=== PATIENT | female | born 1965 | race Caucasian/White ===

== ENCOUNTER 2023-10-26 19:07 | Inpatient (IN) | payer OTHER ==
--- NOTE | 2023-10-26 19:34 | ED ---
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 Paramedics have been called with altered mental status and shallow respiration. The patient was found to be hypoxic and unresponsive. Patient received BVM respirations and Narcan was administered. At the time of arrival the patient is alert and oriented. She has no physical complaints with the exception of left arm pain. She states that she had fallen several days ago and had not been evaluated for this complaint. She does admit to taking oral morphine but states she took it this morning and is presenting at approximately 7 PM. No chest pain, no abdominal pain, no focal numbness or weakness. No headache. No fever. - Related Data Allergies Allergy/AdvReac Type Severity Reaction Status Date / Time divalproex sodium AdvReac Unknown Verified 10/26/23 19:20 [From Depakote] phenytoin [From Dilantin] AdvReac Unknown Verified 10/26/23 19:20 Review of Systems ROS Statement: Those systems with pertinent positive or pertinent negative responses have been documented in the HPI. ROS Other: All systems not noted in ROS Statement are negative. Past Medical History Additional Past Medical History / Comment(s): Per EMS COPD History of Any Multi-Drug Resistant Organisms: None Reported Past Surgical History: Unable to Obtain Past Psychological History: No Psychological Hx Reported Smoking Status: Never smoker Past Alcohol Use History: None Reported Past Drug Use History: None Reported General Exam Limitations: no limitations General appearance: alert, in no apparent distress Head exam: Present: atraumatic, normocephalic Eye exam: Present: normal appearance, PERRL ENT exam: Present: mucous membranes dry Neck exam: Present: normal inspection. Absent: tenderness, meningismus Respiratory exam: Present: other (Shallow respirations). Absent: respiratory distress Cardiovascular Exam: Present: regular rate, normal rhythm GI/Abdominal exam: Present: soft. Absent: distended, tenderness, guarding Extremities exam: Present: other (Swelling and ecchymosis of the left mid upper arm, distal pulses intact) Neurological exam: Present: alert, oriented X3, CN II-XII intact. Absent: motor sensory deficit Psychiatric exam: Present: normal affect, normal mood Skin exam: Present: warm, dry Course Vital Signs 10/26/23 19:16 Temperature 98.7 F Pulse Rate 80 Respiratory 28 H Rate Blood Pressure 80/54 O2 Sat by Pulse 99 Oximetry Medical Decision Making - Medical Decision Making Was pt. sent in by a medical professional or institution ([facility], [employer], urgent care, hospital, or group home...) When possible be specific @ -No Did you speak to anyone other than the patient for history (EMS, parent, family, police, friend...)? What history was obtained from this source @ -No Did you review nursing and triage notes (agree or disagree)? Why? @ -I reviewed and agree with nursing and triage notes Were old charts reviewed (outside hosp., previous admission, EMS record, old EKG, old radiological studies, urgent care reports/EKG's, group home records)? Report findings @ -No old charts were reviewed Differential Diagnosis (chest pain, altered mental status, abdominal pain women, abdominal pain men, vaginal bleeding, weakness, fever, dyspnea, syncope, headache, dizziness, GI bleed, back pain, seizure, CVA, palpatations, mental health, musculoskeletal)? @ -Differential Altered Mental Status: Hypoglycemia, DKA, hypercapnia, ETOH, overdose, CO poisoning, trauma, myxedema coma, HTN encephalopathy, infection, encephalitis, psychosis, intercranial hemorrhage, hepatic encephalopathy, meningitis, CVA, this is not meant to be an all-inclusive list EKG interpreted by me (3pts min.). @Sinus rhythm rate of 80, DE interval 163, QRS duration 93, QTc [address] segment elevation. X-rays interpreted by me (1pt min.). @ -X-ray left shoulder, humerus shows proximal comminuted humerus fracture, no dislocation. CT interpreted by me (1pt min.). @ -None done U/S interpreted by me (1pt. min.). @ -None done What testing was considered but not performed or refused? (CT, X-rays, U/S, labs)? Why? @ -None What meds were considered but not given or refused? Why? @ -None Did you discuss the management of the patient with other professionals (professionals i.e. [facility], [employer], lab, RT, psych nurse, social work supervisor, public records officer, teacher, guest services officer, field case manager)? Give summary @ -No Was smoking cessation discussed for >3mins.? @ -No Was critical care preformed (if so, how long)? @ -No Were there social determinants of health that impacted care today? How? (Homelessness, low income, unemployed, alcoholism, drug addiction, transportation, low edu. Level, literacy, decrease access to med. care, half-way, rehab)? @ -No Was there de-escalation of care discussed even if they declined (Discuss DNR or withdrawal of care, Hospice)? DNR status @ -No What co-morbidities impacted this encounter? (DM, HTN, Smoking, COPD, CAD, Cancer, CVA, ARF, Chemo, Hep., AIDS, mental health diagnosis, sleep apnea, morbid obesity)? @ -COPD, leukemia, chronic kidney disease. Was patient admitted / discharged? Hospital course, mention meds given and route, prescriptions, significant lab abnormalities, going to OR and other pertinent info. @ -Further history is obtained on this patient from family state that she just moved to the area. She has history of leukemia and is apparently in remission. She states she does have history of chronic kidney disease but is uncertain of her baseline kidney function. She had fallen approximately 4 days prior with left shoulder injury. Fracture is confirmed on x-ray. Patient placed in a sling. She does remain alert throughout the [facility] Potassium is elevated 6.2, will provide hydration and will test repeat CMP. Patient will be admitted with both nephrology and orthopedics on consult. Patient is being admitted for hyperkalemia and kidney disease not for her orthopedic injury. Undiagnosed new problem with uncertain prognosis? @ -No Drug Therapy requiring intensive monitoring for toxicity (Heparin, Nitro, Insu essence, Cardizem)? @ -No Were any procedures done? @ -No Diagnosis/symptom? @ -SCOTT, hyperkalemia, dehydration, left humerus fracture Acute, or Chronic, or Acute on Chronic? @ -[Acute on chronic Uncomplicated (without systemic symptoms) or Complicated (systemic symptoms)? @ -Default Side effects of treatment? @ -No Exacerbation, Progression, or Severe Exacerbation? @ -No Poses a threat to life or bodily function? How? (Chest pain, USA, GA, pneumonia, PE, COPD, DKA, ARF, appy, cholecystitis, CVA, Diverticulitis, Homicidal, Suicidal, threat to staff... and all critical care pts) @ -Yes, hyperkalemia - Lab Data Result diagrams: 10/26/23 20:10 10/26/23 20:59 Lab Results 10/26/23 10/26/23 10/26/23 Range/Units 19:33 20:10 20:59 WBC 1.9 L (3.8-10.6) k/uL RBC 3.02 L (3.80-5.40) m/uL Hgb 10.4 L (11.4-16.0) gm/dL Hct 32.8 L (34.0-46.0) % MCV 108.8 H (80.0-100.0) fL MCH 34.6 (25.0-35.0) pg MCHC 31.8 (31.0-37.0) g/dL RDW 17.3 H (11.5-15.5) % Plt Count 109 L (150-450) k/uL MPV 9.6 Neutrophils % 65 % Lymphocytes % 25 % Monocytes % 6 % Eosinophils % 1 % Basophils % 0 % Neutrophils # 1.2 L (1.3-7.7) k/uL Lymphocytes # 0.5 L (1.0-4.8) k/uL Monocytes # 0.1 (0-1.0) k/uL Eosinophils # 0.0 (0-0.7) k/uL Basophils # 0.0 (0-0.2) k/uL Manual Slide Review Performed Polychromasia Present Anisocytosis Slight Anisocytosis (manual) Present Macrocytosis Marked A Sodium 134 L 135 L (137-145) mmol/L Potassium 6.2 H* 5.2 H (3.5-5.1) mmol/L Chloride 105 108 H (98-107) mmol/L Carbon Dioxide 20 L 22 (22-30) mmol/L Anion Gap 9 5 mmol/L BUN 55 H 53 H (7-17) mg/dL Creatinine 2.09 H 2.06 H (0.52-1.04) mg/dL Est GFR (CKD-EPI)AfAm 30 30 (>60 ml/min/1.73 sqM) Est GFR (CKD-EPI)NonAf 26 26 (>60 ml/min/1.73 sqM) Glucose 122 H 119 H (74-99) mg/dL Calcium 7.8 L 7.2 L (8.4-10.2) mg/dL Magnesium 2.1 (1.6-2.3) mg/dL Total Bilirubin 1.1 0.8 (0.2-1.3) mg/dL AST 112 H 89 H (14-36) U/L ALT 102 H 89 H (4-34) U/L Alkaline Phosphatase 125 124 (38-126) U/L Total Protein 6.2 L 5.3 L (6.3-8.2) g/dL Albumin 3.4 L 2.8 L (3.5-5.0) g/dL Disposition Clinical Impression: Altered mental status, Hyperkalemia, Humerus fracture Disposition: ADMITTED IP TO THIS HOSP Condition: Stable Is patient prescribed a controlled substance at d/c from ED?: No Referrals: None,Stated [Primary Care Provider] - 1-2 days Time of Disposition: 21:53
[2023-10-26 19:52] LABS: ALT 102 U/L (4-34); African American GFR (CKD) 30 (>60 ml/min/1.73 sqM); Anion Gap 9 mmol/L; Blood Urea Nitrogen 55 mg/dL (7-17); Calcium 7.8 mg/dL (8.4-10.2); Carbon Dioxide 20 mmol/L (22-30); Chloride 105 mmol/L (98-107); Glucose 122 mg/dL (74-99); Non-African American GFR(CKD) 26 (>60 ml/min/1.73 sqM); Sodium 134 mmol/L (137-145); Total Bilirubin 1.1 mg/dL (0.2-1.3)
[2023-10-26] MEDS: SODIUM CHLORIDE 0.9% 500 ML 500 ML IV ONE ×2 (19:52→20:36)
[2023-10-26 20:10] LABS: Alkaline Phosphatase 125 U/L (38-126); Total Protein 6.2 g/dL (6.3-8.2)
[2023-10-26 20:11] LABS: AST 112 U/L (14-36); Albumin 3.4 g/dL (3.5-5.0); Magnesium 2.1 mg/dL (1.6-2.3)
[2023-10-26 20:12] LABS: Potassium 6.2 mmol/L (3.5-5.1)
[2023-10-26 20:17] LABS: Anisocytosis Slight; Basophils % (A) 0 %; Eosinophils % (A) 1 %; HCT 32.8 % (34.0-46.0); HGB 10.4 gm/dL (11.4-16.0); Lymphocytes # (A) 0.5 k/uL (1.0-4.8); Lymphocytes % (A) 25 %; MCH 34.6 pg (25.0-35.0); MCHC 31.8 g/dL (31.0-37.0); MCV 108.8 fL (80.0-100.0); Macrocytosis Marked; Mean Platelet Volume 9.6; Monocytes # (A) 0.1 k/uL (0-1.0); Monocytes % (A) 6 %; Neutrophils # (A) 1.2 k/uL (1.3-7.7); Neutrophils % (A) 65 %; Platelet Count 109 k/uL (150-450); RBC 3.02 m/uL (3.80-5.40); RDW 17.3 % (11.5-15.5); WBC 1.9 k/uL (3.8-10.6)
--- NOTE | 2023-10-26 20:30 | XR ---
Left shoulder. HISTORY: Painful internal COMPARISON: None TECHNIQUE: 4 views left shoulder were obtained. There is a 3 or 4 part fracture of the left humeral head. Is uncertain whether the lesser tuberosity is involved but there is a fracture of the greater tuberosity and of the surgical neck. There is widening of the AC joint region the question of AC joint separation. IMPRESSION: 1. 3 or 4 part fracture of the left humeral head. 2. Widening of the AC joint suggestive of AC joint separation.
--- NOTE | 2023-10-26 20:32 | XR ---
Left humerus. HISTORY: Pain findings COMPARISON: None. TECHNIQUE: 2 views left humerus are obtained. Planes: There is a 3 or 4 part humeral head fracture. The shaft and distal aspect of the left humerus are int act. There is no radiopaque foreign body. IMPRESSION: Fractured left humeral head as described above.
[2023-10-26 21:08] LABS: Anisocytosis (M) Present; Polychromasia Present
[2023-10-26 21:20] LABS: ALT 89 U/L (4-34); AST 89 U/L (14-36); African American GFR (CKD) 30 (>60 ml/min/1.73 sqM); Albumin 2.8 g/dL (3.5-5.0); Alkaline Phosphatase 124 U/L (38-126); Anion Gap 5 mmol/L; Blood Urea Nitrogen 53 mg/dL (7-17); Calcium 7.2 mg/dL (8.4-10.2); Carbon Dioxide 22 mmol/L (22-30); Chloride 108 mmol/L (98-107); Glucose 119 mg/dL (74-99); Non-African American GFR(CKD) 26 (>60 ml/min/1.73 sqM); Potassium 5.2 mmol/L (3.5-5.1); Sodium 135 mmol/L (137-145); Total Bilirubin 0.8 mg/dL (0.2-1.3); Total Protein 5.3 g/dL (6.3-8.2)
[2023-10-26] MEDS: SODIUM CHLORIDE 0.9% 1,000 ML IV SCH (22:30)
[2023-10-27] MEDS: SODIUM CHLORIDE 0.9% 1,000 ML IV ONE ×3 (02:37→06:22)
[2023-10-27 03:40] LABS: Glucose,Whole Blood 131 mg/dL (70-110)
--- NOTE | 2023-10-27 04:47 | P.EN ---
A- team: Indication: Altered mental status and hypotension Arrived on Scene to find: Patient somewhat confused but answering questions appropriately Vital signs reviewed: BP 86/32, pulse 75, respiratory rate 16, and SpO2 97% on 3 L nasal cannula oxygen Patient seen and examined at bedside after she was noted to have worsening mental status by the RN. Patient reported that she had come to the hospital due to a fall and 2 days ago where she injured her left arm after tripping on something. She reports ongoing mild left arm pain with denies any additional complaints. Denied experiencing chest discomfort, abdominal pain, headaches, visual disturbances, nausea, vomiting, diaphoresis. Upon chart review, it was noted that the patient was found unresponsive at home by her family members with bradycardia and bradypnea and was given Narcan intranasally via EMS which significantly improved the patient's mentation. The patient who recently moved from [place] where she was undergoing treatment for leukemia (unknown type), who was getting prescriptions of oral morphine, and is currently trying to find a local oncologist. The patient was given Narcan IV prior to my arrival at the scene which did improve the patient's mentation. General: [non toxic], [no distress], [appears older than stated age] Derm: [warm], [dry] Head: [atraumatic], [normocephalic], [symmetric] Eyes: [EOMI], [no lid lag], [anicteric sclera] Mouth: [no lip lesion], [mucus membranes moist] Cardiovascular: [S1S2 reg], [no murmur], [positive posterior tibial pulse bilateral], Lungs: [CTA bilateral], [no rhonchi, no rales] , [no accessory muscle use] Abdominal: [soft], [ nontender to palpation], [no guarding], [no appreciable organomegaly] Ext: [no gross muscle atrophy], [no edema], [no contractures] Neuro: [ CN II-XI grossly intact], [no focal neuro deficits] Psych: [Somewhat slow to respond], [oriented], [appropriate affect] Assessment: Hypotension, suspect due to dehydration versus opiate overdose Altered mental status, suspect due to above Kidney injury, acute versus chronic Macrocytic anemia Leukemia, unknown type Plan: Normal saline 1 L bolus ordered Maintenance fluid at 130 mL/h CT brain without contrast ordered Obtain lactic acid and ammonia levels Follow-up VBG Narcan as needed Monitor BMP Disposition: Admit patient to 3 S. Notified: Primary team notified by RN A Total of 45 minutes of critical care time was spent on the complex care of this patient.
[2023-10-27 04:52] LABS: Lactic Acid, Venous 0.6 mmol/L (0.7-2.0)
--- NOTE | 2023-10-27 04:52 | CT ---
EXAMINATION TYPE: CT brain wo con DATE OF EXAM: 10/27/2023 HISTORY: Found unresponsive at home by family. Last well known was noon. Patient covered in vomit and barely responsive. Bagged until Narcan kicked in. CT DLP: 1212.6 mGycm. Automated Exposure Control for Dose Reduction was Utilized. TECHNIQUE: CT scan of the head is performed without contrast. COMPARISON: None. FINDINGS: There is no acute intracranial hemorrhage or midline shift identified. There is mild diff use ventricular and sulcal prominence consistent with diffuse age-related cerebral atrophy. Covarrubias-whit e matter differentiation is maintained. The globes are intact and the visualized sinuses are clear. IMPRESSION: No acute intracranial hemorrhage or midline shift.
[2023-10-27 05:03] LABS: VBG PH 7.2 (7.31-7.41)
[2023-10-27 05:21] LABS: Amorphous Sediment,Urine Moderate /hpf; Appearance,Urine Cloudy (Clear); Bilirubin,Urine Negative (Negative); Blood,Urine Moderate (Negative); Color,Urine Light Red; Glucose,Urine (UA) Negative (Negative); Hyaline Casts,Urine 23 /lpf (0-2); Ketones,Urine Negative (Negative); Leukocyte Esterase,Urine Negative (Negative); Mucus,Urine Rare /hpf; Nitrite,Urine Negative (Negative); PH, Urine 5.5 (5.0-8.0); Protein,Urine Trace (Negative); RBC,Urine 48 /hpf (0-5); Specific Gravity,Urine 1.019 (1.001-1.035); Squamous Epithelial Cell,Urine <1 /hpf (0-4); Urobilinogen,Urine <2.0 mg/dL (<2.0); WBC,Urine 3 /hpf (0-5)
[2023-10-27] MEDS: NALOXONE 0.4 MG/ML 1 ML VIAL IV PRN (05:37)
[2023-10-27] MEDS: NALOXONE (MDV) 2 MG in SODIUM CHLORIDE 0.9% 250 ML IV SCH (06:10)
--- NOTE | 2023-10-27 06:13 | XR ---
EXAMINATION TYPE: XR chest 1V portable DATE OF EXAM: 10/27/2023 CLINICAL HISTORY: Shortness of breath TECHNIQUE: Single AP portable frontal supine view of the chest is obtained. COMPARISON: None FINDINGS: Low lung volumes are seen. There is lateral right mid lung linear scarring. Left lung is cl ear. The cardiac silhouette size is enlarged. Overlying sternal wires are present. Osseous structures are intact. IMPRESSION: Low lung volumes. Cardiomegaly without suspicious acute pulmonary process.
[2023-10-27] MEDS: NOREPINEPHRINE 4 MG in SODIUM CHLORIDE 0.9% 250 ML IV SCH (06:21)
[2023-10-27 06:34] LABS: Glucose,Whole Blood 135 mg/dL (70-110)
--- NOTE | 2023-10-27 06:42 | XR ---
EXAMINATION TYPE: XR chest 1V portable DATE OF EXAM: 10/27/2023 CLINICAL HISTORY: Confirm line placement. TECHNIQUE: Single AP portable supine view of the chest is obtained. COMPARISON: Chest x-ray from earlier today FINDINGS: There is a right internal jugular central venous catheter terminating in right atrium. No obvious pneumothorax given the limitation of supine technique. Sternal wires redemonstrated. Cardiac silhouette size stable and mildly enlarged. Mild bilateral righ t mid lung linear scarring and/or atelectasis otherwise lungs remain clear. Osseous structures are in tact. IMPRESSION: As above.
[2023-10-27] MEDS: IPRATROPIUM-ALBUTEROL 3 ML NEB INHALATION STA (06:44)
[2023-10-27] MEDS: NALOXONE 0.4 MG/ML 1 ML VIAL IVP STA (06:46)
[2023-10-27] MEDS: methylPREDNISolone SOD SUCCI 125 MG/2 ML VIAL IV STA (07:04)
--- NOTE | 2023-10-27 07:40 | P.CNPUL ---
History of Present Illness Consult date: 10/27/23 Requesting physician: Bhargav Romo Reason for consult: other (Hypotension/shock; ICU management) Chief complaint: Altered mental status History of present illness: I am seeing this patient in consultation today 10/27/2023 in the emergency room, after an A-team was called earlier for altered mental status and hypotension. Patient is a 57-year-old white female with little known past medical history, she reportedly has history of leukemia. She is currently obtunded and I am unable to elicit any information. There is no family at bedside and no listed next of kin in the chart. According to the ER documentation, the paramedics had found the patient altered with shallow respirations. She was unresponsive at that time. She did require BVM respirations and Narcan was administered. Reportedly, the patient takes morphine as needed at home. She did reportedly respond initially to the Narcan in route to the hospital. On arrival, she had some left arm pain, limited range of motion, and ecchymosis. She reportedly had fallen several days ago. Left shoulder x-ray showed widening of the A/C joint suggestive of AC joint separation and 3 or 4 part fracture of the left humeral head. As stated above, an A team was called earlier this morning and again prior to this transfer to the ICU. The patient has been experiencing intermittent episodes of unresponsiveness, requiring subsequent doses of Narcan, and ultimately a Narcan infusion which is currently infusing at 0.6 mg/h.. VBG did show a pH of 7.2, pCO2 of 53. I did place her on BiPAP with settings 12/5 and FiO2 of 35%. She is generating tidal volumes of around 500 and her respiratory rate is in the mid 20s. She is obtunded, and intermittently follows commands. This was followed by a brain CT which did not show any intracranial hemorrhage or midline shift. During the rapid response, the patient became profoundly hypotensive. She has received several liters fluid bolus while in the emergency room, I am told a total of 5 L normal saline. She was started on norepinephrine, which is currently infusing at 0.12 mcg/kg/min. The ER physician did insert a right IJ triple-lumen catheter. Chest x-ray shows the right IJ triple-lumen catheter within the right atrium. There is cardiomegaly without any acute cardiopulmonary process. There are old sternotomy wires. CBC on arrival consistent with pancytopenia. WBC count 1.9, hemoglobin 10.4, hematocrit 32.8, platelets 109. BMP on arrival: Sodium 134, potassium 6.2, c hloride 105, serum bicarb 20, BUN 55, creatinine 2.09, glucose 122. Potassium is now down to 5.2. LFTs mildly elevated. Total bili 0.8. Ammonia less than 9. Lactic acid level 0.6. Urinalysis not concerning for UTI. EKG done on arrival shows normal sinus rhythm without any obvious acute ischemic changes. Patient is at high risk for intubation, she will be monitored in the intensive care unit. Review of Systems ROS unobtainable: due to mental status Past Medical History Additional Past Medical History / Comment(s): Per EMS COPD History of Any Multi-Drug Resistant Organisms: None Reported Past Surgical History: Unable to Obtain Past Psychological History: No Psychological Hx Reported Smoking Status: Never smoker Past Alcohol Use History: None Reported Past Drug Use History: None Reported Medications and Allergies Allergies Allergy/AdvReac Type Severity Reaction Status Date / Time divalproex sodium AdvReac Unknown Verified 10/26/23 19:20 [From Depakote] phenytoin [From Dilantin] AdvReac Unknown Verified 10/26/23 19:20 Physical Exam Vitals: Vital Signs Temp Pulse Resp BP Pulse Ox FiO2 10/27/23 06:45 30 H 10/27/23 06:43 35 10/27/23 06:10 10 L 10/27/23 06:08 50 10/27/23 05:40 79 10 L 63/33 98 10/27/23 05:37 8 L 10/27/23 05:30 72 12 65/31 98 10/27/23 05:29 72 18 65/31 97 10/27/23 05:20 72 10 L 70/34 97 10/27/23 05:00 73 14 63/41 97 10/27/23 04:40 76 22 101/83 97 10/27/23 04:20 76 14 79/59 97 10/27/23 04:00 76 21 75/57 96 10/27/23 03:40 79 14 69/50 10/27/23 03:20 77 14 98/40 97 10/27/23 03:00 77 21 93/48 97 03/26/24 02:54 77 12 72/56 98 10/27/23 02:20 76 16 64/45 96 10/27/23 02:00 75 16 82/63 96 10/27/23 01:40 75 16 82/46 96 10/27/23 01:20 76 16 81/60 97 10/27/23 01:00 75 16 91/54 97 10/27/23 00:40 76 18 93/59 97 10/27/23 00:20 76 17 76/44 98 10/27/23 00:00 76 17 83/58 98 10/26/23 23:45 76 19 79/44 97 10/26/23 23:40 77 15 65/55 98 10/26/23 23:20 77 16 64/47 98 10/26/23 23:00 78 15 87/30 98 10/26/23 22:40 79 15 91/52 97 10/26/23 22:00 82 16 91/52 96 10/26/23 21:00 82 15 83/62 97 10/26/23 20:00 80 21 97/49 98 10/26/23 19:47 80 16 98 10/26/23 19:16 98.7 F 80 28 H 80/54 99 Intake and Output 10/26/23 10/26/23 10/27/23 14:59 22:59 06:59 Intake Total 48.07 Balance 48.07 Intake: Intake, IV Titration 48.07 Amount Naloxone (Mdv) 2 mg In 43.75 Sodium Chloride 0.9% 250 ml @ 0.6 MG/HR 75 mls/hr IV .Q3H20M [facility] Rx#: [id number] Norepinephrine 4 mg In 4.32 Sodium Chloride 0.9% 250 ml @ 0.03 MCG/KG/MIN 10. 369 mls/hr IV .Q24H [facility] Rx#:[id number] Other: Weight 90.718 kg GENERAL EXAM: Obtunded, 57-year-old obese female, intermittently follows commands, on BiPAP. HEAD: Normocephalic and atraumatic EYES: Normal reaction of pupils, equal size. NOSE: Clear with pink turbinates. THROAT: No erythema or exudates. NECK: No masses, no JVD. RAMU-like features CHEST: Old sternotomy incisional scar LUNGS: Intermittent periods of apnea. Equal air entry with no crackles, wheeze, rhonchi or dullness. Lung sounds are sonorous. On BiPAP with settings 12/5 and FiO2 of 35%, generating tidal volumes of around 500 and respiratory rate of mid 20s CVS: S1 and S2 normal with no audible murmur, regular rhythm. No extra heart sounds ABDOMEN: Obese abdomen, no hepatosplenomegaly, active bowel sounds, no guarding or rigidity. SPINE: No scoliosis or deformity SKIN: No rashes CENTRAL NERVOUS SYSTEM: No focal deficits, tone is normal in all 4 extremities. EXTREMITIES: There is no peripheral edema, clubbing, or cyanosis. Peripheral pulses are intact. Remote appearing bilateral knee incisions Results - Laboratory Findings CBC and BMP: 10/26/23 20:10 10/26/23 20:59 Abnormal lab findings: Abnormal Labs 10/26/23 10/26/23 10/26/23 19:33 20:10 20:59 WBC 1.9 L RBC 3.02 L Hgb 10.4 L Hct 32.8 L MCV 108.8 H RDW 17.3 H Plt Count 109 L Neutrophils # 1.2 L Lymphocytes # 0.5 L Macrocytosis Marked A VBG pH VBG pCO2 VBG HCO3 Sodium 134 L 135 L Potassium 6.2 H* 5.2 H Chloride 108 H Carbon Dioxide 20 L BUN 55 H 53 H Creatinine 2.09 H 2.06 H Glucose 122 H 119 H POC Glucose (mg/dL) Plasma Lactic Acid Bryant Calcium 7.8 L 7.2 L AST 112 H 89 H ALT 102 H 89 H Total Protein 6.2 L 5.3 L Albumin 3.4 L 2.8 L Urine Appearance Urine Protein Urine Blood Urine RBC Amorphous Sediment Hyaline Casts Urine Mucus 10/27/23 10/27/23 10/27/23 03:38 04:00 04:03 WBC RBC Hgb Hct MCV RDW Plt Count Neutrophils # Lymphocytes # Macrocytosis VBG pH VBG pCO2 VBG HCO3 Sodium Potassium Chloride Carbon Dioxide BUN Creatinine Glucose POC Glucose (mg/dL) 131 H Plasma Lactic Acid Bryant 0.6 L Calcium AST ALT Total Protein Albumin Urine Appearance Cloudy H Urine Protein Trace H Urine Blood Moderate H Urine RBC 48 H Amorphous Sediment Moderate H Hyaline Casts 23 H Urine Mucus Rare H 10/27/23 10/27/23 04:03 06:33 WBC RBC Hgb Hct MCV RDW Plt Count Neutrophils # Lymphocytes # Macrocytosis VBG pH 7.20 L* VBG pCO2 53 H VBG HCO3 21 L Sodium Potassium Chloride Carbon Dioxide BUN Creatinine Glucose POC Glucose (mg/dL) 135 H Plasma Lactic Acid Bryant Calcium AST ALT Total Protein Albumin Urine Appearance Urine Protein Urine Blood Urine RBC Amorphous Sediment Hyaline Casts Urine Mucus - Diagnostic Findings Chest x-ray: image reviewed Assessment and Plan Assessment: Altered mental status, possible unintentional opiate overdose, the patient reportedly takes morphine at home. Noncontrast brain CT did not show any intracranial hemorrhage or mass effect. Acute hypoxemic and hypercapnic respiratory failure, currently on BiPAP, possibly secondary to above Profound refractory hypotension and shock, requiring vasopressors in the form of norepinephrine. Left humeral fracture, shoulder and humeral x-ray shows 3 to 4 part fracture of the left humeral head and widening of the AC joint suggestive of AC joint separation. History of leukemia, unknown type Suspected acute kidney injury, secondary to hypotension and ATN, no baseline creatinine available Severe hyperkalemia, improved Pancytopenia History of leukemia, unknown type Mild transaminitis Fall Obesity, with a BMI of 35.4 kg/m Plan: Patient's medications, labs, chest x-ray reviewed Continue BiPAP with current settings Repeat ABG Continue Narcan infusion which is currently infusing at 0.6 mg/min Urine drug screen pending. Central line placed by ER physician, tip appears to be in the right atrium Hypotension is refractory to fluid resuscitation with a total of 5 L normal saline bolus given, currently requiring high-dose norepinephrine infusion Blood cultures are pending. Patient did receive 2 g Rocephin in the emergency room, which is essentially empiric. No obvious source of infection identified yet. Echocardiogram pending. We will continue to follow, and additional recommendations are forthcoming. Patient will be monitored in the intensive care unit, she is at high risk for intubation. Prognosis guarded. I have personally seen and examined the patient, performed the documentation and the assessment and plan as written. Number of minutes spent on the visit:20 Time with Patient: Greater than 30
[2023-10-27 07:45] LABS: Anisocytosis Slight; Basophils % (A) 0 %; Eosinophils % (A) 0 %; HGB 9.4 gm/dL (11.4-16.0); Hypochromasia Marked; Lymphocytes # (A) 0.4 k/uL (1.0-4.8); Lymphocytes % (A) 15 %; MCH 35.2 pg (25.0-35.0); MCHC 31.2 g/dL (31.0-37.0); MCV 112.9 fL (80.0-100.0); Macrocytosis Marked; Mean Platelet Volume 9.2; Monocytes # (A) 0.2 k/uL (0-1.0); Monocytes % (A) 7 %; Neutrophils # (A) 2.1 k/uL (1.3-7.7); Neutrophils % (A) 74 %; RBC 2.66 m/uL (3.80-5.40); RDW 17.4 % (11.5-15.5); WBC 2.8 k/uL (3.8-10.6)
[2023-10-27 07:47] LABS: Platelet Count 103 k/uL (150-450)
[2023-10-27 07:51] LABS: Lactic Acid, Venous 0.7 mmol/L (0.7-2.0)
[2023-10-27 07:53] LABS: ALT 96 U/L (4-34); AST 136 U/L (14-36); African American GFR (CKD) 26 (>60 ml/min/1.73 sqM); Albumin 2.5 g/dL (3.5-5.0); Albumin/Globulin Ratio 1.1; Alkaline Phosphatase 120 U/L (38-126); Anion Gap 10 mmol/L; Blood Urea Nitrogen 58 mg/dL (7-17); Calcium 6.6 mg/dL (8.4-10.2); Carbon Dioxide 13 mmol/L (22-30); Chloride 114 mmol/L (98-107); Globulin 2.3 g/dL; Glucose 128 mg/dL (74-99); Magnesium 1.8 mg/dL (1.6-2.3); Non-African American GFR(CKD) 22 (>60 ml/min/1.73 sqM); Potassium 5.2 mmol/L (3.5-5.1); Sodium 137 mmol/L (137-145); Total Bilirubin 1.1 mg/dL (0.2-1.3); Total Protein 4.8 g/dL (6.3-8.2)
[2023-10-27 08:51] LABS: Amphetamine Screen,Urine Not Detected (NotDetected); Barbiturate Screen,Urine Not Detected (NotDetected); Benzodiazepines Screen,Urine Detected (NotDetected); Cocaine Screen,Urine Not Detected (NotDetected); Methadone Screen, Urine Not Detected (NotDetected); Opiate Screen,Urine Detected (NotDetected); Oxycodone Screen, Urine Not Detected (NotDetected); Phencyclidine Screen,Urine Not Detected (NotDetected); Tricyclic Antidepressant,Urine Detected (NotDetected); Urn Cannabinoid Scrn Not Detected (NotDetected)
--- NOTE | 2023-10-27 09:00 | US ---
EXAMINATION TYPE: US renals and bladder DATE OF EXAM: 10/27/2023 COMPARISON: NONE CLINICAL INDICATION: Female, 57 years old with history of SCOTT; ICU pt that is not responsive to quest ioning, on breathing machine EXAM MEASUREMENTS: Right Kidney: 10.4 x 4.9 x 5.6 cm Left Kidney: 8.0 x 5.0 x 5.0 cm limited exam due to habitus and bowel gas Right Kidney: No hydronephrosis or masses seen Left Kidney: Smaller in size, no hydronephrosis or masses seen Bladder: not seen Renal cortex thickness is normal bilaterally. Echogenicity maintained. IMPRESSION: No hydronephrosis or nephrolithiasis.
--- NOTE | 2023-10-27 09:12 | P.CNOR ---
History of Present Illness - [facility] Consult date: 10/27/23 Consult reason: fracture (Left proximal humerus fracture) History of present illness: Patient is a 57-year-old female who is seen and examined in the ICU for further evaluation for a left proximal humerus fracture. She originally presented to the emergency department yesterday for altered mental status and hypotension. Patient is known to have a history of leukemia. She does use morphine. She did have some benefit with Narcan. She was in the emergency department with plans for transfer up to fifth floor. Since that time, patient has been having episodes of unresponsiveness. A Team was called to the emergency department. During rapid response patient did become profoundly hypotensive. Patient was transferred to the ICU. She is currently obtunded. She is not responsive currently to stimulation at the bedside. She is currently on BiPAP. She does have a sling for the left upper extremity which was placed in the emergency department. Patient was found to have hyperkalemia as well as pancytopenia. Patient has a history of kidney disease. Most of the history was obtained through patient's family who is not currently at the bedside. CT imaging of the brain was negative for acute intracranial hemorrhage or midline shift. Past Medical History Additional Past Medical History / Comment(s): Per EMS COPD History of Any Multi-Drug Resistant Organisms: None Reported Past Surgical History: Unable to Obtain Past Psychological History: No Psychological Hx Reported Smoking Status: Never smoker Past Alcohol Use History: None Reported Past Drug Use History: None Reported - Past Family History Mother Family Medical History: Congestive Heart Failure (CHF), Coronary Artery Disease (CAD), Hyperlipidemia, Myocardial Infarction (MO) Additional Family Medical History / Comment(s): CABG,knee replacement x1, Medications and Allergies Allergies Allergy/AdvReac Type Severity Reaction Status Date / Time divalproex sodium Allergy Unknown Verified 10/27/23 10:00 [From Depakote] phenytoin [From Dilantin] Allergy Unknown Verified 10/27/23 10:00 Physical Examination Osteopathic Statement: *. No significant issues noted on an osteopathic structural exam other than those noted in the History and Physical/Consult. Physical Exam: Patient is obtunded currently on BiPAP and unable to communicate at the bedside Sling intact over the left upper extremity but strap not wrapped around the patient's neck Evidence of some ecchymosis over the left proximal humerus Some generalized swelling with her left upper extremity Patient is nonresponsive to palpation over the left proximal humerus Results Pertinent studies: X-rays of the left humerus and shoulder taken on 10/26/2023: Evidence of 3 or 4 part fracture of the left humeral head; widening of the AC joint suggestive of AC joint separation - Labs Labs: Abnormal Lab Results - Last 24 Hours (Table) 10/26/23 10/26/23 10/26/23 Range/Units 19:33 20:10 20:59 WBC 1.9 L (3.8-10.6) k/uL RBC 3.02 L (3.80-5.40) m/uL Hgb 10.4 L (11.4-16.0) gm/dL Hct 32.8 L (34.0-46.0) % MCV 108.8 H (80.0-100.0) fL MCH (25.0-35.0) pg RDW 17.3 H (11.5-15.5) % Plt Count 109 L (150-450) k/uL Neutrophils # 1.2 L (1.3-7.7) k/uL Lymphocytes # 0.5 L (1.0-4.8) k/uL Macrocytosis Marked A VBG pH (7.31-7.41) VBG pCO2 (37-51) mmHg VBG HCO3 (24-28) mmol/L Sodium 134 L 135 L (137-145) mmol/L Potassium 6.2 H* 5.2 H (3.5-5.1) mmol/L Chloride 108 H (98-107) mmol/L Carbon Dioxide 20 L (22-30) mmol/L BUN 55 H 53 H (7-17) mg/dL Creatinine 2.09 H 2.06 H (0.52-1.04) mg/dL Glucose 122 H 119 H (74-99) mg/dL POC Glucose (mg/dL) (70-110) mg/dL Plasma Lactic Acid Bryant (0.7-2.0) mmol/L Calcium 7.8 L 7.2 L (8.4-10.2) mg/dL AST 112 H 89 H (14-36) U/L ALT 102 H 89 H (4-34) U/L Ammonia (<30) umol/L Total Protein 6.2 L 5.3 L (6.3-8.2) g/dL Albumin 3.4 L 2.8 L (3.5-5.0) g/dL Urine Appearance (Clear) Urine Protein (Negative) Urine Blood (Negative) Urine RBC (0-5) /hpf Amorphous Sediment (None) /hpf Hyaline Casts (0-2) /lpf Urine Mucus (None) /hpf Urine Opiates Screen (NotDetected) U Tricyclic Antidepress (NotDetected) U Benzodiazepines Scrn (NotDetected) 10/27/23 10/27/23 10/27/23 Range/Units 03:38 04:00 04:03 WBC (3.8-10.6) k/uL RBC (3.80-5.40) m/uL Hgb (11.4-16.0) gm/dL Hct (34.0-46.0) % MCV (80.0-100.0) fL MCH (25.0-35.0) pg RDW (11.5-15.5) % Plt Count (150-450) k/uL Neutrophils # (1.3-7.7) k/uL Lymphocytes # (1.0-4.8) k/uL Macrocytosis VBG pH (7.31-7.41) VBG pCO2 (37-51) mmHg VBG HCO3 (24-28) mmol/L Sodium (137-145) mmol/L Potassium (3.5-5.1) mmol/L Chloride (98-107) mmol/L Carbon Dioxide (22-30) mmol/L BUN (7-17) mg/dL Creatinine (0.52-1.04) mg/dL Glucose (74-99) mg/dL POC Glucose (mg/dL) 131 H (70-110) mg/dL Plasma Lactic Acid Bryant 0.6 L (0.7-2.0) mmol/L Calcium (8.4-10.2) mg/dL AST (14-36) U/L ALT (4-34) U/L Ammonia (<30) umol/L Total Protein (6.3-8.2) g/dL Albumin (3.5-5.0) g/dL Urine Appearance Cloudy H (Clear) Urine Protein Trace H (Negative) Urine Blood Moderate H (Negative) Urine RBC 48 H (0-5) /hpf Amorphous Sediment Moderate H (None) /hpf Hyaline Casts 23 H (0-2) /lpf Urine Mucus Rare H (None) /hpf Urine Opiates Screen (NotDetected) U Tricyclic Antidepress (NotDetected) U Benzodiazepines Scrn (NotDetected) 10/27/23 10/27/23 10/27/23 Range/Units 04:03 04:03 06:33 WBC (3.8-10.6) k/uL RBC (3.80-5.40) m/uL Hgb (11.4-16.0) gm/dL Hct (34.0-46.0) % MCV (80.0-100.0) fL MCH (25.0-35.0) pg RDW (11.5-15.5) % Plt Count (150-450) k/uL Neutrophils # (1.3-7.7) k/uL Lymphocytes # (1.0-4.8) k/uL Macrocytosis VBG pH 7.20 L* (7.31-7.41) VBG pCO2 53 H (37-51) mmHg VBG HCO3 21 L (24-28) mmol/L Sodium (137-145) mmol/L Potassium (3.5-5.1) mmol/L Chloride (98-107) mmol/L Carbon Dioxide (22-30) mmol/L BUN (7-17) mg/dL Creatinine (0.52-1.04) mg/dL Glucose (74-99) mg/dL POC Glucose (mg/dL) 135 H (70-110) mg/dL Plasma Lactic Acid Bryant (0.7-2.0) mmol/L Calcium (8.4-10.2) mg/dL AST (14-36) U/L ALT (4-34) U/L Ammonia (<30) umol/L Total Protein (6.3-8.2) g/dL Albumin (3.5-5.0) g/dL Urine Appearance (Clear) Urine Protein (Negative) Urine Blood (Negative) Urine RBC (0-5) /hpf Amorphous Sediment (None) /hpf Hyaline Casts (0-2) /lpf Urine Mucus (None) /hpf Urine Opiates Screen Detected H (NotDetected) U Tricyclic Antidepress Detected H (NotDetected) U Benzodiazepines Scrn Detected H (NotDetected) 10/27/23 10/27/23 10/27/23 Range/Units 06:57 06:57 06:57 WBC 2.8 L (3.8-10.6) k/uL RBC 2.66 L (3.80-5.40) m/uL Hgb 9.4 L (11.4-16.0) gm/dL Hct 30.0 L (34.0-46.0) % MCV 112.9 H (80.0-100.0) fL MCH 35.2 H (25.0-35.0) pg RDW 17.4 H (11.5-15.5) % Plt Count 103 L (150-450) k/uL Neutrophils # (1.3-7.7) k/uL Lymphocytes # (1.0-4.8) k/uL Macrocytosis Marked A VBG pH (7.31-7.41) VBG pCO2 (37-51) mmHg VBG HCO3 (24-28) mmol/L Sodium (137-145) mmol/L Potassium 5.2 H (3.5-5.1) mmol/L Chloride 114 H (98-107) mmol/L Carbon Dioxide 13 L (22-30) mmol/L BUN 58 H (7-17) mg/dL Creatinine 2.33 H (0.52-1.04) mg/dL Glucose 128 H (74-99) mg/dL POC Glucose (mg/dL) (70-110) mg/dL Plasma Lactic Acid Bryant (0.7-2.0) mmol/L Calcium 6.6 L (8.4-10.2) mg/dL AST 136 H (14-36) U/L ALT 96 H (4-34) U/L Ammonia 55 H (<30) umol/L Total Protein 4.8 L (6.3-8.2) g/dL Albumin 2.5 L (3.5-5.0) g/dL Urine Appearance (Clear) Urine Protein (Negative) Urine Blood (Negative) Urine RBC (0-5) /hpf Amorphous Sediment (None) /hpf Hyaline Casts (0-2) /lpf Urine Mucus (None) /hpf Urine Opiates Screen (NotDetected) U Tricyclic Antidepress (NotDetected) U Benzodiazepines Scrn (NotDetected) H & H 10/26/23 10/27/23 Range/Units 20:10 06:57 Hgb 10.4 L 9.4 L (11.4-16.0) gm/dL Hct 32.8 L 30.0 L (34.0-46.0) % Result Diagrams: 10/27/23 06:57 10/27/23 06:57 Assessment and Plan Assessment: Assessment: Left proximal humerus fracture status post fall 4 days ago Left humerus pain Acute hypoxic and hypercapnic respiratory failure currently on BiPAP Profound refractory hypotension and shock Altered mental status currently obtunded History of leukemia History morphine use Hyperkalemia Kidney disease with suspected acute kidney injury Pancytopenia (1) Status post fall Current Visit: Yes Status: Acute Code(s): Z91.81 - HISTORY OF FALLING SNOMED Code(s): 032461055 (2) History of leukemia Current Visit: Yes Status: Acute Code(s): Z85.6 - PERSONAL HISTORY OF LEUKEMIA SNOMED Code(s): 779536358 (3) Kidney disease Current Visit: Yes Status: Acute Code(s): N28.9 - DISORDER OF KIDNEY AND URETER, UNSPECIFIED SNOMED Code(s): 89893097 (4) Pancytopenia Current Visit: Yes Status: Acute Code(s): D61.818 - OTHER PANCYTOPENIA SNOMED Code(s): 895971008 (5) Left upper arm pain Current Visit: Yes Status: Acute Code(s): M79.622 - PAIN IN LEFT UPPER ARM SNOMED Code(s): 758090382078255 (6) Acute hypoxic respiratory failure Current Visit: Yes Status: Acute Code(s): J96.01 - ACUTE RESPIRATORY FAILURE WITH HYPOXIA SNOMED Code(s): 08018209 (7) Altered mental status Current Visit: Yes Status: Acute Code(s): R41.82 - ALTERED MENTAL STATUS, UNSPECIFIED SNOMED Code(s): 763718364 (8) Humerus fracture Current Visit: Yes Status: Acute Code(s): S42.309A - UNSP FRACTURE OF SHAFT OF HUMERUS, UNSP ARM, INIT SNOMED Code(s): 11212810 (9) Hyperkalemia Current Visit: Yes Status: Acute Code(s): E87.5 - HYPERKALEMIA SNOMED Code(s): 65474260 Plan: Plan: 1. Patient is being seen and examined the bedside from an orthopedic standpoint for her left proximal humerus fracture with left humerus pain status post fall 4 days ago. Sling was placed in the emergency department. Currently, patient has other significant medical diagnoses and is in the ICU. She is currently being treated for acute hypoxic and hypercapnic respiratory failure currently on BiPAP, profound refractory hypotension and shock, altered mental status currently obtunded, kidney disease, and hyperkalemia. Currently, would plan to continue with treatment for her left proximal humerus fracture with conservative treatment. We would not plan for any acute surgical intervention in regards to her left upper extremity and feels she should continue with all other treatment in regards to her other significant medical diagnoses. Left upper extremity sling is currently intact over the left elbow. Strap is not currently placed around the patient's neck given her recent BiPAP placement. We did discuss once the patient is awake sling strap should be placed back over the patient's neck. Currently patient is not responsive and is not moving her left upper extremity. She should be strict nonweightbearing with her left upper extremity. She should keep her left upper extremity sling intact at all times but may remove her elbow to work on gentle range of motion of the left elbow. She may perform light activities with the fingers of her left hand. From an orthopedic standpoint, patient will be cleared for discharge with plans for further evaluation in the outpatient setting. Patient may follow-up with Triston Miller PA-C or Dr. Karthikeyan Marin at [facility] in 1-2 weeks following discharge. 2. Patient will continue to be seen examined by multiple other medical providers including medicine and pulmonology as patient is currently in the ICU. The patient is seen and examined at bedside in the intensive care unit. I reviewed the imaging as well as the dictation above. The patient sustained a fall and has had a number of issues in terms of her blood pressure as well as her hypoxia. Currently she is feeling well. She is on room air and comfortable. She is still complaining of significant pain at her left shoulder particular with any motion. She denies any numbness tingling in her left arm. The patient has a new 3 to 4 part proximal humerus fracture with mild displacement. She is neurologically intact at her left upper extremity and I think she can do well with conservative treatment. We have ordered a shoulder immobilizer for her which she should have on essentially at all times. It is okay for her to flex and extend her elbow as long as she keeps her upper arm near her body. We do not have plans for surgical intervention for her left shoulder at this point. From an orthopedic standpoint is okay for her to continue conservative treatment and follow-up with us in 1 to 2 weeks after discharge for recheck evaluation and repeat imaging. I discussed this with her at length and she understands. I answered her questions and she is agreeable. Time with Patient: Greater than 30 (Including obtaining history, physical examination, reviewing of imaging, and dictation.)
[2023-10-27 09:42] LABS: Poikilocytosis (M) Present
--- NOTE | 2023-10-27 10:21 | P.NPCON ---
History of Present Illness - Reason for Consult acute renal failure - History of Present Illness Reason for consultation: Acute kidney injury History of present illness: Patient is a 57-year-old female seen in renal consultation for acute kidney injury. Patient's creatinine on admission was 2.09 and is 2.33 today. Unknown baseline renal function. Patient has history of unknown malignancy and is maint ained on morphine outpatient. Patient was found down on the floor by the family and was sent to the hospital. Patient is noted to have left humeral fracture. She is being followed by orthopedic surgery. She is currently on a BiPAP. Patient is a poor historian. I do see losartan on her home medication list as well as potassium supplementation which are currently held. She is currently on Levophed. Potassium level was 6.2 on admission and is now down to 5.2. Patient is noted to be acidotic with a bicarb level of 13. She is currently receiving normal saline. Nonoliguric. Urine drug screen was positive for benzodiazepines, TCAs and opioids. Patient also received 4 L of normal saline bolus since admission. Vital signs are stable. On Levophed. General: No acute distress. Resting in bed. HEENT: Head exam is unremarkable. On BiPAP. LUNGS: Scattered rhonchi. HEART: Rate and Rhythm are regular. ABDOMEN: No distention. EXTREMITITES: No edema. Past Medical History Additional Past Medical History / Comment(s): Per EMS COPD History of Any Multi-Drug Resistant Organisms: None Reported Past Surgical History: Unable to Obtain Past Psychological History: No Psychological Hx Reported Smoking Status: Never smoker Past Alcohol Use History: None Reported Past Drug Use History: None Reported Medications and Allergies Home Medications Medication Instructions Recorded Confirmed Type ALPRAZolam [Xanax] 1 mg PO HS 10/27/23 10/27/23 History Acyclovir [Zovirax] 400 mg PO BID 10/27/23 10/27/23 History Butalb/APAP/Caff 50-325-40Mg 1 tab PO Q4H PRN MDD 6 TABLETS 10/27/23 10/27/23 History [Fioricet 50-325-40] FLUoxetine HCL [PROzac] 40 mg PO DAILY 10/27/23 10/27/23 History Gabapentin [Neurontin] 300 mg PO BID 10/27/23 10/27/23 History Gilteritinib Fumarate [Xospata] 120 mg PO DAILY 10/27/23 10/27/23 History Losartan [Cozaar] 25 mg PO DAILY 10/27/23 10/27/23 History Morphine Sulfate Ir [MSIR] 15 mg PO QID 10/27/23 10/27/23 History Pioglitazone [Actos] 30 mg PO DAILY 10/27/23 10/27/23 History Potassium Chloride [Klor-Con M20] 20 meq PO DAILY 10/27/23 10/27/23 History Suvorexant [Belsomra] 15 mg PO HS PRN 10/27/23 10/27/23 History methocarbamoL [Robaxin] 500 mg PO TID 10/27/23 10/27/23 History Allergies Allergy/AdvReac Type Severity Reaction Status Date / Time divalproex sodium Allergy Unknown Verified 10/27/23 10:00 [From Depakote] phenytoin [From Dilantin] Allergy Unknown Verified 10/27/23 10:00 Physical Exam Vitals: Vital Signs Temp Pulse Resp BP Pulse Ox FiO2 10/27/23 09:21 30 H 10/27/23 08:16 35 10/27/23 07:00 80 30 H 93/43 100 10/27/23 06:58 78 12 103/49 97 10/27/23 06:45 97.8 F 77 22 121/62 100 35 10/27/23 06:43 35 10/27/23 06:10 10 L 10/27/23 06:08 50 10/27/23 05:40 79 10 L 63/33 98 10/27/23 05:37 8 L 10/27/23 05:30 72 12 65/31 98 10/27/23 05:29 72 18 65/31 97 10/27/23 05:20 72 10 L 70/34 97 10/27/23 05:00 73 14 63/41 97 10/27/23 04:40 76 22 101/83 97 10/27/23 04:20 76 14 79/59 97 10/27/23 04:00 76 21 75/57 96 10/27/23 03:40 79 14 69/50 10/27/23 03:20 77 14 98/40 97 10/27/23 03:00 77 21 93/48 97 10/27/23 02:54 77 12 72/56 98 10/27/23 02:20 76 16 64/45 96 10/27/23 02:00 75 16 82/63 96 10/27/23 01:40 75 16 82/46 96 10/27/23 01:20 76 16 81/60 97 10/27/23 01:00 75 16 91/54 97 10/27/23 00:40 76 18 93/59 97 10/27/23 00:20 76 17 76/44 98 10/27/23 00:00 76 17 83/58 98 10/26/23 23:45 76 19 79/44 97 10/26/23 23:40 77 15 65/55 98 10/26/23 23:20 77 16 64/47 98 10/26/23 23:00 78 15 87/30 98 10/26/23 22:40 79 15 91/52 97 10/26/23 22:00 82 16 91/52 96 10/26/23 21:00 82 15 83/62 97 10/26/23 20:00 80 21 97/49 98 10/26/23 19:47 80 16 98 10/26/23 19:16 98.7 F 80 28 H 80/54 99 Intake and Output 10/26/23 10/27/23 10/27/23 22:59 06:59 14:59 Intake Total 54.291 2448.391 Output Total 225 Balance 54.291 2223.391 Intake: IV 2180 Sodium Chloride 0.9% 1, 130 000 ml @ 130 mls/hr IV . Q7H42M [facility] Rx#:[id number] Sodium Chloride 0.9% 1, 2000 000 ml @ 999 mls/hr IV . Q1H1M ONE Rx#:[id number] cefTRIAXone 2 gm In 50 Sodium Chloride 0.9% 50 ml @ 100 mls/hr IVPB ONCE STA Rx#:[id number] Intake, IV Titration 54.291 268.391 Amount Naloxone (Mdv) 2 mg In 43.75 195 Sodium Chloride 0.9% 250 ml @ 0.6 MG/HR 75 mls/hr IV .Q3H20M [facility] Rx#: [id number] Norepinephrine 4 mg In 10.541 73.391 Sodium Chloride 0.9% 250 ml @ 0.03 MCG/KG/MIN 10. 369 mls/hr IV .Q24H [facility] Rx#:[id number] Output: Urine 225 Other: Voiding Method Indwelling Catheter Weight 90.718 kg Results - Lab Results Most recent lab results Calcium 6.6 mg/dL (8.4-10.2) L 10/27/23 06:57 Magnesium 1.8 mg/dL (1.6-2.3) 10/27/23 06:57 10/27/23 06:57 10/27/23 06:57 Assessment and Plan Plan: Assessment: 1. Acute kidney injury secondary to ATN secondary to hypotension versus underlying chronic kidney disease. Creatinine 2.33 today. Unknown baseline renal function. No hydronephrosis noted on kidney ultrasound. Left kidney atrophic. 2. Hyperkalemia secondary to losartan and potassium supplementation. Also component of acute kidney injury and acidosis. Improved with medical management. 3. Metabolic acidosis secondary to acute kidney injury and IV fluids. 4. Status post fall with left humerus fracture. 5. Altered mental status with concern for opiate overdose maintained on Narcan drip. Plan: Stop normal saline. Start isotonic bicarb drip to be run at 125 cc an hour. Check CK level. Avoid nephrotoxins. Continue to monitor renal function and urine output. Thank you for the consultation. I will continue to follow the patient with you during her hospital stay.
[2023-10-27] MEDS: methylPREDNISolone SOD SUCCI 125 MG/2 ML VIAL IV SCH (12:01)
--- NOTE | 2023-10-27 12:28 | P.HPIM ---
History of Present Illness H&P Date: 10/27/23 Chief Complaint: Altered mental status * 57-year-old patient who presented to the emergency department with altered mental status, while in ER and rapid response was called for altered mentation and patient was seen by rapid response team. Patient was brought in by paramedics after patient was noted to have be altered with shallow respiration. Patient was minimally responsive in ED and was given Narcan. At the time of presentation patient mentation did improve in ED however started to deteriorate again through the stay patient has been taking oral morphine. Patient was ultimately transferred to ICU secondary to intermittent episode of unresponsiveness. Workup initiated included venous blood gas which showed pCO2 of 53. Patient was placed on noninvasive ventilation. A CT head was obtained which was negative for acute intracranial process. Patient was noted to be hypotensive and was started on norepinephrine. Patient was given approximately 5 L of bolus in ED. Central line was placed by ED team. * Blood work reviewed showed WBC of 1.9 hemoglobin 10.4 platelet count of 103, follow WBC 2.8 hemoglobin 9.4 platelet count of 103. Serum chemistry showed sodium 135 potassium 5.2 chloride 108 BUN 53 creatinine 2.06 glucose 119. Calcium of 7.2. AST of 89 ALT of 89 total protein 5.3. * Urinalysis obtained showed cloudy urine, urine drug screen was obtained which was positive for opiates, positive for tricyclic antidepressant and benzodiazepine * Patient has x-ray of left humerus obtained which showed fractured humerus 3 or 4 parts head fracture. The shaft and distal part of left humerus is intact * To appropriate resuscitation patient was transferred to medical ICU team. Patient was started on IV Solu-Medrol, IV Levophed and will be closely monito red in ICU REVIEW OF SYSTEMS: Unable to obtain secondary to mentation PHYSICAL EXAMINATION: GENERAL: The patient is alert and oriented x o, BiPAP in place, ill appearance, toxic HEENT: Pupils are round and equally reacting to light. EOMI. CARDIOVASCULAR: S1 and S2 present. No murmurs, rubs, or gallops. PULMONARY: Chest is clear to auscultation, no wheezing or crackles. ABDOMEN: Soft, nontender, nondistended, normoactive bowel sounds. No palpable organomegaly. MUSCULOSKELETAL: No joint swelling or deformity. EXTREMITIES: No cyanosis, clubbing, or pedal edema. NEUROLOGICAL: Gross neurological examination did not reveal any focal deficits. Assessment and plan Acute toxic metabolic encephalopathy Acute hypoxemic hypercapnic respiratory failure S/p fall with left humerus fracture Widening of AC joint suggesting AC joint separation History of leukemia unknown time Acute renal failure Hyperkalemia Pancytopenia Transaminitis secondary to sepsis * In regards to acute toxic metabolic encephalopathy, patient was given Narcan, continue patient on noninvasive ventilation follow-up on venous gas, patient was started on Narcan infusion as well * In regards to shock patient resuscitated with IV fluid continue patient on on epinephrine infusion to central line * In regards to pancytopenia, will need records from outside hospital patient will need to establish care with hematology oncology due to history of leukemia * Regards to humerus fracture patient to be seen by orthopedic * In regards to acute renal failure nephrology consulted continue to monitor metabolic acidosis * Status is full code prognosis guarded Past Medical History Additional Past Medical History / Comment(s): Per EMS COPD History of Any Multi-Drug Resistant Organisms: None Reported Past Surgical History: Unable to Obtain Past Psychological History: No Psychological Hx Reported Smoking Status: Never smoker Past Alcohol Use History: None Reported Past Drug Use History: None Reported Medications and Allergies Home Medications Medication Instructions Recorded Confirmed Type ALPRAZolam [Xanax] 1 mg PO HS 10/27/23 10/27/23 History Acyclovir [Zovirax] 400 mg PO BID 10/27/23 10/27/23 History Butalb/APAP/Caff 50-325-40Mg 1 tab PO Q4H PRN MDD 6 TABLETS 10/27/23 10/27/23 History [Fioricet 50-325-40] FLUoxetine HCL [PROzac] 40 mg PO DAILY 10/27/23 10/27/23 History Gabapentin [Neurontin] 300 mg PO BID 10/27/23 10/27/23 History Gilteritinib Fumarate [Xospata] 120 mg PO DAILY 10/27/23 10/27/23 History Losartan [Cozaar] 25 mg PO DAILY 10/27/23 10/27/23 History Morphine Sulfate Ir [MSIR] 15 mg PO QID 10/27/23 10/27/23 History Pioglitazone [Actos] 30 mg PO DAILY 10/27/23 10/27/23 History Potassium Chloride [Klor-Con M20] 20 meq PO DAILY 10/27/23 10/27/23 History Suvorexant [Belsomra] 15 mg PO HS PRN 10/27/23 10/27/23 History methocarbamoL [Robaxin] 500 mg PO TID 10/27/23 10/27/23 History Allergies Allergy/AdvReac Type Severity Reaction Status Date / Time divalproex sodium Allergy Unknown Verified 10/27/23 10:00 [From Depakote] phenytoin [From Dilantin] Allergy Unknown Verified 10/27/23 10:00 Physical Exam Vitals: Vital Signs Temp Pulse Resp BP Pulse Ox FiO2 10/27/23 09:21 30 H 10/27/23 08:16 35 10/27/23 07:00 80 30 H 93/43 100 10/27/23 06:58 78 12 103/49 97 10/27/23 06:45 97.8 F 77 22 121/62 100 35 10/27/23 06:43 35 10/27/23 06:10 10 L 10/27/23 06:08 50 10/27/23 05:40 79 10 L 63/33 98 10/27/23 05:37 8 L 10/27/23 05:30 72 12 65/31 98 10/27/23 05:29 72 18 65/31 97 10/27/23 05:20 72 10 L 70/34 97 10/27/23 05:00 73 14 63/41 97 10/27/23 04:40 76 22 101/83 97 10/27/23 04:20 76 14 79/59 97 10/27/23 04:00 76 21 75/57 96 10/27/23 03:40 79 14 69/50 10/27/23 03:20 77 14 98/40 97 10/27/23 03:00 77 21 93/48 97 10/27/23 02:54 77 12 72/56 98 10/27/23 02:20 76 16 64/45 96 10/27/23 02:00 75 16 82/63 96 10/27/23 01:40 75 16 82/46 96 10/27/23 01:20 76 16 81/60 97 10/27/23 01:00 75 16 91/54 97 10/27/23 00:40 76 18 93/59 97 10/27/23 00:20 76 17 76/44 98 10/27/23 00:00 76 17 83/58 98 10/26/23 23:45 76 19 79/44 97 10/26/23 23:40 77 15 65/55 98 10/26/23 23:20 77 16 64/47 98 10/26/23 23:00 78 15 87/30 98 10/26/23 22:40 79 15 91/52 97 10/26/23 22:00 82 16 91/52 96 10/26/23 21:00 82 15 83/62 97 10/26/23 20:00 80 21 97/49 98 10/26/23 19:47 80 16 98 10/26/23 19:16 98.7 F 80 28 H 80/54 99 Intake and Output 10/26/23 10/27/23 10/27/23 22:59 06:59 14:59 Intake Total 54.291 2448.391 Output Total 225 Balance 54.291 2223.391 Intake: IV 2180 Sodium Chloride 0.9% 1, 130 000 ml @ 130 mls/hr IV . Q7H42M [facility] Rx#:[id number] Sodium Chloride 0.9% 1, 2000 000 ml @ 999 mls/hr IV . Q1H1M [facility] Rx#:[id number] cefTRIAXone 2 gm In 50 Sodium Chloride 0.9% 50 ml @ 100 mls/hr IVPB ONCE [facility] Rx#:[id number] Intake, IV Titration 54.291 268.391 Amount Naloxone (Mdv) 2 mg In 43.75 195 Sodium Chloride 0.9% 250 ml @ 0.6 MG/HR 75 mls/hr IV .Q3H20M [facility] Rx#: [id number] Norepinephrine 4 mg In 10.541 73.391 Sodium Chloride 0.9% 250 ml @ 0.03 MCG/KG/MIN 10. 369 mls/hr IV .Q24H [facility] Rx#:[id number] Output: Urine 225 Other: Voiding Method Indwelling Catheter Weight 90.718 kg Results CBC & Chem 7: 10/27/23 06:57 10/27/23 06:57 Labs: Abnormal Lab Results - Last 24 Hours (Table) 10/26/23 10/26/23 10/26/23 Range/Units 19:33 20:10 20:59 WBC 1.9 L (3.8-10.6) k/uL RBC 3.02 L (3.80-5.40) m/uL Hgb 10.4 L (11.4-16.0) gm/dL Hct 32.8 L (34.0-46.0) % MCV 108.8 H (80.0-100.0) fL MCH (25.0-35.0) pg RDW 17.3 H (11.5-15.5) % Plt Count 109 L (150-450) k/uL Neutrophils # 1.2 L (1.3-7.7) k/uL Lymphocytes # 0.5 L (1.0-4.8) k/uL Macrocytosis Marked A VBG pH (7.31-7.41) VBG pCO2 (37-51) mmHg VBG HCO3 (24-28) mmol/L Sodium 134 L 135 L (137-145) mmol/L Potassium 6.2 H* 5.2 H (3.5-5.1) mmol/L Chloride 108 H (98-107) mmol/L Carbon Dioxide 20 L (22-30) mmol/L BUN 55 H 53 H (7-17) mg/dL Creatinine 2.09 H 2.06 H (0.52-1.04) mg/dL Glucose 122 H 119 H (74-99) mg/dL POC Glucose (mg/dL) (70-110) mg/dL Plasma Lactic Acid Bryant (0.7-2.0) mmol/L Calcium 7.8 L 7.2 L (8.4-10.2) mg/dL AST 112 H 89 H (14-36) U/L ALT 102 H 89 H (4-34) U/L Ammonia (<30) umol/L Total Protein 6.2 L 5.3 L (6.3-8.2) g/dL Albumin 3.4 L 2.8 L (3.5-5.0) g/dL Urine Appearance (Clear) Urine Protein (Negative) Urine Blood (Negative) Urine RBC (0-5) /hpf Amorphous Sediment (None) /hpf Hyaline Casts (0-2) /lpf Urine Mucus (None) /hpf Urine Opiates Screen (NotDetected) U Tricyclic Antidepress (NotDetected) U Benzodiazepines Scrn (NotDetected) 10/27/23 10/27/23 10/27/23 Range/Units 03:38 04:00 04:03 WBC (3.8-10.6) k/uL RBC (3.80-5.40) m/uL Hgb (11.4-16.0) gm/dL Hct (34.0-46.0) % MCV (80.0-100.0) fL MCH (25.0-35.0) pg RDW (11.5-15.5) % Plt Count (150-450) k/uL Neutrophils # (1.3-7.7) k/uL Lymphocytes # (1.0-4.8) k/uL Macrocytosis VBG pH (7.31-7.41) VBG pCO2 (37-51) mmHg VBG HCO3 (24-28) mmol/L Sodium (137-145) mmol/L Potassium (3.5-5.1) mmol/L Chloride (98-107) mmol/L Carbon Dioxide (22-30) mmol/L BUN (7-17) mg/dL Creatinine (0.52-1.04) mg/dL Glucose (74-99) mg/dL POC Glucose (mg/dL) 131 H (70-110) mg/dL Plasma Lactic Acid Bryant 0.6 L (0.7-2.0) mmol/L Calcium (8.4-10.2) mg/dL AST (14-36) U/L ALT (4-34) U/L Ammonia (<30) umol/L Total Protein (6.3-8.2) g/dL Albumin (3.5-5.0) g/dL Urine Appearance Cloudy H (Clear) Urine Protein Trace H (Negative) Urine Blood Moderate H (Negative) Urine RBC 48 H (0-5) /hpf Amorphous Sediment Moderate H (None) /hpf Hyaline Casts 23 H (0-2) /lpf Urine Mucus Rare H (None) /hpf Urine Opiates Screen (NotDetected) U Tricyclic Antidepress (NotDetected) U Benzodiazepines Scrn (NotDetected) 10/27/23 10/27/23 10/27/23 Range/Units 04:03 04:03 06:33 WBC (3.8-10.6) k/uL RBC (3.80-5.40) m/uL Hgb (11.4-16.0) gm/dL Hct (34.0-46.0) % MCV (80.0-100.0) fL MCH (25.0-35.0) pg RDW (11.5-15.5) % Plt Count (150-450) k/uL Neutrophils # (1.3-7.7) k/uL Lymphocytes # (1.0-4.8) k/uL Macrocytosis VBG pH 7.20 L* (7.31-7.41) VBG pCO2 53 H (37-51) mmHg VBG HCO3 21 L (24-28) mmol/L Sodium (137-145) mmol/L Potassium (3.5-5.1) mmol/L Chloride (98-107) mmol/L Carbon Dioxide (22-30) mmol/L BUN (7-17) mg/dL Creatinine (0.52-1.04) mg/dL Glucose (74-99) mg/dL POC Glucose (mg/dL) 135 H (70-110) mg/dL Plasma Lactic Acid Bryant (0.7-2.0) mmol/L Calcium (8.4-10.2) mg/dL AST (14-36) U/L ALT (4-34) U/L Ammonia (<30) umol/L Total Protein (6.3-8.2) g/dL Albumin (3.5-5.0) g/dL Urine Appearance (Clear) Urine Protein (Negative) Urine Blood (Negative) Urine RBC (0-5) /hpf Amorphous Sediment (None) /hpf Hyaline Casts (0-2) /lpf Urine Mucus (None) /hpf Urine Opiates Screen Detected H (NotDetected) U Tricyclic Antidepress Detected H (NotDetected) U Benzodiazepines Scrn Detected H (NotDetected) 10/27/23 10/27/23 10/27/23 Range/Units 06:57 06:57 06:57 WBC 2.8 L (3.8-10.6) k/uL RBC 2.66 L (3.80-5.40) m/uL Hgb 9.4 L (11.4-16.0) gm/dL Hct 30.0 L (34.0-46.0) % MCV 112.9 H (80.0-100.0) fL MCH 35.2 H (25.0-35.0) pg RDW 17.4 H (11.5-15.5) % Plt Count 103 L (150-450) k/uL Neutrophils # (1.3-7.7) k/uL Lymphocytes # (1.0-4.8) k/uL Macrocytosis Marked A VBG pH (7.31-7.41) VBG pCO2 (37-51) mmHg VBG HCO3 (24-28) mmol/L Sodium (137-145) mmol/L Potassium 5.2 H (3.5-5.1) mmol/L Chloride 114 H (98-107) mmol/L Carbon Dioxide 13 L (22-30) mmol/L BUN 58 H (7-17) mg/dL Creatinine 2.33 H (0.52-1.04) mg/dL Glucose 128 H (74-99) mg/dL POC Glucose (mg/dL) (70-110) mg/dL Plasma Lactic Acid Bryant (0.7-2.0) mmol/L Calcium 6.6 L (8.4-10.2) mg/dL AST 136 H (14-36) U/L ALT 96 H (4-34) U/L Ammonia 55 H (<30) umol/L Total Protein 4.8 L (6.3-8.2) g/dL Albumin 2.5 L (3.5-5.0) g/dL Urine Appearance (Clear) Urine Protein (Negative) Urine Blood (Negative) Urine RBC (0-5) /hpf Amorphous Sediment (None) /hpf Hyaline Casts (0-2) /lpf Urine Mucus (None) /hpf Urine Opiates Screen (NotDetected) U Tricyclic Antidepress (NotDetected) U Benzodiazepines Scrn (NotDetected)
[2023-10-27 12:46] LABS: Glucose,Whole Blood 168 mg/dL (70-110)
--- NOTE | 2023-10-27 13:32 | CA ---
Transthoracic Echo Report Name: Yandy Rachel Age: 57 Gender: F : 1965 Exam Date: 10/27/2023 08:24 Exam Location: [facility] Ht (in): 63 Wt (lb): 200 Ordering Physician: Jose Hernandez Attending/Referring Phys: [employer] Sales Consultant Darline Hyatt RDCS Procedure CPT: Indications: evaluate LV function Cardiac Hx: Technical Quality: Very technically difficult study Contrast 1: Definity Total Dose (mL): 2 Contrast 2: Total Dose (mL): MEASUREMENTS (Male / Female) Normal Values 2D ECHO LVOT Diameter 2.0 cm LA Systolic Diameter LX 4.1 cm 3.0 - 4.0 / 2.7 - 3.8 cm FINDINGS Left Ventricle Right Ventricle Right Atrium Left Atrium Mitral Valve Aortic Valve Tricuspid Valve Pulmonic Valve Pericardium Aorta CONCLUSIONS Technically difficult study. Definity ECHO contrast used for improved visualization of the endocardial borders (inadequate visualization of two or more contiguous segments). Very limited study with normal left ventricle systolic function Valvular structures could not be visualized and Doppler study could not be done Previewed by: Dr. Jonh Varela MD (Electronically Signed) Final Date: 27 October 2023 13:31
[2023-10-27] MEDS: ACETAMINOPHEN TAB 325 MG TAB PO PRN (15:02)
[2023-10-27] MEDS: DEXTROSE 5% IN WATER 1,000 ML with SODIUM BICARB (1 MEQ/ML) 150 ML IV SCH (16:35)
[2023-10-27 16:51] LABS: Glucose,Whole Blood 297 mg/dL (70-110)
[2023-10-27] MEDS ORDERED: Magnesium Replacement Protocol 1 EACH MISC MISCELLANE PRN (17:24)
[2023-10-27] MEDS: MAGNESIUM SULFATE-D5W PMX 1 GM in DEXTROSE/WATER 1 100ML.BAG IVPB ONE (18:41)
[2023-10-28] MEDS: HYDROCORTISONE SUCCINATE 100 MG/2 ML VIAL IV STA (02:51)
[2023-10-28 04:46] LABS: Anisocytosis Slight; Basophils % (A) 0 %; Eosinophils % (A) 0 %; HCT 29.4 % (34.0-46.0); HGB 9.4 gm/dL (11.4-16.0); Hypochromasia Slight; Lymphocytes # (A) 0.2 k/uL (1.0-4.8); Lymphocytes % (A) 7 %; MCH 34.7 pg (25.0-35.0); MCHC 31.9 g/dL (31.0-37.0); MCV 108.8 fL (80.0-100.0); Macrocytosis Marked; Mean Platelet Volume 8.8; Monocytes # (A) 0.1 k/uL (0-1.0); Monocytes % (A) 5 %; Neutrophils # (A) 2.1 k/uL (1.3-7.7); Neutrophils % (A) 86 %; RDW 17.3 % (11.5-15.5); WBC 2.5 k/uL (3.8-10.6)
[2023-10-28 05:15] LABS: ALT 125 U/L (4-34); AST 271 U/L (14-36); African American GFR (CKD) 44 (>60 ml/min/1.73 sqM); Albumin 2.4 g/dL (3.5-5.0); Alkaline Phosphatase 146 U/L (38-126); Anion Gap 5 mmol/L; Blood Urea Nitrogen 46 mg/dL (7-17); Calcium 6.7 mg/dL (8.4-10.2); Carbon Dioxide 21 mmol/L (22-30); Chloride 109 mmol/L (98-107); Glucose 312 mg/dL (74-99); Magnesium 2.1 mg/dL (1.6-2.3); Non-African American GFR(CKD) 38 (>60 ml/min/1.73 sqM); Potassium 4.2 mmol/L (3.5-5.1); Sodium 135 mmol/L (137-145); Total Bilirubin 1.2 mg/dL (0.2-1.3); Total Protein 4.7 g/dL (6.3-8.2)
[2023-10-28 05:35] LABS: Platelet Count 97 k/uL (150-450)
[2023-10-28 06:27] LABS: Glucose,Whole Blood 356 mg/dL (70-110)
[2023-10-28] MEDS: INSULIN ASPART (NovoLOG) 100 UNIT/ML VIAL SQ SCH (06:32)
[2023-10-28] MEDS: SODIUM CHLORIDE 0.9% 1,000 ML IV SCH (10:12)
[2023-10-28] MEDS: FLUoxetine HCL 20 MG CAP PO SCH (10:13)
[2023-10-28] MEDS: ACYCLOVIR 200 MG CAP PO SCH (10:13)
[2023-10-28] MEDS: GABAPENTIN 300 MG CAP PO SCH (10:13)
--- NOTE | 2023-10-28 10:43 | P.PN ---
Subjective Patient is seen in follow-up for acute kidney injury. Renal function better. Acidosis improved. Currently on bicarb drip. Nonoliguric. Vital signs are stable. General: No acute distress. HEENT: Head exam is unremarkable. LUNGS: No audible rhonchi or wheezes. HEART: Rate and Rhythm are regular. ABDOMEN: Nontender. EXTREMITITES: No edema. Objective - Vital Signs Vital signs: Vital Signs Temp 98.2 F 10/28/23 04:00 Pulse 87 10/28/23 07:15 Resp 15 10/28/23 07:15 BP 161/75 10/28/23 07:15 Pulse Ox 96 10/28/23 08:36 FiO2 35 10/27/23 11:01 Intake & Output 10/27/23 10/28/23 10/28/23 18:59 06:59 18:59 Intake Total 4234.768 1375 250 Output Total 1620 1085 125 Balance 2614.768 290 125 Weight 90.718 kg 110.2 kg Intake: IV 2960 1375 Dextrose 5% in Water 1, 1375 000 ml @ 125 mls/hr IV . Q9H12M [facility] with Sodium Bicarb (1 Meq/ml) 150 ml Rx#:[id number] Sodium Chloride 0.9% 1, 910 000 ml @ 130 mls/hr IV . Q7H42M [facility] Rx#:[id number] Sodium Chloride 0.9% 1, 2000 000 ml @ 999 mls/hr IV . Q1H1M [facility] Rx#:[id number] cefTRIAXone 2 gm In 50 Sodium Chloride 0.9% 50 ml @ 100 mls/hr IVPB ONCE ST[facility] Rx#:[id number] Intake, IV Titration 1274.768 250 Amount Dextrose 5% in Water 1, 500 250 000 ml @ 125 mls/hr IV . Q9H12M [facility] with Sodium Bicarb (1 Meq/ml) 150 ml Rx#:[id number] Magnesium Sulfate-D5w Pmx 100 1 gm In Dextrose/Water 1 100ml.bag @ 100 mls/hr IVPB ONCE [facility] Rx#: [id number] Naloxone (Mdv) 2 mg In 195 Sodium Chloride 0.9% 250 ml @ 0.6 MG/HR 75 mls/hr IV .Q3H20M [facility] Rx#: [id number] Norepinephrine 4 mg In 219.768 Sodium Chloride 0.9% 250 ml @ 0.03 MCG/KG/MIN 10. 369 mls/hr IV .Q24H [facility] Rx#:[id number] Sodium Chloride 0.9% 1, 260 000 ml @ 130 mls/hr IV . Q7H42M [facility] Rx#:[id number] Output: Urine 1620 1085 125 Other: Voiding Method Indwelling Catheter Indwelling Catheter # Bowel Movements 1 - Labs CBC & Chem 7: 10/28/23 03:45 10/28/23 03:45 Labs: Abnormal Lab Results - Last 24 Hours (Table) 10/27/23 10/27/23 10/27/23 Range/Units 06:57 12:45 16:49 WBC (3.8-10.6) k/uL RBC (3.80-5.40) m/uL Hgb (11.4-16.0) gm/dL Hct (34.0-46.0) % MCV (80.0-100.0) fL RDW (11.5-15.5) % Plt Count (150-450) k/uL Lymphocytes # (1.0-4.8) k/uL Macrocytosis Sodium (137-145) mmol/L Chloride (98-107) mmol/L Carbon Dioxide (22-30) mmol/L BUN (7-17) mg/dL Creatinine (0.52-1.04) mg/dL Glucose (74-99) mg/dL POC Glucose (mg/dL) 168 H 297 H (70-110) mg/dL Calcium (8.4-10.2) mg/dL AST (14-36) U/L ALT (4-34) U/L Alkaline Phosphatase (38-126) U/L Total Protein (6.3-8.2) g/dL Albumin (3.5-5.0) g/dL Cortisol 47.7 H (3.1-22.4) UG/DL 10/28/23 10/28/23 10/28/23 Range/Units 03:45 03:45 06:26 WBC 2.5 L (3.8-10.6) k/uL RBC 2.70 L (3.80-5.40) m/uL Hgb 9.4 L (11.4-16.0) gm/dL Hct 29.4 L (34.0-46.0) % MCV 108.8 H (80.0-100.0) fL RDW 17.3 H (11.5-15.5) % Plt Count 97 L (150-450) k/uL Lymphocytes # 0.2 L (1.0-4.8) k/uL Macrocytosis Marked A Sodium 135 L (137-145) mmol/L Chloride 109 H (98-107) mmol/L Carbon Dioxide 21 L (22-30) mmol/L BUN 46 H (7-17) mg/dL Creatinine 1.50 H (0.52-1.04) mg/dL Glucose 312 H (74-99) mg/dL POC Glucose (mg/dL) 356 H (70-110) mg/dL Calcium 6.7 L (8.4-10.2) mg/dL AST 271 H (14-36) U/L ALT 125 H (4-34) U/L Alkaline Phosphatase 146 H (38-126) U/L Total Protein 4.7 L (6.3-8.2) g/dL Albumin 2.4 L (3.5-5.0) g/dL Cortisol (3.1-22.4) UG/DL Assessment and Plan Plan: Assessment: 1. Acute kidney injury secondary to ATN secondary to hypotension versus underlying chronic kidney disease. Creatinine 2.33 on admission and is 1.5 today. Unknown baseline renal function. No hydronephrosis noted on kidney ultrasound. Left kidney atrophic. 2. Hyperkalemia secondary to losartan and potassium supplementation. Also component of acute kidney injury and acidosis. Improved with medical management. 3. Metabolic acidosis secondary to acute kidney injury and IV fluids. Improved with bicarb drip. 4. Status post fall with left humerus fracture. 5. Altered mental status with concern for opiate overdose s/p Narcan drip. Improved. 6. History of lymphoma. Plan: Change bicarb drip to normal saline at 60 cc an hour. Repeat CK level. Avoid nephrotoxins. Continue to monitor renal function and urine output.
[2023-10-28 12:00] LABS: Glucose,Whole Blood 362 mg/dL (70-110)
--- NOTE | 2023-10-28 12:01 | P.PN ---
Subjective Progress Note Date: 10/28/23 * 57-year-old patient who presented to the emergency department with altered mental status, while in ER and rapid response was called for altered mentation and patient was seen by rapid response team. Patient was brought in by paramedics after patient was noted to have be altered with shallow respiration. Patient was minimally responsive in ED and was given Narcan. At the time of presentation patient mentation did improve in ED however started to deteriorate again through the stay patient has been taking oral morphine. Patient was ultimately transferred to ICU secondary to intermittent episode of unresponsiveness. Workup initiated included venous blood gas which showed pCO2 of 53. Patient was placed on noninvasive ventilation. A CT head was obtained which was negative for acute intracranial process. Patient was noted to be hypotensive and was started on norepinephrine. Patient was given approximately 5 L of bolus in ED. Central line was placed by ED team. * Blood work reviewed showed WBC of 1.9 hemoglobin 10.4 platelet count of 103, follow WBC 2.8 hemoglobin 9.4 platelet count of 103. Serum chemistry showed sodium 135 potassium 5.2 chloride 108 BUN 53 creatinine 2.06 glucose 119. Calcium of 7.2. AST of 89 ALT of 89 total protein 5.3. * Urinalysis obtained showed cloudy urine, urine drug screen was obtained which was positive for opiates, positive for tricyclic antidepressant and benzodiazepine * Patient has x-ray of left humerus obtained which showed fractured humerus 3 or 4 parts head fracture. The shaft and distal part of left humerus is intact * After appropriate resuscitation patient was transferred to medical ICU team. Patient was started on IV Solu-Medrol, IV Levophed and will be closely monitored in ICU * Day 1 10/28/23: Patient seen and evaluated in medical ICU room 260, patient has been weaned off BiPAP, on room air, received IV Solu-Medrol, patient was on D5 and bicarbonate drip managed by nephrology, patient had significant imp rovement alert and oriented x 4. IV fluids changed to normal saline. Transfer to general medical floor PHYSICAL EXAMINATION: GENERAL: The patient is alert and oriented x o, BiPAP in place, ill appearance, toxic HEENT: Pupils are round and equally reacting to light. EOMI. CARDIOVASCULAR: S1 and S2 present. No murmurs, rubs, or gallops. PULMONARY: Chest is clear to auscultation, no wheezing or crackles. ABDOMEN: Soft, nontender, nondistended, normoactive bowel sounds. No palpable organomegaly. MUSCULOSKELETAL: No joint swelling or deformity. EXTREMITIES: No cyanosis, clubbing, or pedal edema. NEUROLOGICAL: Gross neurological examination did not reveal any focal deficits. Assessment and plan Acute toxic metabolic encephalopathy resolved Acute hypoxemic hypercapnic respiratory failure resolved S/p fall with left humerus fracture Widening of AC joint suggesting AC joint separation History of leukemia Acute renal failure with metabolic acidosis Hyperkalemia resolved Pancytopenia Transaminitis secondary to sepsis Diabetes mellitus type 2 * In regards to acute toxic metabolic encephalopathy, patient was given Narcan, continue patient on noninvasive ventilation follow-up on venous gas, patient was started on Narcan infusion as well * In regards to shock patient resuscitated with IV fluid, Levophed weaned off * In regards to pancytopenia, will need records from outside hospital patient will need to establish care >> hematology oncology due to history of leukemia * In Regards to humerus fracture patient to be seen by orthopedic * In regards to acute renal failure nephrology consulted, continue to monitor metabolic acidosis, renal function improving electrolytes improved * In regards to history of leukemia/pancytopenia >> hematology consulted * In regards to diabetes mellitus Accu-Cheks ACHS, continue patient on correc tional insulin * Status is full code prognosis guarded Objective - Vital Signs Vital signs: Vital Signs Temp 98.2 F 10/28/23 04:00 Pulse 87 10/28/23 07:15 Resp 15 10/28/23 07:15 BP 161/75 10/28/23 07:15 Pulse Ox 96 10/28/23 08:36 FiO2 35 10/27/23 11:01 Intake & Output 10/27/23 10/28/23 10/28/23 18:59 06:59 18:59 Intake Total 4234.768 1375 250 Output Total 1620 1085 125 Balance 2614.768 290 125 Weight 90.718 kg 110.2 kg Intake: IV 2960 1375 Dextrose 5% in Water 1, 1375 000 ml @ 125 mls/hr IV . Q9H12M [facility] with Sodium Bicarb (1 Meq/ml) 150 ml Rx#:[id number] Sodium Chloride 0.9% 1, 910 000 ml @ 130 mls/hr IV . Q7H42M [facility] Rx#:[id number] Sodium Chloride 0.9% 1, 2000 000 ml @ 999 mls/hr IV . Q1H1M [facility] Rx#:[id number] cefTRIAXone 2 gm In 50 Sodium Chloride 0.9% 50 ml @ 100 mls/hr IVPB ONCE ST[facility] Rx#:[id number] Intake, IV Titration 1274.768 250 Amount Dextrose 5% in Water 1, 500 250 000 ml @ 125 mls/hr IV . Q9H12M [facility] with Sodium Bicarb (1 Meq/ml) 150 ml Rx#:[id number] Magnesium Sulfate-D5w Pmx 100 1 gm In Dextrose/Water 1 100ml.bag @ 100 mls/hr IVPB ONCE ONE Rx#: [id number] Naloxone (Mdv) 2 mg In 195 Sodium Chloride 0.9% 250 ml @ 0.6 MG/HR 75 mls/hr IV .Q3H20M [facility] Rx#: [id number] Norepinephrine 4 mg In 219.768 Sodium Chloride 0.9% 250 ml @ 0.03 MCG/KG/MIN 10. 369 mls/hr IV .Q24H [facility] Rx#:[id number] Sodium Chloride 0.9% 1, 260 000 ml @ 130 mls/hr IV . Q7H42M [facility] Rx#:[id number] Output: Urine 1620 1085 125 Other: Voiding Method Indwelling Catheter Indwelling Catheter # Bowel Movements 1 - Labs CBC & Chem 7: 10/28/23 03:45 10/28/23 03:45 Labs: Abnormal Lab Results - Last 24 Hours (Table) 10/27/23 10/27/23 10/27/23 Range/Units 04:03 06:57 06:57 WBC (3.8-10.6) k/uL RBC (3.80-5.40) m/uL Hgb (11.4-16.0) gm/dL Hct (34.0-46.0) % MCV (80.0-100.0) fL RDW (11.5-15.5) % Plt Count (150-450) k/uL Lymphocytes # 0.4 L (1.0-4.8) k/uL Macrocytosis Sodium (137-145) mmol/L Chloride (98-107) mmol/L Carbon Dioxide (22-30) mmol/L BUN (7-17) mg/dL Creatinine (0.52-1.04) mg/dL Glucose (74-99) mg/dL POC Glucose (mg/dL) (70-110) mg/dL Calcium (8.4-10.2) mg/dL AST (14-36) U/L ALT (4-34) U/L Alkaline Phosphatase (38-126) U/L Total Protein (6.3-8.2) g/dL Albumin (3.5-5.0) g/dL Cortisol 47.7 H (3.1-22.4) UG/DL Urine Opiates Screen Detected H (NotDetected) U Tricyclic Antidepress Detected H (NotDetected) U Benzodiazepines Scrn Detected H (NotDetected) 10/27/23 10/27/23 10/28/23 Range/Units 12:45 16:49 03:45 WBC (3.8-10.6) k/uL RBC (3.80-5.40) m/uL Hgb (11.4-16.0) gm/dL Hct (34.0-46.0) % MCV (80.0-100.0) fL RDW (11.5-15.5) % Plt Count (150-450) k/uL Lymphocytes # (1.0-4.8) k/uL Macrocytosis Sodium 135 L (137-145) mmol/L Chloride 109 H (98-107) mmol/L Carbon Dioxide 21 L (22-30) mmol/L BUN 46 H (7-17) mg/dL Creatinine 1.50 H (0.52-1.04) mg/dL Glucose 312 H (74-99) mg/dL POC Glucose (mg/dL) 168 H 297 H (70-110) mg/dL Calcium 6.7 L (8.4-10.2) mg/dL AST 271 H (14-36) U/L ALT 125 H (4-34) U/L Alkaline Phosphatase 146 H (38-126) U/L Total Protein 4.7 L (6.3-8.2) g/dL Albumin 2.4 L (3.5-5.0) g/dL Cortisol (3.1-22.4) UG/DL Urine Opiates Screen (NotDetected) U Tricyclic Antidepress (NotDetected) U Benzodiazepines Scrn (NotDetected) 10/28/23 10/28/23 Range/Units 03:45 06:26 WBC 2.5 L (3.8-10.6) k/uL RBC 2.70 L (3.80-5.40) m/uL Hgb 9.4 L (11.4-16.0) gm/dL Hct 29.4 L (34.0-46.0) % MCV 108.8 H (80.0-100.0) fL RDW 17.3 H (11.5-15.5) % Plt Count 97 L (150-450) k/uL Lymphocytes # 0.2 L (1.0-4.8) k/uL Macrocytosis Marked A Sodium (137-145) mmol/L Chloride (98-107) mmol/L Carbon Dioxide (22-30) mmol/L BUN (7-17) mg/dL Creatinine (0.52-1.04) mg/dL Glucose (74-99) mg/dL POC Glucose (mg/dL) 356 H (70-110) mg/dL Calcium (8.4-10.2) mg/dL AST (14-36) U/L ALT (4-34) U/L Alkaline Phosphatase (38-126) U/L Total Protein (6.3-8.2) g/dL Albumin (3.5-5.0) g/dL Cortisol (3.1-22.4) UG/DL Urine Opiates Screen (NotDetected) U Tricyclic Antidepress (NotDetected) U Benzodiazepines Scrn (NotDetected)
[2023-10-28 12:36] LABS: Creatine Kinase 4343 U/L (30-135)
--- NOTE | 2023-10-28 12:58 | P.PN ---
Subjective Progress Note Date: 10/28/23 Principal diagnosis: Altered mental status, unintentional opiate overdose I am seeing this patient in consultation today 10/27/2023 in the emergency room, after an A-team was called earlier for altered mental status and hypotension. Patient is a 57-year-old white female with little known past medical history, she reportedly has history of leukemia. She is currently obtunded and I am unable to elicit any information. There is no family at bedside and no listed next of kin in the chart. According to the ER documentation, the paramedics had found the patient altered with shallow respirations. She was unresponsive at that time. She did require BVM respirations and Narcan was administered. Reportedly, the patient takes morphine as needed at home. She did reportedly respond initially to the Narcan in route to the hospital. On arrival, she had some left arm pain, limited range of motion, and ecchymosis. She reportedly had fallen several days ago. Left shoulder x-ray showed widening of the A/C joint suggestive of AC joint separation and 3 or 4 part fracture of the left humeral head. As stated above, an A team was called earlier this morning and again prior to this transfer to the ICU. The patient has been experiencing intermittent episodes of unresponsiveness, requiring subsequent doses of Narcan, and ultimately a Narcan infusion which is currently infusing at 0.6 mg/h.. VBG did show a pH of 7.2, pCO2 of 53. I did place her on BiPAP with settings 12/5 and FiO2 of 35%. She is generating tidal volumes of around 500 and her respiratory rate is in the mid 20s. She is obtunded, and intermittently follows commands. This was followed by a brain CT which did not show any intracranial hemorrhage or midline shift. During the rapid response, the patient became profoundly hypotensive. She has received several liters fluid bolus while in the emergency room, I am told a total of 5 L normal saline. She was started on norepinephrine, which is currently infusing at 0.12 mcg/kg/min. The ER physician did insert a right IJ triple-lumen catheter. Chest x-ray shows the right IJ triple-lumen catheter within the right atrium. There is cardiomegaly without any acute cardiopulmonary process. There are old sternotomy wires. CBC on arrival consistent with pancytopenia. WBC count 1.9, hemoglobin 10.4, hematocrit 32.8, platelets 109. BMP on arrival: Sodium 134, potassium 6.2, chloride 105, serum bicarb 20, BUN 55, creatinine 2.09, glucose 122. Potassium is now down to 5.2. LFTs mildly elevated. Total bili 0.8. Ammonia less than 9. Lactic acid level 0.6. Urinalysis not concerning for UTI. EKG done on arrival shows normal sinus rhythm without any obvious acute ischemic changes. Patient is at high risk for intubation, she will be monitored in the intensive care unit. Patient was reevaluated today on 10/28/2023, patient remains in the ICU, she is doing great. She is on room air, still on a bicarb drip, she was on BiPAP 07/07/1936, and she was transitioned to nasal cannula. Doing great, asymptomatic, patient is alert oriented x 3, she has no gross focal neurologic deficits. I plan to transfer the patient to a regular medical floor today labs today were all reviewed including CBC,WBC is 2.5 hemoglobin 9.4 basic metabolic profile is normal BUN is 46 creatinine 1.50, CPK however remains high at 13,879, hence we will continue the bicarb drip for this patient. In the meantime the patient could be considered for transfer out of the ICU to the regular medical floor. Objective - Vital Signs Vital signs: Vital Signs Temp 97.7 F 10/28/23 08:00 Pulse 92 10/28/23 12:00 Resp 16 10/28/23 10:00 BP 146/92 10/28/23 11:00 Pulse Ox 97 10/28/23 11:00 FiO2 35 10/27/23 11:01 Intake & Output 10/27/23 10/28/23 10/28/23 18:59 06:59 18:59 Intake Total 4234.768 1375 555 Output Total 1620 1085 535 Balance 2614.768 290 20 Weight 90.718 kg 110.2 kg Intake: IV 2960 1375 125 Dextrose 5% in Water 1, 1375 125 000 ml @ 125 mls/hr IV . Q9H12M [facility] with Sodium Bicarb (1 Meq/ml) 150 ml Rx#:[id number] Sodium Chloride 0.9% 1, 910 000 ml @ 130 mls/hr IV . Q7H42M [facility] Rx#:[id number] Sodium Chloride 0.9% 1, 2000 000 ml @ 999 mls/hr IV . Q1H1M [facility] Rx#:[id number] cefTRIAXone 2 gm In 50 Sodium Chloride 0.9% 50 ml @ 100 mls/hr IVPB ONCE STA Rx#:[id number] Intake, IV Titration 1274.768 430 Amount Dextrose 5% in Water 1, 500 250 000 ml @ 125 mls/hr IV . Q9H12M [facility] with Sodium Bicarb (1 Meq/ml) 150 ml Rx#:[id number] Magnesium Sulfate-D5w Pmx 100 1 gm In Dextrose/Water 1 100ml.bag @ 100 mls/hr IVPB ONCE ONE Rx#: [id number] Naloxone (Mdv) 2 mg In 195 Sodium Chloride 0.9% 250 ml @ 0.6 MG/HR 75 mls/hr IV .Q3H20M [facility] Rx#: [id number] Norepinephrine 4 mg In 219.768 Sodium Chloride 0.9% 250 ml @ 0.03 MCG/KG/MIN 10. 369 mls/hr IV .Q24H [facility] Rx#:[id number] Sodium Chloride 0.9% 1, 260 000 ml @ 130 mls/hr IV . Q7H42M [facility] Rx#:[id number] Sodium Chloride 0.9% 1, 180 000 ml @ 60 mls/hr IV . [id number] [facility] Rx#:[id number] Output: Urine 1620 1085 535 Other: Voiding Method Indwelling Catheter Indwelling Catheter Indwelling Catheter # Bowel Movements 1 - Exam General: Reveals a 57-year-old female in no distress patient was on BiPAP, presently on room air. Skin: Skin is warm and dry and no rashes or lesions are noted. Eye: Pupils are equal, round and reactive to light, extra-ocular movements are intact; there is normal conjunctiva bilaterally. Ears, nose, mouth and throat: There are moist mucous membranes and no oral lesions. Neck: The neck is supple, there is no tenderness or JVD. Cardiovascular: There is a regular rate and rhythm. No murmur, rub or gallop is appreciated. Respiratory: Clear bilaterally no rhonchi no wheezes Gastrointestinal: Soft, non-distended, non-tender abdomen without masses or organomegaly noted. There is no rebound or guarding present. Bowel sounds are unremarkable. Back: There is no tenderness to palpation in the midline. There is no obvious deformity. Musculoskeletal: Normal ROM, no tenderness, There is no pedal edema. There is no calf tenderness or swelling. No cords were appreciated. Neurological: CN II-XII intact, Cranial nerves III through XII are intact. There are no obvious motor or sensory deficits. Coordination appears grossly intact. Speech is normal. Psychiatric: Cooperative, appropriate mood & affect, normal judgment. - Labs CBC & Chem 7: 10/28/23 03:45 10/28/23 03:45 Labs: Abnormal Lab Results - Last 24 Hours (Table) 10/27/23 10/27/23 10/28/23 Range/Units 06:57 16:49 03:45 WBC (3.8-10.6) k/uL RBC (3.80-5.40) m/uL Hgb (11.4-16.0) gm/dL Hct (34.0-46.0) % MCV (80.0-100.0) fL RDW (11.5-15.5) % Plt Count (150-450) k/uL Lymphocytes # (1.0-4.8) k/uL Macrocytosis Sodium 135 L (137-145) mmol/L Chloride 109 H (98-107) mmol/L Carbon Dioxide 21 L (22-30) mmol/L BUN 46 H (7-17) mg/dL Creatinine 1.50 H (0.52-1.04) mg/dL Glucose 312 H (74-99) mg/dL POC Glucose (mg/dL) 297 H (70-110) mg/dL Calcium 6.7 L (8.4-10.2) mg/dL AST 271 H (14-36) U/L ALT 125 H (4-34) U/L Alkaline Phosphatase 146 H (38-126) U/L Creatine Kinase 4343 H* (30-135) U/L Total Protein 4.7 L (6.3-8.2) g/dL Albumin 2.4 L (3.5-5.0) g/dL Cortisol 47.7 H (3.1-22.4) UG/DL 10/28/23 10/28/23 10/28/23 Range/Units 03:45 03:45 06:26 WBC 2.5 L (3.8-10.6) k/uL RBC 2.70 L (3.80-5.40) m/uL Hgb 9.4 L (11.4-16.0) gm/dL Hct 29.4 L (34.0-46.0) % MCV 108.8 H (80.0-100.0) fL RDW 17.3 H (11.5-15.5) % Plt Count 97 L (150-450) k/uL Lymphocytes # 0.2 L (1.0-4.8) k/uL Macrocytosis Marked A Sodium (137-145) mmol/L Chloride (98-107) mmol/L Carbon Dioxide (22-30) mmol/L BUN (7-17) mg/dL Creatinine (0.52-1.04) mg/dL Glucose (74-99) mg/dL POC Glucose (mg/dL) 356 H (70-110) mg/dL Calcium (8.4-10.2) mg/dL AST (14-36) U/L ALT (4-34) U/L Alkaline Phosphatase (38-126) U/L Creatine Kinase 81270 H* (30-135) U/L Total Protein (6.3-8.2) g/dL Albumin (3.5-5.0) g/dL Cortisol (3.1-22.4) UG/DL 10/28/23 Range/Units 11:59 WBC (3.8-10.6) k/uL RBC (3.80-5.40) m/uL Hgb (11.4-16.0) gm/dL Hct (34.0-46.0) % MCV (80.0-100.0) fL RDW (11.5-15.5) % Plt Count (150-450) k/uL Lymphocytes # (1.0-4.8) k/uL Macrocytosis Sodium (137-145) mmol/L Chloride (98-107) mmol/L Carbon Dioxide (22-30) mmol/L BUN (7-17) mg/dL Creatinine (0.52-1.04) mg/dL Glucose (74-99) mg/dL POC Glucose (mg/dL) 362 H (70-110) mg/dL Calcium (8.4-10.2) mg/dL AST (14-36) U/L ALT (4-34) U/L Alkaline Phosphatase (38-126) U/L Creatine Kinase (30-135) U/L Total Protein (6.3-8.2) g/dL Albumin (3.5-5.0) g/dL Cortisol (3.1-22.4) UG/DL Assessment and Plan Assessment: Impression: Acute metabolic encephalopathy secondary to acute unintentional opiate overdose. Acute hypoxemic and hypercapnic respiratory failure, secondary to above Acute rhabdomyolysis and acute kidney injury Hypotension secondary to above Left humeral fracture, shoulder and humeral x-ray shows 3 to 4 part fracture of the left humeral head and widening of the AC joint suggestive of AC joint separation. History of leukemia, unknown type Severe hyperkalemia, resolved Pancytopenia, questionable history of leukemia Mild transaminitis Fall Obesity, with a BMI of 35.4 kg/m Recommendation: Transfer patient out of ICU to a medical surgical floor Ambulate if tolerated. Continue IV fluids and sodium bicarb drip as the CPK remains quite high Continue to monitor renal profile and CPK as well as basic metabolic profile on a daily basis Oncology to evaluate regarding her questionable leukemia Will continue to follow. Patient will be downgraded to regular medical floor today Time with Patient: Less than 30
[2023-10-28 16:14] LABS: Glucose,Whole Blood 255 mg/dL (70-110)
[2023-10-28 18:09] LABS: Partial Thromboplastin Time 23.2 sec (22.0-30.0); Prothrombin Time 10.6 sec (10.0-12.5)
[2023-10-28] MEDS: ALPRAZolam 1 MG TAB PO SCH (22:16)
[2023-10-29 03:26] LABS: Hepatitis A Antibody IgM Nonreactive (Nonreactive)
[2023-10-29 03:27] LABS: Hepatitis B Core IgM Nonreactive (Nonreactive); Hepatitis B Surface Antigen Nonreactive (Nonreactive); Hepatitis C IgG Antibody Reactive (Nonreactive)
[2023-10-29 03:28] LABS: % Iron Saturation 48.32 (12.00-45.00)
[2023-10-29 04:32] LABS: HIV 2 AB Non-Reactive (Non-Reactive); HIV AB P24 Non-Reactive (Non-Reactive); HIV P24 AG Non-Reactive (Non-Reactive)
--- NOTE | 2023-10-29 07:31 | P.CONS ---
History of Present Illness - Reason for Consult Consult date: 10/28/23 hx leukemia, pancytopenia Requesting physician: Bryce Triplett - Chief Complaint altered mental status, fall - History of Present Illness Patient is a 57-year-old female with history of AML. Patient has been receiving treatment in [place], following with Dr. White at [facility]. She is currently on treatment with gilteritinib. Unknown if patient underwent bone marrow transplant. Will need to request records to see what treatments patient has received. She states prior to moving earlier this month she had seen her oncologist and her disease was stable. Patient presented to the emergency room for altered mental status. When EMS arrived per ER note they found patient altered and having shallow respirations and was given narcan and initially responded becoming more alert. Patient does take daily morphine at home. She denies taking any additional doses, and only takes one daily. Prior to admission patient did have fall, left shoulder x-ray showing A/C joint separation and fracture of left femoral head. She again began having episodes of unresponsiveness when admitted and was subsequently transferred to ICU requiring bipap and pressors. CT Brain was obtained which was negative for any intracranial hemorrhage or midline shift. Bipap and pressors have since been d/c and patient is improved at todays visit. She is reporting feeling fatigued. Upon admit CBC revealed pancytopenia. CBC today showing WBC 2.5, hemoglobin 9.4, MCV 108.8, and platelets 97,000. Creatinine elevated at 1.5, but improving. Bilirubin 1.5, and transaminitis noted. Ammonia initially <9, but when repeated was noted at 55. CXR negative for acute processes. UA not suspicious for UTI. Blood cultures ordered Review of Systems 10 point ROS is negative except as stated in the HPI Past Medical History Past Medical History: Coronary Artery Disease (CAD), Cancer, Heart Failure, Diabetes Mellitus, Deep Vein Thrombosis (DVT), Fibromyalgia, GI Bleed, Hyperlipidemia, Hypertension, Myocardial Infarction ([place]), Rheumatoid Arthritis ([place]) Additional Past Medical History / Comment(s): Per EMS COPD Last Myocardial Infarction Date:: unknown History of Any Multi-Drug Resistant Organisms: None Reported Year Discovered:: unknown MDRO Source:: skin bilateral arms Past Surgical History: Unable to Obtain Additional Past Surgical History / Comment(s): broken femur past, bilateral knee surgery, 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, right leg green field filter for blood clot Past Anesthesia/Blood Transfusion Reactions: No Reported Reaction Date of Last Stent Placement:: unknown Past Psychological History: No Psychological Hx Reported Smoking Status: Never smoker Past Alcohol Use History: None Reported Past Drug Use History: None Reported - Past Family History Mother Family Medical History: Congestive Heart Failure (CHF), Coronary Artery Disease (CAD), Hyperlipidemia, Myocardial Infarction ([place]) Additional Family Medical History / Comment(s): CABG,knee replacement x1, Medications and Allergies Home Medications Medication Instructions Recorded Confirmed Type ALPRAZolam [Xanax] 1 mg PO HS 10/27/23 10/27/23 History Acyclovir [Zovirax] 400 mg PO BID 10/27/23 10/27/23 History Butalb/APAP/Caff 50-325-40Mg 1 tab PO Q4H PRN MDD 6 TABLETS 10/27/23 10/27/23 History [Fioricet 50-325-40] FLUoxetine HCL [PROzac] 40 mg PO DAILY 10/27/23 10/27/23 History Gabapentin [Neurontin] 300 mg PO BID 10/27/23 10/27/23 History Gilteritinib Fumarate [Xospata] 120 mg PO DAILY 10/27/23 10/27/23 History Losartan [Cozaar] 25 mg PO DAILY 10/27/23 10/27/23 History Morphine Sulfate Ir [MSIR] 15 mg PO QID 10/27/23 10/27/23 History Pioglitazone [Actos] 30 mg PO DAILY 10/27/23 10/27/23 History Potassium Chloride [Klor-Con M20] 20 meq PO DAILY 10/27/23 10/27/23 History Suvorexant [Belsomra] 15 mg PO HS PRN 10/27/23 10/27/23 History methocarbamoL [Robaxin] 500 mg PO TID 10/27/23 10/27/23 History Allergies Allergy/AdvReac Type Severity Reaction Status Date / Time divalproex sodium Allergy Unknown Verified 10/27/23 10:00 [From Depakote] phenytoin [From Dilantin] Allergy Unknown Verified 10/27/23 10:00 Physical Exam Vitals: Vital Signs Temp Pulse Resp BP Pulse Ox 10/28/23 12:00 92 10/28/23 11:00 90 146/92 97 10/28/23 10:00 89 16 129/74 98 10/28/23 09:00 87 16 129/65 10/28/23 08:36 96 10/28/23 08:00 97.7 F 87 16 161/75 97 10/28/23 07:15 87 15 161/75 99 10/28/23 07:00 82 12 129/68 97 10/28/23 06:45 80 12 129/68 97 10/28/23 06:30 85 15 129/68 96 10/28/23 06:15 81 10 L 129/68 96 10/28/23 06:00 81 19 130/66 97 10/28/23 05:45 81 20 130/66 97 10/28/23 05:30 81 12 130/66 96 10/28/23 05:15 80 13 130/66 96 10/28/23 05:00 80 13 125/61 10/28/23 04:45 80 9 L 125/61 97 10/28/23 04:30 81 12 125/61 96 10/28/23 04:15 81 15 125/61 96 10/28/23 04:00 98.2 F 82 18 123/64 98 10/28/23 03:45 82 9 L 123/64 96 10/28/23 03:30 82 21 123/64 94 L 10/28/23 03:15 82 11 L 123/64 96 10/28/23 03:00 81 25 H 121/65 10/28/23 02:45 82 12 121/65 96 10/28/23 02:30 81 26 H 121/65 96 10/28/23 02:15 82 18 121/65 96 10/28/23 02:00 82 26 H 120/64 96 10/28/23 01:45 81 24 120/64 96 10/28/23 01:30 83 12 120/64 95 10/28/23 01:15 82 17 120/64 96 10/28/23 01:00 83 17 106/57 10/28/23 00:45 82 16 106/57 96 10/28/23 00:30 83 27 H 106/57 95 10/28/23 00:20 83 15 106/57 96 10/28/23 00:15 82 25 H 106/57 96 10/28/23 00:00 98.4 F 82 12 103/63 96 10/27/23 23:45 81 11 L 103/63 96 10/27/23 23:30 84 12 103/63 97 10/27/23 23:15 84 14 103/63 94 L 10/27/23 23:00 85 13 118/56 95 10/27/23 22:45 85 14 118/56 95 10/27/23 22:30 84 14 118/56 94 L 10/27/23 22:15 84 14 118/56 97 10/27/23 22:00 84 8 L 122/61 96 10/27/23 21:45 85 12 122/61 97 10/27/23 21:30 85 12 122/61 96 10/27/23 21:15 85 22 122/61 96 10/27/23 21:00 84 15 116/71 96 10/27/23 20:45 82 13 116/71 95 10/27/23 20:30 82 16 116/71 96 10/27/23 20:15 83 14 116/71 95 10/27/23 20:00 84 7 L 114/57 96 10/27/23 19:45 83 10 L 114/57 96 10/27/23 19:30 85 12 114/57 95 10/27/23 19:15 84 16 114/57 91 L 10/27/23 19:00 84 16 121/54 93 L 10/27/23 18:45 84 16 113/51 93 L 10/27/23 18:30 84 16 113/50 95 10/27/23 18:15 83 16 107/51 95 10/27/23 18:00 85 20 117/57 97 10/27/23 17:45 82 18 114/62 95 10/27/23 17:30 84 16 120/61 96 10/27/23 17:15 83 20 64/52 96 10/27/23 17:00 84 18 111/54 10/27/23 16:45 81 16 110/57 95 10/27/23 16:30 82 16 108/58 95 10/27/23 16:15 81 16 100/53 10/27/23 16:00 98.6 F 83 16 109/62 97 10/27/23 15:45 84 16 109/59 95 Intake and Output 03/27/24 03/27/24 03/27/24 06:59 14:59 22:59 Intake Total 1000 555 Output Total 785 535 Balance 215 20 Intake: IV 1000 125 Dextrose 5% in Water 1, 1000 125 000 ml @ 125 mls/hr IV . Q9H12M LIZZY with Sodium Bicarb (1 Meq/ml) 150 ml Rx#:[id number] Intake, IV Titration 430 Amount Dextrose 5% in Water 1, 250 000 ml @ 125 mls/hr IV . Q9H12M LIZZY with Sodium Bicarb (1 Meq/ml) 150 ml Rx#:[id number] Sodium Chloride 0.9% 1, 180 000 ml @ 60 mls/hr IV . [id number] LIZZY Rx#:[id number] Output: Urine 785 535 Other: Voiding Method Indwelling Catheter Indwelling Catheter Weight 110.2 kg - Constitutional General appearance: no acute distress, obese - EENT Eyes: anicteric sclerae, EOMI ENT: hearing grossly normal - Neck Neck: no lymphadenopathy - Respiratory Respiratory: bilateral: CTA (limited exam due to body habitus ) - Cardiovascular Rhythm: regular Heart sounds: normal: S1, S2 - Gastrointestinal General gastrointestinal: soft, no tenderness - Integumentary Integumentary: no cyanotic, no jaundiced - Musculoskeletal decreased ROM and tenderness to left shoulder - Psychiatric Psychiatric: A&O x's 3 Results CBC & Chem 7: 10/28/23 03:45 10/28/23 03:45 Labs: Abnormal Lab Results - Last 24 Hours (Table) 10/27/23 10/27/23 10/28/23 Range/Units 06:57 16:49 03:45 WBC (3.8-10.6) k/uL RBC (3.80-5.40) m/uL Hgb (11.4-16.0) gm/dL Hct (34.0-46.0) % MCV (80.0-100.0) fL RDW (11.5-15.5) % Plt Count (150-450) k/uL Lymphocytes # (1.0-4.8) k/uL Macrocytosis Sodium 135 L (137-145) mmol/L Chloride 109 H (98-107) mmol/L Carbon Dioxide 21 L (22-30) mmol/L BUN 46 H (7-17) mg/dL Creatinine 1.50 H (0.52-1.04) mg/dL Glucose 312 H (74-99) mg/dL POC Glucose (mg/dL) 297 H (70-110) mg/dL Calcium 6.7 L (8.4-10.2) mg/dL AST 271 H (14-36) U/L ALT 125 H (4-34) U/L Alkaline Phosphatase 146 H (38-126) U/L Creatine Kinase 4343 H* (30-135) U/L Total Protein 4.7 L (6.3-8.2) g/dL Albumin 2.4 L (3.5-5.0) g/dL Cortisol 47.7 H (3.1-22.4) UG/DL 10/28/23 10/28/23 10/28/23 Range/Units 03:45 03:45 06:26 WBC 2.5 L (3.8-10.6) k/uL RBC 2.70 L (3.80-5.40) m/uL Hgb 9.4 L (11.4-16.0) gm/dL Hct 29.4 L (34.0-46.0) % MCV 108.8 H (80.0-100.0) fL RDW 17.3 H (11.5-15.5) % Plt Count 97 L (150-450) k/uL Lymphocytes # 0.2 L (1.0-4.8) k/uL Macrocytosis Marked A Sodium (137-145) mmol/L Chloride (98-107) mmol/L Carbon Dioxide (22-30) mmol/L BUN (7-17) mg/dL Creatinine (0.52-1.04) mg/dL Glucose (74-99) mg/dL POC Glucose (mg/dL) 356 H (70-110) mg/dL Calcium (8.4-10.2) mg/dL AST (14-36) U/L ALT (4-34) U/L Alkaline Phosphatase (38-126) U/L Creatine Kinase 78775 H* (30-135) U/L Total Protein (6.3-8.2) g/dL Albumin (3.5-5.0) g/dL Cortisol (3.1-22.4) UG/DL 10/28/23 Range/Units 11:59 WBC (3.8-10.6) k/uL RBC (3.80-5.40) m/uL Hgb (11.4-16.0) gm/dL Hct (34.0-46.0) % MCV (80.0-100.0) fL RDW (11.5-15.5) % Plt Count (150-450) k/uL Lymphocytes # (1.0-4.8) k/uL Macrocytosis Sodium (137-145) mmol/L Chloride (98-107) mmol/L Carbon Dioxide (22-30) mmol/L BUN (7-17) mg/dL Creatinine (0.52-1.04) mg/dL Glucose (74-99) mg/dL POC Glucose (mg/dL) 362 H (70-110) mg/dL Calcium (8.4-10.2) mg/dL AST (14-36) U/L ALT (4-34) U/L Alkaline Phosphatase (38-126) U/L Creatine Kinase (30-135) U/L Total Protein (6.3-8.2) g/dL Albumin (3.5-5.0) g/dL Cortisol (3.1-22.4) UG/DL Microbiology - Last 24 Hours (Table) 10/27/23 06:40 Blood Culture - Preliminary Blood 10/27/23 07:00 Blood Culture - Preliminary Blood Chest x-ray: report reviewed CT Scan - head: report reviewed US - abdomen: report reviewed Assessment and Plan (1) Acute hypoxic respiratory failure Current Visit: Yes Status: Acute Priority: High Code(s): J96.01 - ACUTE RESPIRATORY FAILURE WITH HYPOXIA SNOMED Code(s): 77654297 (2) Altered mental status Current Visit: Yes Status: Acute Priority: High Code(s): R41.82 - ALTERED MENTAL STATUS, UNSPECIFIED SNOMED Code(s): 261755488 (3) History of leukemia Current Visit: Yes Status: Acute Priority: High Code(s): Z85.6 - PERSONAL HISTORY OF LEUKEMIA SNOMED Code(s): 861471638 (4) Humerus fracture Current Visit: Yes Status: Acute Priority: Medium Code(s): S42.309A - UNSP FRACTURE OF SHAFT OF HUMERUS, UNSP ARM, INIT SNOMED Code(s): 34466534 (5) Pancytopenia Current Visit: Yes Status: Acute Priority: High Code(s): D61.818 - OTHER PANCYTOPENIA SNOMED Code(s): 948773401 Plan: Altered mental status: -Acute mental status alliteration and acute respiratory failure thought to be related to unintentional overdose of opiates -Defer management to intensive care team Humerus fracture, fall: -S/p fall, left shoulder x-ray showing A/C joint separation and fracture of left femoral head -Orthopedics consulted Pancytopenia: -Pancytopenia noted upon admission. CBC today showing WBC 2.5, hemoglobin 9.4, MCV 108.8, and platelets 97,000. Creatinine elevated at 1.5, but improving. Bilirubin 1.5, and transaminitis noted. Pancultures ordered, negative thus far -Pancytopenia likely related to underlying AML and gilteritinib effects -Will hold gilteritinib and continue to closely monitor counts -Anemia and DIC workup and HIV/acute hep panel ordered -Please transfuse for hgb less than 7 or if symptomatic and for platelets less than 10,000 or symptomatic. Irradiated blood products only AML: -Full leukemia history is somewhat limited. Has been receiving treatment for AML in [place], following with Dr. White at [facility]. She is currently on treatment with gilteritinib. Unknown if patient underwent bone marrow transplant in the past. She states prior to moving earlier this month she had seen her oncologist and her disease was stable -Will request records to see what treatments patient has received -She states she has been unable to find an oncologist upon moving to [place], will establish care upon discharge Dr attests: I have performed H&P and developed impression and plan of care for patient, discussed with dictator. I agree with dictated note, documented as a s cribe
[2023-10-29 07:56] LABS: Glucose,Whole Blood 224 mg/dL (70-110)
--- NOTE | 2023-10-29 09:18 | CDI ---
Documentation Clarification Form Date: 10/29/2023 08:43:42 AM From: Yasmine Rodriguez RN CCDS Phone: [phone] Admit Date: 10/27/2023 07:43:00 AM Patient Name: Yandy Rachel Visit Number: [id number] Discharge Date: ATTENTION: The Clinical Documentation Specialists (CDI) and [facility] Coding Staff appreciate your assistance in clarifying documentation. Please respond to the clarification below the line at the bottom and electronically sign. The CDI & [facility] Coding staff will review the response and follow-up if needed. Please note: Queries are made part of the Legal Health Record. If you have any questions, please contact the author of this message via ITS. Dr. Bryce Triplett Shock is documented 10/26, H&P. Additional clarification regarding the type of shock is requested. Patient history/risk factors: 57-year-old Female presents to the ED by paramedics after patient was noted to have be altered with shallow respiration. Patient was minimally responsive in ED and was given Narcan. At the time of presentation patient mentation did improve in ED however started to deteriorate again through the stay patient has been taking oral morphine. Patient was ultimately transferred to ICU secondary to intermittent episode of unresponsiveness. Medical History: AML and COPD. 10/26 H&P. Clinical Indicators: 10/25 23:40 B/P 65/55; HR 77; RR 15; SpO2 98% 2L nasal cannula 10/26 02:54 B/P 72/56; HR 77; RR 12; SpO2 98% 2L nasal cannula 10/26 04:00 B/P 75/57; HR 76; RR 21; SpO2 96% 2L nasal cannula 10/26 05:40 B/P 63/33; HR 79; RR 10; SpO2 98% 3L nasal cannula 10/26, H&P: In regards to shock patient resuscitated with IV fluid continue patient on epinephrine infusion to central line. 10/26, Pulmonology note: Profound refractory hypotension and shock, requiring vasopressors in the form of norepinephrine. Treatment: 10/25 0.9NS 500cc IV bolus x 2; 10/26 0.9NS 1L IV bolus x 2; 10/25 10/26 0.9NS 130cc/hr IV; 10/26 0.9NS 1L IV bolus. 10/26 10/27 Norepinephrine 4mg - 254mls @ 10.369mls/hr IV. Please clarify the type of shock, if known: [ y ] Hypovolemic Shock [ ] Other, please specify [ ] Unable to determine (Template Last Revised: October 2020) MTDD
--- NOTE | 2023-10-29 09:43 | CDI ---
Documentation Clarification Form Date: 10/29/2023 09:19:21 AM From: Yasmine Rodriguez RN CCDS Phone: [phone] Admit Date: 10/27/2023 07:43:00 AM Patient Name: Yandy Rachel Visit Number: [id number] Discharge Date: ATTENTION: The Clinical Documentation Specialists (CDI) and [facility] Coding Staff appreciate your assistance in clarifying documentation. Please respond to the clarification below the line at the bottom and electronically sign. The CDI & [facility] Coding staff will review the response and follow-up if needed. Please note: Queries are made part of the Legal Health Record. If you have any questions, please contact the author of this message via ITS. Dr. Bryce Triplett Sepsis is documented 10/26, H&P which may lack sufficient clinical evidence/support in the medical record. Additional clarification is requested. History/Risk Factors: 57-year-old Female presents to the ED by paramedics after patient was noted to have be altered with shallow respiration. Patient was minimally responsive in ED and was given Narcan. At the time of presentation patient mentation did improve in ED however started to deteriorate again through the stay patient has been taking oral morphine. Patient was ultimately transferred to ICU secondary to intermittent episode of unresponsiveness. Medical History: AML and COPD. 10/26 H&P. Clinical Indicators: VSS, 10/25: B/P 80/54; HR 80; Temp 98.7F Oral; RR 28; SpO2 99% 4L nasal cannula Treatment: 10/25 0.9NS 500cc IV bolus x 2; 10/26 0.9NS 1L IV bolus x 2; 10/25 10/26 0.9NS 130cc/hr IV; 10/26 0.9NS 1L IV bolus, 10/26 Ceftriaxone 2gm IVPB x 1. Labs, 10/25: Wbc 1.9; Neutrophils 1.2; UA : Cloudy, Protein trace; Blood moderate; RBC 48; Wbc 3; Amorphous sediment moderate; Hyaline Casts 23; Urine mucus rare. Blood cultures, 10/27: No growth after 24 hours. Treatment: 10/26 Ceftriaxone 2gm IVPB x 1 10/25- 10/27 Norepinephrine 4mg 254mls@10.369mls/hr IV Q24 Fluids: 10/25 0.9% 500 cc IV Bolus x 2; 10/25 0.9NS 130cc/hr; 10/26 0.9NS 3L IV Bolus; 10/27 - 10/28 0.9NS 125cc/hr; 10/28 0.9NS 100cc/hr. After work up and study, please clarify which diagnosis is most appropriate? [ ] Sepsis ruled out [ y ] Sepsis treated prophylactically [ ] Sepsis is a valid diagnosis as evidence by the following: (Please add rationale): [ ] Non-infectious SIRS due to with organ dysfunction as evidenced by [list organ dysfunction] [ ] Other, please specify [ ] Unable to determine (Template Last Reviewed: August 2023) MTDD
[2023-10-29] MEDS: MORPHINE SULFATE IR 15 MG TABLET PO SCH (10:42)
[2023-10-29] MEDS: methocarbamoL 500 MG TAB PO SCH (10:43)
[2023-10-29 11:32] LABS: BUN/Creat Ratio 35.11 Ratio (12.00-20.00); Blood Urea Nitrogen 31.6 mg/dL (9.0-27.0); Calcium 7.1 mg/dL (8.7-10.3); Carbon Dioxide 21.3 mmol/L (21.6-31.8); Chloride 110 mmol/L (96-109); Glucose 191 mg/dL (70-110); Potassium 4.2 mmol/L (3.5-5.5); Sodium 141 mmol/L (135-145)
--- NOTE | 2023-10-29 11:51 | P.PN ---
Subjective Patient is seen in follow-up for acute kidney injury. Renal function improved. Receiving IV fluids. Has been voiding. Vital signs are stable. General: No acute distress. HEENT: Head exam is unremarkable. LUNGS: No audible rhonchi or wheezes. HEART: Rate and Rhythm are regular. ABDOMEN: Nontender. EXTREMITITES: Trace edema. Objective - Vital Signs Vital signs: Vital Signs Temp 98 F 10/29/23 08:00 Pulse 96 10/29/23 08:00 Resp 16 10/29/23 08:00 BP 138/83 10/29/23 08:00 Pulse Ox 100 10/29/23 08:00 FiO2 35 10/27/23 11:01 Intake & Output 10/28/23 10/29/23 10/29/23 18:59 06:59 18:59 Intake Total 680 120 Output Total 885 1500 Balance -205 -1500 120 Weight 106.9 kg Intake: IV 125 Dextrose 5% in Water 1, 125 000 ml @ 125 mls/hr IV . Q9H12M LIZZY with Sodium Bicarb (1 Meq/ml) 150 ml Rx#:[id number] Intake, IV Titration 555 Amount Dextrose 5% in Water 1, 250 000 ml @ 125 mls/hr IV . Q9H12M LIZZY with Sodium Bicarb (1 Meq/ml) 150 ml Rx#:[id number] Sodium Chloride 0.9% 1, 305 000 ml @ 125 mls/hr IV . Q8H LIZZY Rx#:[id number] Oral 120 Output: Urine 885 1500 Other: Voiding Method Indwelling Catheter Indwelling Catheter Indwelling Catheter # Bowel Movements 2 - Labs CBC & Chem 7: 10/28/23 03:45 10/29/23 06:57 Labs: Abnormal Lab Results - Last 24 Hours (Table) 10/27/23 10/28/23 10/28/23 Range/Units 06:57 03:45 11:59 Fibrinogen (200-500) mg/dL Chloride (96-109) mmol/L Carbon Dioxide (21.6-31.8) mmol/L BUN (9.0-27.0) mg/dL BUN/Creatinine Ratio (12.00-20.00) Ratio Glucose (70-110) mg/dL POC Glucose (mg/dL) 362 H (70-110) mg/dL Calcium (8.7-10.3) mg/dL % Saturation (12.00-45.00) Transferrin (204.0-354.0) mg/dL Ferritin (10.0-291.0) ng/mL Creatine Kinase 4343 H* 20715 H* (30-135) U/L Hep C IgG Ab (Nonreactive) 10/28/23 10/28/23 10/28/23 Range/Units 16:03 16:37 16:37 Fibrinogen 740 H (200-500) mg/dL Chloride (96-109) mmol/L Carbon Dioxide (21.6-31.8) mmol/L BUN (9.0-27.0) mg/dL BUN/Creatinine Ratio (12.00-20.00) Ratio Glucose (70-110) mg/dL POC Glucose (mg/dL) 255 H (70-110) mg/dL Calcium (8.7-10.3) mg/dL % Saturation 48.32 H (12.00-45.00) Transferrin 170.0 L (204.0-354.0) mg/dL Ferritin 873.0 H (10.0-291.0) ng/mL Creatine Kinase (30-135) U/L Hep C IgG Ab (Nonreactive) 10/28/23 10/29/23 10/29/23 Range/Units 16:37 06:57 07:33 Fibrinogen (200-500) mg/dL Chloride 110 H (96-109) mmol/L Carbon Dioxide 21.3 L (21.6-31.8) mmol/L BUN 31.6 H (9.0-27.0) mg/dL BUN/Creatinine Ratio 35.11 H (12.00-20.00) Ratio Glucose 191 H (70-110) mg/dL POC Glucose (mg/dL) 224 H (70-110) mg/dL Calcium 7.1 L (8.7-10.3) mg/dL % Saturation (12.00-45.00) Transferrin (204.0-354.0) mg/dL Ferritin (10.0-291.0) ng/mL Creatine Kinase (30-135) U/L Hep C IgG Ab Reactive A (Nonreactive) Microbiology - Last 24 Hours (Table) 10/27/23 06:40 Blood Culture - Preliminary Blood 10/27/23 07:00 Blood Culture - Preliminary Blood Assessment and Plan Plan: Assessment: 1. Acute kidney injury secondary to ATN secondary to hypotension versus underlying chronic kidney disease. Creatinine 2.33 on admission and is 0.9 today. No hydronephrosis noted on kidney ultrasound. Left kidney atrophic. 2. Hyperkalemia secondary to losartan and potassium supplementation. Also component of acute kidney injury and acidosis. Improved with medical management. 3. Metabolic acidosis secondary to acute kidney injury and IV fluids. Improved with bicarb drip. 4. Status post fall with left humerus fracture. 5. Altered mental status with concern for opiate overdose s/p Narcan drip. Improved. 6. History of lymphoma. 7. Rhabdomyolysis from immobility. 8. Mild fluid overload from IV fluids. Plan: Hep-Lock IV fluids. Follow-up CK level from today. Avoid nephrotoxins. Continue to monitor renal function and urine output.
[2023-10-29 12:24] LABS: Creatine Kinase 6869 U/L (26-186)
--- NOTE | 2023-10-29 12:24 | P.PN ---
Subjective Progress Note Date: 10/29/23 * 57-year-old patient who presented to the emergency department with altered mental status, while in ER and rapid response was called for altered mentation and patient was seen by rapid response team. Patient was brought in by paramedics after patient was noted to have be altered with shallow respiration. Patient was minimally responsive in ED and was given Narcan. At the time of presentation patient mentation did improve in ED however started to deteriorate again through the stay patient has been taking oral morphine. Patient was ultimately transferred to ICU secondary to intermittent episode of unresponsiveness. Workup initiated included venous blood gas which showed pCO2 of 53. Patient was placed on noninvasive ventilation. A CT head was obtained which was negative for acute intracranial process. Patient was noted to be hypotensive and was started on norepinephrine. Patient was given approximately 5 L of bolus in ED. Central line was placed by ED team. * Blood work reviewed showed WBC of 1.9 hemoglobin 10.4 platelet count of 103, follow WBC 2.8 hemoglobin 9.4 platelet count of 103. Serum chemistry showed sodium 135 potassium 5.2 chloride 108 BUN 53 creatinine 2.06 glucose 119. Calcium of 7.2. AST of 89 ALT of 89 total protein 5.3. * Urinalysis obtained showed cloudy urine, urine drug screen was obtained which was positive for opiates, positive for tricyclic antidepressant and benzodiazepine * Patient has x-ray of left humerus obtained which showed fractured humerus 3 or 4 parts head fracture. The shaft and distal part of left humerus is intact * After appropriate resuscitation patient was transferred to medical ICU team. Patient was started on IV Solu-Medrol, IV Levophed and will be closely monitored in ICU * Day 1 10/28/23: Patient seen and evaluated in medical ICU room 260, patient has been weaned off BiPAP, on room air, received IV Solu-Medrol, patient was on D5 and bicarbonate drip managed by nephrology, patient had significant imp rovement alert and oriented x 4. IV fluids changed to normal saline. Transfer to general medical floor * Day 2 10/29/2023: Patient seen and evaluated on general medical floor, patient moved out of her ICU. Mentation had improved patient started back on morphine, appreciate input from hematology oncology. IV steroids discontinued as well continue patient on home regimen of acyclovir, started back on Robaxin, on gabapentin as well will monitor for sedation. Appreciate input from nephrology, patient noted to have elevated CK levels follow-up CK levels ordered if trending down patient will be discharged home otherwise will stay for another 24 hours PHYSICAL EXAMINATION: GENERAL: The patient is alert and oriented x o, BiPAP in place, ill appearance, toxic HEENT: Pupils are round and equally reacting to light. EOMI. CARDIOVASCULAR: S1 and S2 present. No murmurs, rubs, or gallops. PULMONARY: Chest is clear to auscultation, no wheezing or crackles. ABDOMEN: Soft, nontender, nondistended, normoactive bowel sounds. No palpable organomegaly. MUSCULOSKELETAL: No joint swelling or deformity. EXTREMITIES: No cyanosis, clubbing, or pedal edema. NEUROLOGICAL: Gross neurological examination did not reveal any focal deficits. Assessment and plan Acute toxic metabolic encephalopathy resolved Acute hypoxemic hypercapnic respiratory failure resolved S/p fall with left humerus fracture Widening of AC joint suggesting AC joint separation History of leukemia, AML Acute renal failure with metabolic acidosis Nontraumatic rhabdomyolysis Hyperkalemia resolved Pancytopenia Transaminitis secondary to sepsis Diabetes mellitus type 2 * In regards to acute toxic metabolic encephalopathy, patient was given Narcan, patient was weaned off Narcan infusion, patient placed back on home regimen for pain control * In regards to shock patient resuscitated with IV fluid, Levophed weaned off * In regards to pancytopenia, will need records from outside hospital patient will need to establish care >> hematology oncology due to history of leukemia * In Regards to humerus fracture patient to be seen by orthopedic, will defer management to orthopedic team sling in place * In regards to acute renal failure nephrology consulted, continue to monitor metabolic acidosis, renal function improving electrolytes improved * In regards to history of leukemia/pancytopenia >> hematology consulted, will need outpatient follow-up * In regards to diabetes mellitus Accu-Cheks ACHS, continue patient on correctional insulin * Status is full code prognosis fair Objective - Vital Signs Vital signs: Vital Signs Temp 98 F 10/29/23 08:00 Pulse 96 10/29/23 08:00 Resp 16 10/29/23 08:00 BP 138/83 10/29/23 08:00 Pulse Ox 100 10/29/23 08:00 FiO2 35 10/27/23 11:01 Intake & Output 10/28/23 10/29/23 10/29/23 18:59 06:59 18:59 Intake Total 680 Output Total 885 1500 Balance -205 -1500 Weight 106.9 kg Intake: IV 125 Dextrose 5% in Water 1, 125 000 ml @ 125 mls/hr IV . Q9H12M LIZZY with Sodium Bicarb (1 Meq/ml) 150 ml Rx#:[id number] Intake, IV Titration 555 Amount Dextrose 5% in Water 1, 250 000 ml @ 125 mls/hr IV . Q9H12M LIZZY with Sodium Bicarb (1 Meq/ml) 150 ml Rx#:[id number] Sodium Chloride 0.9% 1, 305 000 ml @ 125 mls/hr IV . Q8H LIZZY Rx#:[id number] Output: Urine 885 1500 Other: Voiding Method Indwelling Catheter Indwelling Catheter Indwelling Catheter - Labs CBC & Chem 7: 10/28/23 03:45 10/29/23 06:57 Labs: Abnormal Lab Results - Last 24 Hours (Table) 10/27/23 10/28/23 10/28/23 Range/Units 06:57 03:45 11:59 Fibrinogen (200-500) mg/dL POC Glucose (mg/dL) 362 H (70-110) mg/dL % Saturation (12.00-45.00) Transferrin (204.0-354.0) mg/dL Ferritin (10.0-291.0) ng/mL Creatine Kinase 4343 H* 13470 H* (30-135) U/L Hep C IgG Ab (Nonreactive) 10/28/23 10/28/23 10/28/23 Range/Units 16:03 16:37 16:37 Fibrinogen 740 H (200-500) mg/dL POC Glucose (mg/dL) 255 H (70-110) mg/dL % Saturation 48.32 H (12.00-45.00) Transferrin 170.0 L (204.0-354.0) mg/dL Ferritin 873.0 H (10.0-291.0) ng/mL Creatine Kinase (30-135) U/L Hep C IgG Ab (Nonreactive) 10/28/23 10/29/23 Range/Units 16:37 07:33 Fibrinogen (200-500) mg/dL POC Glucose (mg/dL) 224 H (70-110) mg/dL % Saturation (12.00-45.00) Transferrin (204.0-354.0) mg/dL Ferritin (10.0-291.0) ng/mL Creatine Kinase (30-135) U/L Hep C IgG Ab Reactive A (Nonreactive) Microbiology - Last 24 Hours (Table) 10/27/23 06:40 Blood Culture - Preliminary Blood 10/27/23 07:00 Blood Culture - Preliminary Blood
[2023-10-29 12:28] LABS: HCT 28.6 % (37.2-46.3); HGB 9.3 g/dL (12.0-15.0); MCH 34.3 pg (27.0-32.0); MCHC 32.5 g/dL (32.0-37.0); MCV 105.5 FL (80.0-97.0); Mean Platelet Volume 11.9 FL (9.5-12.2); NRBC Per 100 WBC 0.04 X 10*3/uL (0.00-0.01); Platelet Count 124 X 10*3/uL (140-440); RBC 2.71 X 10*6/uL (4.10-5.20); RDW 17.2 % (11.5-14.5); WBC 3.55 X 10*3/uL (4.50-10.00)
[2023-10-29 12:36] LABS: Glucose,Whole Blood 272 mg/dL (70-110)
[2023-10-29] MEDS: SODIUM CHLORIDE 0.9% 1,000 ML IV SCH (13:20)
--- NOTE | 2023-10-29 13:48 | P.DS ---
Providers Date of admission: 10/27/23 07:43 Expected date of discharge: 10/29/23 Attending physician: Jasiel Brown Consults: 10/26/23 21:47 Consult Physician Routine Consulting Provider: Yan Diaz Consult Reason/Comments: CKD Do you want consulting provider notified?: Yes Consult Physician Routine Consulting Provider: Balaji Marin Consult Reason/Comments: Left humerus fracture Do you want consulting provider notified?: Yes 10/27/23 06:53 Consult Physician Routine Consulting Provider: Maritza Gonzales Consult Reason/Comments: ICU management Do you want consulting provider notified?: Already Contacted 10/28/23 08:38 Consult Physician Routine Consulting Provider: Susie Balderrama Consult Reason/Comments: Pancytopenia history of leukemia Do you want consulting provider notified?: Yes Primary care physician: Stated None Hospital Course: * 57-year-old patient who presented to the emergency department with altered mental status, while in ER and rapid response was called for altered mentation and patient was seen by rapid response team. Patient was brought in by paramedics after patient was noted to have be altered with shallow respiration. Patient was minimally responsive in ED and was given Narcan. At the time of presentation patient mentation did improve in ED however started to deteriorate again through the stay patient has been taking oral morphine. Patient was ultimately transferred to ICU secondary to intermittent episode of unresponsiveness. Workup initiated included venous blood gas which showed pCO2 of 53. Patient was placed on noninvasive ventilation. A CT head was obtained which was negative for acute intracranial process. Patient was noted to be hypotensive and was started on norepinephrine. Patient was given approximately 5 L of bolus in ED. Central line was placed by ED team. * Blood work reviewed showed WBC of 1.9 hemoglobin 10.4 platelet count of 103, follow WBC 2.8 hemoglobin 9.4 platelet count of 103. Serum chemistry showed sodium 135 potassium 5.2 chloride 108 BUN 53 creatinine 2.06 glucose 119. Calcium of 7.2. AST of 89 ALT of 89 total protein 5.3. * Urinalysis obtained showed cloudy urine, urine drug screen was obtained which was positive for opiates, positive for tricyclic antidepressant and benzodiazepine * Patient has x-ray of left humerus obtained which showed fractured humerus 3 or 4 parts head fracture. The shaft and distal part of left humerus is intact * After appropriate resuscitation patient was transferred to medical ICU team. Patient was started on IV Solu-Medrol, IV Levophed and will be closely monitored in ICU * Day 1> 10/28/23: Patient seen and evaluated in medical ICU room 260, patient has been weaned off BiPAP, on room air, received IV Solu-Medrol, patient was on D5 and bicarbonate drip managed by nephrology, patient had significant improvement alert and oriented x 4. IV fluids changed to normal saline. Transfer to general medical floor * Day 2> 10/29/2023: Patient seen and evaluated on general medical floor, patient moved out of her ICU. Mentation had improved patient started back on morphine, appreciate input from hematology oncology. IV steroids discontinued as well continue patient on home regimen of acyclovir, started back on Robaxin, on gabapentin as well will monitor for sedation. Appreciate input from nephrology, patient noted to have elevated CK levels follow-up CK levels ordered if trending down patient will be discharged home otherwise will stay for another 24 hours PHYSICAL EXAMINATION: GENERAL: The patient is alert and oriented x 4, nasal cannula removed on room air HEENT: Pupils are round and equally reacting to light. EOMI. CARDIOVASCULAR: S1 and S2 present. PULMONARY: Chest is clear to auscultation, no wheezing or crackles. ABDOMEN: Soft, nontender, nondistended, normoactive bowel sounds. No palpable organomegaly. MUSCULOSKELETAL: No joint swelling or deformity. EXTREMITIES: No cyanosis, clubbing, or pedal edema. NEUROLOGICAL: Gross neurological examination did not reveal any focal deficits. Assessment and plan Acute toxic metabolic encephalopathy resolved Acute hypoxemic hypercapnic respiratory failure resolved S/p fall with left humerus fracture Widening of AC joint suggesting AC joint separation History of leukemia, AML Acute renal failure with metabolic acidosis Nontraumatic rhabdomyolysis Hyperkalemia resolved Pancytopenia Transaminitis secondary to sepsis Diabetes mellitus type 2 * In regards to acute toxic metabolic encephalopathy, patient was given Narcan, patient was weaned off Narcan infusion, patient placed back on home regimen for pain control * In regards to shock patient resuscitated with IV fluid, Levophed weaned off * In regards to pancytopenia, will need records from outside hospital patient will need to establish care >> hematology oncology due to history of leukemia * In Regards to humerus fracture patient to be seen by orthopedic, will defer management to orthopedic team sling in place, outpatient follow-up with Ortho * In regards to acute renal failure nephrology consulted, continue to monitor metabolic acidosis, renal function improving electrolytes improved * In regards to history of leukemia/pancytopenia >> hematology consulted, will need outpatient follow-up * In regards to nontraumatic rhabdo, patient given fluids, CPK trending down, seen by physical therapy * In regards to diabetes mellitus Accu-Cheks ACHS, discharged on home regimen * Status is full code prognosis good significant improvement Patient Condition at Discharge: Fair Plan - Discharge Summary Discharge Rx Participant: Yes New Discharge Prescriptions: Continue ALPRAZolam [Xanax] 1 mg PO HS FLUoxetine HCL [PROzac] 40 mg PO DAILY Gabapentin [Neurontin] 300 mg PO BID Gilteritinib Fumarate [Xospata] 120 mg PO DAILY Losartan [Cozaar] 25 mg PO DAILY Suvorexant [Belsomra] 15 mg PO HS PRN PRN Reason: Insomnia Acyclovir [Zovirax] 400 mg PO BID Butalb/APAP/Caff 50-325-40Mg [Fioricet 50-325-40] 1 tab PO Q4H PRN MDD 6 TABLETS PRN Reason: Migraine Headache methocarbamoL [Robaxin] 500 mg PO TID Morphine Sulfate Ir [MSIR] 15 mg PO QID Pioglitazone [Actos] 30 mg PO DAILY Potassium Chloride [Klor-Con M20] 20 meq PO DAILY Discharge Medication List ALPRAZolam [Xanax] 1 mg PO HS 10/27/23 [History] Acyclovir [Zovirax] 400 mg PO BID 10/27/23 [History] Butalb/APAP/Caff 50-325-40Mg [Fioricet 50-325-40] 1 tab PO Q4H PRN MDD 6 TABLETS 10/27/23 [History] FLUoxetine HCL [PROzac] 40 mg PO DAILY 10/27/23 [History] Gabapentin [Neurontin] 300 mg PO BID 10/27/23 [History] Gilteritinib Fumarate [Xospata] 120 mg PO DAILY 10/27/23 [History] Losartan [Cozaar] 25 mg PO DAILY 10/27/23 [History] Morphine Sulfate Ir [MSIR] 15 mg PO QID 10/27/23 [History] Pioglitazone [Actos] 30 mg PO DAILY 10/27/23 [History] Potassium Chloride [Klor-Con M20] 20 meq PO DAILY 10/27/23 [History] Suvorexant [Belsomra] 15 mg PO HS PRN 10/27/23 [History] methocarbamoL [Robaxin] 500 mg PO TID 10/27/23 [History] Follow up Appointment(s)/Referral(s): Triston Miller, EJ [PH[employer]ICIAN [employer] DOCTOR] - 1 Week (Patient may follow-up with Triston Miller PA-C or Dr. Karthikeyan Marin at [facility] in 1-2 weeks following discharge. ) None,Stated [Primary Care Provider] - 1-2 days Activity/Diet/Wound Care/Special Instructions: 1. Nonweightbearing left upper extremity 2. Sling should be kept intact for the left upper extremity at all times except patient may remove left elbow to work on gentle range of motion 2-3 times per day 3. Patient may perform light activities with fingers of the left hand Discharge Disposition: HOME WITH HOME HEALTH SERVICES
[2023-10-29 14:52] VITALS: BP 105/70; PULSE 106; RESP 17; TEMP 98.2
--- NOTE | 2023-10-29 14:53 | P.PN ---
Subjective Progress Note Date: 10/29/23 I am seeing this patient in consultation today 10/27/2023 in the emergency room, after an A-team was called earlier for altered mental status and hypotension. Patient is a 57-year-old white female with little known past medical history, she reportedly has history of leukemia. She is currently obtunded and I am unable to elicit any information. There is no family at bedside and no listed next of kin in the chart. According to the ER documentation, the paramedics had found the patient altered with shallow respirations. She was unresponsive at that time. She did require BVM respirations and Narcan was administered. Reportedly, the patient takes morphine as needed at home. She did reportedly r espond initially to the Narcan in route to the hospital. On arrival, she had some left arm pain, limited range of motion, and ecchymosis. She reportedly had fallen several days ago. Left shoulder x-ray showed widening of the A/C joint suggestive of AC joint separation and 3 or 4 part fracture of the left humeral head. As stated above, an A team was called earlier this morning and again prior to this transfer to the ICU. The patient has been experiencing intermittent episodes of unresponsiveness, requiring subsequent doses of Narcan, and ultimately a Narcan infusion which is currently infusing at 0.6 mg/h.. VBG did show a pH of 7.2, pCO2 of 53. I did place her on BiPAP with settings 12/5 and FiO2 of 35%. She is generating tidal volumes of around 500 and her respiratory rate is in the mid 20s. She is obtunded, and intermittently follows commands. This was followed by a brain CT which did not show any intracranial hemorrhage or midline shift. During the rapid response, the patient became profoundly hypotensive. She has received several liters fluid bolus while in the emergency room, I am told a total of 5 L normal saline. She was started on norepinephrine, which is currently infusing at 0.12 mcg/kg/min. The ER physician did insert a right IJ triple-lumen catheter. Chest x-ray shows the right IJ triple-lumen catheter within the right atrium. There is cardiomegaly without any acute cardiopulmonary process. There are old sternotomy wires. CBC on arrival consistent with pancytopenia. WBC count 1.9, hemoglobin 10.4, hematocrit 32.8, platelets 109. BMP on arrival: Sodium 134, potassium 6.2, chloride 105, serum bicarb 20, BUN 55, creatinine 2.09, glucose 122. Potassium is now down to 5.2. LFTs mildly elevated. Total bili 0.8. Ammonia less than 9. Lactic acid level 0.6. Urinalysis not concerning for UTI. EKG done on arrival shows normal sinus rhythm without any obvious acute ischemic changes. Patient is at high risk for intubation, she will be monitored in the intensive care unit. Patient was reevaluated today on 10/28/2023, patient remains in the ICU, she is doing great. She is on room air, still on a bicarb drip, she was on BiPAP 07/07/1936, and she was transitioned to nasal cannula. Doing great, asymptomatic, patient is alert oriented x 3, she has no gross focal neurologic deficits. I plan to transfer the patient to a regular medical floor today labs today were all reviewed including CBC,WBC is 2.5 hemoglobin 9.4 basic metabolic profile is normal BUN is 46 creatinine 1.50, CPK however remains high at 13,879, hence we will continue the bicarb drip for this patient. In the meantime the patient could be considered for transfer out of the ICU to the regular medical floor. The patient is seen today October 29, 2023 in follow-up on the regular medical floor. She is currently sitting up in a chair. Awake and alert in no acute distress. Maintaining good O2 saturations in the 90s on room air. She is afebrile. Hemodynamically stable. Blood cultures revealed no growth. White count 3.5. Hemoglobin 9.3. Platelets 124. Sodium 141. Potassium 4.2. Bicarb 21. BUN 32. Creatinine 0.9. Glucose 191. Objective - Vital Signs Vital signs: Vital Signs Temp 98.2 F 10/29/23 14:00 Pulse 106 H 10/29/23 14:00 Resp 17 10/29/23 14:00 BP 105/70 10/29/23 14:00 Pulse Ox 97 10/29/23 14:00 FiO2 35 10/27/23 11:01 Intake & Output 10/28/23 10/29/23 10/29/23 18:59 06:59 18:59 Intake Total 680 120 Output Total 885 1500 Balance - -1500 120 Weight 106.9 kg Intake: IV 125 Dextrose 5% in Water 1, 125 000 ml @ 125 mls/hr IV . Q9H12M LIZZY with Sodium Bicarb (1 Meq/ml) 150 ml Rx#:[id number] Intake, IV Titration 555 Amount Dextrose 5% in Water 1, 250 000 ml @ 125 mls/hr IV . Q9H12M LIZZY with Sodium Bicarb (1 Meq/ml) 150 ml Rx#:[id number] Sodium Chloride 0.9% 1, 305 000 ml @ 125 mls/hr IV . Q8H LIZZY Rx#:[id number] Oral 120 Output: Urine 885 1500 Other: Voiding Method Indwelling Catheter Indwelling Catheter Indwelling Catheter # Bowel Movements 2 - Exam General: Reveals a pleasant 57-year-old female in no distress patient, up in a chair, on room air. Skin: Skin is warm and dry and no rashes or lesions are noted. Eye: Pupils are equal, round and reactive to light, extra-ocular movements are intact; there is normal conjunctiva bilaterally. Ears, nose, mouth and throat: There are moist mucous membranes and no oral lesions. Neck: The neck is supple, there is no tenderness or JVD. Cardiovascular: There is a regular rate and rhythm. No murmur, rub or gallop is appreciated. Respiratory: Clear bilaterally no rhonchi no wheezes Gastrointestinal: Soft, non-distended, non-tender abdomen without masses or organomegaly noted. Back: There is no tenderness to palpation in the midline. There is no obvious deformity. Musculoskeletal: Normal ROM, no tenderness, There is no pedal edema. There is no calf tenderness or swelling. Neurological: CN II-XII intact, Cranial nerves III through XII are intact. There are no obvious motor or sensory deficits. Psychiatric: Cooperative, appropriate mood & affect, normal judgment. - Labs CBC & Chem 7: 10/29/23 06:57 10/29/23 06:57 Labs: Abnormal Lab Results - Last 24 Hours (Table) 10/28/23 10/28/23 10/28/23 Range/Units 16:03 16:37 16:37 WBC (4.50-10.00) X 10*3/uL RBC (4.10-5.20) X 10*6/uL Hgb (12.0-15.0) g/dL Hct (37.2-46.3) % MCV (80.0-97.0) FL MCH (27.0-32.0) pg RDW (11.5-14.5) % Plt Count (140-440) X 10*3/uL NRBC/100 WBC Diff (0.00-0.01) X 10*3/uL Fibrinogen 740 H (200-500) mg/dL Chloride (96-109) mmol/L Carbon Dioxide (21.6-31.8) mmol/L BUN (9.0-27.0) mg/dL BUN/Creatinine Ratio (12.00-20.00) Ratio Glucose (70-110) mg/dL POC Glucose (mg/dL) 255 H (70-110) mg/dL Calcium (8.7-10.3) mg/dL % Saturation 48.32 H (12.00-45.00) Transferrin 170.0 L (204.0-354.0) mg/dL Ferritin 873.0 H (10.0-291.0) ng/mL Creatine Kinase (26-186) U/L RBC Folate (280 - 791) ng/mL Hep C IgG Ab (Nonreactive) 10/28/23 10/28/23 10/29/23 Range/Units 16:37 16:37 06:57 WBC 3.55 L (4.50-10.00) X 10*3/uL RBC 2.71 L (4.10-5.20) X 10*6/uL Hgb 9.3 L (12.0-15.0) g/dL Hct 28.6 L (37.2-46.3) % MCV 105.5 H (80.0-97.0) FL MCH 34.3 H (27.0-32.0) pg RDW 17.2 H (11.5-14.5) % Plt Count 124 L (140-440) X 10*3/uL NRBC/100 WBC Diff 0.04 H (0.00-0.01) X 10*3/uL Fibrinogen (200-500) mg/dL Chloride (96-109) mmol/L Carbon Dioxide (21.6-31.8) mmol/L BUN (9.0-27.0) mg/dL BUN/Creatinine Ratio (12.00-20.00) Ratio Glucose (70-110) mg/dL POC Glucose (mg/dL) (70-110) mg/dL Calcium (8.7-10.3) mg/dL % Saturation (12.00-45.00) Transferrin (204.0-354.0) mg/dL Ferritin (10.0-291.0) ng/mL Creatine Kinase (26-186) U/L RBC Folate 1,008 H (280 - 791) ng/mL Hep C IgG Ab Reactive A (Nonreactive) 10/29/23 10/29/23 10/29/23 Range/Units 06:57 07:33 12:25 WBC (4.50-10.00) X 10*3/uL RBC (4.10-5.20) X 10*6/uL Hgb (12.0-15.0) g/dL Hct (37.2-46.3) % MCV (80.0-97.0) FL MCH (27.0-32.0) pg RDW (11.5-14.5) % Plt Count (140-440) X 10*3/uL NRBC/100 WBC Diff (0.00-0.01) X 10*3/uL Fibrinogen (200-500) mg/dL Chloride 110 H (96-109) mmol/L Carbon Dioxide 21.3 L (21.6-31.8) mmol/L BUN 31.6 H (9.0-27.0) mg/dL BUN/Creatinine Ratio 35.11 H (12.00-20.00) Ratio Glucose 191 H (70-110) mg/dL POC Glucose (mg/dL) 224 H 272 H (70-110) mg/dL Calcium 7.1 L (8.7-10.3) mg/dL % Saturation (12.00-45.00) Transferrin (204.0-354.0) mg/dL Ferritin (10.0-291.0) ng/mL Creatine Kinase 6869 A* (26-186) U/L RBC Folate (280 - 791) ng/mL Hep C IgG Ab (Nonreactive) Microbiology - Last 24 Hours (Table) 10/27/23 06:40 Blood Culture - Preliminary Blood 10/27/23 07:00 Blood Culture - Preliminary Blood Assessment and Plan Assessment: Acute metabolic encephalopathy secondary to acute unintentional opiate overdose. Acute hypoxemic and hypercapnic respiratory failure, secondary to above Acute rhabdomyolysis and acute kidney injury Hypotension secondary to above Left humeral fracture, shoulder and humeral x-ray shows 3 to 4 part fracture of the left humeral head and widening of the AC joint suggestive of AC joint separation. History of leukemia, unknown type Severe hyperkalemia, resolved Pancytopenia, questionable history of leukemia Mild transaminitis Fall Obesity, with a BMI of 35.4 kg/m Plan: The patient was seen and evaluated Currently stable and on room air Labs and medications reviewed Cleared for discharge from the pulmonary standpoint I have personally seen and examined the patient, performed the documentation and the assessment and plan as written. Number of minutes spent on the visit: 10.
[2023-10-29 17:41] LABS: Glucose,Whole Blood 161 mg/dL (70-110)
[2023-10-30 04:27] LABS: Methylmalonic Acid 0.37 umol/L (<0.40)
--- NOTE | 2023-10-30 13:53 | P.PN ---
Progress Note - Text Progress Note Date: 10/30/23 Patient is requiring a hospital bed at home for frequent position changes as patient has congestive heart failure as well as fibromyalgia to be able to manage her pain as well as increased shortness of breath while lying flat. Patient unable to do this with her regular bed.
== END 2023-10-29 18:46 | disposition home or self-care (01) | DRG 917 ==
LOC: EC 19:07 → 5NMEDONC 21:47 → 2SICU 10-27 06:22 → OBSVTOIN 10-27 07:43 → 5NMEDONC 10-28 18:49
PROVIDERS: ADMIT Hospitalist; ATTEND Hospitalist
PROC: 5A09357 Assistance with Respiratory Ventilation, Less than 24 Consecutive Hours, Continuous Positive Airway Pressure (ICD-10-PCS; principal; 2023-10-27)
PROC: 3E033XZ Introduction of Vasopressor into Peripheral Vein, Percutaneous Approach (ICD-10-PCS; principal; 2023-10-27)
DX: T40.2X1A Poisoning by other opioids, accidental (unintentional), initial encounter (principal); G92.8 Other toxic encephalopathy; N17.0 Acute kidney failure with tubular necrosis; J96.02 Acute respiratory failure with hypercapnia; J96.01 Acute respiratory failure with hypoxia; R57.1 Hypovolemic shock; S42.292A Other displaced fracture of upper end of left humerus, initial encounter for closed fracture; E87.20 Acidosis, unspecified; M62.82 Rhabdomyolysis; I13.0 Hypertensive heart and chronic kidney disease with heart failure and stage 1 through stage 4 chronic kidney disease, or unspecified chronic kidney disease; D61.818 Other pancytopenia; C92.00 Acute myeloblastic leukemia, not having achieved remission; E87.5 Hyperkalemia; Z68.35 Body mass index [BMI] 35.0-35.9, adult; W01.0XXA Fall on same level from slipping, tripping and stumbling without subsequent striking against object, initial encounter; N26.1 Atrophy of kidney (terminal); T46.5X5A Adverse effect of other antihypertensive drugs, initial encounter; N18.9 Chronic kidney disease, unspecified; M79.7 Fibromyalgia; I25.10 Atherosclerotic heart disease of native coronary artery without angina pectoris; I50.9 Heart failure, unspecified; E86.0 Dehydration; E11.22 Type 2 diabetes mellitus with diabetic chronic kidney disease; R00.1 Bradycardia, unspecified; M06.9 Rheumatoid arthritis, unspecified; E78.5 Hyperlipidemia, unspecified; J44.9 Chronic obstructive pulmonary disease, unspecified; E66.9 Obesity, unspecified; D63.1 Anemia in chronic kidney disease; R74.01 Elevation of levels of liver transaminase levels; Z91.81 History of falling; Z79.899 Other long term (current) drug therapy; Z79.84 Long term (current) use of oral hypoglycemic drugs; Z86.718 Personal history of other venous thrombosis and embolism; I25.2 Old myocardial infarction; Z88.8 Allergy status to other drugs, medicaments and biological substances
CPT/HCPCS: 36415; 36600; 51702; 70450; 71045; 76770; 80048; 80053; 80074; 80306; 81001; 82140; 82525; 82533; 82550; 82607; 82728; 82747; 82803; 83540; 83550; 83605; 83735; 83921; 84443; 84484; 85025; 85027; 85384; 85610; 85730; 87040; 87390; 87522; 93005; 93306; 94660; 96361; 96365; 96368; 96375; 99285

== ENCOUNTER 2023-10-30 19:50 | Inpatient (IN) | payer MEDICARE, OTHER ==
--- NOTE | 2023-10-30 20:02 | ED ---
General Adult HPI - General Chief complaint: Neuro Symptoms/Deficit Stated complaint: code stroke Time Seen by Provider: 10/30/23 19:51 Source: EMS Mode of arrival: EMS Limitations: no limitations - History of Present Illness Initial comments: this patient is a 57-year-old woman who is brought by ambulance 7 evaluation for shortness of breath and vomiting. The patient had been admitted in the hospital after she had broken her left humerus and then had been discharged. She states over the course of the past day she has had a couple rounds of vomiting she also was feeling short of breath. When EMS arrived family stated that it also sounded like the patient's speech was slurred and they felt she may be having some facial droop. When I see the patient she has clear speech and I do not appreciate a facial droop. The patient is able to smile and raise eyebrows symmetrically. The patient does complain of generalized headache though not worst headache of life. She denies other neurologic symptoms. -: hour(s) Location: head Severity scale (1-10): 7 Quality: aching Consistency: constant Improves with: none Worsens with: none Associated Symptoms: nausea/vomiting, shortness of breath Treatments Prior to Arrival: other (albuterol, ondansetron) - Related Data Home Medications Medication Instructions Recorded Confirmed ALPRAZolam [Xanax] 1 mg PO HS 10/27/23 10/30/23 Acyclovir [Zovirax] 400 mg PO BID 10/27/23 10/30/23 Butalb/APAP/Caff 50-325-40Mg 1 tab PO Q4H PRN MDD 6 TABLETS 10/27/23 10/30/23 [Fioricet 50-325-40] FLUoxetine HCL [PROzac] 40 mg PO DAILY 10/27/23 10/30/23 Gabapentin [Neurontin] 300 mg PO BID 10/27/23 10/30/23 Gilteritinib Fumarate [Xospata] 120 mg PO DAILY 10/27/23 10/30/23 Losartan [Cozaar] 25 mg PO DAILY 10/27/23 10/30/23 Morphine Sulfate Ir [MSIR] 15 mg PO QID 10/27/23 10/30/23 Pioglitazone [Actos] 30 mg PO DAILY 10/27/23 10/30/23 Potassium Chloride [Klor-Con M20] 20 meq PO DAILY 10/27/23 10/30/23 Suvorexant [Belsomra] 15 mg PO HS PRN 10/27/23 10/30/23 methocarbamoL [Robaxin] 500 mg PO TID 10/27/23 10/30/23 Allergies Allergy/AdvReac Type Severity Reaction Status Date / Time divalproex sodium Allergy Unknown Verified 10/30/23 21:22 [From Depakote] phenytoin [From Dilantin] Allergy Unknown Verified 10/30/23 21:22 Review of Systems ROS Statement: Those systems with pertinent positive or pertinent negative responses have been documented in the HPI. ROS Other: All systems not noted in ROS Statement are negative. Constitutional: Denies: fever, chills, weakness Eyes: Denies: vision change Respiratory: Reports: cough, dyspnea, wheezes. Denies: hemoptysis, stridor Cardiovascular: Denies: chest pain, palpitations, edema, syncope Gastrointestinal: Reports: nausea, vomiting. Denies: abdominal pain, diarrhea, melena, hematochezia Genitourinary: Denies: dysuria, hematuria Musculoskeletal: Denies: back pain Skin: Denies: rash Neurological: Reports: headache, weakness (facial droop). Denies: confusion Psychiatric: Reports: anxiety Past Medical History Past Medical History: Coronary Artery Disease (CAD), Cancer, Heart Failure, Diabetes Mellitus, Deep Vein Thrombosis (DVT), Fibromyalgia, GI Bleed, Hyperlipidemia, Hypertension, Myocardial Infarction ([place]), Rheumatoid Arthritis (RA) Additional Past Medical History / Comment(s): Per EMS COPD Last Myocardial Infarction Date:: unknown History of Any Multi-Drug Resistant Organisms: None Reported Date of last positivie culture/infection: unknown MDRO Source:: skin bilateral arms Past Surgical History: Unable to Obtain Additional Past Surgical History / Comment(s): broken femur past, bilateral knee surgery, 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, right leg green field filter for blood clot Past Anesthesia/Blood Transfusion Reactions: No Reported Reaction Date of Last Stent Placement:: unknown Past Psychological History: No Psychological Hx Reported Smoking Status: Never smoker Past Alcohol Use History: None Reported Past Drug Use History: None Reported - Past Family History Mother Family Medical History: Congestive Heart Failure (CHF), Coronary Artery Disease (CAD), Hyperlipidemia, Myocardial Infarction ([place]) Additional Family Medical History / Comment(s): CABG,knee replacement x1, General Exam General appearance: alert, anxious Head exam: Present: atraumatic, normocephalic Eye exam: Present: normal appearance, PERRL, EOMI. Absent: scleral icterus, conjunctival injection, nystagmus ENT exam: Present: mucous membranes dry Neck exam: Present: normal inspection, full ROM. Absent: tenderness Respiratory exam: Present: respiratory distress (mild tachypnea), wheezes. Absent: rales, rhonchi, stridor, accessory muscle use, decreased breath sounds Cardiovascular Exam: Present: normal rhythm, tachycardia, normal heart sounds. Absent: systolic murmur, diastolic murmur, rubs, gallop GI/Abdominal exam: Present: soft. Absent: distended, tenderness, guarding, rebound, rigid, mass Extremities exam: Present: normal capillary refill, other (left arm sling). Absent: pedal edema, calf tenderness Back exam: Present: normal inspection Neurological exam: Present: alert, oriented X3, CN II-XII intact. Absent: motor sensory deficit Skin exam: Present: warm, dry, intact, normal color. Absent: rash Course Vital Signs 10/30/23 10/30/23 10/30/23 19:51 20:05 20:10 Temperature 98.0 F 98.0 F Pulse Rate 122 H 120 H Respiratory 22 20 Rate Blood Pressure 179/80 175/86 O2 Sat by Pulse 100 100 100 Oximetry 10/30/23 10/30/23 10/30/23 20:20 21:30 23:12 Temperature 98.0 F Pulse Rate 122 H 115 H 115 H Respiratory 20 20 18 Rate Blood Pressure 142/75 140/74 126/74 O2 Sat by Pulse 100 99 98 Oximetry EKG Findings - EKG Results: EKG: interpreted by ERMD, sinus rhythm, normal axis, normal QRS EKG shows: tachycardia (rate 120 bpm) - Blocks, [place], Hypertrophy, ST Abn: Repolarization changes or abnormalities: nonspecific abnormality, ST segment, and/or T wave Medical Decision Making - Medical Decision Making case discussed with Dr. Santana, from the neuro interventional network. The patient at this point not tTNKase candidate, as the symptoms have all resolved. Patient will have admission for further workup including neurology consultation. Patient is a 57-year-old woman who is here with concerns about developing stroke. By arrival the symptoms and signs seem to be resolving. She is sent directly to CT, CT angiogram which are both negative and my interpretation. Review of radiologist interpretation also negative. The patient had chest x-ray which I interpreted as negative for acute infiltrate, pneumothorax, congestive heart failure Was pt. sent in by a medical professional or institution (CARY Ordoñez, ROLL SLICING MACHINE TENDER, urgent c are, hospital, or fdc...) When possible be specific @ -[No] Did you speak to anyone other than the patient for history (EMS, parent, family, police, friend...)? What history was obtained from this source @ -[EMS did give history Did you review nursing and triage notes (agree or disagree)? Why? @ -[I reviewed and agree with nursing and triage notes] Were old charts reviewed (outside hosp., previous admission, EMS record, old EKG, old radiological studies, urgent care reports/EKG's, fdc records)? Report findings @ -[yes, old charts were reviewed] Differential Diagnosis (chest pain, altered mental status, abdominal pain women, abdominal pain men, vaginal bleeding, weakness, fever, dyspnea, syncope, headache, dizziness, GI bleed, back pain, seizure, CVA, palpatations, mental health, musculoskeletal)? @ -[Differential CVA Ischemic stroke, hemorrhagic stroke, brain tumor, atypical migraine, Wernicke's encephalopathy, seizure, multiple sclerosis, meningitis, encephalitis, hypoglycemia, Guillain-Rodriguez, electrolytes disturbance, myasthenia gravis.... This is not meant to be an all-inclusive list EKG interpreted by me (3pts min.). @ -[I interpreted as above] X-rays interpreted by me (1pt min.). @ -[I interpreted as above CT interpreted by me (1pt min.). @ -[I interpreted as above U/S interpreted by me (1pt. min.). @ -[None done] What testing was considered but not performed or refused? (CT, X-rays, U/S, labs)? Why? @ -[None] What meds were considered but not given or refused? Why? @ -[None] Did you discuss the management of the patient with other professionals (professionals i.e. CARY Ordoñez, ROLL SLICING MACHINE TENDER, lab, RT, psych nurse, mental health social worker, flight simulator teacher, teacher, strike warfare/missile systems officer, landscaping manager)? Give summary @ -[See the above Was smoking cessation discussed for >3mins.? @ -[No] Was critical care preformed (if so, how long)? @ -[No] Were there social determinants of health that impacted care today? How? (Homelessness, low income, unemployed, alcoholism, drug addiction, transportation, low edu. Level, literacy, decrease access to med. care, nursing home, rehab)? @ -[No] Was there de-escalation of care discussed even if they declined (Discuss DNR or withdrawal of care, Hospice)? DNR status @ -[No] What co-morbidities impacted this encounter? (DM, HTN, Smoking, COPD, CAD, Cancer, CVA, ARF, Chemo, Hep., AIDS, mental health diagnosis, sleep apnea, morbid obesity)? @ -[Hypertension, diabetes, possible history of kidney disease, history of previous cancer Was patient admitted / discharged? Hospital course, mention meds given and route, prescriptions, significant lab abnormalities, going to OR and other pertinent info. @ -[Patient is a 57-year-old woman presenting with what appears to be TIA. The patient will be admitted to have further neurology evaluation. In addition, the patient does have elevated creatinine kinase probably related to the left humerus fracture, and there is mention of previous kidney disease in the chart though this is not further elaborated, patient will therefore have nephrology consultation, serial CK, and IV fluid. Undiagnosed new problem with uncertain prognosis? @ -[No] Drug Therapy requiring intensive monitoring for toxicity (Heparin, Nitro, Insulin, Cardizem)? @ -[No] Were any procedures done? @ -[No] Diagnosis/symptom? @ -[Acute TIA Acute rhabdomyolysis, mild Anemia Hyperglycemia Acute, or Chronic, or Acute on Chronic? @ -[Acute Uncomplicated (without systemic symptoms) or Complicated (systemic symptoms)? @ -[Complicated Side effects of treatment? @ -[No] Exacerbation, Progression, or Severe Exacerbation? @ -[No] Poses a threat to life or bodily function? How? (Chest pain, [place], [place], pneumonia, PE, COPD, DKA, ARF, appy, cholecystitis, CVA, Diverticulitis, Homicidal, Suicidal, threat to staff... and all critical care pts) @ -[Yes - Lab Data Result diagrams: 10/30/23 20:26 10/30/23 20:26 Lab Results 10/30/23 10/30/23 10/30/23 Range/Units 20:24 20:26 20:26 WBC 3.9 (3.8-10.6) k/uL RBC 2.73 L (3.80-5.40) m/uL Hgb 9.4 L (11.4-16.0) gm/dL Hct 30.0 L (34.0-46.0) % MCV 110.1 H (80.0-100.0) fL MCH 34.4 (25.0-35.0) pg MCHC 31.3 (31.0-37.0) g/dL RDW 17.5 H (11.5-15.5) % Plt Count 128 L (150-450) k/uL MPV 8.9 Neutrophils % (Manual) 81 % Lymphocytes % (Manual) 14 % Monocytes % (Manual) 5 % Neutrophils # (Manual) 3.16 (1.3-7.7) k/uL Lymphocytes # (Manual) 0.55 L (1.0-4.8) k/uL Monocytes # (Manual) 0.20 (0-1.0) k/uL Nucleated RBCs 2 H (0-0) /100 WBC Manual Slide Review Performed Polychromasia Present Hypochromasia Slight Anisocytosis Slight Macrocytosis Marked A PT 10.1 (10.0-12.5) sec INR 0.9 (<1.2) APTT 24.0 (22.0-30.0) sec Sodium (137-145) mmol/L Potassium (3.5-5.1) mmol/L Chloride (98-107) mmol/L Carbon Dioxide (22-30) mmol/L Anion Gap mmol/L BUN (7-17) mg/dL Creatinine (0.52-1.04) mg/dL Est GFR (CKD-EPI)AfAm (>60 ml/min/1.73 sqM) Est GFR (CKD-EPI)NonAf (>60 ml/min/1.73 sqM) Glucose (74-99) mg/dL POC Glucose (mg/dL) 232 H (70-110) mg/dL POC Glu Physician Credentialing Specialist ID Leonardo Traylor Calcium (8.4-10.2) mg/dL Total Bilirubin (0.2-1.3) mg/dL AST (14-36) U/L ALT (4-34) U/L Alkaline Phosphatase (38-126) U/L Creatine Kinase (30-135) U/L Troponin I (0.000-0.034) ng/mL Total Protein (6.3-8.2) g/dL Albumin (3.5-5.0) g/dL 10/30/23 10/30/23 Range/Units 20:26 20:26 WBC (3.8-10.6) k/uL RBC (3.80-5.40) m/uL Hgb (11.4-16.0) gm/dL Hct (34.0-46.0) % MCV (80.0-100.0) fL MCH (25.0-35.0) pg MCHC (31.0-37.0) g/dL RDW (11.5-15.5) % Plt Count (150-450) k/uL MPV Neutrophils % (Manual) % Lymphocytes % (Manual) % Monocytes % (Manual) % Neutrophils # (Manual) (1.3-7.7) k/uL Lymphocytes # (Manual) (1.0-4.8) k/uL Monocytes # (Manual) (0-1.0) k/uL Nucleated RBCs (0-0) /100 WBC Manual Slide Review Polychromasia Hypochromasia Anisocytosis Macrocytosis PT (10.0-12.5) sec INR (<1.2) APTT (22.0-30.0) sec Sodium 137 (137-145) mmol/L Potassium 4.1 (3.5-5.1) mmol/L Chloride 110 H (98-107) mmol/L Carbon Dioxide 23 (22-30) mmol/L Anion Gap 4 mmol/L BUN 17 (7-17) mg/dL Creatinine 0.56 (0.52-1.04) mg/dL Est GFR (CKD-EPI)AfAm >90 (>60 ml/min/1.73 sqM) Est GFR (CKD-EPI)NonAf >90 (>60 ml/min/1.73 sqM) Glucose 224 H (74-99) mg/dL POC Glucose (mg/dL) (70-110) mg/dL POC Glu Physician Credentialing Specialist ID Calcium 7.7 L (8.4-10.2) mg/dL Total Bilirubin 1.4 H (0.2-1.3) mg/dL AST 310 H (14-36) U/L ALT 128 H (4-34) U/L Alkaline Phosphatase 124 (38-126) U/L Creatine Kinase 77959 H* (30-135) U/L Troponin I <0.012 (0.000-0.034) ng/mL Total Protein 5.4 L (6.3-8.2) g/dL Albumin 2.9 L (3.5-5.0) g/dL - EKG Data -: EKG Interpreted by Me EKG shows normal: sinus rhythm, axis (Normal), intervals (Normal), QRS complexes (Normal) Rate: tachycardia (8 120 bpm) Interpretation: nonspecific ST-T wave changes Disposition Clinical Impression: TIA (transient ischemic attack), Anemia, Rhabdomyolysis Disposition: ADMITTED IP TO THIS HOSP Condition: Fair Is patient prescribed a controlled substance at d/c from ED?: No
--- NOTE | 2023-10-30 20:19 | CT ---
EXAMINATION TYPE: CODE STROKE: CT brain wo contr CT DLP: 1172.4 mGycm, Automated exposure control for dose reduction was used. DATE OF EXAM: 10/30/2023 8:04 PM COMPARISON: 10/27/2023. CLINICAL INDICATION:Female, 57 years old with history of Neuro deficit, acute, stroke suspected, Left side facial droop, N/V, slurred speech, HURST. TECHNIQUE: Brain: Axial CT images of the brain were obtained with coronal and sagittal reformats created and rev iewed. Contrast used: None. Oral contrast used: None. FINDINGS: Extra-axial spaces: No abnormal extra-axial fluid collections. Ventricular system: Ventricles appear dilated in proportion to the degree of cerebral atrophy. Pharmacist Aide ior horn of the right lateral ventricle appears somewhat contracted/slitlike, likely normal anatomic variation. Cerebral parenchyma: No increased attenuation to suggest acute intraparenchymal hemorrhage. The gra y-white matter interface appears maintained. Mild generalized brain atrophy. Scattered hypoattenuat ing areas are seen within the cerebral white matter, nonspecific but most often seen with chronic anni rovascular ischemic changes; mild in degree. Cerebellum: No acute abnormality. Mass effect: No evidence of mass effect or midline shift. Intracranial vasculature: Atherosclerotic calcifications of the larger arteries near the skull base. Soft tissues: No acute or concerning abnormality. Visualized orbits: Orbital contents appear grossly intact. There has likely been previous lens surg josh. Calvarium/osseous structures: No evidence of calvarial fracture. Paranasal sinuses and mastoid air cells: Clear. MRI is more sensitive for detecting acute processes such as infarct, and may be considered if clinica lly warranted. IMPRESSION: 1. No CT evidence of an acute intracranial abnormality. 2. Atrophy and chronic microvascular ischemic white matter changes.
[2023-10-30 20:25] LABS: Glucose,Whole Blood 232 mg/dL (70-110)
[2023-10-30 20:44] LABS: INR 0.9 (<1.2); Prothrombin Time 10.1 sec (10.0-12.5)
[2023-10-30 20:46] LABS: Anisocytosis Slight; HGB 9.4 gm/dL (11.4-16.0); Hypochromasia Slight; MCH 34.4 pg (25.0-35.0); MCHC 31.3 g/dL (31.0-37.0); MCV 110.1 fL (80.0-100.0); Macrocytosis Marked; Mean Platelet Volume 8.9; Platelet Count 128 k/uL (150-450); RBC 2.73 m/uL (3.80-5.40); RDW 17.5 % (11.5-15.5)
[2023-10-30 20:49] LABS: ALT 128 U/L (4-34); AST 310 U/L (14-36); African American GFR (CKD) >90 (>60 ml/min/1.73 sqM); Albumin 2.9 g/dL (3.5-5.0); Alkaline Phosphatase 124 U/L (38-126); Anion Gap 4 mmol/L; Blood Urea Nitrogen 17 mg/dL (7-17); Calcium 7.7 mg/dL (8.4-10.2); Carbon Dioxide 23 mmol/L (22-30); Chloride 110 mmol/L (98-107); Glucose 224 mg/dL (74-99); Non-African American GFR(CKD) >90 (>60 ml/min/1.73 sqM); Potassium 4.1 mmol/L (3.5-5.1); Sodium 137 mmol/L (137-145); Total Bilirubin 1.4 mg/dL (0.2-1.3); Total Protein 5.4 g/dL (6.3-8.2)
[2023-10-30 21:33] LABS: Neutrophils % (M) 81 %; Nucleated Red Blood Cells 2 /100 WBC (0-0); Total Cells Counted 100
[2023-10-30 21:34] LABS: Lymphocytes # (M) 0.55 k/uL (1.0-4.8); Neutrophils # (M) 3.16 k/uL (1.3-7.7); Polychromasia Present; WBC 3.9 k/uL (3.8-10.6)
[2023-10-30] MEDS: SODIUM CHLORIDE 0.9% 1,000 ML IV STA (21:36)
[2023-10-30] MEDS: MORPHINE SULFATE 4 MG/ML SYRINGE IV STA (21:36)
--- NOTE | 2023-10-30 21:40 | CT ---
EXAMINATION TYPE: CT angio head neck DATE OF EXAM: 10/30/2023 8:24 PM COMPARISON: Same day CT head. CLINICAL INDICATION:Female, 57 years old with history of Neuro deficit, acute, stroke suspected; PHH, Left side facial droop, N/V, slurred speech, HURST. TECHNIQUE: Axially acquired helical CT angiogram of the head and neck was obtained with contrast. Axi al images are supplemented with 3D reconstructions which [facility] NASCET criteria used. Contrast used: 65 mL of Isovue 370 with IV Contrast, Oral contrast used: None. CT DLP: 827.3 mGycm, Automated exposure control for dose reduction was used. FINDINGS: CTA Neck: The left common carotid artery shares a common trunk with the brachiocephalic artery. Atheroscleroti c plaque is present in the proximal left subclavian and common carotid arteries without significant s tenosis. Right carotid system: The common carotid is patent. Patent bifurcation and ICA. There is no hemodynam ically significant diameter stenosis, dissection, nor pseudoaneurysm present. Left carotid system: The common carotid is patent. Patent bifurcation and ICA. There is no hemodynami caitlyn significant diameter stenosis, dissection, nor pseudoaneurysm present. Vertebral arteries: There is no significant atherosclerotic plaque at the origins of the vertebral ar teries. The vertebrals are then otherwise patent to the skull base. The vertebral arteries are codominant. Other: Visualized neck soft tissues show no concerning abnormality. Cervical spine shows mild degener ative changes. Partially seen sternal wires and likely post-CABG changes. Heart appears enlarged. Chr onic senescent changes in the lung apices without evidence of consolidation or pneumothorax. CTA Head: There are some calcifications of the cavernous portions of the ICAs without significant stenosis. Supraclinoid ICAs, bifurcations, ACAs, MCAs appear normally patent. Anterior communicating artery is definitely seen. The intracranial vertebral arteries enhance normally. Basilar artery is patent and unremarkable. Norm al basilar bifurcation without evidence of aneurysm. Visualized proximal diesel stationary engineer are patent. Sizable posterior communicating arteries are not identified. No intracranial large vessel occlusion, hemodynamically significant stenosis, aneurysm, dissection, o r arteriovenous malformation is shown. The dural venous sinuses appear grossly patent without evidence of thrombosis. Other: Please refer to same-day CT head report.. IMPRESSION: CTA neck: Patent CTA Neck. No dissection, hemodynamically significant stenosis, or pseudoaneurysm detected in t he carotid or vertebral arteries in the neck. CTA head: Patent CTA head. No intracranial large vessel occlusion, significant stenosis, or sizable aneurysm de tected in the limits of CTA.
[2023-10-30] MEDS: ONDANSETRON 4 MG/2 ML VIAL IVP STA (22:11)
[2023-10-30] MEDS: SODIUM CHLORIDE 0.9% 1,000 ML IV SCH (22:11)
[2023-10-30 23:01] LABS: Creatine Kinase 10018 U/L (30-135)
--- NOTE | 2023-10-30 23:25 | XR ---
EXAM: XR Chest, 2 Views CLINICAL HISTORY: Altered mental status TECHNIQUE: Frontal and lateral views of the chest. COMPARISON: 10/27/2023. FINDINGS: Status post sternotomy. Cardiomegaly. No CHF. No focal infiltrate. No pleural effusion or pneumothorax. Bones are unchanged. IMPRESSION: No acute abnormality.
[2023-10-31] MEDS: ASPIRIN 325 MG TAB PO STA (00:37)
[2023-10-31] MEDS ORDERED: DEXTROSE 50% SYRINGE 50 ML IVP PRN ×2 (05:51)
[2023-10-31] MEDS: SODIUM CHLORIDE 0.9% 1,000 ML IV STA (06:08)
[2023-10-31 06:39] LABS: Glucose,Whole Blood 175 mg/dL (70-110)
[2023-10-31] MEDS: INSULIN ASPART (NovoLOG) 100 UNIT/ML VIAL SQ SCH (06:53)
--- NOTE | 2023-10-31 08:12 | P.CNOR ---
History of Present Illness - [facility] Consult date: 10/31/23 History of present illness: This is a 57-year-old female who is admitted for neurology evaluation due to possible TIA. Orthopedics is consulted due to left proximal humerus fracture. Patient was admitted a few days ago as well after a fall and was diagnosed with a left proximal humerus fracture. Per history, patient was found unresponsive in her home by family. Patient has been treated for her proximal humerus fracture conservatively and has been wearing an arm sling. Patient is seen and evaluated at bedside today and complains of pain in the left shoulder. Patient denies any new fall or new injury. Patient states that she takes morphine at home. During her previous admission on 10/26/2023 patient was in the ICU for altered mentation and was on BiPAP for a time. Patient's past medical history is significant for leukemia, coronary artery disease, heart failure, diabetes mellitus, fibromyalgia, hyperlipidemia, hypertension, rheumatoid arthritis, history of DVT, history of GI bleed and history of myocardial infarction. Patient denies any fever/chills, chest pain, shortness breath, abdominal pain, numbness, we akness or tingling. Past Medical History Past Medical History: Coronary Artery Disease (CAD), Cancer, Heart Failure, Diabetes Mellitus, Deep Vein Thrombosis (DVT), Fibromyalgia, GI Bleed, Hyperlipidemia, Hypertension, Myocardial Infarction ([place]), Rheumatoid Arthritis ([place]) Additional Past Medical History / Comment(s): Per EMS COPD Last Myocardial Infarction Date:: unknown History of Any Multi-Drug Resistant Organisms: None Reported Year Discovered:: unknown MDRO Source:: skin bilateral arms Past Surgical History: Unable to Obtain Additional Past Surgical History / Comment(s): broken femur past, bilateral knee surgery, 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, right leg green field filter for blood clot Past Anesthesia/Blood Transfusion Reactions: No Reported Reaction Date of Last Stent Placement:: unknown Past Psychological History: No Psychological Hx Reported Smoking Status: Never smoker Past Alcohol Use History: None Reported Past Drug Use History: None Reported - Past Family History Mother Family Medical History: Congestive Heart Failure (CHF), Coronary Artery Disease (CAD), Hyperlipidemia, Myocardial Infarction ([place]) Additional Family Medical History / Comment(s): CABG,knee replacement x1, Medications and Allergies Home Medications Medication Instructions Recorded Confirmed Type ALPRAZolam [Xanax] 1 mg PO HS 10/27/23 10/30/23 History Acyclovir [Zovirax] 400 mg PO BID 10/27/23 10/30/23 History Butalb/APAP/Caff 50-325-40Mg 1 tab PO Q4H PRN MDD 6 TABLETS 10/27/23 10/30/23 History [Fioricet 50-325-40] FLUoxetine HCL [PROzac] 40 mg PO DAILY 10/27/23 10/30/23 History Gabapentin [Neurontin] 300 mg PO BID 10/27/23 10/30/23 History Gilteritinib Fumarate [Xospata] 120 mg PO DAILY 10/27/23 10/30/23 History Losartan [Cozaar] 25 mg PO DAILY 10/27/23 10/30/23 History Morphine Sulfate Ir [MSIR] 15 mg PO QID 10/27/23 10/30/23 History Pioglitazone [Actos] 30 mg PO DAILY 10/27/23 10/30/23 History Potassium Chloride [Klor-Con M20] 20 meq PO DAILY 10/27/23 10/30/23 History Suvorexant [Belsomra] 15 mg PO HS PRN 10/27/23 10/30/23 History methocarbamoL [Robaxin] 500 mg PO TID 10/27/23 10/30/23 History Allergies Allergy/AdvReac Type Severity Reaction Status Date / Time divalproex sodium Allergy Unknown Verified 10/30/23 21:22 [From Depakote] phenytoin [From Dilantin] Allergy Unknown Verified 10/30/23 21:22 Physical Examination On exam patient is resting comfortably in bed in no acute distress. Patient is alert and oriented 3. Sling is intact to the left upper extremity. There is mild to moderate swelling over the left shoulder. Faint ecchymosis. Skin is intact. Compartments are soft. Patient has good range of motion of the left wrist and hand. Sensation intact. Radial pulse is 2+. Left upper extremity is warm and well-perfused. Neurovascular status and circulatory status are intact. Results Previous x-rays of the left shoulder from 10/27/2023 reveal a mildly displaced left proximal humerus fracture. - Labs Labs: Abnormal Lab Results - Last 24 Hours (Table) 10/30/23 10/30/23 10/30/23 Range/Units 20:24 20:26 20:26 RBC 2.73 L (3.80-5.40) m/uL Hgb 9.4 L (11.4-16.0) gm/dL Hct 30.0 L (34.0-46.0) % MCV 110.1 H (80.0-100.0) fL RDW 17.5 H (11.5-15.5) % Plt Count 128 L (150-450) k/uL Lymphocytes # (Manual) 0.55 L (1.0-4.8) k/uL Nucleated RBCs 2 H (0-0) /100 WBC Macrocytosis Marked A Chloride 110 H (98-107) mmol/L Glucose 224 H (74-99) mg/dL POC Glucose (mg/dL) 232 H (70-110) mg/dL Calcium 7.7 L (8.4-10.2) mg/dL Total Bilirubin 1.4 H (0.2-1.3) mg/dL AST 310 H (14-36) U/L ALT 128 H (4-34) U/L Creatine Kinase 63747 H* (30-135) U/L Total Protein 5.4 L (6.3-8.2) g/dL Albumin 2.9 L (3.5-5.0) g/dL 10/31/23 Range/Units 06:38 RBC (3.80-5.40) m/uL Hgb (11.4-16.0) gm/dL Hct (34.0-46.0) % MCV (80.0-100.0) fL RDW (11.5-15.5) % Plt Count (150-450) k/uL Lymphocytes # (Manual) (1.0-4.8) k/uL Nucleated RBCs (0-0) /100 WBC Macrocytosis Chloride (98-107) mmol/L Glucose (74-99) mg/dL POC Glucose (mg/dL) 175 H (70-110) mg/dL Calcium (8.4-10.2) mg/dL Total Bilirubin (0.2-1.3) mg/dL AST (14-36) U/L ALT (4-34) U/L Creatine Kinase (30-135) U/L Total Protein (6.3-8.2) g/dL Albumin (3.5-5.0) g/dL H & H 10/30/23 Range/Units 20:26 Hgb 9.4 L (11.4-16.0) gm/dL Hct 30.0 L (34.0-46.0) % Coagulation 10/30/23 Range/Units 20:26 INR 0.9 (<1.2) Result Diagrams: 10/30/23 20:26 10/30/23 20:26 Assessment and Plan (1) Closed fracture of left proximal humerus Current Visit: Yes Status: Acute Code(s): S42.202A - UNSP FRACTURE OF UPPER END OF LEFT HUMERUS, INIT FOR CLOS FX SNOMED Code(s): 75806966 (2) History of fall Current Visit: Yes Status: Acute Code(s): Z91.81 - HISTORY OF FALLING SNOMED Code(s): 274816493 (3) History of leukemia Current Visit: No Status: Acute Priority: High Code(s): Z85.6 - PERSONAL HISTORY OF LEUKEMIA SNOMED Code(s): 067487939 Plan: 1. Recommend continuation of conservative treatment for left proximal humerus fracture. Maintain arm sling to left upper extremity at all times except for hygiene and skin checks. Patient is instructed to remove the sling periodically to work on gentle range of motion for the left elbow, wrist and hand. Patient is to remain strictly nonweightbearing to the left upper extremity. 2. Pain management per internal medicine. 3. No surgical intervention is planned. We will plan to follow the patient as an outpatient for repeat x-rays.
[2023-10-31] MEDS: CLOPIDOGREL 75 MG TAB PO SCH (09:16)
[2023-10-31] MEDS: FAMOTIDINE 20 MG TAB PO SCH (09:16)
[2023-10-31 09:45] LABS: Chol/HDL Ratio 3.25 Ratio; VLDL Calculation 19.96 mg/dL (5.00-40.00)
[2023-10-31 10:03] LABS: Creatine Kinase 5985 U/L (26-186)
[2023-10-31] MEDS: HYDROcodone/APAP 10-325MG 1 EACH TAB PO PRN (11:22)
[2023-10-31 12:14] LABS: Glucose,Whole Blood 179 mg/dL (70-110)
[2023-10-31] MEDS: HYDROmorphone 0.5 MG/0.5 ML SYRINGE IVP PRN (12:40)
[2023-10-31] MEDS ORDERED: SUVOREXANT 15 MG PO PRN (13:16)
--- NOTE | 2023-10-31 13:37 | P.NPCON ---
History of Present Illness - Reason for Consult acute renal failure - History of Present Illness patient is a 57-year-old female who is admitted to the hospital with history of increased weakness and nausea and vomiting. Patient was recently discharged from the hospital after being admitted for left humerus fracture. there was concern for CVA as patient was noted to have facial droop. CT of the brain [place] [address]. It has decreased to 5985 today. Patient is maintai rashmi on IV fluids. No statins noted on home med list. Patient states that she may have fallen however history is is difficult to obtain from the patient. serum creatinine at 0.5 mg/dL. Patient has been voiding. Review of Systems as per HPI Past Medical History Past Medical History: Coronary Artery Disease (CAD), Cancer, Heart Failure, Diabetes Mellitus, Deep Vein Thrombosis (DVT), Fibromyalgia, GI Bleed, Hyperlipidemia, Hypertension, Myocardial Infarction ([place]), Rheumatoid Arthritis ([place]) Additional Past Medical History / Comment(s): Per EMS COPD Last Myocardial Infarction Date:: unknown History of Any Multi-Drug Resistant Organisms: None Reported Date of last positivie culture/infection: unknown MDRO Source:: skin bilateral arms Past Surgical History: Unable to Obtain Additional Past Surgical History / Comment(s): broken femur past, bilateral knee surgery, 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, right leg green field filter for blood clot Past Anesthesia/Blood Transfusion Reactions: No Reported Reaction Date of Last Stent Placement:: unknown Past Psychological History: No Psychological Hx Reported Smoking Status: Never smoker Past Alcohol Use History: None Reported Past Drug Use History: None Reported - Past Family History Mother Family Medical History: Congestive Heart Failure (CHF), Coronary Artery Disease (CAD), Hyperlipidemia, Myocardial Infarction ([place]) Additional Family Medical History / Comment(s): CABG,knee replacement x1, Medications and Allergies Home Medications Medication Instructions Recorded Confirmed Type ALPRAZolam [Xanax] 1 mg PO HS 10/27/23 10/30/23 History Acyclovir [Zovirax] 400 mg PO BID 10/27/23 10/30/23 History Butalb/APAP/Caff 50-325-40Mg 1 tab PO Q4H PRN MDD 6 TABLETS 10/27/23 10/30/23 History [Fioricet 50-325-40] FLUoxetine HCL [PROzac] 40 mg PO DAILY 10/27/23 10/30/23 History Gabapentin [Neurontin] 300 mg PO BID 10/27/23 10/30/23 History Gilteritinib Fumarate [Xospata] 120 mg PO DAILY 10/27/23 10/30/23 History Losartan [Cozaar] 25 mg PO DAILY 10/27/23 10/30/23 History Morphine Sulfate Ir [MSIR] 15 mg PO QID 10/27/23 10/30/23 History Pioglitazone [Actos] 30 mg PO DAILY 10/27/23 10/30/23 History Potassium Chloride [Klor-Con M20] 20 meq PO DAILY 10/27/23 10/30/23 History Suvorexant [Belsomra] 15 mg PO HS PRN 10/27/23 10/30/23 History methocarbamoL [Robaxin] 500 mg PO TID 10/27/23 10/30/23 History Allergies Allergy/AdvReac Type Severity Reaction Status Date / Time divalproex sodium Allergy Unknown Verified 10/30/23 21:22 [From Depakote] phenytoin [From Dilantin] Allergy Unknown Verified 10/30/23 21:22 Physical Exam Vitals: Vital Signs Temp Pulse Pulse Resp BP BP Pulse Ox 10/31/23 08:00 113 H 18 10/31/23 07:00 98.0 F 113 H 18 163/78 99 10/31/23 02:00 97.6 F 110 H 16 135/71 100 10/30/23 23:12 115 H 18 126/74 98 10/30/23 21:30 115 H 20 140/74 99 10/30/23 20:20 98.0 F 122 H 20 142/75 100 10/30/23 20:10 100 10/30/23 20:05 98.0 F 120 H 20 175/86 100 10/30/23 19:51 98.0 F 122 H 22 179/80 100 Intake and Output 10/30/23 10/31/23 10/31/23 22:59 06:59 14:59 Other: Voiding Method Toilet Toilet # Voids 2 Weight 107.3 kg 107.3 kg patient is awake, comfortable, no acute distress Examination of the heart S1 and S2 Examination of the lungs bilateral breath sounds are heard Abdomen is soft nontender Examination of lower extremities shows no significant edema Left arm in sling EDGE BONDER exam shows patient is moving all 4 extremities. Results - Lab Results Most recent lab results Calcium 7.7 mg/dL (8.4-10.2) L 10/30/23 20:26 10/30/23 20:26 10/30/23 20:26 Assessment and Plan Assessment: 1. Rhabdomyolysis most likely secondary to fall. Patient is not able to give a detailed history. CK level is decreasing. No acute kidney injury noted. Will obtain urine analysis. continue with IV fluids. 2. Left humerus fracture with arm in sling 3. Anemia rule out iron deficiency Plan: continue with IV fluids Check TSH Repeat labs in a.m. Check UA.
--- NOTE | 2023-10-31 13:41 | P.CNNES ---
History of Present Illness Consult date: 10/31/23 Requesting physician: Mehul Marquez Reason for Consult: facial droop, dysarthria are resolved History of Present Illness: this is a 57-year-old woman who presented emergency department since she stated that she was not feeling well with facial weakness. Patient is a poor historian and some of the history was obtained from the patient nurse and medical record. Patient stated that the she lives with a friend and that she felt she wasn't feeling well and had right lower facial weakness. Per the ED is seems that she also had dysarthriawhich has resolved. Seems that she presented because shortness of breath and vomiting. Seems when EMS arrived family stated that the patient had the slurred speech and some facial droop but by the time she was evaluated by the ED team and that resolved. Patient stated that she had a recent fall about 5 days ago in which her leg was stuck on the nail and she had unsteady gait as a result and fell but did not pass out. And from the fall she had injury to her left upper extremity shoulder region and wears a sling. She denies any seizure-like activity. She stated that as a child She had the seizures but she has not had any seizures since a child. She's not any antiseizure medication. denies any history of strokes. Of note she presented to our facility less than a week ago and which was on 10/26/2023 for altered mental status at. Seems the patient was found hypoxic N unresponsive and was given Narcan patient was taken morphine and is seems. Prior to that 4 days prior she had a recent fall with left shoulder injury and is on morphine for pain. It was felt the patient had unintentional opiate overdose. She had acute rhabdomyolysis with the acute kidney injury at. She had left humeral fracture. She has history of underlying leukemia and the per family was she is in remission. Some of the workup during his hospital visit consisted of: patient is afebrile. White blood cell is 3.[address] of the head is reported as no CT evidence of acute intracranial abnormality. Atrophy and chronic microvascular ischemic white matter changes.I personally reviewed the CT head and there is no acute or subacute changes. CT angiography of the head and neck is reported as no significant stenosis or aneurysm. her CK level is 5985 which is trending down compared to yesterday. AST is 210, ALT of 128 Lipid panel is triglyceride of 99, cholesterol 192, LDLs 113 and HDL is 58. Initial serum glucose is a 232. Sodium is 137, calcium 7.7, total bilirubin is 1.4. Review of Systems review of system is limited but the pertinent positive and negative as per HPI. Past Medical History Past Medical History: Coronary Artery Disease (CAD), Cancer, Heart Failure, Diabetes Mellitus, Deep Vein Thrombosis (DVT), Fibromyalgia, GI Bleed, Hyperlipidemia, Hypertension, Myocardial Infarction ([place]), Rheumatoid Arthritis ([place]) Additional Past Medical History / Comment(s): Per EMS COPD Last Myocardial Infarction Date:: unknown History of Any Multi-Drug Resistant Organisms: None Reported Date of last positivie culture/infection: unknown MDRO Source:: skin bilateral arms Past Surgical History: Unable to Obtain Additional Past Surgical History / Comment(s): broken femur past, bilateral knee surgery, 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, right leg green field filter for blood clot Past Anesthesia/Blood Transfusion Reactions: No Reported Reaction Date of Last Stent Placement:: unknown Past Psychological History: No Psychological Hx Reported Smoking Status: Never smoker Past Alcohol Use History: None Reported Past Drug Use History: None Reported - Past Family History Mother Family Medical History: Congestive Heart Failure (CHF), Coronary Artery Disease (CAD), Hyperlipidemia, Myocardial Infarction ([place]) Additional Family Medical History / Comment(s): CABG,knee replacement x1, Medications and Allergies Home Medications Medication Instructions Recorded Confirmed Type ALPRAZolam [Xanax] 1 mg PO HS 10/27/23 10/30/23 History Acyclovir [Zovirax] 400 mg PO BID 10/27/23 10/30/23 History Butalb/APAP/Caff 50-325-40Mg 1 tab PO Q4H PRN MDD 6 TABLETS 10/27/23 10/30/23 History [Fioricet 50-325-40] FLUoxetine HCL [PROzac] 40 mg PO DAILY 10/27/23 10/30/23 History Gabapentin [Neurontin] 300 mg PO BID 10/27/23 10/30/23 History Gilteritinib Fumarate [Xospata] 120 mg PO DAILY 10/27/23 10/30/23 History Losartan [Cozaar] 25 mg PO DAILY 10/27/23 10/30/23 History Morphine Sulfate Ir [MSIR] 15 mg PO QID 10/27/23 10/30/23 History Pioglitazone [Actos] 30 mg PO DAILY 10/27/23 10/30/23 History Potassium Chloride [Klor-Con M20] 20 meq PO DAILY 10/27/23 10/30/23 History Suvorexant [Belsomra] 15 mg PO HS PRN 10/27/23 10/30/23 History methocarbamoL [Robaxin] 500 mg PO TID 10/27/23 10/30/23 History Allergies Allergy/AdvReac Type Severity Reaction Status Date / Time divalproex sodium Allergy Unknown Verified 10/30/23 21:22 [From Depakote] phenytoin [From Dilantin] Allergy Unknown Verified 10/30/23 21:22 Physical Examination - Vital Signs Vital Signs: Vital Signs Temp Pulse Pulse Resp BP BP Pulse Ox 10/31/23 08:00 113 H 18 10/31/23 07:00 98.0 F 113 H 18 163/78 99 10/31/23 02:00 97.6 F 110 H 16 135/71 100 10/30/23 23:12 115 H 18 126/74 98 10/30/23 21:30 115 H 20 140/74 99 10/30/23 20:20 98.0 F 122 H 20 142/75 100 10/30/23 20:10 100 10/30/23 20:05 98.0 F 120 H 20 175/86 100 10/30/23 19:51 98.0 F 122 H 22 179/80 100 Intake and Output 10/30/23 10/31/23 10/31/23 22:59 06:59 14:59 Other: Voiding Method Toilet Toilet # Voids 2 Weight 107.3 kg 107.3 kg GENERAL: The patient is lying in bed and is not in acute distress. EXTREMITIES: Has sling of the left upper extremity. NEUROLOGICAL: Higher mental function: The patient is awake, alert, oriented to self, place and time. Is mildly slowly responding to questions and following commands. No aphasia and no neglect. Cranial nerves: The pupils are round, equal and reactive to light. Visual crane are full to confrontation throughout. Extraocular movement is intact no nystagmus is noted. Facial sensation is normal to touch throughout. The facial strength is normal throughout. Hearing is normal bilaterally to hand rub. Tongue is midline and moved [id number] without any difficulty. No dysarthria is noted. Motor: Strength is limited in left upper extremity since fracture and has sling. Otherwise stregnth is 5/5 throughout. Has good left hand poiser balance. Normal tone and bulk. Cerebellum: Normal finger to nose on right. Sensation: Sensation is normal to touch throughout. Reflexes (right/left): Limited on left upper. But otherwise 2+ throughout. Plantars are mute bilaterally. Results - Laboratory Findings CBC and BMP: 10/30/23 20:10/30/23 20:26 Abnormal Lab Findings: Abnormal Labs 10/30/23 10/30/23 10/30/23 20:24 20: 20:26 RBC 2.73 L Hgb 9.4 L Hct 30.0 L MCV 110.1 H RDW 17.5 H Plt Count 128 L Lymphocytes # (Manual) 0.55 L Nucleated RBCs 2 H Macrocytosis Marked A Chloride 110 H Glucose 224 H POC Glucose (mg/dL) 232 H Calcium 7.7 L Total Bilirubin 1.4 H AST 310 H ALT 128 H Creatine Kinase 03725 H* Total Protein 5.4 L Albumin 2.9 L 10/31/23 10/31/23 10/31/23 06:38 06:48 12:12 RBC Hgb Hct MCV RDW Plt Count Lymphocytes # (Manual) Nucleated RBCs Macrocytosis Chloride Glucose POC Glucose (mg/dL) 175 H 179 H Calcium Total Bilirubin AST ALT Creatine Kinase 5985 A* Total Protein Albumin Assessment and Plan Assessment: this is a 57-year-old woman who presented emergency department because of shortness of breath and vomiting as well as a felt by EMS she had the right fac ial weakness and dysarthria which has resolved by the time she arrived and it was a valid by the ED team. Patient had a recent fall with left shoulder humerus fracture. At that time was felt the patient had the metabolic encephalopathy due to unintentional opiate overdose as well as felt to have a cute rhabdomyolysis. She had the mild transaminitis. Transient reported right facial droop and dysarthria. on examination she seems not a great historian with confusion: rule out TIA versus also rule out seizure especially with a history of seizure. altered mental status due to metabolic encephalopathythe patient has elevated the liver function tests history of seizure as a childand according to patient no further seizures Acute rhabdomyolysis--trending down recent fall with the left humeral fracture History of leukemia Plan: I ordered MRI the brain with and without I ordered a routine EEG I ordered ammonia level seems the patient had a recent 2-D echo but was very limited. I'll get a repeat 2-D echo. patient was given aspirin 325 once in the ED. She is on Plavix 75 mg daily. we'll assess whether she needs an addition aspirin after the workup. we'll ignacia id the statins because of the rhabdomyolysis. Patient had a recent vitamin B12 which was unremarkable. Also had a TSH was was unremarkable recently. I ordered a urine drug screen. Alcohol level was ordered and is pending continue checks Cardiac monitoring PT OT and [employer] are consulted We'll defer the rest of the medical measure the primary and other specialists For DVT prophylaxis the patient is on Lovenox. The plan discussed with the patient's nurse Thank you for consultation Time with Patient: Greater than 30
[2023-10-31] MEDS: DEXTROSE 5% IN WATER 1,000 ML with SODIUM BICARB (1 MEQ/ML) 100 ML IV SCH (13:47)
[2023-10-31] MEDS: ENOXAPARIN 40 MG/0.4 ML SYRINGE SQ SCH (16:13)
[2023-10-31] MEDS: methocarbamoL 500 MG TAB PO SCH (16:13)
[2023-10-31] MEDS: PANTOPRAZOLE 40 MG/10 ML VIAL IVP SCH (16:26)
[2023-10-31 16:57] LABS: Alcohol <10 mg/dL
[2023-10-31 17:13] LABS: Glucose,Whole Blood 192 mg/dL (70-110)
[2023-10-31 18:10] LABS: Appearance,Urine Clear (Clear); Bacteria,Urine Rare /hpf; Bilirubin,Urine Negative (Negative); Blood,Urine Small (Negative); Color,Urine Colorless; Glucose,Urine (UA) 2+ (Negative); Ketones,Urine Negative (Negative); Leukocyte Esterase,Urine Negative (Negative); Nitrite,Urine Negative (Negative); Protein,Urine Trace (Negative); RBC,Urine 1 /hpf (0-5); Specific Gravity,Urine 1.032 (1.001-1.035); Squamous Epithelial Cell,Urine <1 /hpf (0-4); Urobilinogen,Urine <2.0 mg/dL (<2.0); WBC,Urine 4 /hpf (0-5)
[2023-10-31 18:21] LABS: Amphetamine Screen,Urine Not Detected (NotDetected); Barbiturate Screen,Urine Not Detected (NotDetected); Benzodiazepines Screen,Urine Detected (NotDetected); Cocaine Screen,Urine Not Detected (NotDetected); Methadone Screen, Urine Not Detected (NotDetected); Opiate Screen,Urine Detected (NotDetected); Oxycodone Screen, Urine Not Detected (NotDetected); Phencyclidine Screen,Urine Not Detected (NotDetected); Tricyclic Antidepressant,Urine Not Detected (NotDetected); Urn Cannabinoid Scrn Not Detected (NotDetected)
[2023-10-31] MEDS: IOPAMIDOL CONTRAST (ORAL USE) VIAL PO PRN ×2 (20:30→21:00)
[2023-10-31 20:46] LABS: Glucose,Whole Blood 208 mg/dL (70-110)
[2023-10-31] MEDS: ALPRAZolam 1 MG TAB PO SCH (21:37)
[2023-10-31] MEDS: GABAPENTIN 300 MG CAP PO SCH (21:37)
[2023-10-31] MEDS: ACYCLOVIR 200 MG CAP PO SCH (21:37)
--- NOTE | 2023-10-31 21:45 | CT ---
EXAMINATION TYPE: CT angio chest CT DLP: 559.10 mGycm, Automated exposure control for dose reduction was used. DATE OF EXAM: 10/31/2023 2:54 PM COMPARISON: Chest x-ray 10/30/2023 CLINICAL INDICATION:Female, 57 years old with history of pe; R/O PE. TECHNIQUE/CONTRAST: CTA scan of the thorax is performed with IV Contrast, patient injected with 100 mL of Isovue 370, MIP images are created and reviewed these are created on a separate workstation.. FINDINGS: There is suboptimal contrast bolus timing. PULMONARY ARTERIES: There is no evidence for a central filling defect within the pulmonary vasculatur e to suggest acute central or saddle pulmonary embolism. Limited evaluation of the segmental and subs egmental branches. Pulmonary trunk appears enlarged measuring up to 3.3 cm, right pulmonary artery is 2.4 cm, left is 1.7 cm; these findings can be seen with pulmonary hypertension. HEART: Mild cardiomegaly. Normal RV/LV ratio 0.7. No evidence of right heart strain. No pericardial e ffusion. There are postoperative changes which appear to be from prior CABG. The [place] coronary [place] bony show moderate calcification. Sternotomy wires with healed sternal defect. AORTA: Mild/moderate atherosclerotic calcification of the aorta and branch vessels from the arch. Mi ld aortic valve calcification. Ascending aorta is normal in size at 2.8 cm, descending is 2.1 cm. The re is some limitation by motion with no definite dissection flap evident. There is a bovine arch conf iguration, with a common trunk giving rise to the brachiocephalic artery and left common carotid pineda ry, and an individual takeoff of the left subclavian artery. No significant narrowing of the common t runk. There is mild atherosclerotic disease around the origin of the left clavian artery without sign ificant stenosis. Visualized vertebral and common carotid arteries are grossly patent in the lower ne ck. LOWER NECK: No significant findings. There is some presternal opacity consistent with scarring, witho ut a focal fluid collection identified.. MEDIASTINUM: No evidence of pathologically enlarged mediastinal or hilar lymph nodes. SOFT TISSUES/LYMPH NODES: Unremarkable soft tissues. No axillary adenopathy. LUNGS/ PLEURA: Examination of the lungs is somewhat limited by motion and artifacts. A couple tiny pa tchy foci of groundglass attenuation are suggested in the upper lobes. There is also the suggestion o f somewhat larger patchy groundglass opacities mostly centrally in the lower lobes. No large area con solidation or lung mass detected. Small nodules could be missed in this setting. There is no pleural effusion or pneumothorax. AIRWAY: Central airways are patent. MUSCULOSKELETAL: No acute osseous abnormality. Mild/moderate degenerative changes of the spine. UPPER ABDOMEN: Gallbladder appears mildly distended without calcified gallstones visualized. Mild ath erosclerotic disease of the upper abdominal aorta with no significant narrowing of the proximal zack c or superior mesenteric arteries. Some calcifications along the length of the splenic artery. There appear to be some small enhancing arteries within the right upper quadrant. No mass of the visualized adrenals. Partially seen tip of an IVC filter at the upper L1 level, appears to be retrievable type. IMPRESSION: 1. No evidence of central pulmonary embolism. Limited evaluation of the segmental and subsegmental b ranches. 2. Mildly enlarged pulmonary arteries, can be seen with pulmonary hypertension. 3. Mild/moderate atherosclerotic disease of the aorta and branches from the arch. No evidence of ane urysm or dissection. 4. Mild cardiomegaly. Moderate negative coronary arterial calcifications. Post-CABG changes. 5. Limited assessment of the lungs, demonstrating some nonspecific groundglass opacities. Considerat ions include mild edema and infectious/inflammatory small airways process.
--- NOTE | 2023-10-31 23:08 | P.CONS ---
History of Present Illness - Reason for Consult Consult date: 10/31/23 Sepsis Requesting physician: Jasiel Brown - Chief Complaint Increasing shortness of breath or vomiting x 1 day - History of Present Illness Patient is a 57-year-old female with a past medical history significant for diabetes mellitus hypertension hyperlipidemia coronary artery disease rheumatoid arthritis apparently recently did have a fall with left proximal humerus fracture that has been treated conservatively patient was subsequently discharged home now presenting back to the hospital for evaluation of increasing shortness of breath and vomiting symptom has been going on for a day before presentation to the hospital and did have couple of rounds of vom iting denies having any blood in the vomiting no significant abdominal pain no diarrhea or constipation and the patient also complaining of increasing shortness of breath patient denies having any chest pain no significant cough or URI symptoms with the symptoms the patient has been evaluated on presentation to the hospital the patient was afebrile patient was tachycardic but not hypotensive or hypoxic and no need for supplemental oxygen patient did have a white count of 3.9, creatinine 0.56 liver enzymes mildly elevated urine has been negative urine drug screen positive for opiates and benzos patient has been admitted to hospital infectious he was consulted regarding possible sepsis Review of Systems Positive point and negatives has been mentioned in the HPI, complete review of systems was performed and all other systems are negative Past Medical History Past Medical History: Coronary Artery Disease (CAD), Cancer, Heart Failure, Diabetes Mellitus, Deep Vein Thrombosis (DVT), Fibromyalgia, GI Bleed, Hyperlipidemia, Hypertension, Myocardial Infarction (DC), Rheumatoid Arthritis (RA) Additional Past Medical History / Comment(s): Per EMS COPD Last Myocardial Infarction Date:: unknown History of Any Multi-Drug Resistant Organisms: None Reported Year Discovered:: unknown MDRO Source:: skin bilateral arms Past Surgical History: Unable to Obtain Additional Past Surgical History / Comment(s): broken femur past, bilateral knee surgery, 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, right leg green field filter for blood clot Past Anesthesia/Blood Transfusion Reactions: No Reported Reaction Date of Last Stent Placement:: unknown Past Psychological History: No Psychological Hx Reported Smoking Status: Never smoker Past Alcohol Use History: None Reported Past Drug Use History: None Reported - Past Family History Mother Family Medical History: Congestive Heart Failure (CHF), Coronary Artery Disease (CAD), Hyperlipidemia, Myocardial Infarction (DC) Additional Family Medical History / Comment(s): CABG,knee replacement x1, Medications and Allergies Home Medications Medication Instructions Recorded Confirmed Type ALPRAZolam [Xanax] 1 mg PO HS 10/27/23 10/30/23 History Acyclovir [Zovirax] 400 mg PO BID 10/27/23 10/30/23 History Butalb/APAP/Caff 50-325-40Mg 1 tab PO Q4H PRN MDD 6 TABLETS 10/27/23 10/30/23 History [Fioricet 50-325-40] FLUoxetine HCL [PROzac] 40 mg PO DAILY 10/27/23 10/30/23 History Gabapentin [Neurontin] 300 mg PO BID 10/27/23 10/30/23 History Gilteritinib Fumarate [Xospata] 120 mg PO DAILY 10/27/23 10/30/23 History Losartan [Cozaar] 25 mg PO DAILY 10/27/23 10/30/23 History Pioglitazone [Actos] 30 mg PO DAILY 10/27/23 10/30/23 History Potassium Chloride [Klor-Con M20] 20 meq PO DAILY 10/27/23 10/30/23 History Suvorexant [Belsomra] 15 mg PO HS PRN 10/27/23 10/30/23 History methocarbamoL [Robaxin] 500 mg PO TID 10/27/23 10/30/23 History Amoxic-Pot Clav 875-125Mg 1 tab PO Q12HR 5 Days #10 tab 11/02/23 Rx [Augmentin 875-125] Clopidogrel [Plavix] 75 mg PO DAILY #30 tab 11/02/23 Rx Allergies Allergy/AdvReac Type Severity Reaction Status Date / Time divalproex sodium Allergy Unknown Verified 10/30/23 21:22 [From Depakote] phenytoin [From Dilantin] Allergy Unknown Verified 10/30/23 21:22 Physical Exam Vitals: Vital Signs Temp Pulse Pulse Resp BP BP Pulse Ox 10/31/23 08:00 113 H 18 10/31/23 07:00 98.0 F 113 H 18 163/78 99 10/31/23 02:00 97.6 F 110 H 16 135/71 100 10/30/23 23:12 115 H 18 126/74 98 10/30/23 21:30 115 H 20 140/74 99 10/30/23 20:20 98.0 F 122 H 20 142/75 100 10/30/23 20:10 100 10/30/23 20:05 98.0 F 120 H 20 175/86 100 10/30/23 19:51 98.0 F 122 H 22 179/80 100 Intake and Output 10/30/23 10/31/23 10/31/23 22:59 06:59 14:59 Other: Voiding Method Toilet Toilet # Voids 2 Weight 107.3 kg 107.3 kg GENERAL DESCRIPTION: Middle-aged female lying in bed, no distress. No tachypnea or accessory muscle of respiration use. HEENT: Shows Pallor , no scleral icterus. Oral mucous membrane is dry. No pharyngeal erythema or thrush NECK: Trachea central, no thyromegaly. LUNGS: Unlabored breathing. Clear to auscultation anteriorly. No wheeze or crackle. HEART: S1, S2, regular rate and rhythm. No loud murmur ABDOMEN: Soft, mild distention but no significant tenderness EXTREMITIES: Diffuse swelling to bilateral lower extremity SKIN: No rash, no masses palpable. NEUROLOGICAL: The patient is awake, alert, mood and affect normal. Results CBC & Chem 7: 11/03/23 06:49 11/03/23 06:49 Labs: Abnormal Lab Results - Last 24 Hours (Table) 10/30/23 10/30/23 10/30/23 Range/Units 20:24 20:26 20:26 RBC 2.73 L (3.80-5.40) m/uL Hgb 9.4 L (11.4-16.0) gm/dL Hct 30.0 L (34.0-46.0) % MCV 110.1 H (80.0-100.0) fL RDW 17.5 H (11.5-15.5) % Plt Count 128 L (150-450) k/uL Lymphocytes # (Manual) 0.55 L (1.0-4.8) k/uL Nucleated RBCs 2 H (0-0) /100 WBC Macrocytosis Marked A Chloride 110 H (98-107) mmol/L Glucose 224 H (74-99) mg/dL POC Glucose (mg/dL) 232 H (70-110) mg/dL Calcium 7.7 L (8.4-10.2) mg/dL Total Bilirubin 1.4 H (0.2-1.3) mg/dL AST 310 H (14-36) U/L ALT 128 H (4-34) U/L Creatine Kinase 39888 H* (30-135) U/L Total Protein 5.4 L (6.3-8.2) g/dL Albumin 2.9 L (3.5-5.0) g/dL 10/31/23 10/31/23 10/31/23 Range/Units 06:38 06:48 12:12 RBC (3.80-5.40) m/uL Hgb (11.4-16.0) gm/dL Hct (34.0-46.0) % MCV (80.0-100.0) fL RDW (11.5-15.5) % Plt Count (150-450) k/uL Lymphocytes # (Manual) (1.0-4.8) k/uL Nucleated RBCs (0-0) /100 WBC Macrocytosis Chloride (98-107) mmol/L Glucose (74-99) mg/dL POC Glucose (mg/dL) 175 H 179 H (70-110) mg/dL Calcium (8.4-10.2) mg/dL Total Bilirubin (0.2-1.3) mg/dL AST (14-36) U/L ALT (4-34) U/L Creatine Kinase 5985 A* (30-135) U/L Total Protein (6.3-8.2) g/dL Albumin (3.5-5.0) g/dL Assessment and Plan (1) Elevated liver enzymes Status: Acute Code(s): R74.8 - ABNORMAL LEVELS OF OTHER SERUM ENZYMES SNOMED Code(s): 611445872 (2) SIRS (systemic inflammatory response syndrome) Status: Acute Code(s): R65.10 - SIRS OF NON-INFECTIOUS ORIGIN W/O ACUTE ORGAN DYSFUNCTION SNOMED Code(s): 596793565 Plan: 1patient presented hospital with vomiting x 1 day and did have a increasing shortness of breath patient also have elevated liver enzymes question of possible hepatobiliary source 2-we will obtain a CT abdominal pelvis with oral contrast as the patient is scheduled to undergo CTA per admitting team to rule out PE 3-blood culture has been obtained check inflammatory markers 4-empirically add Zosyn while waiting for the workup to be completed We will follow on clinical condition and cultures to further adjust medication if needed Thank you for this consultation we will follow the patient along with you Dictation was produced using [employer] dictation software. please excuse any grammatical, word or spelling errors. Time with Patient: Greater than 30
[2023-10-31] MEDS: PIPERACILLIN-TAZOBACTAM 3.375 GM in SODIUM CHLORIDE 0.9% 100 ML IVPB SCH (23:54)
--- NOTE | 2023-11-01 00:03 | HP ---
HISTORY AND PHYSICAL CHIEF COMPLAINT: Multiple chief complaints including vomiting, left arm pain as well as stroke code. HISTORY OF PRESENT ILLNESS: This 57-year-old woman with a past medical history of multiple medical problems, recently admitted with left humerus fracture. The patient was discharged on morphine and currently, the patient apparently had another fall and also did not injure herself, but complaining of vomiting and stroke code was called, and initial stroke workup was negative, but CK was found to be acute rhabdomyolysis, and the patient admitted for further evaluation and treatment. There is no history of fever, rigors, or chills at this time. Review of orthopedic evaluation and progress recommend to continue conservative line of management. PAST MEDICAL HISTORY: Reviewed include CAD, history of DVT, diabetes mellitus type 2. Rest of the history and rest of the chart are also reviewed. HOME MEDICATIONS: Reviewed include Robaxin, dose and rest of medications noted. ALLERGIES: Depakote. FAMILY HISTORY: History of CHF, CAD. SOCIAL HISTORY: No history of smoke or alcohol. REVIEW OF SYSTEMS: Fourteen-point review of systems negative except as mentioned earlier. PHYSICAL EXAMINATION: VITAL SIGNS: Pulse is 113, blood pressure 160/70, respirations 18. HEENT: Conjunctivae normal. NECK: No jugular venous distention. CARDIOVASCULAR: S1, S2 muffled. RESPIRATION: Breath sounds diminished at the bases. A few scattered rhonchi. ABDOMEN: Soft, nontender. LEGS: No edema. No swelling. NERVOUS SYSTEM: No focal deficit. arm status post injury. LABORATORY DATA: Hemoglobin 9.4, platelets 128. Rest of the labs are noted. ASSESSMENT: 1. Abdominal discomfort and vomiting for evaluation, possible acute gastritis. 2. Acute rhabdomyolysis. 3. History of recent left humerus fracture from medical treatment. 4. Rule out sepsis. 5. Tachycardia. 6. History of congestive heart failure. 7. Coronary artery disease. 8. Diabetes mellitus, type 2. 9. History of deep vein thrombosis. 10.History of fibromyalgia. 11.History of rheumatoid arthritis. RECOMMENDATIONS AND DISCUSSION: Recommend to continue current medications, continue symptomatic treatment. Otherwise at this time, I will recommend D-dimer and evaluation with CT angio chest and I would also recommend cultures, Infectious Disease evaluation, IV fluids changed to bicarb, and continue to monitor. Prognosis guarded because of multiple complex medical issues. Pain management. Orthopedic evaluation and further condition follow. The patient will definitely be here more than 2 nights to delineate and treat the above-mentioned multiple complex medical issues with high risk of complications. Prognosis guarded. Please change to inpatient for observation. MMODL / IJN: [id number] / SRINI
[2023-11-01 06:14] LABS: Glucose,Whole Blood 111 mg/dL (70-110)
[2023-11-01] MEDS: POTASSIUM CHLORIDE ER 20 MEQ TAB.ER PO SCH (08:18)
[2023-11-01] MEDS: PIOGLITAZONE 30 MG TAB PO SCH (08:18)
[2023-11-01] MEDS: FLUoxetine HCL 20 MG CAP PO SCH (08:18)
[2023-11-01] MEDS: LOSARTAN 25 MG TAB PO SCH (08:18)
[2023-11-01 08:32] LABS: Anisocytosis Slight; HCT 23.5 % (34.0-46.0); Hypochromasia Slight; MCH 34.8 pg (25.0-35.0); MCHC 31.3 g/dL (31.0-37.0); Macrocytosis Marked; Mean Platelet Volume 9.2; Platelet Count 137 k/uL (150-450); RBC 2.12 m/uL (3.80-5.40); RDW 17.8 % (11.5-15.5); WBC 2.4 k/uL (3.8-10.6)
[2023-11-01 08:35] LABS: HGB 7.4 gm/dL (11.4-16.0)
[2023-11-01 08:54] LABS: ALT 118 U/L (4-34); AST 179 U/L (14-36); African American GFR (CKD) >90 (>60 ml/min/1.73 sqM); Albumin 2.4 g/dL (3.5-5.0); Albumin/Globulin Ratio 1.1; Alkaline Phosphatase 94 U/L (38-126); Anion Gap 1 mmol/L; Blood Urea Nitrogen 9 mg/dL (7-17); Calcium 7.9 mg/dL (8.4-10.2); Carbon Dioxide 27 mmol/L (22-30); Chloride 111 mmol/L (98-107); Globulin 2.2 g/dL; Glucose 115 mg/dL (74-99); Non-African American GFR(CKD) >90 (>60 ml/min/1.73 sqM); Potassium 3.7 mmol/L (3.5-5.1); Sodium 139 mmol/L (137-145); Total Bilirubin 1.1 mg/dL (0.2-1.3); Total Protein 4.6 g/dL (6.3-8.2)
[2023-11-01 09:32] LABS: Band Neutrophils % 1 %; Eosinophils # (M) 0.02 k/uL (0-0.7); Lymphocytes # (M) 0.62 k/uL (1.0-4.8); Metamyelocytes # (M) 0.05 k/uL (0); Metamyelocytes % 2 %; Monocytes # (M) 0.26 k/uL (0-1.0); Myelocytes # (M) 0.02 k/uL (0); Myelocytes % 1 %; Neutrophils % (M) 60 %; Nucleated Red Blood Cells 2 /100 WBC (0-0); Polychromasia Present; Total Cells Counted 200
--- NOTE | 2023-11-01 12:06 | P.PN ---
Subjective patient is seen for follow-up for rhabdo my lysis. [place] 5985 [place] [address] on initial admission. Patient is maintained on IV fluids. Pain is controlled. No complaints today. Objective - Vital Signs Vital signs: Vital Signs Temp 98.1 F 11/01/23 07:00 Pulse 109 H 11/01/23 08:00 Resp 18 11/01/23 08:00 BP 137/78 11/01/23 07:00 Pulse Ox 97 11/01/23 07:00 FiO2 Intake & Output 10/31/23 11/01/23 11/01/23 18:59 06:59 18:59 Other: Voiding Method Toilet Toilet Bedside Commode # Voids 7 4 # Bowel Movements 2 - Exam patient is awake, comfortable, no acute distress Examination of the heart S1 and S2 Examination of the lungs bilateral breath sounds are heard Abdomen is soft nontender Examination of lower extremities shows no significant edema Left arm in sling [employer] exam shows patient is moving all 4 extremities. - Labs CBC & Chem 7: 11/01/23 08:00 11/01/23 08:00 Labs: Abnormal Lab Results - Last 24 Hours (Table) 10/31/23 10/31/23 10/31/23 Range/Units 12:12 16:14 16:16 WBC (3.8-10.6) k/uL RBC (3.80-5.40) m/uL Hgb (11.4-16.0) gm/dL Hct (34.0-46.0) % MCV (80.0-100.0) fL RDW (11.5-15.5) % Plt Count (150-450) k/uL Lymphocytes # (Manual) (1.0-4.8) k/uL Metamyelocytes # (Man) (0) k/uL Myelocytes # (Manual) (0) k/uL Nucleated RBCs (0-0) /100 WBC Macrocytosis D-Dimer 4.48 H (<0.60) mg/L FEU Chloride (98-107) mmol/L Glucose (74-99) mg/dL POC Glucose (mg/dL) 179 H (70-110) mg/dL Calcium (8.4-10.2) mg/dL AST (14-36) U/L ALT (4-34) U/L C-Reactive Protein 6.9 H (<1.0) mg/dL Total Protein (6.3-8.2) g/dL Albumin (3.5-5.0) g/dL Procalcitonin (0.02-0.09) ng/mL Urine Protein (Negative) Urine Glucose (UA) (Negative) Urine Blood (Negative) Urine Bacteria (None) /hpf Urine Opiates Screen (NotDetected) U Benzodiazepines Scrn (NotDetected) 10/31/23 10/31/23 10/31/23 Range/Units 16:16 17:00 17:00 WBC (3.8-10.6) k/uL RBC (3.80-5.40) m/uL Hgb (11.4-16.0) gm/dL Hct (34.0-46.0) % MCV (80.0-100.0) fL RDW (11.5-15.5) % Plt Count (150-450) k/uL Lymphocytes # (Manual) (1.0-4.8) k/uL Metamyelocytes # (Man) (0) k/uL Myelocytes # (Manual) (0) k/uL Nucleated RBCs (0-0) /100 WBC Macrocytosis D-Dimer (<0.60) mg/L FEU Chloride (98-107) mmol/L Glucose (74-99) mg/dL POC Glucose (mg/dL) (70-110) mg/dL Calcium (8.4-10.2) mg/dL AST (14-36) U/L ALT (4-34) U/L C-Reactive Protein (<1.0) mg/dL Total Protein (6.3-8.2) g/dL Albumin (3.5-5.0) g/dL Procalcitonin 0.13 H (0.02-0.09) ng/mL Urine Protein Trace H (Negative) Urine Glucose (UA) 2+ H (Negative) Urine Blood Small H (Negative) Urine Bacteria Rare H (None) /hpf Urine Opiates Screen Detected H (NotDetected) U Benzodiazepines Scrn Detected H (NotDetected) 10/31/23 10/31/23 11/01/23 Range/Units 17:08 20:45 06:13 WBC (3.8-10.6) k/uL RBC (3.80-5.40) m/uL Hgb (11.4-16.0) gm/dL Hct (34.0-46.0) % MCV (80.0-100.0) fL RDW (11.5-15.5) % Plt Count (150-450) k/uL Lymphocytes # (Manual) (1.0-4.8) k/uL Metamyelocytes # (Man) (0) k/uL Myelocytes # (Manual) (0) k/uL Nucleated RBCs (0-0) /100 WBC Macrocytosis D-Dimer (<0.60) mg/L FEU Chloride (98-107) mmol/L Glucose (74-99) mg/dL POC Glucose (mg/dL) 192 H 208 H 111 H (70-110) mg/dL Calcium (8.4-10.2) mg/dL AST (14-36) U/L ALT (4-34) U/L C-Reactive Protein (<1.0) mg/dL Total Protein (6.3-8.2) g/dL Albumin (3.5-5.0) g/dL Procalcitonin (0.02-0.09) ng/mL Urine Protein (Negative) Urine Glucose (UA) (Negative) Urine Blood (Negative) Urine Bacteria (None) /hpf Urine Opiates Screen (NotDetected) U Benzodiazepines Scrn (NotDetected) 11/01/23 11/01/23 Range/Units 08:00 08:00 WBC 2.4 L (3.8-10.6) k/uL RBC 2.12 L (3.80-5.40) m/uL Hgb 7.4 L D (11.4-16.0) gm/dL Hct 23.5 L (34.0-46.0) % MCV 111.0 H (80.0-100.0) fL RDW 17.8 H (11.5-15.5) % Plt Count 137 L (150-450) k/uL Lymphocytes # (Manual) 0.62 L (1.0-4.8) k/uL Metamyelocytes # (Man) 0.05 H (0) k/uL Myelocytes # (Manual) 0.02 H (0) k/uL Nucleated RBCs 2 H (0-0) /100 WBC Macrocytosis Marked A D-Dimer (<0.60) mg/L FEU Chloride 111 H (98-107) mmol/L Glucose 115 H (74-99) mg/dL POC Glucose (mg/dL) (70-110) mg/dL Calcium 7.9 L (8.4-10.2) mg/dL AST 179 H (14-36) U/L ALT 118 H (4-34) U/L C-Reactive Protein (<1.0) mg/dL Total Protein 4.6 L (6.3-8.2) g/dL Albumin 2.4 L (3.5-5.0) g/dL Procalcitonin (0.02-0.09) ng/mL Urine Protein (Negative) Urine Glucose (UA) (Negative) Urine Blood (Negative) Urine Bacteria (None) /hpf Urine Opiates Screen (NotDetected) U Benzodiazepines Scrn (NotDetected) Assessment and Plan Assessment: 1. Rhabdomyolysis most likely secondary to fall. Patient is not able to give a detailed history. CK level is decreasing. No acute kidney injury noted. Will obtain urine analysis. continue with IV fluids. 2. Left humerus fracture with arm in sling 3. Anemia rule out iron deficiency Plan: continue with IV fluids check iron profile repeat CK in a.m. Repeat labs in
--- NOTE | 2023-11-01 12:10 | CT ---
EXAMINATION TYPE: CT abdomen pelvis wo con DATE OF EXAM: 10/31/2023 COMPARISON: None INDICATION: Abdominal distention and vomiting. DLP: 1479.20 mGycm, Automated exposure control for dose reduction was used. CONTRAST: None mL of Isovue 300. Study performed with Oral Contrast TECHNIQUE: Axial images were obtained from above the diaphragm to the pubic rami in the axial plane a t 5 mm thick sections. Reconstructed images are reviewed on the computer in the coronal plane. FINDINGS: Limited CT sections are obtained the lung bases. The lung bases are clear. CT ABDOMEN: Liver: Normal Spleen: Normal Pancreas: Atrophic Adrenal glands: The adrenal glands are normal. Gallbladder: Normal Kidneys: Left kidney appears atrophic. There is poor differentiation of the cortical medullary differ entiation. No masses are evident. No hydronephrosis is present. No cysts are present. There is a 0 .4 cm linear calcification inferior pole left kidney without hydronephrosis. Aorta: Vascular calcification is within the aorta. Inferior vena cava: Filter is within the inferior vena cava. CT PELVIS: Loops of bowel within the abdomen and pelvis are normal. There are loops of bowel which are incom pletely distended or lack oral contrast limiting their evaluation. Contrast-filled loops of bowel paulino ear unremarkable. No dilated loops of bowel are evident. Oral contrast extends to the distal small morgan wel. Colon without contrast appears unremarkable Appendix: Short portion visualized is Normal as visualized. No inflammatory changes evident. Urinary bladder: Normal. Genitourinary structures: Uterus and ovaries are not identified. Osseous structures: No suspicious lytic or sclerotic lesions. Some mild edema may be within the subcutaneous tissues of the right anterior and lateral abdomen IMPRESSION: 1. No suspicious acute changes to account for patient's abdominal distention and vomiting. 2. Atrophic small left kidney with a nonobstructing renal stoner
[2023-11-01 12:14] LABS: Glucose,Whole Blood 180 mg/dL (70-110)
[2023-11-01] MEDS: LACTATED RINGERS 1,000 ML IV SCH (12:22)
--- NOTE | 2023-11-01 12:51 | P.PN ---
Subjective Progress Note Date: 11/01/23 I am following-up with patient and she is about the same. Objective - Vital Signs Vital signs: Vital Signs Temp 98.1 F 11/01/23 07:00 Pulse 109 H 11/01/23 08:00 Resp 18 11/01/23 08:00 BP 137/78 11/01/23 07:00 Pulse Ox 97 11/01/23 07:00 FiO2 Intake & Output 10/31/23 11/01/23 11/01/23 18:59 06:59 18:59 Other: Voiding Method Toilet Toilet Bedside Commode # Voids 7 4 # Bowel Movements 2 - Exam GENERAL: The patient is lying in bed and is not in acute distress. EXTREMITIES: Has sling of the left upper extremity. NEUROLOGICAL: Higher mental function: The patient is awake, alert, oriented to self, place and time. Is mildly slowly responding to questions and following commands. No aphasia and no neglect. Cranial nerves: The pupils are round, equal and reactive to light. Visual crane are full to confrontation throughout. Extraocular movement is intact no nystagmus is noted. Facial sensation is normal to touch throughout. The facial strength is normal throughout. Hearing is normal bilaterally to hand rub. Tongue is midline and moved [id number] without any difficulty. No dysarthria is noted. Motor: Strength is limited in left upper extremity since fracture and has sling. Otherwise stregnth is 5/5 throughout. Has good left hand website/blog editor. Normal tone and bulk. Cerebellum: Normal finger to nose on right. Sensation: Sensation is normal to touch throughout. Reflexes (right/left): Limited on left upper. But otherwise 2+ throughout. Plantars are mute bilaterally. Some of the workup during his hospital visit consisted of: patient is afebrile. White blood cell is 3.[address] of the head is reported as no CT evidence of acute intracranial abnormality. Atrophy and chronic microvascular ischemic white matter changes.I personally reviewed the CT head and there is no acute or subacute changes. CT angiography of the head and neck is reported as no significant stenosis or aneurysm. her CK level is 5985 which is trending down compared to yesterday. AST is 210, ALT of 128 Ammonia <9 TSH: 1.520 Lipid panel is triglyceride of 99, cholesterol 192, LDLs 113 and HDL is 58. Initial serum glucose is a 232. Sodium is 137, calcium 7.7, total bilirubin is 1.4. UDS: +ve opiates, benzo. Serum alcohol <10. - Labs CBC & Chem 7: 11/01/23 08:00 11/01/23 08:00 Labs: Abnormal Lab Results - Last 24 Hours (Table) 10/31/23 10/31/23 10/31/23 Range/Units 16:14 16:16 16:16 WBC (3.8-10.6) k/uL RBC (3.80-5.40) m/uL Hgb (11.4-16.0) gm/dL Hct (34.0-46.0) % MCV (80.0-100.0) fL RDW (11.5-15.5) % Plt Count (150-450) k/uL Lymphocytes # (Manual) (1.0-4.8) k/uL Metamyelocytes # (Man) (0) k/uL Myelocytes # (Manual) (0) k/uL Nucleated RBCs (0-0) /100 WBC Macrocytosis D-Dimer 4.48 H (<0.60) mg/L FEU Chloride (98-107) mmol/L Glucose (74-99) mg/dL POC Glucose (mg/dL) (70-110) mg/dL Calcium (8.4-10.2) mg/dL AST (14-36) U/L ALT (4-34) U/L C-Reactive Protein 6.9 H (<1.0) mg/dL Total Protein (6.3-8.2) g/dL Albumin (3.5-5.0) g/dL Procalcitonin 0.13 H (0.02-0.09) ng/mL Urine Protein (Negative) Urine Glucose (UA) (Negative) Urine Blood (Negative) Urine Bacteria (None) /hpf Urine Opiates Screen (NotDetected) U Benzodiazepines Scrn (NotDetected) 10/31/23 10/31/23 10/31/23 Range/Units 17:00 17:00 17:08 WBC (3.8-10.6) k/uL RBC (3.80-5.40) m/uL Hgb (11.4-16.0) gm/dL Hct (34.0-46.0) % MCV (80.0-100.0) fL RDW (11.5-15.5) % Plt Count (150-450) k/uL Lymphocytes # (Manual) (1.0-4.8) k/uL Metamyelocytes # (Man) (0) k/uL Myelocytes # (Manual) (0) k/uL Nucleated RBCs (0-0) /100 WBC Macrocytosis D-Dimer (<0.60) mg/L FEU Chloride (98-107) mmol/L Glucose (74-99) mg/dL POC Glucose (mg/dL) 192 H (70-110) mg/dL Calcium (8.4-10.2) mg/dL AST (14-36) U/L ALT (4-34) U/L C-Reactive Protein (<1.0) mg/dL Total Protein (6.3-8.2) g/dL Albumin (3.5-5.0) g/dL Procalcitonin (0.02-0.09) ng/mL Urine Protein Trace H (Negative) Urine Glucose (UA) 2+ H (Negative) Urine Blood Small H (Negative) Urine Bacteria Rare H (None) /hpf Urine Opiates Screen Detected H (NotDetected) U Benzodiazepines Scrn Detected H (NotDetected) 10/31/23 11/01/23 11/01/23 Range/Units 20:45 06:13 08:00 WBC 2.4 L (3.8-10.6) k/uL RBC 2.12 L (3.80-5.40) m/uL Hgb 7.4 L D (11.4-16.0) gm/dL Hct 23.5 L (34.0-46.0) % MCV 111.0 H (80.0-100.0) fL RDW 17.8 H (11.5-15.5) % Plt Count 137 L (150-450) k/uL Lymphocytes # (Manual) 0.62 L (1.0-4.8) k/uL Metamyelocytes # (Man) 0.05 H (0) k/uL Myelocytes # (Manual) 0.02 H (0) k/uL Nucleated RBCs 2 H (0-0) /100 WBC Macrocytosis Marked A D-Dimer (<0.60) mg/L FEU Chloride (98-107) mmol/L Glucose (74-99) mg/dL POC Glucose (mg/dL) 208 H 111 H (70-110) mg/dL Calcium (8.4-10.2) mg/dL AST (14-36) U/L ALT (4-34) U/L C-Reactive Protein (<1.0) mg/dL Total Protein (6.3-8.2) g/dL Albumin (3.5-5.0) g/dL Procalcitonin (0.02-0.09) ng/mL Urine Protein (Negative) Urine Glucose (UA) (Negative) Urine Blood (Negative) Urine Bacteria (None) /hpf Urine Opiates Screen (NotDetected) U Benzodiazepines Scrn (NotDetected) 11/01/23 11/01/23 Range/Units 08:00 12:12 WBC (3.8-10.6) k/uL RBC (3.80-5.40) m/uL Hgb (11.4-16.0) gm/dL Hct (34.0-46.0) % MCV (80.0-100.0) fL RDW (11.5-15.5) % Plt Count (150-450) k/uL Lymphocytes # (Manual) (1.0-4.8) k/uL Metamyelocytes # (Man) (0) k/uL Myelocytes # (Manual) (0) k/uL Nucleated RBCs (0-0) /100 WBC Macrocytosis D-Dimer (<0.60) mg/L FEU Chloride 111 H (98-107) mmol/L Glucose 115 H (74-99) mg/dL POC Glucose (mg/dL) 180 H (70-110) mg/dL Calcium 7.9 L (8.4-10.2) mg/dL AST 179 H (14-36) U/L ALT 118 H (4-34) U/L C-Reactive Protein (<1.0) mg/dL Total Protein 4.6 L (6.3-8.2) g/dL Albumin 2.4 L (3.5-5.0) g/dL Procalcitonin (0.02-0.09) ng/mL Urine Protein (Negative) Urine Glucose (UA) (Negative) Urine Blood (Negative) Urine Bacteria (None) /hpf Urine Opiates Screen (NotDetected) U Benzodiazepines Scrn (NotDetected) Assessment and Plan Assessment: this is a 57-year-old woman who presented emergency department because of shortness of breath and vomiting as well as a felt by EMS she had the right facial weakness and dysarthria which has resolved by the time she arrived and it was a valid by the ED team. Patient had a recent fall with left shoulder humerus fracture. At that time was felt the patient had the metabolic encephalopathy due to unintentional opiate overdose as well as felt to have acute rhabdomyolysis. She had the mild transaminitis. Transient reported right facial droop and dysarthria. on examination she seems not a great historian with confusion: rule out TIA versus also rule out seizure especially with a history of seizure. altered mental status due to metabolic encephalopathythy, hepatic encephalopathy (has transamnitis) and medication use (opiates) history of seizure as a childand according to patient no further seizures Acute rhabdomyolysis--trending down recent fall with the left humeral fracture History of leukemia Plan: Pending MRI the brain with and without and routine EEG seems the patient had a recent 2-D echo but was very limited. I'll get a repeat 2-D echo. patient was given aspirin 325 once in the ED. She is on Plavix 75 mg daily. we'll assess whether she needs an addition aspirin after the workup. we'll avoid the statins because of the rhabdomyolysis. Patient had a recent vitamin B12 which was unremarkable. Also had a TSH was was unremarkable recently. continue checks Cardiac monitoring PT OT and PRODUCT MARKETING ENGINEER are consulted Please avoid opoids/narcotis or benzo as much as possible. We'll defer the rest of the medical measure the primary and other specialists For DVT prophylaxis the patient is on Lovenox. The plan discussed with the patient's nurse Dr. Parada will resume neurology service tomorrow A.M. Time with Patient: Less than 30
--- NOTE | 2023-11-01 16:47 | P.PN ---
Subjective Progress Note Date: 11/01/23 Principal diagnosis: Reason for follow-up is elevated liver enzymes questionable infection Patient is a 57-year-old female with a past medical history significant for diabetes mellitus hypertension hyperlipidemia coronary artery disease rheumatoid arthritis recent left humerus fracture treated conservatively presented to hospital with increasing shortness of breath and vomiting. Patient did have a CT angiogram of the chest with contrast opacity seen abdominal pelvis negative. On today's evaluation that is 11/01/2023,the patient remains to be afebrile, patient is on room air not requiring supplemental oxygen and denies any shortness of breath no chest pain or cough.Patient denies having any further nausea or vomiting, no abdominal pain and no diarrhea has been reported. Patient white count of 2.4, creatinine 0.53 influenza RSV COVID testing was negative Objective - Vital Signs Vital signs: Vital Signs Temp 98 F 11/01/23 14:47 Pulse 107 H 11/01/23 14:47 Resp 19 11/01/23 14:47 BP 100/58 11/01/23 14:47 Pulse Ox 99 11/01/23 14:47 FiO2 Intake & Output 10/31/23 11/01/23 11/01/23 18:59 06:59 18:59 Other: Voiding Method Toilet Toilet Bedside Commode # Voids 7 4 3 # Bowel Movements 2 - Exam GENERAL DESCRIPTION: Middle-aged female up in the chair in no distress RESPIRATORY SYSTEM: Unlabored breathing , decreased breath sounds at bases HEART: S1 S2 regular rate and rhythm , ABDOMEN: Soft , no tenderness EXTREMITIES: Diffuse swelling bilateral lower extremity - Labs CBC & Chem 7: 11/01/23 08:00 11/01/23 08:00 Labs: Abnormal Lab Results - Last 24 Hours (Table) 10/31/23 10/31/23 10/31/23 Range/Units 16:14 16:16 16:16 WBC (3.8-10.6) k/uL RBC (3.80-5.40) m/uL Hgb (11.4-16.0) gm/dL Hct (34.0-46.0) % MCV (80.0-100.0) fL RDW (11.5-15.5) % Plt Count (150-450) k/uL Lymphocytes # (Manual) (1.0-4.8) k/uL Metamyelocytes # (Man) (0) k/uL Myelocytes # (Manual) (0) k/uL Nucleated RBCs (0-0) /100 WBC Macrocytosis D-Dimer 4.48 H (<0.60) mg/L FEU Chloride (98-107) mmol/L Glucose (74-99) mg/dL POC Glucose (mg/dL) (70-110) mg/dL Hemoglobin A1c (<=6.0) % Calcium (8.4-10.2) mg/dL AST (14-36) U/L ALT (4-34) U/L Creatine Kinase (30-135) U/L C-Reactive Protein 6.9 H (<1.0) mg/dL Total Protein (6.3-8.2) g/dL Albumin (3.5-5.0) g/dL Procalcitonin 0.13 H (0.02-0.09) ng/mL Urine Protein (Negative) Urine Glucose (UA) (Negative) Urine Blood (Negative) Urine Bacteria (None) /hpf Urine Opiates Screen (NotDetected) U Benzodiazepines Scrn (NotDetected) 10/31/23 10/31/23 10/31/23 Range/Units 17:00 17:00 17:08 WBC (3.8-10.6) k/uL RBC (3.80-5.40) m/uL Hgb (11.4-16.0) gm/dL Hct (34.0-46.0) % MCV (80.0-100.0) fL RDW (11.5-15.5) % Plt Count (150-450) k/uL Lymphocytes # (Manual) (1.0-4.8) k/uL Metamyelocytes # (Man) (0) k/uL Myelocytes # (Manual) (0) k/uL Nucleated RBCs (0-0) /100 WBC Macrocytosis D-Dimer (<0.60) mg/L FEU Chloride (98-107) mmol/L Glucose (74-99) mg/dL POC Glucose (mg/dL) 192 H (70-110) mg/dL Hemoglobin A1c (<=6.0) % Calcium (8.4-10.2) mg/dL AST (14-36) U/L ALT (4-34) U/L Creatine Kinase (30-135) U/L C-Reactive Protein (<1.0) mg/dL Total Protein (6.3-8.2) g/dL Albumin (3.5-5.0) g/dL Procalcitonin (0.02-0.09) ng/mL Urine Protein Trace H (Negative) Urine Glucose (UA) 2+ H (Negative) Urine Blood Small H (Negative) Urine Bacteria Rare H (None) /hpf Urine Opiates Screen Detected H (NotDetected) U Benzodiazepines Scrn Detected H (NotDetected) 10/31/23 11/01/23 11/01/23 Range/Units 20:45 06:13 08:00 WBC (3.8-10.6) k/uL RBC (3.80-5.40) m/uL Hgb (11.4-16.0) gm/dL Hct (34.0-46.0) % MCV (80.0-100.0) fL RDW (11.5-15.5) % Plt Count (150-450) k/uL Lymphocytes # (Manual) (1.0-4.8) k/uL Metamyelocytes # (Man) (0) k/uL Myelocytes # (Manual) (0) k/uL Nucleated RBCs (0-0) /100 WBC Macrocytosis D-Dimer (<0.60) mg/L FEU Chloride (98-107) mmol/L Glucose (74-99) mg/dL POC Glucose (mg/dL) 208 H 111 H (70-110) mg/dL Hemoglobin A1c 6.1 H (<=6.0) % Calcium (8.4-10.2) mg/dL AST (14-36) U/L ALT (4-34) U/L Creatine Kinase (30-135) U/L C-Reactive Protein (<1.0) mg/dL Total Protein (6.3-8.2) g/dL Albumin (3.5-5.0) g/dL Procalcitonin (0.02-0.09) ng/mL Urine Protein (Negative) Urine Glucose (UA) (Negative) Urine Blood (Negative) Urine Bacteria (None) /hpf Urine Opiates Screen (NotDetected) U Benzodiazepines Scrn (NotDetected) 11/01/23 11/01/23 11/01/23 Range/Units 08:00 08:00 08:00 WBC 2.4 L (3.8-10.6) k/uL RBC 2.12 L (3.80-5.40) m/uL Hgb 7.4 L D (11.4-16.0) gm/dL Hct 23.5 L (34.0-46.0) % MCV 111.0 H (80.0-100.0) fL RDW 17.8 H (11.5-15.5) % Plt Count 137 L (150-450) k/uL Lymphocytes # (Manual) 0.62 L (1.0-4.8) k/uL Metamyelocytes # (Man) 0.05 H (0) k/uL Myelocytes # (Manual) 0.02 H (0) k/uL Nucleated RBCs 2 H (0-0) /100 WBC Macrocytosis Marked A D-Dimer (<0.60) mg/L FEU Chloride 111 H (98-107) mmol/L Glucose 115 H (74-99) mg/dL POC Glucose (mg/dL) (70-110) mg/dL Hemoglobin A1c (<=6.0) % Calcium 7.9 L (8.4-10.2) mg/dL AST 179 H (14-36) U/L ALT 118 H (4-34) U/L Creatine Kinase 3164 H* (30-135) U/L C-Reactive Protein (<1.0) mg/dL Total Protein 4.6 L (6.3-8.2) g/dL Albumin 2.4 L (3.5-5.0) g/dL Procalcitonin (0.02-0.09) ng/mL Urine Protein (Negative) Urine Glucose (UA) (Negative) Urine Blood (Negative) Urine Bacteria (None) /hpf Urine Opiates Screen (NotDetected) U Benzodiazepines Scrn (NotDetected) 11/01/23 Range/Units 12:12 WBC (3.8-10.6) k/uL RBC (3.80-5.40) m/uL Hgb (11.4-16.0) gm/dL Hct (34.0-46.0) % MCV (80.0-100.0) fL RDW (11.5-15.5) % Plt Count (150-450) k/uL Lymphocytes # (Manual) (1.0-4.8) k/uL Metamyelocytes # (Man) (0) k/uL Myelocytes # (Manual) (0) k/uL Nucleated RBCs (0-0) /100 WBC Macrocytosis D-Dimer (<0.60) mg/L FEU Chloride (98-107) mmol/L Glucose (74-99) mg/dL POC Glucose (mg/dL) 180 H (70-110) mg/dL Hemoglobin A1c (<=6.0) % Calcium (8.4-10.2) mg/dL AST (14-36) U/L ALT (4-34) U/L Creatine Kinase (30-135) U/L C-Reactive Protein (<1.0) mg/dL Total Protein (6.3-8.2) g/dL Albumin (3.5-5.0) g/dL Procalcitonin (0.02-0.09) ng/mL Urine Protein (Negative) Urine Glucose (UA) (Negative) Urine Blood (Negative) Urine Bacteria (None) /hpf Urine Opiates Screen (NotDetected) U Benzodiazepines Scrn (NotDetected) Assessment and Plan (1) SIRS (systemic inflammatory response syndrome) Current Visit: Yes Status: Acute Code(s): R65.10 - SIRS OF NON-INFECTIOUS ORIGIN W/O ACUTE ORGAN DYSFUNCTION SNOMED Code(s): 458517644 Plan: 1patient presented hospital with vomiting x 1 day and did have a increasing shortness of breath patient also have elevated liver enzymes question of possible hepatobiliary source 2-CT abdominal pelvis with oral contrast did not show any acute abnormality CTA diffuse groundglass opacity but negative for PE influenza RSV COVID testing negative 3-blood culture has been obtained and inflammatory markers currently pending 4-patient to continue with Zosyn while waiting for the workup to be completed Dictation was produced using View[employer] dictation software. please excuse any grammatical, word or spelling errors. Time with Patient: Less than 30
[2023-11-01 17:37] LABS: Glucose,Whole Blood 194 mg/dL (70-110)
[2023-11-01 21:41] LABS: Glucose,Whole Blood 171 mg/dL (70-110)
--- NOTE | 2023-11-02 00:45 | PN ---
PROGRESS NOTE DATE OF SERVICE: 11/01/2023 SUBJECTIVE: This is a 57-year-old woman with a past medical history of multiple medical problems, admitted with abdominal discomfort, vomiting, and possibly acute gastritis. The patient also had acute abnormalities also. The patient has recent left hip humerus fracture with severe pain. The patient has failure of outpatient treatment. The patient is needing intravenous pain medication at this time. The CT abdomen showed only small atrophic kidneys. Multiple consultants are following the patient closely. The CTA of the chest showed no pulmonary embolism, multiple other findings. PAST MEDICAL HISTORY: Reviewed. REVIEW OF SYSTEMS: A 14-point review is negative except as mentioned earlier. CURRENT MEDICATIONS: Reviewed include Dilaudid, other medications and doses are reviewed. PHYSICAL EXAMINATION: VITAL SIGNS: Pulse is 91, blood pressure 150/66, respirations 16. CHEST: Clear to auscultation. CARDIOVASCULAR: S1, S2. ABDOMEN: Soft. NERVOUS SYSTEM: Nonfocal. LABORATORY DATA: WBC 2.2, hemoglobin 7.4, platelets 137. Rest of the labs are noted. ASSESSMENT: 1. Abdominal discomfort and vomiting, possibly acute gastritis. 2. Acute rhabdomyolysis. 3. History of recent left hip humeral fracture and on medical treatment. 4. Severe pain with failure of outpatient treatment. 5. Pancytopenia of undetermined etiology. 6. Rule out sepsis. 7. Tachycardia. 8. History of congestive heart failure. 9. Coronary artery disease. 10.Diabetes mellitus, type 2. 11.Gait dysfunction. 12.History of deep venous thrombosis. 13.History of fibromyalgia. 14.History of rheumatoid arthritis. RECOMMENDATIONS AND DISCUSSION: Recommend to continue current management. Continue symptomatic treatment. At this time, recommend PT, OT evaluation. The patient might require evaluation for ECF rehab because of multiple complex medical issues. Dr. Pat recommended continue the empiric antibiotics as mentioned. Cultures are negative. I would also recommend cautious hydration and Nephrology has seen the patient. I would recommend repeat creatine kinase and further recommendations to follow. See orders for further details. MMODL / IJN: [id number] /
[2023-11-02 06:05] LABS: Glucose,Whole Blood 143 mg/dL (70-110)
[2023-11-02 08:18] LABS: % Iron Saturation 44.04 (12.00-45.00)
[2023-11-02 08:41] LABS: Basophils # (A) 0.02 X 10*3/uL (0.00-0.10); Basophils % (A) 0.7 %; Eosinophils # (A) 0.05 X 10*3/uL (0.04-0.35); Eosinophils % (A) 1.8 %; HCT 23.4 % (37.2-46.3); HGB 7.4 g/dL (12.0-15.0); Lymphocytes # (A) 0.82 X 10*3/uL (0.90-5.00); Lymphocytes % (A) 29.1 %; MCH 35.4 pg (27.0-32.0); MCHC 31.6 g/dL (32.0-37.0); Mean Platelet Volume 11.1 FL (9.5-12.2); Monocytes # (A) 0.21 X 10*3/uL (0.20-1.00); Monocytes % (A) 7.4 %; NRBC Per 100 WBC 0.08 X 10*3/uL (0.00-0.01); Neutrophils # (A) 1.59 X 10*3/uL (1.80-7.70); Neutrophils % (A) 56.4 %; Platelet Count 131 X 10*3/uL (140-440); RBC 2.09 X 10*6/uL (4.10-5.20); RDW 17.2 % (11.5-14.5); WBC 2.82 X 10*3/uL (4.50-10.00)
[2023-11-02 09:08] LABS: ALT 103 U/L (8-44); AST 143 U/L (13-35); Albumin 3.1 g/dL (3.8-4.9); Albumin/Globulin Ratio 1.72 Ratio (1.60-3.17); Alkaline Phosphatase 91 U/L (41-126); BUN/Creat Ratio 12.62 Ratio (12.00-20.00); Blood Urea Nitrogen 10.1 mg/dL (9.0-27.0); Calcium 8.4 mg/dL (8.7-10.3); Carbon Dioxide 26.8 mmol/L (21.6-31.8); Chloride 106 mmol/L (96-109); Globulin 1.8 g/dL (1.6-3.3); Glucose 135 mg/dL (70-110); Potassium 4.3 mmol/L (3.5-5.5); Sodium 141 mmol/L (135-145); Total Bilirubin 0.7 mg/dL (0.3-1.2); Total Protein 4.9 g/dL (6.2-8.2)
[2023-11-02 10:55] LABS: Glucose,Whole Blood 231 mg/dL (70-110)
--- NOTE | 2023-11-02 11:53 | P.PN ---
Subjective patient is seen for follow-up for rhabdomyolysis. [place] 3164 [place] [address] on initial admission. status post IV fluids. Pain is controlled. complaining of increased leg swelling. No shortness of breath. Objective - Vital Signs Vital signs: Vital Signs Temp 98 F 11/02/23 07:00 Pulse 95 11/02/23 07:00 Resp 20 11/02/23 07:00 BP 122/74 11/02/23 07:00 Pulse Ox 99 11/02/23 07:00 FiO2 Intake & Output 11/01/23 11/02/23 11/02/23 18:59 06:59 18:59 Intake Total 118 Balance 118 Intake: Oral 118 Other: Voiding Method Toilet Bedside Commode Bedside Commode # Voids 3 3 - Exam patient is awake, comfortable, no acute distress Examination of the heart S1 and S2 Examination of the lungs bilateral breath sounds are heard Abdomen is soft nontender Examination of lower extremities shows 1+ edema Left arm in sling SLOT FLOOR SUPERVISOR exam shows patient is moving all 4 extremities. - Labs CBC & Chem 7: 11/02/23 05:29 11/02/23 05:29 Labs: Abnormal Lab Results - Last 24 Hours (Table) 11/01/23 11/01/23 11/01/23 Range/Units 08:00 08:00 12:12 WBC (4.50-10.00) X 10*3/uL RBC (4.10-5.20) X 10*6/uL Hgb (12.0-15.0) g/dL Hct (37.2-46.3) % MCV (80.0-97.0) FL MCH (27.0-32.0) pg MCHC (32.0-37.0) g/dL RDW (11.5-14.5) % Plt Count (140-440) X 10*3/uL Immature Gran # (0.00-0.04) X 10*3/uL Neutrophils # (1.80-7.70) X 10*3/uL Lymphocytes # (0.90-5.00) X 10*3/uL NRBC/100 WBC Diff (0.00-0.01) X 10*3/uL Glucose (70-110) mg/dL POC Glucose (mg/dL) 180 H (70-110) mg/dL Hemoglobin A1c 6.1 H (<=6.0) % Calcium (8.7-10.3) mg/dL TIBC 218 L (228-460) UG/DL Transferrin 156.0 L (204.0-354.0) mg/dL AST (13-35) U/L ALT (8-44) U/L Creatine Kinase 3164 H* (30-135) U/L Total Protein (6.2-8.2) g/dL Albumin (3.8-4.9) g/dL 11/01/23 11/01/23 11/02/23 Range/Units 17:36 21:40 05:29 WBC 2.82 L (4.50-10.00) X 10*3/uL RBC 2.09 L (4.10-5.20) X 10*6/uL Hgb 7.4 L (12.0-15.0) g/dL Hct 23.4 L (37.2-46.3) % MCV 112.0 H (80.0-97.0) FL MCH 35.4 H (27.0-32.0) pg MCHC 31.6 L (32.0-37.0) g/dL RDW 17.2 H (11.5-14.5) % Plt Count 131 L (140-440) X 10*3/uL Immature Gran # 0.13 H (0.00-0.04) X 10*3/uL Neutrophils # 1.59 L (1.80-7.70) X 10*3/uL Lymphocytes # 0.82 L (0.90-5.00) X 10*3/uL NRBC/100 WBC Diff 0.08 H (0.00-0.01) X 10*3/uL Glucose (70-110) mg/dL POC Glucose (mg/dL) 194 H 171 H (70-110) mg/dL Hemoglobin A1c (<=6.0) % Calcium (8.7-10.3) mg/dL TIBC (228-460) UG/DL Transferrin (204.0-354.0) mg/dL AST (13-35) U/L ALT (8-44) U/L Creatine Kinase (30-135) U/L Total Protein (6.2-8.2) g/dL Albumin (3.8-4.9) g/dL 11/02/23 11/02/23 11/02/23 Range/Units 05:29 06:03 10:53 WBC (4.50-10.00) X 10*3/uL RBC (4.10-5.20) X 10*6/uL Hgb (12.0-15.0) g/dL Hct (37.2-46.3) % MCV (80.0-97.0) FL MCH (27.0-32.0) pg MCHC (32.0-37.0) g/dL RDW (11.5-14.5) % Plt Count (140-440) X 10*3/uL Immature Gran # (0.00-0.04) X 10*3/uL Neutrophils # (1.80-7.70) X 10*3/uL Lymphocytes # (0.90-5.00) X 10*3/uL NRBC/100 WBC Diff (0.00-0.01) X 10*3/uL Glucose 135 H (70-110) mg/dL POC Glucose (mg/dL) 143 H 231 H (70-110) mg/dL Hemoglobin A1c (<=6.0) % Calcium 8.4 L (8.7-10.3) mg/dL TIBC (228-460) UG/DL Transferrin (204.0-354.0) mg/dL AST 143 H (13-35) U/L ALT 103 H (8-44) U/L Creatine Kinase (30-135) U/L Total Protein 4.9 L (6.2-8.2) g/dL Albumin 3.1 L (3.8-4.9) g/dL Microbiology - Last 24 Hours (Table) 10/31/23 16:14 Blood Culture - Preliminary Blood 10/31/23 17:00 Urine Culture - Final Urine,Voided Assessment and Plan Assessment: 1. Rhabdomyolysis most likely secondary to fall. Patient is not able to give a detailed history. CK level is decreasing. No acute kidney injury noted. 2. Left humerus fracture with arm in sling 3. Anemia , iron replete. 4. Volume overload Plan: DC IV fluids IV Lasix 1 can resume home dose of diuretics tomorrow
[2023-11-02] MEDS: FUROSEMIDE 10 MG/ML 4 ML VIAL IV STA (13:22)
--- NOTE | 2023-11-02 15:41 | P.PN ---
Subjective Progress Note Date: 11/02/23 This is a 57-year-old female who was recently admitted with abdominal discomfort with vomiting with concerns of possible acute gastritis and multiple electrolyte abnormalities being closely monitored by multiple medical consultations. Nephrology following and has cleared the patient for discharge recommending outpatient follow-up with repeat labs. Patient also evaluated by neurology underwent extensive neuro exam including MRI of the brain which is pending although suspicion for CVA versus TIA is extremely low most likely secondary to polypharmacy as patient takes a number of narcotic medications recommending limiting these medications. Patient having some abdominal pain underwent CT abdomen showing small atrophic kidneys otherwise no abnormalities and CT of the chest that was done showing no PE. Patient recently had a left hip humerus fracture with severe pain and evaluated by orthopedics with no plans of surgical intervention at this time. Patient currently does not have a primary care provider and needs to establish with one. Patient per nursing staff has been requesting IV Dilaudid which will be discontinued. Home medications reviewed and resumed as appropriate. Patient maintained on Zosyn empirically and will give a short course of oral Augmentin on discharge. Infectious diseases following. Patient is afebrile with no reports of chest pain or shortness of breath. Patient is tolerating diet and denies any nausea or vomiting. Review of systems: Constitutional: No reports of fatigue, fever, or chills Cardiovascular: No reports of chest pain or palpitations Respiratory: No reports of shortness of breath or cough GI: No reports of nausea, no reports of vomiting, no diarrhea : No reports of dysuria or retention Neurovascular: reports of generalized weakness All medications have been reviewed Active Medications Acetaminophen/Butalbital/Caffeine (Butalb/Apap/Caff 50-325-40mg Tab) 1 each PO Q4H PRN PRN Reason: Migraine Headache Acyclovir (Acyclovir 200 Mg Cap) 400 mg PO BID [facility] Last Admin: 11/02/23 08:39 Dose: 400 mg Alprazolam (Alprazolam 1 Mg Tab) 1 mg PO HS [facility] Last Admin: 11/01/23 20:22 Dose: 1 mg Clopidogrel Bisulfate (Clopidogrel 75 Mg Tab) 75 mg PO DAILY [facility] Last Admin: 11/02/23 08:38 Dose: 75 mg Dextrose/Water (Dextrose 50% Syringe 50 Ml) 25 ml IVP PER PROTOCOL PRN; Protocol PRN Reason: Hypoglycemia Dextrose/Water (Dextrose 50% Syringe 50 Ml) 50 ml IVP PER PROTOCOL PRN; Protocol PRN Reason: Hypoglycemia Enoxaparin Sodium (Enoxaparin 40 Mg/0.4 Ml Syringe) 40 mg SQ DAILY [facility] Last Admin: 11/02/23 08:38 Dose: 40 mg Famotidine (Famotidine 20 Mg Tab) 20 mg PO BID [facility] Last Admin: 11/02/23 08:38 Dose: 20 mg Fluoxetine HCl (Fluoxetine Hcl 20 Mg Cap) 40 mg PO DAILY [facility] Last Admin: 11/02/23 08:39 Dose: 40 mg Gabapentin (Gabapentin 300 Mg Cap) 300 mg PO BID [facility] Last Admin: 11/02/23 08:38 Dose: 300 mg Sodium Chloride (Saline 0.9%) 1,000 mls @ 20 mls/hr IV .Q24H [facility] Last Admin: 11/01/23 21:50 Dose: Not Given Piperacillin Sod/Tazobactam (Sod 3.375 gm/ Sodium Chloride) 100 mls @ 25 mls/hr IVPB Q8HR [facility]; Protocol Last Admin: 11/02/23 10:25 Dose: 25 mls/hr Insulin Aspart (Insulin Aspart (Novolog) 100 Unit/Ml Vial) 0 unit SQ ACHS [facility]; Protocol Last Admin: 11/02/23 11:56 Dose: 4 unit Losartan Potassium (Losartan 25 Mg Tab) 25 mg PO DAILY [facility] Last Admin: 11/02/23 08:38 Dose: 25 mg Methocarbamol (Methocarbamol 500 Mg Tab) 500 mg PO TID [facility] Last Admin: 11/02/23 08:39 Dose: 500 mg Non-Formulary Medication (Suvorexant [Belsomra]) 15 mg PO HS PRN PRN Reason: Insomnia Pantoprazole Sodium (Pantoprazole 40 Mg/10 Ml Vial) 40 mg IVP BID [facility] Last Admin: 11/02/23 10:25 Dose: 40 mg Pioglitazone HCl (Pioglitazone 30 Mg Tab) 30 mg PO DAILY [facility] Last Admin: 11/02/23 08:39 Dose: 30 mg Potassium Chloride (Potassium Chloride Er 20 Meq Tab.Er) 20 meq PO DAILY [facility] Last Admin: 11/02/23 08:38 Dose: 20 meq PHYSICAL EXAMINATION: GENERAL: The patient is alert and oriented x4, Well developed, well nourished. Obese HEENT: Pupils are round and equally reacting to light. EOMI. no scleral icterus. No conjunctival pallor. Normocephalic, atraumatic. No pharyngeal erythema. No thyromegaly. CARDIOVASCULAR: S1 and S2 muffled PULMONARY: diminished breath sounds bilaterally with no wheezing or rhonchi noted. ABDOMEN: soft. Nontender on exam. obese. non-distended, normoactive bowel sounds. No palpable organomegaly. MUSCULOSKELETAL: No joint swelling or deformity. EXTREMITIES: No cyanosis, clubbing, or pedal edema. NEUROLOGICAL: Gross neurological examination did not reveal any focal deficits. Diffuse weakness SKIN: No rashes. Assessment: Abdominal discomfort with vomiting, likely secondary to acute gastritis Acute rhabdomyolysis, resolved History of recent left hip humeral fracture, continued on medical treatment Severe pain with failure of outpatient treatment Pancytopenia of undetermined etiology Tachycardia History of congestive heart failure, not in exacerbation History of coronary artery disease Diabetes mellitus, type II Gait dysfunction History of DVT History of fibromyalgia History of rheumatoid arthritis Obesity with a BMI of 38.2 GI prophylaxis DVT prophylaxis Full code Plan: Recommend to continue with current medications and management with multiple medical consultations following. Patient was evaluated by neurology and MRI of the brain is ordered and pending PT/OT therapy to evaluate the patient. Patient would like to go home and reports is waiting on her ride this morning Patient empirically maintained on IV antibiotics with infectious disease following will continue a short course of oral Augmentin on discharge Call medications reviewed and resumed and recommend limiting narcotic use. Fol low-up with pain management outpatient Follow-up with neurology outpatient Patient was scheduled to be discharged today although per nursing staff, her visitor reported her toilet was broken at home and patient is now appealing the discharge. Patient is medically stable for discharge. Awaiting Medicare determination. Due to multiple complex medical issues, prognosis is guarded Possible discharge in 24 hours The impression and plan of care has been dictated by Kathi Hewitt nurse practitioner as directed. Dr. Kevin MD I have performed a history and examination and MDM of this patient, discussed the same with the dictator, and agree with the dictator's assessment and plan as written ,documented as a scribe. Based on total visit time, I have performed more than 50% of the visit. Any additional findings or plans will be noted. Objective - Vital Signs Vital signs: Vital Signs Temp 98 F 11/02/23 07:00 Pulse 95 11/02/23 07:00 Resp 20 11/02/23 07:00 BP 122/74 11/02/23 07:00 Pulse Ox 99 11/02/23 07:00 FiO2 Intake & Output 11/01/23 11/02/23 11/02/23 18:59 06:59 18:59 Intake Total 118 Balance 118 Intake: Oral 118 Other: Voiding Method Toilet Bedside Commode Bedside Commode # Voids 3 3 - Labs CBC & Chem 7: 11/02/23 05:29 11/02/23 05:29 Labs: Abnormal Lab Results - Last 24 Hours (Table) 11/01/23 11/01/23 11/01/23 Range/Units 08:00 17:36 21:40 WBC (4.50-10.00) X 10*3/uL RBC (4.10-5.20) X 10*6/uL Hgb (12.0-15.0) g/dL Hct (37.2-46.3) % MCV (80.0-97.0) FL MCH (27.0-32.0) pg MCHC (32.0-37.0) g/dL RDW (11.5-14.5) % Plt Count (140-440) X 10*3/uL Immature Gran # (0.00-0.04) X 10*3/uL Neutrophils # (1.80-7.70) X 10*3/uL Lymphocytes # (0.90-5.00) X 10*3/uL NRBC/100 WBC Diff (0.00-0.01) X 10*3/uL Glucose (70-110) mg/dL POC Glucose (mg/dL) 194 H 171 H (70-110) mg/dL Calcium (8.7-10.3) mg/dL TIBC 218 L (228-460) UG/DL Transferrin 156.0 L (204.0-354.0) mg/dL AST (13-35) U/L ALT (8-44) U/L Total Protein (6.2-8.2) g/dL Albumin (3.8-4.9) g/dL 11/02/23 11/02/23 11/02/23 Range/Units 05:29 05:29 06:03 WBC 2.82 L (4.50-10.00) X 10*3/uL RBC 2.09 L (4.10-5.20) X 10*6/uL Hgb 7.4 L (12.0-15.0) g/dL Hct 23.4 L (37.2-46.3) % MCV 112.0 H (80.0-97.0) FL MCH 35.4 H (27.0-32.0) pg MCHC 31.6 L (32.0-37.0) g/dL RDW 17.2 H (11.5-14.5) % Plt Count 131 L (140-440) X 10*3/uL Immature Gran # 0.13 H (0.00-0.04) X 10*3/uL Neutrophils # 1.59 L (1.80-7.70) X 10*3/uL Lymphocytes # 0.82 L (0.90-5.00) X 10*3/uL NRBC/100 WBC Diff 0.08 H (0.00-0.01) X 10*3/uL Glucose 135 H (70-110) mg/dL POC Glucose (mg/dL) 143 H (70-110) mg/dL Calcium 8.4 L (8.7-10.3) mg/dL TIBC (228-460) UG/DL Transferrin (204.0-354.0) mg/dL AST 143 H (13-35) U/L ALT 103 H (8-44) U/L Total Protein 4.9 L (6.2-8.2) g/dL Albumin 3.1 L (3.8-4.9) g/dL 11/02/23 Range/Units 10:53 WBC (4.50-10.00) X 10*3/uL RBC (4.10-5.20) X 10*6/uL Hgb (12.0-15.0) g/dL Hct (37.2-46.3) % MCV (80.0-97.0) FL MCH (27.0-32.0) pg MCHC (32.0-37.0) g/dL RDW (11.5-14.5) % Plt Count (140-440) X 10*3/uL Immature Gran # (0.00-0.04) X 10*3/uL Neutrophils # (1.80-7.70) X 10*3/uL Lymphocytes # (0.90-5.00) X 10*3/uL NRBC/100 WBC Diff (0.00-0.01) X 10*3/uL Glucose (70-110) mg/dL POC Glucose (mg/dL) 231 H (70-110) mg/dL Calcium (8.7-10.3) mg/dL TIBC (228-460) UG/DL Transferrin (204.0-354.0) mg/dL AST (13-35) U/L ALT (8-44) U/L Total Protein (6.2-8.2) g/dL Albumin (3.8-4.9) g/dL Microbiology - Last 24 Hours (Table) 10/31/23 16:14 Blood Culture - Preliminary Blood 10/31/23 17:00 Urine Culture - Final Urine,Voided
--- NOTE | 2023-11-02 15:48 | P.DS ---
Providers Date of admission: 10/31/23 13:16 Expected date of discharge: 11/02/23 Attending physician: Brodie Johnson MD Consults: 10/30/23 21:50 Consult Physician Routine Consulting Provider: Juan Fischer Consult Reason/Comments: facial droop, dysarthria, resolved Do you want consulting provider notified?: Yes 10/31/23 05:49 Consult Physician Routine Consulting Provider: Yan Diaz Consult Reason/Comments: Possible rhabdomyolysis Do you want consulting provider notified?: Yes Consult Physician Routine Consulting Provider: Balaji Marin Consult Reason/Comments: Left humerus fracture, reevaluation Do you want consulting provider notified?: Yes 10/31/23 13:22 Consult Physician Routine Consulting Provider: Viviana Pat Consult Reason/Comments: ? sepsis?? Do you want consulting provider notified?: Yes Primary care physician: Stated None Hospital Course: Final diagnosis Abdominal discomfort with vomiting, likely secondary to acute gastritis Acute rhabdomyolysis, resolved History of recent left hip humeral fracture, continued on medical treatment Severe pain with failure of outpatient treatment Pancytopenia of undetermined etiology Tachycardia History of congestive heart failure, not in exacerbation History of coronary artery disease Diabetes mellitus, type II Gait dysfunction History of DVT History of fibromyalgia History of rheumatoid arthritis Obesity with a BMI of 38.2 GI prophylaxis DVT prophylaxis Full code Discharge disposition Patient is being discharged in a stable condition with guarded prognosis to home. Patient will follow-up with Dr. Momo Brown in the outpatient setting upon discharge. Patient is to continue with oral Augmentin twice daily for 5 days. Patient to follow-up with neurology outpatient as scheduled. Follow-up with pain management outpatient and strongly recommend limiting narcotic use. Total time taken is greater than 35 minutes. Hospital course This is a 57-year-old female who was recently admitted with multiple medical conditions including abdominal discomfort with vomiting likely secondary to acute gastritis. Patient had some abnormal electrolyte abnormalities which are improved and also some acute confusion with concerns of TIA versus CVA although less likely and most likely secondary to polypharmacy. Patient undergoing neurological workup including MRI of the brain which is pending with neurology following. CT was negative. Patient evaluated by PT/OT therapy and patient reports is going home. Patient was scheduled for discharge on 11/02/2023 although per nursing staff was told by her visitor that the toilet was broke and patient is now refusing discharge. According to Medicare guidelines appeal process in place. Patient currently has no primary care provider and resources will be provided on discharge. Patient also instructed to follow-up with pain management as well as neurology outpatient. Currently no reports of chest pain, shortness of breath, or palpitations. Patient is afebrile. No reports of nausea or vomiting and patient is tolerating diet. Patient will be discharged home today. Guarded prognosis and high risk for readmissions given patient's significant comorbidities and noncompliance along with no PCP in the outpatient setting. Physical exam: Gen: This is a 57-year-old female who is awake, alert and oriented x 3, well- developed, well-nourished, obese HEENT: Head is atraumatic, normocephalic. Pupils equal, round. Sclerae is anicteric. NECK: Supple. No JVD. No lymphadenopathy. No thyromegaly. LUNGS: Diminished breath sounds bilaterally otherwise clear to auscultation. No wheezes or rhonchi. No intercostal retractions. HEART: S1, S2 are muffled ABDOMEN: Soft. Obese bowel sounds are present. No masses. No tenderness. EXTREMITIES: No pedal edema. No calf tenderness. NEUROLOGICAL: Patient is awake, alert and oriented x3. Cranial nerves 2 through 12 are grossly intact. Please refer to medication reconciliation sheet for a list of medications. The impression and plan of care has been dictated by Kathi Hewitt, Nurse Practitioner as directed. Dr. Kevin MD I have performed a history and examination and MDM of this patient, discussed the same with the dictator, and agree with the dictator's assessment and plan as written ,documented as a scribe. Based on total visit time, I have performed more than 50% of the visit. Patient Condition at Discharge: Fair Plan - Discharge Summary New Discharge Prescriptions: New Amoxic-Pot Clav 875-125Mg [Augmentin 875-125] 1 tab PO Q12HR 5 Days #10 tab Clopidogrel [Plavix] 75 mg PO DAILY #30 tab Continue ALPRAZolam [Xanax] 1 mg PO HS FLUoxetine HCL [PROzac] 40 mg PO DAILY Gabapentin [Neurontin] 300 mg PO BID Gilteritinib Fumarate [Xospata] 120 mg PO DAILY Losartan [Cozaar] 25 mg PO DAILY Suvorexant [Belsomra] 15 mg PO HS PRN PRN Reason: Insomnia Acyclovir [Zovirax] 400 mg PO BID Butalb/APAP/Caff 50-325-40Mg [Fioricet 50-325-40] 1 tab PO Q4H PRN MDD 6 TABLETS PRN Reason: Migraine Headache methocarbamoL [Robaxin] 500 mg PO TID Pioglitazone [Actos] 30 mg PO DAILY Potassium Chloride [Klor-Con M20] 20 meq PO DAILY Discontinued Morphine Sulfate Ir [MSIR] 15 mg PO QID Discharge Medication List ALPRAZolam [Xanax] 1 mg PO HS 10/27/23 [History] Acyclovir [Zovirax] 400 mg PO BID 10/27/23 [History] Butalb/APAP/Caff 50-325-40Mg [Fioricet 50-325-40] 1 tab PO Q4H PRN MDD 6 TABLETS 10/27/23 [History] FLUoxetine HCL [PROzac] 40 mg PO DAILY 10/27/23 [History] Gabapentin [Neurontin] 300 mg PO BID 10/27/23 [History] Gilteritinib Fumarate [Xospata] 120 mg PO DAILY 10/27/23 [History] Losartan [Cozaar] 25 mg PO DAILY 10/27/23 [History] Pioglitazone [Actos] 30 mg PO DAILY 10/27/23 [History] Potassium Chloride [Klor-Con M20] 20 meq PO DAILY 10/27/23 [History] Suvorexant [Belsomra] 15 mg PO HS PRN 10/27/23 [History] methocarbamoL [Robaxin] 500 mg PO TID 10/27/23 [History] Amoxic-Pot Clav 875-125Mg [Augmentin 875-125] 1 tab PO Q12HR 5 Days #10 tab 11/02/23 [Rx] Clopidogrel [Plavix] 75 mg PO DAILY #30 tab 11/02/23 [Rx] Follow up Appointment(s)/Referral(s): Sadie Crabtree MD [STAFF PHYSICIAN] - 1 Week Michelle Pearl MD [STAFF PHYSICIAN] - 1 Week Kylie Tuttle MD [Medical Doctor] - 1 Week [facility] Nurse, [NON-STAFF] - 1 Week Activity/Diet/Wound Care/Special Instructions: Activity limited until follow-up Follow-up and establish with primary care provider Continue taking medications as prescribed Limit narcotic use Follow-up pain management outpatient Follow-up orthopedics outpatient as needed Follow-up with neurology outpatient Discharge Disposition: HOME SELF-CARE
[2023-11-02 18:05] LABS: Glucose,Whole Blood 162 mg/dL (70-110)
[2023-11-02 20:20] LABS: Glucose,Whole Blood 179 mg/dL (70-110)
[2023-11-02] MEDS: BUTALB/APAP/CAFF 50-325-40MG TAB PO PRN (22:10)
--- NOTE | 2023-11-02 22:50 | P.PN ---
Subjective Progress Note Date: 11/02/23 Principal diagnosis: Reason for follow-up is elevated liver enzymes questionable infection Patient is a 57-year-old female with a past medical history significant for diabetes mellitus hypertension hyperlipidemia coronary artery disease rheumatoid arthritis recent left humerus fracture treated conservatively presented to hospital with increasing shortness of breath and vomiting. Patient did have a CT angiogram of the chest with contrast opacity seen abdominal pelvis negative. On today's evaluation that is 11/02/2023, the patient continues to be afebrile, the patient is on room air and breathing comfortably, the Pt denies having any chest pain or cough, the patient denies having any abdominal pain no vomiting or any diarrhea, still complaining of significant swelling to lower extremity. Patient white count is 2.82 creatinine 0.8 liver enzymes improving culture has been negative so far Objective - Vital Signs Vital signs: Vital Signs Temp 98 F 11/02/23 07:00 Pulse 95 11/02/23 07:00 Resp 20 11/02/23 07:00 BP 122/74 11/02/23 07:00 Pulse Ox 99 11/02/23 07:00 FiO2 Intake & Output 11/01/23 11/02/23 11/02/23 18:59 06:59 18:59 Intake Total 118 Balance 118 Intake: Oral 118 Other: Voiding Method Toilet Bedside Commode Bedside Commode # Voids 3 3 - Exam GENERAL DESCRIPTION: Middle-aged female up in the chair in no distress RESPIRATORY SYSTEM: Unlabored breathing , decreased breath sounds at bases HEART: S1 S2 regular rate and rhythm , ABDOMEN: Soft , no tenderness EXTREMITIES: Diffuse swelling bilateral lower extremity - Labs CBC & Chem 7: 11/02/23 05:29 11/02/23 05:29 Labs: Abnormal Lab Results - Last 24 Hours (Table) 11/01/23 11/01/23 11/01/23 Range/Units 08:00 17:36 21:40 WBC (4.50-10.00) X 10*3/uL RBC (4.10-5.20) X 10*6/uL Hgb (12.0-15.0) g/dL Hct (37.2-46.3) % MCV (80.0-97.0) FL MCH (27.0-32.0) pg MCHC (32.0-37.0) g/dL RDW (11.5-14.5) % Plt Count (140-440) X 10*3/uL Immature Gran # (0.00-0.04) X 10*3/uL Neutrophils # (1.80-7.70) X 10*3/uL Lymphocytes # (0.90-5.00) X 10*3/uL NRBC/100 WBC Diff (0.00-0.01) X 10*3/uL Glucose (70-110) mg/dL POC Glucose (mg/dL) 194 H 171 H (70-110) mg/dL Calcium (8.7-10.3) mg/dL TIBC 218 L (228-460) UG/DL Transferrin 156.0 L (204.0-354.0) mg/dL AST (13-35) U/L ALT (8-44) U/L Total Protein (6.2-8.2) g/dL Albumin (3.8-4.9) g/dL 11/02/23 11/02/23 11/02/23 Range/Units 05:29 05:29 06:03 WBC 2.82 L (4.50-10.00) X 10*3/uL RBC 2.09 L (4.10-5.20) X 10*6/uL Hgb 7.4 L (12.0-15.0) g/dL Hct 23.4 L (37.2-46.3) % MCV 112.0 H (80.0-97.0) FL MCH 35.4 H (27.0-32.0) pg MCHC 31.6 L (32.0-37.0) g/dL RDW 17.2 H (11.5-14.5) % Plt Count 131 L (140-440) X 10*3/uL Immature Gran # 0.13 H (0.00-0.04) X 10*3/uL Neutrophils # 1.59 L (1.80-7.70) X 10*3/uL Lymphocytes # 0.82 L (0.90-5.00) X 10*3/uL NRBC/100 WBC Diff 0.08 H (0.00-0.01) X 10*3/uL Glucose 135 H (70-110) mg/dL POC Glucose (mg/dL) 143 H (70-110) mg/dL Calcium 8.4 L (8.7-10.3) mg/dL TIBC (228-460) UG/DL Transferrin (204.0-354.0) mg/dL AST 143 H (13-35) U/L ALT 103 H (8-44) U/L Total Protein 4.9 L (6.2-8.2) g/dL Albumin 3.1 L (3.8-4.9) g/dL 11/02/23 Range/Units 10:53 WBC (4.50-10.00) X 10*3/uL RBC (4.10-5.20) X 10*6/uL Hgb (12.0-15.0) g/dL Hct (37.2-46.3) % MCV (80.0-97.0) FL MCH (27.0-32.0) pg MCHC (32.0-37.0) g/dL RDW (11.5-14.5) % Plt Count (140-440) X 10*3/uL Immature Gran # (0.00-0.04) X 10*3/uL Neutrophils # (1.80-7.70) X 10*3/uL Lymphocytes # (0.90-5.00) X 10*3/uL NRBC/100 WBC Diff (0.00-0.01) X 10*3/uL Glucose (70-110) mg/dL POC Glucose (mg/dL) 231 H (70-110) mg/dL Calcium (8.7-10.3) mg/dL TIBC (228-460) UG/DL Transferrin (204.0-354.0) mg/dL AST (13-35) U/L ALT (8-44) U/L Total Protein (6.2-8.2) g/dL Albumin (3.8-4.9) g/dL Microbiology - Last 24 Hours (Table) 10/31/23 16:14 Blood Culture - Preliminary Blood 10/31/23 17:00 Urine Culture - Final Urine,Voided Assessment and Plan (1) SIRS (systemic inflammatory response syndrome) Current Visit: Yes Status: Acute Code(s): R65.10 - SIRS OF NON-INFECTIOUS ORIGIN W/O ACUTE ORGAN DYSFUNCTION SNOMED Code(s): 331490338 Plan: 1patient presented hospital with vomiting x 1 day and did have a increasing shortness of breath patient also have elevated liver enzymes question of possible hepatobiliary source 2-CT abdominal pelvis with oral contrast did not show any acute abnormality CTA diffuse groundglass opacity but negative for PE influenza RSV COVID testing negative 3-blood culture has been obtained which are currently pending and inflammatory markers mildly elevated 4-patient remains to be afebrile continue with the Zosyn while waiting for the culture to finalize Dictation was produced using [employer] dictation software. please excuse any grammatical, word or spelling errors. Time with Patient: Less than 30
--- NOTE | 2023-11-03 01:11 | EEG ---
ELECTROENCEPHALOGRAM REPORT PREAMBLE: This is a 57-year-old female presented with confusion, rule out seizure. There was some slurred speech and some facial droop also reported. CURRENT MEDICATIONS: 1. Fioricet. 2. Zovirax. 3. Lovenox. 4. Xanax. 5. Prozac. 6. Dilaudid. 7. Robaxin. 8. Belsomra. 9. Zosyn. 10.Actos. 11.Neurontin. EEG FINDINGS: This is a 21-channel digital EEG recorded with video competent, utilizing 10/20 international system with referential and bipolar montages. Background consists of well-developed, moderately well regulated, predominantly 6 to 7 hertz theta activity seen in bihemispheric region. Background is posterior dominant, seems to be reactive to eye opening and closing. Frequent background does reach in the alpha range as well. Some drowsiness was seen, but deeper stages of sleep were not seen. No focal or generalized epileptiform activity was seen. Photic driving response was not seen. IMPRESSION: This is an abnormal EEG due to background slowing, suggestive of mild encephalopathy. No focal, lateralized or epileptiform activity was seen. MMODL / IJN: [id number] /
[2023-11-03 06:03] LABS: Glucose,Whole Blood 140 mg/dL (70-110)
[2023-11-03 07:48] LABS: Anisocytosis Slight; HCT 23.6 % (34.0-46.0); HGB 7.3 gm/dL (11.4-16.0); Hypochromasia Slight; MCH 34.8 pg (25.0-35.0); MCHC 31.2 g/dL (31.0-37.0); MCV 111.8 fL (80.0-100.0); Macrocytosis Marked; Mean Platelet Volume 8.4; Platelet Count 145 k/uL (150-450); RBC 2.11 m/uL (3.80-5.40); RDW 18.3 % (11.5-15.5)
[2023-11-03 08:23] LABS: ALT 87 U/L (4-34); AST 94 U/L (14-36); African American GFR (CKD) >90 (>60 ml/min/1.73 sqM); Albumin 2.5 g/dL (3.5-5.0); Albumin/Globulin Ratio 1.1; Alkaline Phosphatase 87 U/L (38-126); Anion Gap -2 mmol/L; Blood Urea Nitrogen 13 mg/dL (7-17); Calcium 8.3 mg/dL (8.4-10.2); Carbon Dioxide 32 mmol/L (22-30); Chloride 110 mmol/L (98-107); Globulin 2.3 g/dL; Glucose 122 mg/dL (74-99); Non-African American GFR(CKD) >90 (>60 ml/min/1.73 sqM); Sodium 140 mmol/L (137-145); Total Bilirubin 0.8 mg/dL (0.2-1.3); Total Protein 4.8 g/dL (6.3-8.2)
[2023-11-03 08:43] VITALS: RESP 14
[2023-11-03 09:20] LABS: Band Neutrophils % 1 %; Eosinophils # (M) 0.12 k/uL (0-0.7); Metamyelocytes # (M) 0.03 k/uL (0); Metamyelocytes % 1 %; Monocytes # (M) 0.16 k/uL (0-1.0); Myelocytes # (M) 0.06 k/uL (0); Myelocytes % 2 %; Neutrophils % (M) 60 %; Nucleated Red Blood Cells 4 /100 WBC (0-0); Total Cells Counted 200; WBC 3.1 k/uL (3.8-10.6)
[2023-11-03 09:26] LABS: Polychromasia Present
--- NOTE | 2023-11-03 09:58 | P.PN ---
Subjective Progress Note Date: 11/02/23 Patient was initially seen by Dr. Juan Fischer. Please refer to his note for details. I started neurology service as of today. Patient is a 57-year-old female with facial droop and dysarthria that resolved. Patient has history of seizure. Patient was seen for a follow-up. Patient was discharged by primary team, but patient declined to be discharged. Patient complaining of shoulder pain. I informed her that I do not deal with the joints, but then patient started complaining about headache as well. Patient has been prescribed Fioricet but she has not tried it yet. No further seizure-like activity. Patient is somewhat upset, complaining of pain. Some of the workup during his hospital visit consisted of: patient is afebrile. White blood cell is 3.[address] of the head is reported as no CT evidence of acute intracranial abnormality. Atrophy and chronic microvascular ischemic white matter changes.I personally reviewed the CT head and there is no acute or subacute changes. CT angiography of the head and neck is reported as no significant stenosis or aneurysm. her CK level is 5985 which is trending down compared to yesterday. AST is 210, ALT of 128 Ammonia <9 TSH: 1.520 Lipid panel is triglyceride of 99, cholesterol 192, LDLs 113 and HDL is 58. Initial serum glucose is a 232. Sodium is 137, calcium 7.7, total bilirubin is 1.4. UDS: +ve opiates, benzo. Serum alcohol <10. Objective - Vital Signs Vital signs: Vital Signs Temp 98.2 F 11/02/23 15:00 Pulse 55 L 11/02/23 15:00 Resp 18 11/02/23 15:00 BP 104/66 11/02/23 15:00 Pulse Ox 95 11/02/23 15:00 FiO2 Intake & Output 11/02/23 11/02/23 11/03/23 06:59 18:59 06:59 Intake Total 805 Balance 805 Intake: Intake, IV Titration 325 Amount Lactated Ringers 1,000 ml 225 @ 75 mls/hr IV .[id number] LIZZY Rx#:[id number] Piperacillin-Tazobactam 3 100 .375 gm In Sodium Chloride 0.9% 100 ml @ 25 mls/hr IVPB Q8HR LIZZY Rx# :[id number] Oral 480 Other: Voiding Method Bedside Commode # Voids 3 1 - Exam Patient's mental status, speech and language functions are normal. Face is symmetric. Visual crane are full. Pupils are round and reacting. Her left arm is in a sling because of recent fracture. Patient walks fairly normally. Sensations are equal. - Labs CBC & Chem 7: 11/03/23 06:49 11/03/23 06:49 Labs: Abnormal Lab Results - Last 24 Hours (Table) 11/01/23 11/01/23 11/02/23 Range/Units 08:00 21:40 05:29 WBC 2.82 L (4.50-10.00) X 10*3/uL RBC 2.09 L (4.10-5.20) X 10*6/uL Hgb 7.4 L (12.0-15.0) g/dL Hct 23.4 L (37.2-46.3) % MCV 112.0 H (80.0-97.0) FL MCH 35.4 H (27.0-32.0) pg MCHC 31.6 L (32.0-37.0) g/dL RDW 17.2 H (11.5-14.5) % Plt Count 131 L (140-440) X 10*3/uL Immature Gran # 0.13 H (0.00-0.04) X 10*3/uL Neutrophils # 1.59 L (1.80-7.70) X 10*3/uL Lymphocytes # 0.82 L (0.90-5.00) X 10*3/uL NRBC/100 WBC Diff 0.08 H (0.00-0.01) X 10*3/uL Glucose (70-110) mg/dL POC Glucose (mg/dL) 171 H (70-110) mg/dL Calcium (8.7-10.3) mg/dL TIBC 218 L (228-460) UG/DL Transferrin 156.0 L (204.0-354.0) mg/dL AST (13-35) U/L ALT (8-44) U/L Total Protein (6.2-8.2) g/dL Albumin (3.8-4.9) g/dL 11/02/23 11/02/23 11/02/23 Range/Units 05:29 06:03 10:53 WBC (4.50-10.00) X 10*3/uL RBC (4.10-5.20) X 10*6/uL Hgb (12.0-15.0) g/dL Hct (37.2-46.3) % MCV (80.0-97.0) FL MCH (27.0-32.0) pg MCHC (32.0-37.0) g/dL RDW (11.5-14.5) % Plt Count (140-440) X 10*3/uL Immature Gran # (0.00-0.04) X 10*3/uL Neutrophils # (1.80-7.70) X 10*3/uL Lymphocytes # (0.90-5.00) X 10*3/uL NRBC/100 WBC Diff (0.00-0.01) X 10*3/uL Glucose 135 H (70-110) mg/dL POC Glucose (mg/dL) 143 H 231 H (70-110) mg/dL Calcium 8.4 L (8.7-10.3) mg/dL TIBC (228-460) UG/DL Transferrin (204.0-354.0) mg/dL AST 143 H (13-35) U/L ALT 103 H (8-44) U/L Total Protein 4.9 L (6.2-8.2) g/dL Albumin 3.1 L (3.8-4.9) g/dL 11/02/23 Range/Units 18:03 WBC (4.50-10.00) X 10*3/uL RBC (4.10-5.20) X 10*6/uL Hgb (12.0-15.0) g/dL Hct (37.2-46.3) % MCV (80.0-97.0) FL MCH (27.0-32.0) pg MCHC (32.0-37.0) g/dL RDW (11.5-14.5) % Plt Count (140-440) X 10*3/uL Immature Gran # (0.00-0.04) X 10*3/uL Neutrophils # (1.80-7.70) X 10*3/uL Lymphocytes # (0.90-5.00) X 10*3/uL NRBC/100 WBC Diff (0.00-0.01) X 10*3/uL Glucose (70-110) mg/dL POC Glucose (mg/dL) 162 H (70-110) mg/dL Calcium (8.7-10.3) mg/dL TIBC (228-460) UG/DL Transferrin (204.0-354.0) mg/dL AST (13-35) U/L ALT (8-44) U/L Total Protein (6.2-8.2) g/dL Albumin (3.8-4.9) g/dL Microbiology - Last 24 Hours (Table) 10/31/23 16:14 Blood Culture - Preliminary Blood 10/31/23 17:00 Urine Culture - Final Urine,Voided Assessment and Plan Assessment: This is a 57-year-old woman who presented emergency department because of shortness of breath and vomiting as well as a felt by EMS she had the right facial weakness and dysarthria which has resolved by the time she arrived and it was evaluated by the ED team. Patient had a recent fall with left shoulder humerus fracture. At that time was felt the patient had the metabolic encephalopathy due to unintentional opiate overdose as well as felt to have acute rhabdomyolysis. She had the mild transaminitis. Transient reported right facial droop and dysarthria. on examination she seems not a great historian with confusion: rule out TIA versus also rule out seizure especially with a history of seizure. Altered mental status due to metabolic encephalopathythy, hepatic encephalopathy (has transamnitis) and medication use (opiates) History of seizure as a childand according to patient no further seizures Acute rhabdomyolysis--trending down Recent fall with the left humeral fracture History of leukemia Plan: Pending MRI the brain with and without, initiated by Dr. Fischer. EEG was abnormal due to background slowing, suggestive of mild encephalopathy. No focal, lateralized or epileptiform activity was seen. 2D echo initiated by Dr. Fischer, appears to have been canceled. patient was given aspirin 325 once in the ED. She is on Plavix 75 mg daily, which will be continued. We will assess whether she needs an addition aspirin after the workup. we'll avoid the statins because of the rhabdomyolysis. Patient had a recent vitamin B12 which was unremarkable. Also had a TSH was was unremarkable recently. continue checks Cardiac monitoring PT OT and COIL WINDER are consulted Please avoid opoids/narcotis or benzo as much as possible. Continue Fioricet as needed for headaches. Other pain management as per IM. We'll defer the rest of the medical measure the primary and other specialists For DVT prophylaxis the patient is on Lovenox.
--- NOTE | 2023-11-03 10:26 | CDI ---
Date: 11/03/2023 From: Rosa M Olivier Phone: [phone] Admit Date: 10/31/2023 01:16:00 PM Patient Name: Yandy Rachel Visit Number: [id number] Discharge Date: ATTENTION: The Clinical Documentation Specialists (CDI) and [facility] Coding Staff appreciate your assistance in clarifying documentation. Please respond to the clarification below the line at the bottom and electronically sign. The CDI & [facility] Coding staff will review the response and follow-up if needed. Please note: Queries are made part of the Legal Health Record. If you have any questions, please contact the author of this message via ITS. Dr. Jasiel Brown: Rhabdomyolysis is documented in the ER note 10/29 and in subsequent documentation. Additional clarification regarding the type of rhabdomyolysis is requested. History/Risk Factors: CAD, CHF, Anemia, RA, DM2, recent admission with left humerus fracture, who presented with vomiting, Code stroke called and initial workup negative, but CK was found to be acute rhabdomyolysis Clinical Indicators: 10/30 Nephrology consult, Assessment/Plan: "1. Rhabdomyolysis most likely secondary to fall." 10/31 H&P, Assessment: "2. Acute rhabdomyolysis." 10/29, 10/31 Creatinine Kinase: 10,018 and 3,164 Treatment: Normal Saline IV 75cc/hour 10/29, then 130cc/hour 10/30 Consult Nephrology Monitor Creatine Kinase Please clarify the type of rhabdomyolysis, if known: [ x] Traumatic rhabdomyolysis due to fall [ ] Other, please specify [ ] Unable to Determine MTDD
--- NOTE | 2023-11-03 11:54 | P.PN ---
Subjective Progress Note Date: 11/03/23 11/03/2023: Patient was seen for a follow-up. Patient is sitting in the recliner, complaining of pain in the shoulder and her whole body. Patient is asking for morphine, but states that she is also on morphine at home because of her history of leukemia. Patient denies any focal symptoms. Patient is a non-smoker. 11/02/2023: Patient was initially seen by Dr. Juan Fischer. Please refer to his note for details. I started neurology service as of today. Patient is a 57-year-old female with facial droop and dysarthria that resolved. Patient has history of seizure. Patient was seen for a follow-up. Patient was discharged by primary team, but patient declined to be discharged. Patient complaining of shoulder pain. I informed her that I do not deal with the joints, but then patient started complaining about headache as well. Patient has been prescribed Fioricet but she has not tried it yet. No further seizure-like activity. Patient is somewhat upset, complaining of pain. Some of the workup during his hospital visit consisted of: patient is afebrile. White blood cell is 3.[address] of the head is reported as no CT evidence of acute intracranial abnormality. Atrophy and chronic microvascular ischemic white matter changes.I personally reviewed the CT head and there is no acute or subacute changes. CT angiography of the head and neck is reported as no significant stenosis or aneurysm. her CK level is 5985 which is trending down compared to yesterday. AST is 210, ALT of 128 Ammonia <9 TSH: 1.520 Lipid panel is triglyceride of 99, cholesterol 192, LDLs 113 and HDL is 58. Initial serum glucose is a 232. Sodium is 137, calcium 7.7, total bilirubin is 1.4. UDS: +ve opiates, benzo. Serum alcohol <10. Objective - Vital Signs Vital signs: Vital Signs Temp 98.3 F 11/03/23 08:00 Pulse 94 11/03/23 08:00 Resp 14 11/03/23 08:00 BP 161/85 11/03/23 08:00 Pulse Ox 100 11/03/23 08:00 FiO2 Intake & Output 11/02/23 11/03/23 11/03/23 18:59 06:59 18:59 Intake Total 805 Balance 805 Intake: Intake, IV Titration 325 Amount Lactated Ringers 1,000 ml 225 @ 75 mls/hr IV .[id number] [facility]ZZY Rx#:[id number] Piperacillin-Tazobactam 3 100 .375 gm In Sodium Chloride 0.9% 100 ml @ 25 mls/hr IVPB Q8HR LIZZY Rx# :[id number] Oral 480 Other: Voiding Method Bedside Commode # Voids 1 2 - Exam Patient's mental status, speech and language functions are normal. Face is symmetric. Visual crane are full. Pupils are round and reacting. Her left arm is in a sling because of recent fracture. Patient walks fairly normally. Sensations are equal. - Labs CBC & Chem 7: 11/03/23 06:49 11/03/23 06:49 Labs: Abnormal Lab Results - Last 24 Hours (Table) 11/02/23 11/02/23 11/03/23 Range/Units 18:03 20:18 06:01 WBC (3.8-10.6) k/uL RBC (3.80-5.40) m/uL Hgb (11.4-16.0) gm/dL Hct (34.0-46.0) % MCV (80.0-100.0) fL RDW (11.5-15.5) % Plt Count (150-450) k/uL Lymphocytes # (Manual) (1.0-4.8) k/uL Metamyelocytes # (Man) (0) k/uL Myelocytes # (Manual) (0) k/uL Nucleated RBCs (0-0) /100 WBC Macrocytosis Chloride (98-107) mmol/L Carbon Dioxide (22-30) mmol/L Glucose (74-99) mg/dL POC Glucose (mg/dL) 162 H 179 H 140 H (70-110) mg/dL Calcium (8.4-10.2) mg/dL AST (14-36) U/L ALT (4-34) U/L Total Protein (6.3-8.2) g/dL Albumin (3.5-5.0) g/dL 11/03/23 11/03/23 Range/Units 06:49 06:49 WBC 3.1 L (3.8-10.6) k/uL RBC 2.11 L (3.80-5.40) m/uL Hgb 7.3 L (11.4-16.0) gm/dL Hct 23.6 L (34.0-46.0) % MCV 111.8 H (80.0-100.0) fL RDW 18.3 H (11.5-15.5) % Plt Count 145 L (150-450) k/uL Lymphocytes # (Manual) 0.90 L (1.0-4.8) k/uL Metamyelocytes # (Man) 0.03 H (0) k/uL Myelocytes # (Manual) 0.06 H (0) k/uL Nucleated RBCs 4 H (0-0) /100 WBC Macrocytosis Marked A Chloride 110 H (98-107) mmol/L Carbon Dioxide 32 H (22-30) mmol/L Glucose 122 H (74-99) mg/dL POC Glucose (mg/dL) (70-110) mg/dL Calcium 8.3 L (8.4-10.2) mg/dL AST 94 H (14-36) U/L ALT 87 H (4-34) U/L Total Protein 4.8 L (6.3-8.2) g/dL Albumin 2.5 L (3.5-5.0) g/dL Microbiology - Last 24 Hours (Table) 10/31/23 16:14 Blood Culture - Preliminary Blood Assessment and Plan Assessment: This is a 57-year-old woman who presented emergency department because of shortness of breath and vomiting as well as a felt by EMS she had the right facial weakness and dysarthria which has resolved by the time she arrived and it was evaluated by the ED team. Patient had a recent fall with left shoulder humerus fracture. At that time was felt the patient had the metabolic encephalopathy due to unintentional opiate overdose as well as felt to have acute rhabdomyolysis. She had the mild transaminitis. Transient reported right facial droop and dysarthria. on examination she seems not a great historian with confusion: rule out TIA versus also rule out seizure especially with a history of seizure. Altered mental status due to metabolic encephalopathythy, hepatic encephalopathy (has transamnitis) and medication use (opiates) History of seizure as a childand according to patient no further seizures Acute rhabdomyolysis--trending down Recent fall with the left humeral fracture History of leukemia Plan: MRI was initiated by Dr. Fischer. Patient has an IVC filter placed in [place], which requires clearance for MRI. Apparently patient wants to go home. EEG was abnormal due to background slowing, suggestive of mild encephalopathy. No focal, lateralized or epileptiform activity was seen. 2D echo initiated by Dr. Fischer, appears to have been canceled. Patient was given aspirin 325 once in the ED. She is on Plavix 75 mg daily, which will be continued. Continue single antiplatelet agent. Avoid DAPT because of blood disorder. We'll avoid the statins because of the rhabdomyolysis. Patient had a recent vitamin B12 which was unremarkable. Also had a TSH was was unremarkable recently. Cardiac monitoring Please avoid opoids/narcotis or benzo as much as possible. Continue Fioricet as needed for headaches. Other pain management as per IM. We'll defer the rest of the medical measure the primary and other specialists For DVT prophylaxis the patient is on Lovenox. Neurologically clear for discharge.
[2023-11-03 12:35] LABS: Glucose,Whole Blood 198 mg/dL (70-110)
[2023-11-03] MEDS: MORPHINE SULFATE IR 15 MG TABLET PO STA (13:35)
--- NOTE | 2023-11-03 15:01 | P.PN ---
Subjective Progress Note Date: 11/03/23 Principal diagnosis: Reason for follow-up is elevated liver enzymes questionable infection Patient is a 57-year-old female with a past medical history significant for diabetes mellitus hypertension hyperlipidemia coronary artery disease rheumatoid arthritis recent left humerus fracture treated conservatively presented to hospital with increasing shortness of breath and vomiting. Patient did have a CT angiogram of the chest with contrast opacity seen abdominal pelvis negative. On today's evaluation that is 11/03/2023, Patient is afebrile patient is currently on room air and denies having any shortness of breath, the patient denies any chest pain or cough, the patient denies any nausea vomiting did not have any abdominal pain and no diarrhea, still complaining of some swelling to the lower extremity. Patient white count of 3.1, creatinine 0.69 culture has been negative Objective - Vital Signs Vital signs: Vital Signs Temp 98.3 F 11/03/23 08:00 Pulse 94 11/03/23 08:00 Resp 14 11/03/23 08:00 BP 161/85 11/03/23 08:00 Pulse Ox 100 11/03/23 08:00 FiO2 Intake & Output 11/02/23 11/03/23 11/03/23 18:59 06:59 18:59 Intake Total 805 240 Balance 805 240 Intake: Intake, IV Titration 325 Amount Lactated Ringers 1,000 ml 225 @ 75 mls/hr IV .[id number] [facility]Y Rx#:[id number] Piperacillin-Tazobactam 3 100 .375 gm In Sodium Chloride 0.9% 100 ml @ 25 mls/hr IVPB Q8HR [facility]ZZY Rx# :[id number] Oral 480 240 Other: Voiding Method Bedside Commode # Voids 1 2 2 - Exam GENERAL DESCRIPTION: Middle-aged female up in the chair in no distress RESPIRATORY SYSTEM: Unlabored breathing , decreased breath sounds at bases HEART: S1 S2 regular rate and rhythm , ABDOMEN: Soft , no tenderness EXTREMITIES: Diffuse swelling bilateral lower extremity - Labs CBC & Chem 7: 11/03/23 06:49 11/03/23 06:49 Labs: Abnormal Lab Results - Last 24 Hours (Table) 11/02/23 11/02/23 11/03/23 Range/Units 18:03 20:18 06:01 WBC (3.8-10.6) k/uL RBC (3.80-5.40) m/uL Hgb (11.4-16.0) gm/dL Hct (34.0-46.0) % MCV (80.0-100.0) fL RDW (11.5-15.5) % Plt Count (150-450) k/uL Lymphocytes # (Manual) (1.0-4.8) k/uL Metamyelocytes # (Man) (0) k/uL Myelocytes # (Manual) (0) k/uL Nucleated RBCs (0-0) /100 WBC Macrocytosis Chloride (98-107) mmol/L Carbon Dioxide (22-30) mmol/L Glucose (74-99) mg/dL POC Glucose (mg/dL) 162 H 179 H 140 H (70-110) mg/dL Calcium (8.4-10.2) mg/dL AST (14-36) U/L ALT (4-34) U/L Total Protein (6.3-8.2) g/dL Albumin (3.5-5.0) g/dL 11/03/23 11/03/23 11/03/23 Range/Units 06:49 06:49 12:24 WBC 3.1 L (3.8-10.6) k/uL RBC 2.11 L (3.80-5.40) m/uL Hgb 7.3 L (11.4-16.0) gm/dL Hct 23.6 L (34.0-46.0) % MCV 111.8 H (80.0-100.0) fL RDW 18.3 H (11.5-15.5) % Plt Count 145 L (150-450) k/uL Lymphocytes # (Manual) 0.90 L (1.0-4.8) k/uL Metamyelocytes # (Man) 0.03 H (0) k/uL Myelocytes # (Manual) 0.06 H (0) k/uL Nucleated RBCs 4 H (0-0) /100 WBC Macrocytosis Marked A Chloride 110 H (98-107) mmol/L Carbon Dioxide 32 H (22-30) mmol/L Glucose 122 H (74-99) mg/dL POC Glucose (mg/dL) 198 H (70-110) mg/dL Calcium 8.3 L (8.4-10.2) mg/dL AST 94 H (14-36) U/L ALT 87 H (4-34) U/L Total Protein 4.8 L (6.3-8.2) g/dL Albumin 2.5 L (3.5-5.0) g/dL Microbiology - Last 24 Hours (Table) 10/31/23 16:14 Blood Culture - Preliminary Blood Assessment and Plan (1) SIRS (systemic inflammatory response syndrome) Current Visit: Yes Status: Acute Code(s): R65.10 - SIRS OF NON-INFECTIOUS ORIGIN W/O ACUTE ORGAN DYSFUNCTION SNOMED Code(s): 102635361 Plan: 1patient presented hospital with vomiting x 1 day and did have a increasing shortness of breath patient also have elevated liver enzymes question of possible hepatobiliary source 2-CT abdominal pelvis with oral contrast did not show any acute abnormality CTA diffuse groundglass opacity but negative for PE influenza RSV COVID testing negative 3-blood culture has been obtained which are currently pending and inflammatory m arkers mildly elevated 4-patient remains to be afebrile and culture has been negative we will switch to Augmentin short course discontinue Zosyn Dictation was produced using [employer] dictation software. please excuse any grammatical, word or spelling errors. Time with Patient: Less than 30
[2023-11-03 16:29] VITALS: BP 112/71; PULSE 101; TEMP 98.9
[2023-11-03 16:38] LABS: % Iron Saturation 30.25 (12.00-45.00)
[2023-11-03 17:12] LABS: Glucose,Whole Blood 199 mg/dL (70-110)
--- NOTE | 2023-11-03 18:22 | P.PN ---
Subjective patient is seen for follow-up for rhabdomyolysis. [place] 3164 [place] [address] on initial admission. status post IV fluids. Pain is controlled. No complaints of shortness of breath. Status post IV Lasix for significant lower extremity edema. Objective - Vital Signs Vital signs: Vital Signs Temp 98.9 F 11/03/23 14:00 Pulse 101 H 11/03/23 14:00 Resp 14 11/03/23 14:00 BP 112/71 11/03/23 14:00 Pulse Ox 99 11/03/23 14:00 FiO2 Intake & Output 11/02/23 11/03/23 11/03/23 18:59 06:59 18:59 Intake Total 805 600 Balance 805 600 Intake: Intake, IV Titration 325 Amount Lactated Ringers 1,000 ml 225 @ 75 mls/hr IV .[id number] LIZZY Rx#:[id number] Piperacillin-Tazobactam 3 100 .375 gm In Sodium Chloride 0.9% 100 ml @ 25 mls/hr IVPB Q8HR [facility]ZZY Rx# :[id number] Oral 480 600 Other: Voiding Method Bedside Commode # Voids 1 2 2 - Exam patient is awake, comfortable, no acute distress Examination of the heart S1 and S2 Examination of the lungs bilateral breath sounds are heard Abdomen is soft nontender Examination of lower extremities shows 1+ edema Left arm in sling [employer] exam shows patient is moving all 4 extremities. - Labs CBC & Chem 7: 11/03/23 06:49 11/03/23 06:49 Labs: Abnormal Lab Results - Last 24 Hours (Table) 11/02/23 11/03/23 11/03/23 Range/Units 20:18 06:01 06:49 WBC 3.1 L (3.8-10.6) k/uL RBC 2.11 L (3.80-5.40) m/uL Hgb 7.3 L (11.4-16.0) gm/dL Hct 23.6 L (34.0-46.0) % MCV 111.8 H (80.0-100.0) fL RDW 18.3 H (11.5-15.5) % Plt Count 145 L (150-450) k/uL Lymphocytes # (Manual) 0.90 L (1.0-4.8) k/uL Metamyelocytes # (Man) 0.03 H (0) k/uL Myelocytes # (Manual) 0.06 H (0) k/uL Nucleated RBCs 4 H (0-0) /100 WBC Macrocytosis Marked A Chloride (98-107) mmol/L Carbon Dioxide (22-30) mmol/L Glucose (74-99) mg/dL POC Glucose (mg/dL) 179 H 140 H (70-110) mg/dL Calcium (8.4-10.2) mg/dL Transferrin (204.0-354.0) mg/dL Ferritin (10.0-291.0) ng/mL AST (14-36) U/L ALT (4-34) U/L Total Protein (6.3-8.2) g/dL Albumin (3.5-5.0) g/dL 11/03/23 11/03/23 11/03/23 Range/Units 06:49 06:49 12:24 WBC (3.8-10.6) k/uL RBC (3.80-5.40) m/uL Hgb (11.4-16.0) gm/dL Hct (34.0-46.0) % MCV (80.0-100.0) fL RDW (11.5-15.5) % Plt Count (150-450) k/uL Lymphocytes # (Manual) (1.0-4.8) k/uL Metamyelocytes # (Man) (0) k/uL Myelocytes # (Manual) (0) k/uL Nucleated RBCs (0-0) /100 WBC Macrocytosis Chloride 110 H (98-107) mmol/L Carbon Dioxide 32 H (22-30) mmol/L Glucose 122 H (74-99) mg/dL POC Glucose (mg/dL) 198 H (70-110) mg/dL Calcium 8.3 L (8.4-10.2) mg/dL Transferrin 170.0 L (204.0-354.0) mg/dL Ferritin 453.0 H (10.0-291.0) ng/mL AST 94 H (14-36) U/L ALT 87 H (4-34) U/L Total Protein 4.8 L (6.3-8.2) g/dL Albumin 2.5 L (3.5-5.0) g/dL 11/03/23 Range/Units 17:11 WBC (3.8-10.6) k/uL RBC (3.80-5.40) m/uL Hgb (11.4-16.0) gm/dL Hct (34.0-46.0) % MCV (80.0-100.0) fL RDW (11.5-15.5) % Plt Count (150-450) k/uL Lymphocytes # (Manual) (1.0-4.8) k/uL Metamyelocytes # (Man) (0) k/uL Myelocytes # (Manual) (0) k/uL Nucleated RBCs (0-0) /100 WBC Macrocytosis Chloride (98-107) mmol/L Carbon Dioxide (22-30) mmol/L Glucose (74-99) mg/dL POC Glucose (mg/dL) 199 H (70-110) mg/dL Calcium (8.4-10.2) mg/dL Transferrin (204.0-354.0) mg/dL Ferritin (10.0-291.0) ng/mL AST (14-36) U/L ALT (4-34) U/L Total Protein (6.3-8.2) g/dL Albumin (3.5-5.0) g/dL Microbiology - Last 24 Hours (Table) 10/31/23 16:14 Blood Culture - Preliminary Blood Assessment and Plan Assessment: 1. Rhabdomyolysis secondary to fall. CK level is decreasing. No acute kidney injury noted. 2. Left humerus fracture with arm in sling 3. Anemia , iron replete. 4. Volume overload Plan: Repeat IV Lasix Okay to resume home dose of diuretics.
[2023-11-03] MEDS ORDERED: AMOXIC-POT CLAV 875-125MG 1 EACH TAB PO SCH (21:00)
== END 2023-11-03 19:09 | disposition home health service (06) | DRG 391 ==
LOC: EC 19:50 → 6NMEDSUR 21:49 → OBSVTOIN 10-31 13:16
PROVIDERS: ADMIT Internal Medicine; ATTEND Internal Medicine
DX: K29.00 Acute gastritis without bleeding (principal); G93.41 Metabolic encephalopathy; D61.818 Other pancytopenia; R65.10 Systemic inflammatory response syndrome (SIRS) of non-infectious origin without acute organ dysfunction; N17.9 Acute kidney failure, unspecified; T79.6XXA Traumatic ischemia of muscle, initial encounter; Z28.21 Immunization not carried out because of patient refusal; R29.810 Facial weakness; R26.81 Unsteadiness on feet; Z86.718 Personal history of other venous thrombosis and embolism; M79.7 Fibromyalgia; E66.9 Obesity, unspecified; Z68.38 Body mass index [BMI] 38.0-38.9, adult; I11.0 Hypertensive heart disease with heart failure; I50.9 Heart failure, unspecified; E11.9 Type 2 diabetes mellitus without complications; K76.82 Hepatic encephalopathy; R74.01 Elevation of levels of liver transaminase levels; D64.9 Anemia, unspecified; Z95.828 Presence of other vascular implants and grafts; I25.2 Old myocardial infarction; R47.1 Dysarthria and anarthria; S42.292D Other displaced fracture of upper end of left humerus, subsequent encounter for fracture with routine healing; E78.5 Hyperlipidemia, unspecified; W19.XXXD Unspecified fall, subsequent encounter; Z11.52 Encounter for screening for COVID-19; I25.10 Atherosclerotic heart disease of native coronary artery without angina pectoris; Z79.02 Long term (current) use of antithrombotics/antiplatelets; Z79.899 Other long term (current) drug therapy; Z85.6 Personal history of leukemia; Z91.199 Patient's noncompliance with other medical treatment and regimen due to unspecified reason; G47.00 Insomnia, unspecified; Z90.49 Acquired absence of other specified parts of digestive tract; Z84.89 Family history of other specified conditions; Z96.659 Presence of unspecified artificial knee joint; Z95.1 Presence of aortocoronary bypass graft; Z88.8 Allergy status to other drugs, medicaments and biological substances
CPT/HCPCS: 36415; 70450; 70496; 70498; 71046; 71275; 74176; 80053; 80061; 80306; 80320; 81001; 82140; 82550; 82728; 83036; 83540; 83550; 83605; 84145; 84443; 84484; 85025; 85379; 85610; 85730; 86140; 87040; 87086; 87636; 93005; 95816

== ENCOUNTER → 2023-12-24 | Outpatient (CLI) | payer MEDICARE ==
--- NOTE | 2023-12-24 12:31 | XR ---
EXAMINATION TYPE: XR hand complete LT DATE OF EXAM: 12/24/2023 12:09 PM CLINICAL INDICATION:Female, 58 years old with history of [id number] LT HAND PAIN; [facility] COMPARISON: None TECHNIQUE: XR hand complete LT Frontal, lateral and oblique views were obtained. FINDINGS: Normal alignment of the visualized joints. No acute osseous pathology is identified. No e vidence of soft tissue swelling. Multifocal degeneration changes with joint space narrowing and osteo phyte formation. IMPRESSION: 1. No acute osseous pathology. 2. Multifocal degeneration changes of the joints of the hand.
== END | disposition home or self-care (01) ==
LOC: RADXRYALE 11:56
PROVIDERS: ATTEND Physician Assistant
DX: M19.042 Primary osteoarthritis, left hand (principal)

== ENCOUNTER 2024-01-16 14:52 | Inpatient (IN) | payer MEDICARE, OTHER ==
--- NOTE | 2024-01-16 16:29 | ED ---
Altered Mental Status HPI - General Chief Complaint: Altered Mental Status Stated Complaint: Nausea/Fever Time Seen by Provider: 01/16/24 15:59 Source: patient, family, RN notes reviewed Mode of arrival: wheelchair Limitations: no limitations - History of Present Illness Initial Comments: 58-year-old female with a history of multiple medical issues including leukemia supposedly in remission diabetes hypertension COPD rheumatoid arthritis who recently had hand surgery due to a nonhealing cat bite who is here today with complaints by family of altered mental status confusion wandering around her house since last night some episodes of nausea with dry heaves and one episode of vomiting. Decreased oral intake since yesterday. She felt warm but no documented fever. No pain anywhere to report the left hand that was operated on and appears to be healing well per family. Follow-up with Dr. Robertson in 2 days. No loss of function of the upper or lower extremities patient is confused this is a date and time this is not normal. MD Complaint: altered mental status - Related Data Home Medications Medication Instructions Recorded Confirmed ALPRAZolam [Xanax] 1 mg PO HS 10/27/23 10/30/23 Acyclovir [Zovirax] 400 mg PO BID 10/27/23 10/30/23 Butalb/APAP/Caff 50-325-40Mg 1 tab PO Q4H PRN MDD 6 TABLETS 10/27/23 10/30/23 [Fioricet 50-325-40] FLUoxetine HCL [PROzac] 40 mg PO DAILY 10/27/23 10/30/23 Gabapentin [Neurontin] 300 mg PO BID 10/27/23 10/30/23 Gilteritinib Fumarate [Xospata] 120 mg PO DAILY 10/27/23 10/30/23 Losartan [Cozaar] 25 mg PO DAILY 10/27/23 10/30/23 Pioglitazone [Actos] 30 mg PO DAILY 10/27/23 10/30/23 Potassium Chloride [Klor-Con M20] 20 meq PO DAILY 10/27/23 10/30/23 Suvorexant [Belsomra] 15 mg PO HS PRN 10/27/23 10/30/23 methocarbamoL [Robaxin] 500 mg PO TID 10/27/23 10/30/23 Previous Rx's Medication Instructions Recorded Amoxic-Pot Clav 875-125Mg 1 tab PO Q12HR 5 Days #10 tab 11/02/23 [Augmentin 875-125] Clopidogrel [Plavix] 75 mg PO DAILY #30 tab 11/02/23 Allergies Allergy/AdvReac Type Severity Reaction Status Date / Time divalproex sodium Allergy Unknown Verified 01/16/24 15:17 [From Depakote] phenytoin [From Dilantin] Allergy Unknown Verified 01/16/24 15:17 Review of Systems ROS Statement: Those systems with pertinent positive or pertinent negative responses have been documented in the HPI. ROS Other: All systems not noted in ROS Statement are negative. Past Medical History Past Medical History: Coronary Artery Disease (CAD), Cancer, Heart Failure, Diabetes Mellitus, Deep Vein Thrombosis (DVT), Fibromyalgia, GI Bleed, Hyperlip idemia, Hypertension, Myocardial Infarction ([place]), Rheumatoid Arthritis ([place]) Additional Past Medical History / Comment(s): Per EMS COPD Last Myocardial Infarction Date:: unknown History of Any Multi-Drug Resistant Organisms: None Reported Date of last positivie culture/infection: unknown MDRO Source:: skin bilateral arms Past Surgical History: Unable to Obtain Additional Past Surgical History / Comment(s): broken femur past, bilateral knee surgery, 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, right leg green field filter for blood clot Past Anesthesia/Blood Transfusion Reactions: No Reported Reaction Date of Last Stent Placement:: unknown Past Psychological History: No Psychological Hx Reported Smoking Status: Never smoker Past Alcohol Use History: None Reported Past Drug Use History: None Reported - Past Family History Mother Family Medical History: Congestive Heart Failure (CHF), Coronary Artery Disease (CAD), Hyperlipidemia, Myocardial Infarction ([place]) Additional Family Medical History / Comment(s): CABG,knee replacement x1, General Exam - General Exam Comments Initial Comments: This is a well-developed well-nourished awake alert but confused female Limitations: no limitations General appearance: alert, in no apparent distress Head exam: Present: atraumatic, normocephalic, normal inspection Eye exam: Present: normal appearance, PERRL, EOMI. Absent: scleral icterus, conjunctival injection, periorbital swelling ENT exam: Present: mucous membranes dry Neck exam: Present: normal inspection. Absent: tenderness, meningismus, lymphadenopathy Respiratory exam: Present: normal lung sounds bilaterally. Absent: respiratory distress, wheezes, rales, rhonchi, stridor Cardiovascular Exam: Present: regular rate, normal rhythm, normal heart sounds. Absent: systolic murmur, diastolic murmur, rubs, gallop, clicks GI/Abdominal exam: Present: soft, normal bowel sounds. Absent: distended, tenderness, guarding, rebound, rigid Extremities exam: Present: full ROM, normal capillary refill, other (Healing wound left hand no evidence of any lymphangitis no drainage). Absent: tenderness, pedal edema, joint swelling, calf tenderness Back exam: Present: normal inspection Neurological exam: Present: alert, oriented X3, CN II-XII intact Psychiatric exam: Present: normal affect, normal mood Skin exam: Present: warm, dry, intact, normal color. Absent: rash Course Vital Signs 01/16/24 01/16/24 15:15 17:54 Temperature 98 F 99.5 F Pulse Rate 109 H 110 H Respiratory 20 18 Rate Blood Pressure 165/95 154/89 O2 Sat by Pulse 97 97 Oximetry Medical Decision Making - Medical Decision Making Patient has been observed throughout the time in the emergency department she is still somewhat confused CT brain is negative she does have evidence of rhabdomyolysis however with elevated CK of 1246. I did discuss this with the family member also with Dr. Romo patient will be admitted IV fluids and workup for altered mental status additionally Dr. Robertson will be consulted for evaluation of the left hand postop evaluation. Was pt. sent in by a medical professional or institution (, PA, STOCK SHAPER, urgent care, hospital, or fci...) When possible be specific @ -No Did you speak to anyone other than the patient for history (EMS, parent, family, police, friend...)? What history was obtained from this source @ -Family Did you review nursing and triage notes (agree or disagree)? Why? @ -I reviewed and agree with nursing and triage notes Were old charts reviewed (outside hosp., previous admission, EMS record, old EKG, old radiological studies, urgent care reports/EKG's, fci records)? Report findings @ -No old charts were reviewed Differential Diagnosis (chest pain, altered mental status, abdominal pain women, abdominal pain men, vaginal bleeding, weakness, fever, dyspnea, syncope, headache, dizziness, GI bleed, back pain, seizure, CVA, palpatations, mental health, musculoskeletal)? @ -Altered mental status EKG interpreted by me (3pts min.). @ -As above EKG interpreted by me sinus tachycardia rate 106 SD interval 112 QRS duration 90 QT/QTc 360/422 possible left atrial enlargement evidence of LVH no acute ST-T wave changes X-rays interpreted by me (1pt min.). @ -Chest x-ray interpreted by me no acute process CT interpreted by me (1pt min.). @ -T brain interpreted by me no acute process U/S interpreted by me (1pt. min.). @ -None done What testing was considered but not performed or refused? (CT, X-rays, U/S, labs)? Why? @ -None What meds were considered but not given or refused? Why? @ -None Did you discuss the management of the patient with other professionals (professionals i.e. , PA, STOCK SHAPER, lab, RT, psych nurse, director of social media marketing, spanish speaking babysitter, teacher, credit review officer, employment case manager)? Give summary @ -Dr. Romo Was smoking cessation discussed for >3mins.? @ -No Was critical care preformed (if so, how long)? @ -No Were there social determinants of health that impacted care today? How? (Homelessness, low income, unemployed, alcoholism, drug addiction, transportation, low edu. Level, literacy, decrease access to med. care, nursing home, rehab)? @ -Mental retardation Was there de-escalation of care discussed even if they declined (Discuss DNR or withdrawal of care, Hospice)? DNR status @ -No What co-morbidities impacted this encounter? (DM, HTN, Smoking, COPD, CAD, Cancer, CVA, ARF, Chemo, Hep., AIDS, mental health diagnosis, sleep apnea, morbid obesity)? @ -Coronary artery disease diabetes fibromyalgia hypertension rheumatoid arthritis possibly COPD Was patient admitted / discharged? Hospital course, mention meds given and route, prescriptions, significant lab abnormalities, going to OR and other pertinent info. @ -Hospital course patient was admitted to this facility for IV hydration and treatment of rhabdomyolysis evaluation of altered mental status Undiagnosed new problem with uncertain prognosis? @ -No Drug Therapy requiring intensive monitoring for toxicity (Heparin, Nitro, Insulin, Cardizem)? @ -No Were any procedures done? @ -No Diagnosis/symptom? @ -Acute rhabdomyolysis, dehydration, altered mental status Acute, or Chronic, or Acute on Chronic? @ -Acute Uncomplicated (without systemic symptoms) or Complicated (systemic symptoms)? @ -Default Side effects of treatment? @ -No Exacerbation, Progression, or Severe Exacerbation? @ -No Poses a threat to life or bodily function? How? (Chest pain, [place], [place], pneumonia, PE, COPD, DKA, ARF, appy, cholecystitis, CVA, Diverticulitis, Homicidal, Suicidal, threat to staff... and all critical care pts) @ -Central - Lab Data Result diagrams: 01/16/24 18:19 01/16/24 18:19 Lab Results 01/16/24 01/16/24 01/16/24 Range/Units 18:19 18:19 18:19 WBC 4.6 (3.8-10.6) k/uL RBC 4.05 (3.80-5.40) m/uL Hgb 13.6 (11.4-16.0) gm/dL Hct 43.3 (34.0-46.0) % MCV 106.7 H (80.0-100.0) fL MCH 33.6 (25.0-35.0) pg MCHC 31.5 (31.0-37.0) g/dL RDW 16.2 H (11.5-15.5) % Plt Count 203 (150-450) k/uL MPV 8.8 Neutrophils % (Manual) 75 % Lymphocytes % (Manual) 20 % Monocytes % (Manual) 5 % Neutrophils # (Manual) 3.45 (1.3-7.7) k/uL Lymphocytes # (Manual) 0.92 L (1.0-4.8) k/uL Monocytes # (Manual) 0.23 (0-1.0) k/uL Nucleated RBCs 0 (0-0) /100 WBC Manual Slide Review Performed Anisocytosis Slight Anisocytosis (manual) Present Macrocytosis Moderate PT 10.3 (10.0-12.5) sec INR 0.9 (<1.2) APTT 24.0 (22.0-30.0) sec Sodium 139 (137-145) mmol/L Potassium 4.1 (3.5-5.1) mmol/L Chloride 108 H (98-107) mmol/L Carbon Dioxide 24 (22-30) mmol/L Anion Gap 7 mmol/L BUN 16 (7-17) mg/dL Creatinine 1.04 (0.52-1.04) mg/dL Est GFR (CKD-EPI)AfAm 68 (>60 ml/min/1.73 sqM) Est GFR (CKD-EPI)NonAf 59 (>60 ml/min/1.73 sqM) Glucose 117 H (74-99) mg/dL Calcium 9.3 (8.4-10.2) mg/dL Total Bilirubin 0.8 (0.2-1.3) mg/dL AST 90 H (14-36) U/L ALT 68 H (4-34) U/L Alkaline Phosphatase 178 H (38-126) U/L Ammonia (<30) umol/L Creatine Kinase (30-135) U/L Troponin I (0.000-0.034) ng/mL Total Protein 7.6 (6.3-8.2) g/dL Albumin 4.5 (3.5-5.0) g/dL Influenza Type A (PCR) (Not Detectd) Influenza Type B (PCR) (Not Detectd) RSV (PCR) (Not Detectd) SARS-CoV-2 (PCR) (Not Detectd) 01/16/24 01/16/24 01/16/24 Range/Units 18:19 18:19 18:19 WBC (3.8-10.6) k/uL RBC (3.80-5.40) m/uL Hgb (11.4-16.0) gm/dL Hct (34.0-46.0) % MCV (80.0-100.0) fL MCH (25.0-35.0) pg MCHC (31.0-37.0) g/dL RDW (11.5-15.5) % Plt Count (150-450) k/uL MPV Neutrophils % (Manual) % Lymphocytes % (Manual) % Monocytes % (Manual) % Neutrophils # (Manual) (1.3-7.7) k/uL Lymphocytes # (Manual) (1.0-4.8) k/uL Monocytes # (Manual) (0-1.0) k/uL Nucleated RBCs (0-0) /100 WBC Manual Slide Review Anisocytosis Anisocytosis (manual) Macrocytosis PT (10.0-12.5) sec INR (<1.2) APTT (22.0-30.0) sec Sodium (137-145) mmol/L Potassium (3.5-5.1) mmol/L Chloride (98-107) mmol/L Carbon Dioxide (22-30) mmol/L Anion Gap mmol/L BUN (7-17) mg/dL Creatinine (0.52-1.04) mg/dL Est GFR (CKD-EPI)AfAm (>60 ml/min/1.73 sqM) Est GFR (CKD-EPI)NonAf (>60 ml/min/1.73 sqM) Glucose (74-99) mg/dL Calcium (8.4-10.2) mg/dL Total Bilirubin (0.2-1.3) mg/dL AST (14-36) U/L ALT (4-34) U/L Alkaline Phosphatase (38-126) U/L Ammonia (<30) umol/L Creatine Kinase 1246 H* (30-135) U/L Troponin I <0.012 (0.000-0.034) ng/mL Total Protein (6.3-8.2) g/dL Albumin (3.5-5.0) g/dL Influenza Type A (PCR) Not Detected (Not Detectd) Influenza Type B (PCR) Not Detected (Not Detectd) RSV (PCR) Not Detected (Not Detectd) SARS-CoV-2 (PCR) Not Detected (Not Detectd) 01/16/24 Range/Units 18:19 WBC (3.8-10.6) k/uL RBC (3.80-5.40) m/uL Hgb (11.4-16.0) gm/dL Hct (34.0-46.0) % MCV (80.0-100.0) fL MCH (25.0-35.0) pg MCHC (31.0-37.0) g/dL RDW (11.5-15.5) % Plt Count (150-450) k/uL MPV Neutrophils % (Manual) % Lymphocytes % (Manual) % Monocytes % (Manual) % Neutrophils # (Manual) (1.3-7.7) k/uL Lymphocytes # (Manual) (1.0-4.8) k/uL Monocytes # (Manual) (0-1.0) k/uL Nucleated RBCs (0-0) /100 WBC Manual Slide Review Anisocytosis Anisocytosis (manual) Macrocytosis PT (10.0-12.5) sec INR (<1.2) APTT (22.0-30.0) sec Sodium (137-145) mmol/L Potassium (3.5-5.1) mmol/L Chloride (98-107) mmol/L Carbon Dioxide (22-30) mmol/L Anion Gap mmol/L BUN (7-17) mg/dL Creatinine (0.52-1.04) mg/dL Est GFR (CKD-EPI)AfAm (>60 ml/min/1.73 sqM) Est GFR (CKD-EPI)NonAf (>60 ml/min/1.73 sqM) Glucose (74-99) mg/dL Calcium (8.4-10.2) mg/dL Total Bilirubin (0.2-1.3) mg/dL AST (14-36) U/L ALT (4-34) U/L Alkaline Phosphatase (38-126) U/L Ammonia <9 (<30) umol/L Creatine Kinase (30-135) U/L Troponin I (0.000-0.034) ng/mL Total Protein (6.3-8.2) g/dL Albumin (3.5-5.0) g/dL Influenza Type A (PCR) (Not Detectd) Influenza Type B (PCR) (Not Detectd) RSV (PCR) (Not Detectd) SARS-CoV-2 (PCR) (Not Detectd) Disposition Clinical Impression: Altered mental status, Rhabdomyolysis, Dehydration Disposition: ADMITTED IP TO THIS [facility] Condition: Fair Referrals: London Garsia DO [Primary Care Provider] - 1-2 days Time of Disposition: 22:48 Decision Date: 01/16/24 Decision Time: 22:48
[2024-01-16 18:27] LABS: Anisocytosis Slight; HCT 43.3 % (34.0-46.0); HGB 13.6 gm/dL (11.4-16.0); MCH 33.6 pg (25.0-35.0); MCHC 31.5 g/dL (31.0-37.0); MCV 106.7 fL (80.0-100.0); Macrocytosis Moderate; Mean Platelet Volume 8.8; Platelet Count 203 k/uL (150-450); RBC 4.05 m/uL (3.80-5.40); RDW 16.2 % (11.5-15.5); WBC 4.6 k/uL (3.8-10.6)
[2024-01-16 18:45] LABS: ALT 68 U/L (4-34); AST 90 U/L (14-36); African American GFR (CKD) 68 (>60 ml/min/1.73 sqM); Albumin 4.5 g/dL (3.5-5.0); Alkaline Phosphatase 178 U/L (38-126); Anion Gap 7 mmol/L; Blood Urea Nitrogen 16 mg/dL (7-17); Calcium 9.3 mg/dL (8.4-10.2); Carbon Dioxide 24 mmol/L (22-30); Chloride 108 mmol/L (98-107); Glucose 117 mg/dL (74-99); Non-African American GFR(CKD) 59 (>60 ml/min/1.73 sqM); Potassium 4.1 mmol/L (3.5-5.1); Sodium 139 mmol/L (137-145); Total Bilirubin 0.8 mg/dL (0.2-1.3); Total Protein 7.6 g/dL (6.3-8.2)
--- NOTE | 2024-01-16 18:51 | XR ---
EXAMINATION TYPE: XR chest 2V DATE OF EXAM: 01/16/2024 6:40 PM CLINICAL INDICATION:Female, 58 years old with history of altered mental status; [facility] COMPARISON: Chest radiographs from 10/30/2023 TECHNIQUE: XR chest 2V Frontal and lateral views of the chest. FINDINGS: Lungs/Pleura: There is no evidence of pleural effusion, focal consolidation, or pneumothorax. Pulmonary vascularity: Pulmonary vascular congestion. Heart/mediastinum: Cardiomediastinal silhouette is enlarged and stable. Musculoskeletal: No acute osseous pathology. Midline sternotomy wires are noted. IVC filter partially visualized. IMPRESSION: Low lung volumes with a generalized hazy appearance which could represent atelectasis versus pulmonar y edema correlate with serum BNP.
[2024-01-16 19:16] LABS: INR 0.9 (<1.2); Prothrombin Time 10.3 sec (10.0-12.5)
[2024-01-16 19:34] LABS: Lymphocytes # (M) 0.92 k/uL (1.0-4.8); Monocytes # (M) 0.23 k/uL (0-1.0); Neutrophils # (M) 3.45 k/uL (1.3-7.7); Neutrophils % (M) 75 %; Nucleated Red Blood Cells 0 /100 WBC (0-0); Total Cells Counted 100
[2024-01-16 19:35] LABS: Anisocytosis (M) Present
--- NOTE | 2024-01-16 21:32 | CT ---
EXAMINATION TYPE: CT brain wo con CT DLP: 1185.4 mGycm, Automated exposure control for dose reduction was used. DATE OF EXAM: 01/16/2024 9:16 PM COMPARISON: 10/30/2023. CLINICAL INDICATION:Female, 58 years old with history of Altered mental status, mental status change/ difficulty concentrating TECHNIQUE: Brain: Axial CT images of the brain were obtained with coronal and sagittal reformats created and rev iewed. Contrast used: None. Oral contrast used: None. FINDINGS: Brain: Extra-axial spaces: No abnormal extra-axial fluid collections. Ventricular system: Within normal limits Cerebral parenchyma: No acute intraparenchymal hemorrhage or mass effect. The newell-white junction is well differentiated. Cerebellum: Unremarkable. Mass effect: No evidence of midline shift. Intracranial vasculature: Atherosclerotic calcifications of the intracranial vessels. Soft tissues: Normal. Calvarium/osseous structures: No depressed skull fracture. Paranasal sinuses and mastoid air cells: Mild scattered paranasal sinus disease. Visualized orbits: Orbital contents are intact. IMPRESSION: No acute intracranial process.
[2024-01-16] MEDS ORDERED: NALOXONE 0.4 MG/ML 1 ML VIAL IV PRN (22:49)
[2024-01-16] MEDS ORDERED: SUVOREXANT 15 MG PO PRN (22:50)
[2024-01-16] MEDS ORDERED: BUTALB/APAP/CAFF 50-325-40MG TAB PO PRN (22:50)
[2024-01-17] MEDS: SODIUM CHLORIDE 0.9% 1,000 ML IV ONE (00:09)
[2024-01-17] MEDS: SODIUM CHLORIDE 0.9% 1,000 ML IV SCH (00:09)
--- NOTE | 2024-01-17 04:07 | P.HPIM ---
History of Present Illness H&P Date: 01/16/24 Patient is a 58-year-old female with a PMH of rheumatoid arthritis, type II DM, CHF, CAD, leukemia in remission, recent left hand cat bite status post debridement who was brought into the emergency room for confusion with nausea and vomiting. The patient was confused at the time of interview and thereby history obtained from the ED provider and from the chart. The patient had reportedly been wandering around the house confused over the past day. She had also had decreased oral intake and had not been acting like herself. As per the patient's family members, her hand appeared to be healing well since surgery. Patient notes ongoing 7 out of 10 left hand pain. She denies any additional co mplaints although was tearful during the interview as she is concerned that her leukemia may have relapsed. She also reports feeling ill at home with nausea and 1-2 episodes of vomiting. She denied experiencing chest discomfort, shortness of breath, fever, chills, cough,abdominal pain, diarrhea. CT brain in the emergency room was unremarkable. Chest x-ray revealed generalized haziness with no other acute abnormalities noted. EKG revealed sinus tachycardia with short IL interval at [address]/T wave changes noted as reviewed by me with evidence of LVH. Laboratory evaluation revealed a WBC count of 4.6, hemoglobin 13.6, sodium 139, potassium 4.1, chloride 108, BUN 16, creatinine 1.04, glucose 117, creatinine kinase 1246, troponin less than 0.012 with AST 90, ALT 68, and alk phos 178. ED documentation reviewed and case discussed with ED provider. Review of systems: Pertinent positives and negatives as discussed in HPI, a complete review of systems was performed and all other systems are negative. Physical examination: Vital signs reviewed General: non toxic, no distress, appears at stated age, obese Derm: Left hand postsurgical sutures in place with some swelling without erythema, no unusual rashes/lesions, warm Head: atraumatic, normocephalic, symmetric Eyes: EOMI, no lid lag, anicteric sclera, pupils equal round reactive to light ENT: Nose and ears atraumatic Neck: No cervical lymphadenopathy, trachea midline, supple Mouth: no lip lesion, mucus membranes moist Cardiovascular: S1S2 reg, no murmur, positive dorsalis pedis pulse bilateral, no edema Lungs: CTA bilateral, no rhonchi, no rales, no accessory muscle use Abdominal: soft, nontender to palpation, no guarding Ext: muscle strength 5 out of 5 in all 4 extremities grossly, no gross muscle atrophy, no contractures, Neuro: CN II-XI grossly intact, no gross focal neuro deficits Psych: Alert, oriented to place and partially to time Assessment: Altered mental status, unclear etiology, unknown if patient is taking opiates at home Rhabdomyolysis, possibly due to decreased oral intake, no falls or trauma reported Recent left hand cat bite status post debridement, healing well Transaminitis, unclear etiology Chronic conditions: CHF, CAD, type II DM, rheumatoid arthritis Imaging: CT brain in the emergency room was unremarkable. Chest x-ray revealed generalized haziness with no other acute abnormalities noted. EKG revealed sinus tachycardia with short IL interval at [address]/T wave changes noted as reviewed by me with evidence of LVH. Data Review: Laboratory evaluation revealed a WBC count of 4.6, hemoglobin 13.6, sodium 139, potassium 4.1, chloride 108, BUN 16, creatinine 1.04, glucose 117, creatinine kinase 1246, troponin less than 0.012 with AST 90, ALT 68, and alk phos 178. Plan: Neurology and Hand surgery consulted Obtain lactic acid levels Resume home medications once reconciled C/w IVFs 130 ml/hr Monitor CK levels DVT prophylaxis: Lovenox Subq The patient is admitted with an anticipated less than 2 midnight stay for evaluation of AMS CODE STATUS: Full Code Discussed with: Patient Anticipated discharge place: Home Past Medical History Past Medical History: Coronary Artery Disease (CAD), Cancer, Heart Failure, Diab etes Mellitus, Deep Vein Thrombosis (DVT), Fibromyalgia, GI Bleed, Hyperlipidemia, Hypertension, Myocardial Infarction ([place]), Rheumatoid Arthritis ([place]) Additional Past Medical History / Comment(s): Per EMS COPD Last Myocardial Infarction Date:: unknown History of Any Multi-Drug Resistant Organisms: None Reported Date of last positivie culture/infection: unknown MDRO Source:: skin bilateral arms Past Surgical History: Unable to Obtain Additional Past Surgical History / Comment(s): broken femur past, bilateral knee surgery, 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, right leg green field filter for blood clot Past Anesthesia/Blood Transfusion Reactions: No Reported Reaction Date of Last Stent Placement:: unknown Past Psychological History: No Psychological Hx Reported Smoking Status: Never smoker Past Alcohol Use History: None Reported Past Drug Use History: None Reported - Past Family History Mother Family Medical History: Congestive Heart Failure (CHF), Coronary Artery Disease (CAD), Hyperlipidemia, Myocardial Infarction ([place]) Additional Family Medical History / Comment(s): CABG,knee replacement x1, Medications and Allergies Home Medications Medication Instructions Recorded Confirmed Type ALPRAZolam [Xanax] 1 mg PO HS 10/27/23 10/30/23 History Acyclovir [Zovirax] 400 mg PO BID 10/27/23 10/30/23 History Butalb/APAP/Caff 50-325-40Mg 1 tab PO Q4H PRN MDD 6 TABLETS 10/27/23 10/30/23 History [Fioricet 50-325-40] FLUoxetine HCL [PROzac] 40 mg PO DAILY 10/27/23 10/30/23 History Gabapentin [Neurontin] 300 mg PO BID 10/27/23 10/30/23 History Gilteritinib Fumarate [Xospata] 120 mg PO DAILY 10/27/23 10/30/23 History Losartan [Cozaar] 25 mg PO DAILY 10/27/23 10/30/23 History Pioglitazone [Actos] 30 mg PO DAILY 10/27/23 10/30/23 History Potassium Chloride [Klor-Con M20] 20 meq PO DAILY 10/27/23 10/30/23 History Suvorexant [Belsomra] 15 mg PO HS PRN 10/27/23 10/30/23 History methocarbamoL [Robaxin] 500 mg PO TID 10/27/23 10/30/23 History Amoxic-Pot Clav 875-125Mg 1 tab PO Q12HR 5 Days #10 tab 11/02/23 Rx [Augmentin 875-125] Clopidogrel [Plavix] 75 mg PO DAILY #30 tab 11/02/23 Rx Allergies Allergy/AdvReac Type Severity Reaction Status Date / Time divalproex sodium Allergy Unknown Verified 01/16/24 15:17 [From Depakote] phenytoin [From Dilantin] Allergy Unknown Verified 01/16/24 15:17 Physical Exam Vitals: Vital Signs Temp Pulse Pulse Resp BP BP Pulse Ox 01/17/24 01:01 98.6 F 68 14 148/94 97 01/17/24 00:17 98.9 F 118 H 18 152/89 97 01/16/24 17:54 99.5 F 110 H 18 154/89 97 01/16/24 15:15 98 F 109 H 20 165/95 97 Intake and Output 01/16/24 01/16/24 01/17/24 14:59 22:59 06:59 Other: Weight 95.254 kg 95.254 kg Results CBC & Chem 7: 01/16/24 18:19 01/16/24 18:19 Labs: Abnormal Lab Results - Last 24 Hours (Table) 01/16/24 01/16/24 01/16/24 Range/Units 18:19 18:19 18:19 MCV 106.7 H (80.0-100.0) fL RDW 16.2 H (11.5-15.5) % Lymphocytes # (Manual) 0.92 L (1.0-4.8) k/uL Chloride 108 H (98-107) mmol/L Glucose 117 H (74-99) mg/dL AST 90 H (14-36) U/L ALT 68 H (4-34) U/L Alkaline Phosphatase 178 H (38-126) U/L Creatine Kinase 1246 H* (30-135) U/L Thrombosis Risk Factor Assmnt - Choose All That Apply Any of the Below Risk Factors Present?: Yes Each Factor Represents 1 point: Age 41-60 years, Obesity (BMI >25) Other Risk Factors: No Other congenital or acquired thrombophilia - If yes, enter type in comment: No Thrombosis Risk Factor Assessment Total Risk Factor Score: 2 Thrombosis Risk Factor Assessment Level: Low Risk
[2024-01-17] MEDS: SODIUM CHLORIDE 0.9% 1,000 ML IV STA (04:38)
[2024-01-17 04:57] LABS: Anisocytosis Slight; HCT 37.3 % (34.0-46.0); HGB 11.8 gm/dL (11.4-16.0); MCH 33.8 pg (25.0-35.0); MCHC 31.6 g/dL (31.0-37.0); MCV 106.8 fL (80.0-100.0); Macrocytosis Marked; Mean Platelet Volume 8.6; Platelet Count 162 k/uL (150-450); RBC 3.49 m/uL (3.80-5.40); RDW 16.3 % (11.5-15.5); WBC 4.6 k/uL (3.8-10.6)
[2024-01-17] MEDS: ONDANSETRON 4 MG/2 ML VIAL IVP STA (05:13)
[2024-01-17 05:17] LABS: ALT 59 U/L (4-34); AST 69 U/L (14-36); African American GFR (CKD) 78 (>60 ml/min/1.73 sqM); Albumin 3.9 g/dL (3.5-5.0); Albumin/Globulin Ratio 1.6; Alkaline Phosphatase 152 U/L (38-126); Anion Gap 9 mmol/L; Blood Urea Nitrogen 16 mg/dL (7-17); Calcium 8.8 mg/dL (8.4-10.2); Carbon Dioxide 20 mmol/L (22-30); Chloride 110 mmol/L (98-107); Creatine Kinase 894 U/L (30-135); Globulin 2.4 g/dL; Glucose 127 mg/dL (74-99); Non-African American GFR(CKD) 68 (>60 ml/min/1.73 sqM); Potassium 3.7 mmol/L (3.5-5.1); Sodium 139 mmol/L (137-145); Total Bilirubin 0.7 mg/dL (0.2-1.3); Total Protein 6.3 g/dL (6.3-8.2)
[2024-01-17] MEDS: INSULIN ASPART (NovoLOG) 100 UNIT/ML VIAL SQ SCH (05:17)
[2024-01-17 05:18] LABS: Glucose,Whole Blood 129 mg/dL (70-110)
[2024-01-17] MEDS: ENOXAPARIN 40 MG/0.4 ML SYRINGE SQ SCH (08:45)
[2024-01-17] MEDS: FLUoxetine HCL 20 MG CAP PO SCH ×2 (08:46→21:14)
[2024-01-17] MEDS: methocarbamoL 500 MG TAB PO SCH (08:46)
[2024-01-17] MEDS: POTASSIUM CHLORIDE ER 20 MEQ TAB.ER PO SCH (08:46)
[2024-01-17] MEDS: CLOPIDOGREL 75 MG TAB PO SCH (08:46)
[2024-01-17] MEDS: GABAPENTIN 300 MG CAP PO SCH (08:46)
[2024-01-17] MEDS: LOSARTAN 25 MG TAB PO SCH (08:46)
[2024-01-17] MEDS ORDERED: PIOGLITAZONE 30 MG TAB PO SCH (09:00)
[2024-01-17] MEDS ORDERED: [UNRECOGNIZED DRUG - OTHER] PO SCH (09:00)
[2024-01-17 09:58] LABS: Amphetamine Screen,Urine Not Detected (NotDetected); Barbiturate Screen,Urine Not Detected (NotDetected); Benzodiazepines Screen,Urine Detected (NotDetected); Cocaine Screen,Urine Not Detected (NotDetected); Methadone Screen, Urine Not Detected (NotDetected); Opiate Screen,Urine Detected (NotDetected); Oxycodone Screen, Urine Not Detected (NotDetected); Phencyclidine Screen,Urine Not Detected (NotDetected); Tricyclic Antidepressant,Urine Not Detected (NotDetected); Urn Cannabinoid Scrn Not Detected (NotDetected)
[2024-01-17 10:00] LABS: Appearance,Urine Clear (Clear); Bilirubin,Urine Negative (Negative); Blood,Urine Negative (Negative); Color,Urine Yellow; Glucose,Urine (UA) 4+ (Negative); Leukocyte Esterase,Urine Negative (Negative); Nitrite,Urine Negative (Negative); PH, Urine 6.5 (5.0-8.0); Protein,Urine Trace (Negative); Specific Gravity,Urine 1.027 (1.001-1.035); Urobilinogen,Urine <2.0 mg/dL (<2.0)
[2024-01-17 10:25] LABS: Ketones,Urine 2+ (Negative)
[2024-01-17] MEDS ORDERED: ACETAMINOPHEN TAB 325 MG TAB PO PRN (10:39)
[2024-01-17] MEDS: LORazepam 2 MG/ML INJ IV STA (11:08)
--- NOTE | 2024-01-17 12:02 | P.CNNES ---
History of Present Illness Consult date: 01/17/24 Reason for Consult: Altered mental status History of Present Illness: The patient is a 58-year-old female who was seen in neurologic consultation on January 17, 2024, in collaboration with Krys Porras, via teleneurology. History is obtained from review of the chart. The patient herself is not exactly sure why she is in the hospital. She is seated in the bedside chair. She reports that she is "shaking really bad". She says she has been shaking for approximately 1 week. She reports that she stopped taking her morphine, Xanax and Prozac approximately 1 week ago. She believes she is going through withdrawal. She also thinks that she is perhaps having seizures. According to the patient's nurse, the patient did not report that she stopped taking these medications, to anyone else. Patient reports that she has been taking morphine 1 tablet daily, for muscle pain related to her leukemia. Patient says that her friend advised her to stop taking all of these medications. The patient does recall having surgery on her hand recently, because of a cat bite. She reports having swelling of her left hand and pain. She thinks she perhaps has an infection. The patient reports a severe headache. She reports double vision as well. She continues to have muscle pain and paresthesias. In discussing with the patient's nurse, the shaking movements. The nurse reports that the shaking was not present, earlier this morning when she was initially assessed. In the emergency department, CT scan of the brain was performed. There is no reported evidence of acute hemorrhage or infarct. Laboratory evaluation revealed elevated CK of 1246, elevated AST of 90, ALT 68 and ammonia less than 9. Patient's urine drug screen is positive for opiates and benzos. Urinalysis is negative for infection. Past Medical History Past Medical History: Coronary Artery Disease (CAD), Cancer, Heart Failure, Diab etes Mellitus, Deep Vein Thrombosis (DVT), Fibromyalgia, GI Bleed, Hyperlipidemia, Hypertension, Myocardial Infarction ([place]), Rheumatoid Arthritis (RA) Additional Past Medical History / Comment(s): Per EMS COPD Last Myocardial Infarction Date:: unknown History of Any Multi-Drug Resistant Organisms: None Reported Date of last positivie culture/infection: unknown MDRO Source:: skin bilateral arms Past Surgical History: Unable to Obtain Additional Past Surgical History / Comment(s): broken femur past, bilateral knee surgery, 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, right leg green field filter for blood clot Past Anesthesia/Blood Transfusion Reactions: No Reported Reaction Date of Last Stent Placement:: unknown Past Psychological History: No Psychological Hx Reported Smoking Status: Never smoker Past Alcohol Use History: None Reported Past Drug Use History: None Reported - Past Family History Mother Family Medical History: Congestive Heart Failure (CHF), Coronary Artery Disease (CAD), Hyperlipidemia, Myocardial Infarction (PR) Additional Family Medical History / Comment(s): CABG,knee replacement x1, Medications and Allergies Home Medications Medication Instructions Recorded Confirmed Type RX: ALPRAZolam [Xanax] 1 mg PO HS 10/27/23 10/30/23 History RX: Acyclovir [Zovirax] 400 mg PO BID 10/27/23 10/30/23 History RX: Butalb/APAP/Caff 50-325-40Mg 1 tab PO Q4H PRN MDD 6 TABLETS 10/27/23 10/30/23 History [Fioricet 50-325-40] RX: FLUoxetine HCL [PROzac] 40 mg PO DAILY 10/27/23 10/30/23 History RX: Gabapentin [Neurontin] 300 mg PO BID 10/27/23 10/30/23 History RX: Gilteritinib Fumarate [Xospata] 120 mg PO DAILY 10/27/23 10/30/23 History RX: Losartan [Cozaar] 25 mg PO DAILY 10/27/23 10/30/23 History RX: Pioglitazone [Actos] 30 mg PO DAILY 10/27/23 10/30/23 History RX: Potassium Chloride [Klor-Con 20 meq PO DAILY 10/27/23 10/30/23 History M20] RX: Suvorexant [Belsomra] 15 mg PO HS PRN 10/27/23 10/30/23 History RX: methocarbamoL [Robaxin] 500 mg PO TID 10/27/23 10/30/23 History Amoxic-Pot Clav 875-125Mg 1 tab PO Q12HR 5 Days #10 tab 11/02/23 Rx [Augmentin 875-125] RX: Clopidogrel [Plavix] 75 mg PO DAILY #30 tab 11/02/23 Rx Allergies Allergy/AdvReac Type Severity Reaction Status Date / Time divalproex sodium Allergy Unknown Verified 01/16/24 15:17 [From Depakote] phenytoin [From Dilantin] Allergy Unknown Verified 01/16/24 15:17 Physical Examination - Vital Signs Vital Signs: Vital Signs Temp Pulse Pulse Resp BP BP Pulse Ox 01/17/24 07:00 98 F 109 H 16 149/87 98 01/17/24 01:01 98.6 F 68 14 148/94 97 01/17/24 00:17 98.9 F 118 H 18 152/89 97 01/16/24 17:54 99.5 F 110 H 18 154/89 97 01/16/24 15:15 98 F 109 H 20 165/95 97 Intake and Output 01/16/24 01/17/24 01/17/24 22:59 06:59 14:59 Other: # Voids 1 Weight 95.254 kg 95.254 kg General: The patient is seated in the bedside chair. She is well-nourished. She has generalized shaking, not tonic-clonic movements. HEENT: Head is atraumatic, normocephalic. Fundus not visualized. There is no scleral icterus. Mucous membranes are moist. Neck: Supple without carotid bruits Heart: Regular rate and rhythm Lungs: Clear to auscultation Extremities: There is edema of the left hand Neurological examination Mental status: The patient is awake and alert. The patient is oriented to her name, date of , location and month. She initially states her age to be "64" then she says "I do not know how old I am". She initially states the year to be "2003" reports that she does not know what year it is. Speech is clear. There is no dysarthria or aphasia. The patient is somewhat labile, with anxiety and tearfulness. Cranial nerves: Pupils are equal at 2 mm and reactive. Visual crane are full to confrontation. Extraocular movements are intact. There is no nystagmus. Facial sensation is intact. There is no facial asymmetry. Hearing is grossly intact. Uvula and palate are midline. Shoulder shrug is symmetric. Tongue protrudes midline. Motor: Strength is 5/5 in the right upper extremity. Left naval engineer strength 2-3/5. Bilateral hip flexors 3/5. Coordination: There is generalized shaking, at rest and with movement. The patient is able to perform [id number] testing. There is no pronator drift. Deep tendon reflexes: 3+/4+ in the bilateral upper extremities. Lower extremity reflexes are absent. Plantar responses not assessed Sensation: Grossly intact to light touch throughout. There is no extinction with double simultaneous stimulation. Gait: Not assessed Results - Laboratory Findings CBC and BMP: 01/17/24 04:08 01/17/24 04:20 Abnormal Lab Findings: Abnormal Labs 01/16/24 01/16/24 01/16/24 18:19 18:19 18:19 RBC MCV 106.7 H RDW 16.2 H Lymphocytes # (Manual) 0.92 L Macrocytosis Chloride 108 H Carbon Dioxide Glucose 117 H POC Glucose (mg/dL) AST 90 H ALT 68 H Alkaline Phosphatase 178 H Creatine Kinase 1246 H* 01/17/24 01/17/24 01/17/24 04:08 04:20 05:16 RBC 3.49 L MCV 106.8 H RDW 16.3 H Lymphocytes # (Manual) Macrocytosis Marked A Chloride 110 H Carbon Dioxide 20 L Glucose 127 H POC Glucose (mg/dL) 129 H AST 69 H ALT 59 H Alkaline Phosphatase 152 H Creatine Kinase 894 H Assessment and Plan Assessment: 1.The patient is a 58-year-old female who was brought into the emergency department because of reported altered mental status and confusion. Workup in the emergency department revealed markedly elevated CK and liver enzymes. On neurological examination, the patient reports discontinuation of morphine and Xanax, 1 week ago, yet her urine drug screen remains positive for benzos and opiates. Neurological examination reveals diffuse shaking, suspicious for drug or alcohol withdrawal 2. Recent cat bite and debridement of wound 3. Rhabdomyolysis 4. Reported history of leukemia and associated muscle pain, for which the patient takes morphine 5. Reported history of fibromyalgia and rheumatoid arthritis 6. Polypharmacy Plan: 1. Stat Ativan 1 mg IV push was ordered for potential benzodiazepine withdrawal 2. Agree with the EEG 3. Consider treatment of withdrawal syndrome, so as to prevent benzodiazepine withdrawal seizure 4. IV fluids for rhabdomyolysis 5. Seizure precautions Thank you for allowing us to participate in care of this patient Dr. Juan Fischer will assume neurologic coverage of this patient as of 01/18/2024 Time with Patient: Greater than 30 (60 minutes were spent caring for this patient today including, obtaining history, examining the patient, reviewing imaging, chart documentation, labs, placing orders and creating this note)
--- NOTE | 2024-01-17 12:14 | P.CNOR ---
History of Present Illness - HPI Consult date: 01/17/24 Consult reason: other (Postop left hand, status post cat bite.) History of present illness: Yandy is a 58-year-old female who presented to the emergency department with family members stating that she was wandering around the house confused and was having some mental status changes. The patient reports that she was withholding her morphine and Prozac stating that she was trying to hurt herself by not takin g her medications. She is admitted for further evaluation. She had an I&D of the left hand secondary to a cat bite approximately 10 days ago. The patient is unsure of the date of surgery. She is due for follow-up in our office tomorrow. We are consulted for orthopedic follow-up of the left hand. Past Medical History Past Medical History: Coronary Artery Disease (CAD), Cancer, Heart Failure, Diabetes Mellitus, Deep Vein Thrombosis (DVT), Fibromyalgia, GI Bleed, Hyperlipidemia, Hypertension, Myocardial Infarction ([place]), Rheumatoid Arthritis (RA) Additional Past Medical History / Comment(s): Per EMS COPD Last Myocardial Infarction Date:: unknown History of Any Multi-Drug Resistant Organisms: None Reported Year Discovered:: unknown MDRO Source:: skin bilateral arms Past Surgical History: Unable to Obtain Additional Past Surgical History / Comment(s): broken femur past, bilateral knee surgery, 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, right leg green field filter for blood clot Past Anesthesia/Blood Transfusion Reactions: No Reported Reaction Date of Last Stent Placement:: unknown Past Psychological History: No Psychological Hx Reported Smoking Status: Never smoker Past Alcohol Use History: None Reported Past Drug Use History: None Reported - Past Family History Mother Family Medical History: Congestive Heart Failure (CHF), Coronary Artery Disease (CAD), Hyperlipidemia, Myocardial Infarction ([place]) Additional Family Medical History / Comment(s): CABG,knee replacement x1, Medications and Allergies Home Medications Medication Instructions Recorded Confirmed Type ALPRAZolam [Xanax] 1 mg PO HS 10/27/23 10/30/23 History Acyclovir [Zovirax] 400 mg PO BID 10/27/23 10/30/23 History Butalb/APAP/Caff 50-325-40Mg 1 tab PO Q4H PRN MDD 6 TABLETS 10/27/23 10/30/23 H istory [Fioricet 50-325-40] FLUoxetine HCL [PROzac] 40 mg PO DAILY 10/27/23 10/30/23 History Gabapentin [Neurontin] 300 mg PO BID 10/27/23 10/30/23 History Gilteritinib Fumarate [Xospata] 120 mg PO DAILY 10/27/23 10/30/23 History Losartan [Cozaar] 25 mg PO DAILY 10/27/23 10/30/23 History Pioglitazone [Actos] 30 mg PO DAILY 10/27/23 10/30/23 History Potassium Chloride [Klor-Con M20] 20 meq PO DAILY 10/27/23 10/30/23 History Suvorexant [Belsomra] 15 mg PO HS PRN 10/27/23 10/30/23 History methocarbamoL [Robaxin] 500 mg PO TID 10/27/23 10/30/23 History Amoxic-Pot Clav 875-125Mg 1 tab PO Q12HR 5 Days #10 tab 11/02/23 Rx [Augmentin 875-125] Clopidogrel [Plavix] 75 mg PO DAILY #30 tab 11/02/23 Rx Allergies Allergy/AdvReac Type Severity Reaction Status Date / Time divalproex sodium Allergy Unknown Verified 01/16/24 15:17 [From Depakote] phenytoin [From Dilantin] Allergy Unknown Verified 01/16/24 15:17 Physical Examination Exam of the left hand reveals resolving ecchymosis, well healing incision to the dorsal and palmar aspect of the hand. There is no active drainage. She has full flexion of the finger and is lacking a little bit of full extension to the index finger. Neurovascular status intact to the hand. Results - Labs Labs: Abnormal Lab Results - Last 24 Hours (Table) 01/16/24 01/16/24 01/16/24 Range/Units 18:19 18:19 18:19 RBC (3.80-5.40) m/uL MCV 106.7 H (80.0-100.0) fL RDW 16.2 H (11.5-15.5) % Lymphocytes # (Manual) 0.92 L (1.0-4.8) k/uL Macrocytosis Chloride 108 H (98-107) mmol/L Carbon Dioxide (22-30) mmol/L Glucose 117 H (74-99) mg/dL POC Glucose (mg/dL) (70-110) mg/dL AST 90 H (14-36) U/L ALT 68 H (4-34) U/L Alkaline Phosphatase 178 H (38-126) U/L Creatine Kinase 1246 H* (30-135) U/L Urine Protein (Negative) Urine Glucose (UA) (Negative) Urine Ketones (Negative) Urine Opiates Screen (NotDetected) U Benzodiazepines Scrn (NotDetected) 01/17/24 01/17/24 01/17/24 Range/Units 04:08 04:20 05:16 RBC 3.49 L (3.80-5.40) m/uL MCV 106.8 H (80.0-100.0) fL RDW 16.3 H (11.5-15.5) % Lymphocytes # (Manual) (1.0-4.8) k/uL Macrocytosis Marked A Chloride 110 H (98-107) mmol/L Carbon Dioxide 20 L (22-30) mmol/L Glucose 127 H (74-99) mg/dL POC Glucose (mg/dL) 129 H (70-110) mg/dL AST 69 H (14-36) U/L ALT 59 H (4-34) U/L Alkaline Phosphatase 152 H (38-126) U/L Creatine Kinase 894 H (30-135) U/L Urine Protein (Negative) Urine Glucose (UA) (Negative) Urine Ketones (Negative) Urine Opiates Screen (NotDetected) U Benzodiazepines Scrn (NotDetected) 01/17/24 Range/Units 09:09 RBC (3.80-5.40) m/uL MCV (80.0-100.0) fL RDW (11.5-15.5) % Lymphocytes # (Manual) (1.0-4.8) k/uL Macrocytosis Chloride (98-107) mmol/L Carbon Dioxide (22-30) mmol/L Glucose (74-99) mg/dL POC Glucose (mg/dL) (70-110) mg/dL AST (14-36) U/L ALT (4-34) U/L Alkaline Phosphatase (38-126) U/L Creatine Kinase (30-135) U/L Urine Protein Trace H (Negative) Urine Glucose (UA) 4+ H (Negative) Urine Ketones 2+ H (Negative) Urine Opiates Screen Detected H (NotDetected) U Benzodiazepines Scrn Detected H (NotDetected) H & H 01/16/24 01/17/24 Range/Units 18:19 04:08 Hgb 13.6 11.8 (11.4-16.0) gm/dL Hct 43.3 37.3 (34.0-46.0) % Coagulation 01/16/24 Range/Units 18:19 INR 0.9 (<1.2) Result Diagrams: 01/17/24 04:08 01/17/24 04:20 Assessment and Plan (1) Status post incision and drainage Current Visit: Yes Status: Acute Code(s): Z98.890 - OTHER SPECIFIED POSTPROCEDURAL STATES SNOMED Code(s): 124975312 (2) Altered mental status Current Visit: Yes Status: Acute Priority: High Code(s): R41.82 - ALTERED MENTAL STATUS, UNSPECIFIED SNOMED Code(s): 529692859 (3) Dehydration Current Visit: Yes Status: Acute Code(s): E86.0 - DEHYDRATION SNOMED Code(s): 23976801 (4) Rhabdomyolysis Current Visit: Yes Status: Acute Code(s): M62.82 - RHABDOMYOLYSIS SNOMED Code(s): 439115495 Plan: The clinical findings are discussed with the patient. Her incision is fairly well-healed. She is due for suture removal tomorrow. She is to continue to work on range of motion of the fingers. We will continue to follow peripherally.
[2024-01-17 12:28] LABS: Glucose,Whole Blood 112 mg/dL (70-110)
[2024-01-17] MEDS ORDERED: LORazepam 2 MG/ML INJ IV PRN ×3 (12:52)
--- NOTE | 2024-01-17 12:58 | P.PN ---
Subjective Progress Note Date: 01/17/24 Hospital Course: This is a 57-year-old female with history of AML in remission, recent left hand cat bite status post debridement, congestive heart failure, CAD, type 2 diabetes, fibromyalgia, DVT? Presenting with nausea and vomiting, and altered mentation. Patient is a poor historian. On arrival, patient was slightly tachycardic to 110, rest of the vital signs within normal limits. CBC mostly unremarkable, CMP remarkable for elevated AST, ALT, ALP, CK12 100, troponin negative, creatinine 1.04. EKG showed sinus tachycardia. Chest x-ray showed interstitial opacities. Brain CT did not show any acute process. Neurology and hand surgery consulted. Subjective: Patient seen and examined at bedside. No acute events overnight. Pertinent positives and negatives as discussed above, a complete review of systems was performed and all other systems are negative. Vitals Signs Reviewed. General: Nontoxic, no distress, appears at stated age Derm: Warm, dry, left hand incision without any drainage or significant erythema, sutures in place Head: Atraumatic, normocephalic, symmetric Eyes: EOMI, no lid lag, anicteric sclera Mouth: No lip lesion, mucus membranes moist Cardiovascular: S1S2 reg, no murmur Lungs: CTA bilateral, no rhonchi, no rales, no accessory muscle use Abdominal: Soft, nontender to palpation, no guarding, no appreciable organomegaly Ext: No gross muscle atrophy, no edema, no contractures Neuro: CN II-XI grossly intact, no focal neuro deficits, having right lower extremity jerks. Psych: Alert, oriented x 2, appropriate affect Data Reviewed Today: Pertinent Labs: WBC 4.6, hemoglobin 11.8, bicarb 20, creatinine 0.93, AST 69, ALT 59, ALP 152, creatinine kinase is a 94, urine toxicology positive for opiates and benzos Imaging: No new imaging Assessment and Plan: Active: Acute metabolic encephalopathy Polypharmacy -Neurology note reviewed, possibly benzo withdrawal as well as opiate withdrawal -Was started on Xanax 0.5 twice daily, monitor CIWA scores, IV Ativan as needed -Gabapentin decreased to 100 twice daily -Hold Robaxin Acute rhabdomyolysis -Unclear etiology -CK downtrending -Continue lactated Ringer at 125 cc an hour, hold diuretics Anion gap metabolic acidosis -Normal saline switch to lactated Ringer's -Repeat BMP tomorrow AML, supposedly in remission -Patient is unable to provide any other meaningful history -May need to bring her AML medications from home Type 2 diabetes -Hold oral -Sliding scale insulin, monitor for hypoglycemia Recent cat bite on left hand, status post debridement -Hand surgery note reviewed, sutures to be taken out tomorrow Chronic: Depression Hypertension CAD CHF DVT ppx: Lovenox Code status: Full code Anticipated discharge place: Pending clinical course Anticipated discharge time: Pending clinical course Objective - Vital Signs Vital signs: Vital Signs Temp 98 F 01/17/24 07:00 Pulse 109 H 01/17/24 07:00 Resp 16 01/17/24 07:00 BP 149/87 01/17/24 07:00 Pulse Ox 98 01/17/24 09:42 FiO2 21 01/17/24 09:42 Intake & Output 01/16/24 01/17/24 01/17/24 18:59 06:59 18:59 Weight 95.254 kg 95.254 kg Other: # Voids 1 - Labs CBC & Chem 7: 01/17/24 04:08 01/17/24 04:20 Labs: Abnormal Lab Results - Last 24 Hours (Table) 01/16/24 01/16/24 01/16/24 Range/Units 18:19 18:19 18:19 RBC (3.80-5.40) m/uL MCV 106.7 H (80.0-100.0) fL RDW 16.2 H (11.5-15.5) % Lymphocytes # (Manual) 0.92 L (1.0-4.8) k/uL Macrocytosis Chloride 108 H (98-107) mmol/L Carbon Dioxide (22-30) mmol/L Glucose 117 H (74-99) mg/dL POC Glucose (mg/dL) (70-110) mg/dL AST 90 H (14-36) U/L ALT 68 H (4-34) U/L Alkaline Phosphatase 178 H (38-126) U/L Creatine Kinase 1246 H* (30-135) U/L Urine Protein (Negative) Urine Glucose (UA) (Negative) Urine Ketones (Negative) Urine Opiates Screen (NotDetected) U Benzodiazepines Scrn (NotDetected) 01/17/24 01/17/24 01/17/24 Range/Units 04:08 04:20 05:16 RBC 3.49 L (3.80-5.40) m/uL MCV 106.8 H (80.0-100.0) fL RDW 16.3 H (11.5-15.5) % Lymphocytes # (Manual) (1.0-4.8) k/uL Macrocytosis Marked A Chloride 110 H (98-107) mmol/L Carbon Dioxide 20 L (22-30) mmol/L Glucose 127 H (74-99) mg/dL POC Glucose (mg/dL) 129 H (70-110) mg/dL AST 69 H (14-36) U/L ALT 59 H (4-34) U/L Alkaline Phosphatase 152 H (38-126) U/L Creatine Kinase 894 H (30-135) U/L Urine Protein (Negative) Urine Glucose (UA) (Negative) Urine Ketones (Negative) Urine Opiates Screen (NotDetected) U Benzodiazepines Scrn (NotDetected) 01/17/24 01/17/24 Range/Units 09:09 12:26 RBC (3.80-5.40) m/uL MCV (80.0-100.0) fL RDW (11.5-15.5) % Lymphocytes # (Manual) (1.0-4.8) k/uL Macrocytosis Chloride (98-107) mmol/L Carbon Dioxide (22-30) mmol/L Glucose (74-99) mg/dL POC Glucose (mg/dL) 112 H (70-110) mg/dL AST (14-36) U/L ALT (4-34) U/L Alkaline Phosphatase (38-126) U/L Creatine Kinase (30-135) U/L Urine Protein Trace H (Negative) Urine Glucose (UA) 4+ H (Negative) Urine Ketones 2+ H (Negative) Urine Opiates Screen Detected H (NotDetected) U Benzodiazepines Scrn Detected H (NotDetected)
[2024-01-17] MEDS: LACTATED RINGERS 1,000 ML IV SCH (13:41)
[2024-01-17 17:04] LABS: Glucose,Whole Blood 125 mg/dL (70-110)
[2024-01-17] MEDS: HYDROcodone/APAP 5-325MG 1 EACH TAB PO PRN (18:37)
[2024-01-17 20:44] LABS: Glucose,Whole Blood 182 mg/dL (70-110)
[2024-01-17] MEDS: GABAPENTIN 100 MG CAP PO SCH (21:13)
[2024-01-17] MEDS: ALPRAZolam 0.5 MG TAB PO SCH (21:14)
[2024-01-17] MEDS: RANOLAZINE 500 MG TAB.ER.12H PO SCH (21:14)
[2024-01-18 03:07] VITALS: TEMP 98.1
[2024-01-18 06:23] LABS: Glucose,Whole Blood 112 mg/dL (70-110)
[2024-01-18 07:07] LABS: African American GFR (CKD) >90 (>60 ml/min/1.73 sqM); Anion Gap 3 mmol/L; Blood Urea Nitrogen 14 mg/dL (7-17); Calcium 8.4 mg/dL (8.4-10.2); Carbon Dioxide 26 mmol/L (22-30); Chloride 111 mmol/L (98-107); Glucose 106 mg/dL (74-99); Non-African American GFR(CKD) 84 (>60 ml/min/1.73 sqM); Potassium 3.9 mmol/L (3.5-5.1); Sodium 140 mmol/L (137-145)
[2024-01-18 08:15] VITALS: BP 134/82; PULSE 93; RESP 17
[2024-01-18 11:48] LABS: Glucose,Whole Blood 142 mg/dL (70-110)
--- NOTE | 2024-01-18 12:21 | P.DS ---
Providers Date of admission: 01/16/24 22:53 Expected date of discharge: 01/18/24 Attending physician: Bhargav Romo MD Consults: 01/16/24 23:01 Consult Physician Routine Consulting Provider: Lucille Robertson Consult Reason/Comments: Postoperative evaluation left hand surgery Do you want consulting provider notified?: Yes, Notify in am 01/16/24 23:02 Consult Physician Routine Consulting Provider: Michelle Treadwell Consult Reason/Comments: Altered mental status Do you want consulting provider notified?: Yes, Notify in am Primary care physician: London Garsia Hospital Course: Discharge Diagnosis: Acute metabolic encephalopathy, likely benzo and opioid withdrawal Polypharmacy Acute rhabdomyolysis Anion gap metabolic acidosis AML Type 2 diabetes Recent cat bite on left hand, status post debridement Hospital Course: This is a 57-year-old female with history of AML in remission, recent left hand cat bite status post debridement, congestive heart failure, CAD, type 2 diabetes, fibromyalgia, DVT? Presenting with nausea and vomiting, and altered mentation. Patient is a poor historian. On arrival, patient was slightly tachycardic to 110, rest of the vital signs within normal limits. CBC mostly unremarkable, CMP remarkable for elevated AST, ALT, ALP, CK12 100, troponin negative, creatinine 1.04. EKG showed sinus tachycardia. Chest x-ray showed interstitial opacities. Brain CT did not show any acute process. Neurology and hand surgery consulted. Altered mentation likely in the setting of benzo and opiate withdrawal. Patient had heard from one of her friend the increased risk of overdose with certain medications and decided to completely stop taking the medications. She also stopped taking her depression medications. Her mental status has greatly improved while she was in the hospital. EEG did not show any epileptiform discharges. Was evaluated by orthopedic surgery, no further infection, outpatient follow-up. Renal function stable at the time of discharge. Patient seen and examined at bedside. Vital signs reviewed and stable. General: Nontoxic, no distress, appears at stated age Derm: Warm, dry, left hand incision without any drainage or significant erythema, sutures in place Head: Atraumatic, normocephalic, symmetric Eyes: EOMI, no lid lag, anicteric sclera Mouth: No lip lesion, mucus membranes moist Cardiovascular: S1S2 reg, no murmur Lungs: CTA bilateral, no rhonchi, no rales, no accessory muscle use Abdominal: Soft, nontender to palpation, no guarding, no appreciable organomegaly Ext: No gross muscle atrophy, no edema, no contractures Neuro: CN II-XI grossly intact, no focal neuro deficits, having right lower extremity jerks. Psych: Alert, oriented x 2, appropriate affect A total of 33 minutes of time were spent preparing this complex discharge summary. Patient was discharged on 01/18/2024 at 1218. Patient Condition at Discharge: Stable Plan - Discharge Summary Discharge Rx Participant: No New Discharge Prescriptions: Continue ALPRAZolam [Xanax] 1 mg PO HS FLUoxetine HCL [PROzac] 40 mg PO DAILY Gilteritinib Fumarate [Xospata] 120 mg PO DAILY Losartan [Cozaar] 25 mg PO DAILY Suvorexant [Belsomra] 15 mg PO HS PRN PRN Reason: Insomnia Cholecalciferol [Vitamin D3 (25 Mcg = 1000 Iu)] 25 mcg PO DAILY Morphine Sulfate ER [Ms Contin] 15 mg PO Q12HR Butalb/APAP/Caff 50-325-40Mg [Fioricet 50-325-40] 1 tab PO Q4H PRN MDD 6 TABLETS PRN Reason: Migraine Headache methocarbamoL [Robaxin] 500 mg PO TID Pioglitazone [Actos] 30 mg PO DAILY Potassium Chloride [Klor-Con M20] 20 meq PO DAILY Clopidogrel [Plavix] 75 mg PO DAILY #30 tab Dapagliflozin Propanediol [Farxiga] 5 mg PO DIRECTED Gabapentin [Neurontin] 300 mg PO BID Ranolazine [Ranexa] 1,000 mg PO Q12HR traMADol HCL 50 mg PO DIRECTED PRN PRN Reason: Pain FLUoxetine HCL [PROzac] 40 mg PO HS Discontinued Acyclovir [Zovirax] 400 mg PO BID Amoxic-Pot Clav 875-125Mg [Augmentin 875-125] 1 tab PO Q12HR 5 Days #10 tab Furosemide [Lasix] 20 mg PO DAILY Discharge Medication List ALPRAZolam [Xanax] 1 mg PO HS 10/27/23 [History] Butalb/APAP/Caff 50-325-40Mg [Fioricet 50-325-40] 1 tab PO Q4H PRN MDD 6 TABLETS 10/27/23 [History] FLUoxetine HCL [PROzac] 40 mg PO DAILY 10/27/23 [History] Gilteritinib Fumarate [Xospata] 120 mg PO DAILY 10/27/23 [History] Losartan [Cozaar] 25 mg PO DAILY 10/27/23 [History] Pioglitazone [Actos] 30 mg PO DAILY 10/27/23 [History] Potassium Chloride [Klor-Con M20] 20 meq PO DAILY 10/27/23 [History] Suvorexant [Belsomra] 15 mg PO HS PRN 10/27/23 [History] methocarbamoL [Robaxin] 500 mg PO TID 10/27/23 [History] Clopidogrel [Plavix] 75 mg PO DAILY #30 tab 11/02/23 [Rx] Cholecalciferol [Vitamin D3 (25 Mcg = 1000 Iu)] 25 mcg PO DAILY 01/17/24 [History] Dapagliflozin Propanediol [Farxiga] 5 mg PO DIRECTED 01/17/24 [History] FLUoxetine HCL [PROzac] 40 mg PO HS 01/17/24 [History] Gabapentin [Neurontin] 300 mg PO BID 01/17/24 [History] Morphine Sulfate ER [Ms Contin] 15 mg PO Q12HR 01/17/24 [History] Ranolazine [Ranexa] 1,000 mg PO Q12HR 01/17/24 [History] traMADol HCL 50 mg PO DIRECTED PRN 01/17/24 [History] Follow up Appointment(s)/Referral(s): Lucille Robertson DO [Doctor of Osteopathic Medicine] - 1 Week Susie Balderrama MD [STAFF PHYSICIAN] - 1 Week London Garsia DO [Primary Care Provider] - 1-2 days Patient Instructions/Handouts: Opioid Withdrawal (DC), Encephalopathy (DC) Activity/Diet/Wound Care/Special Instructions: Please see your PCP and specialists. Discharge Disposition: HOME SELF-CARE
--- NOTE | 2024-01-18 22:16 | EEG ---
ELECTROENCEPHALOGRAM REPORT CLINICAL HISTORY: This is a 58-year-old woman with altered mental status. It is reported that the patient had discontinued her Xanax and morphine a week ago. The video EEG is obtained to evaluate for seizure epileptiform activity. RELEVANT MEDICATIONS: 1. Gabapentin. 2. Prozac. 3. Ativan. EGG TYPE: This is a routine 21-channel EEG with video using the 10/20 electrode placement system. DESCRIPTION: Wakefulness and drowsiness are obtained. During awake state, the posterior-dominant rhythm consists of [id number] voltage of 8.5 hertz activity that is well modulated and well sustained. At times, the background consists of diffuse theta/delta activity. There was no physiological stage 2 sleep architecture. There is no focal slowing. Interictal and ictal is none. ACTIVATION PROCEDURE: Photic stimulation did not evoke a posterior driving response. There is no abnormality during the photic stimulation. Hyperventilation is not performed. CLINICAL INTERPRETATION: This is an abnormal routine EEG. The background slowing is suggestive of mild encephalopathy. There is no focal slowing, epileptiform discharge, or seizure on the EEG. If there continues to be suspicion for EEG, then recommend repeating the EEG or consider prolonged EEG as an outpatient. Clinical correlation is recommended. MMODL / IJN: [id number] /
== END 2024-01-18 14:18 | disposition home or self-care (01) | DRG 896 ==
LOC: EC 14:52 → 6NMEDSUR 22:52 → OBSVTOIN 22:53 → 6NMEDSUR 23:40
PROVIDERS: ADMIT Internal Medicine; ATTEND Internal Medicine
PROC: 4A10X4Z Monitoring of Central Nervous Electrical Activity, External Approach (ICD-10-PCS; principal; 2024-01-18)
DX: F13.239 Sedative, hypnotic or anxiolytic dependence with withdrawal, unspecified (principal); G93.41 Metabolic encephalopathy; E87.20 Acidosis, unspecified; C95.91 Leukemia, unspecified, in remission; M62.82 Rhabdomyolysis; M79.7 Fibromyalgia; E78.5 Hyperlipidemia, unspecified; E86.0 Dehydration; F11.23 Opioid dependence with withdrawal; F32.A Depression, unspecified; I25.10 Atherosclerotic heart disease of native coronary artery without angina pectoris; H53.2 Diplopia; I11.0 Hypertensive heart disease with heart failure; I25.2 Old myocardial infarction; I50.9 Heart failure, unspecified; M06.9 Rheumatoid arthritis, unspecified; R00.0 Tachycardia, unspecified; J44.9 Chronic obstructive pulmonary disease, unspecified; Z79.84 Long term (current) use of oral hypoglycemic drugs; Z79.02 Long term (current) use of antithrombotics/antiplatelets; Z79.899 Other long term (current) drug therapy; Z82.49 Family history of ischemic heart disease and other diseases of the circulatory system; Z88.8 Allergy status to other drugs, medicaments and biological substances
CPT/HCPCS: 36415; 70450; 71046; 80048; 80053; 80306; 81003; 82140; 82550; 83605; 84484; 85025; 85027; 85610; 85730; 87636; 93005; 94760; 95816; 99285

== ENCOUNTER 2024-04-14 13:31 | Emergency (ER) | payer MEDICARE, OTHER ==
[2024-04-14 13:36] VITALS: TEMP 98
--- NOTE | 2024-04-14 14:30 | ED ---
General Adult HPI - General Chief complaint: Nausea/Vomiting/Diarrhea Stated complaint: vomiting Time Seen by Provider: 04/14/24 13:35 Source: patient, RN notes reviewed, old records reviewed Mode of arrival: wheelchair Limitations: no limitations - History of Present Illness Initial comments: This is a 58-year-old female presents to the emergency department stating that lately her lower back has been a little sore has been ongoing about a week but as of today she started vomiting. Patient denies any abdominal pain patient [place] any fever chills or cough. Patient denies any difficulty breathing shortness of breath or chest pain. Patient has any dysuria hematuria urinary frequency. Patient states the vomiting just came out of the blue and she has been unable to keep anything down. Patient was requesting some pain medicine for her back and she is requesting some medicine so she can stop vomiting. - Related Data Home Medications Medication Instructions Recorded Confirmed ALPRAZolam [Xanax] 1 mg PO HS PRN 10/27/23 04/14/24 Butalb/APAP/Caff 50-325-40Mg 1 tab PO Q4H PRN MDD 6 TABLETS 10/27/23 04/14/24 [Fioricet 50-325-40] FLUoxetine HCL [PROzac] 40 mg PO DAILY 10/27/23 04/14/24 Gilteritinib Fumarate [Xospata] 120 mg PO DAILY@1400 10/27/23 04/14/24 Losartan [Cozaar] 25 mg PO DAILY 10/27/23 04/14/24 Pioglitazone [Actos] 30 mg PO DAILY 10/27/23 04/14/24 Potassium Chloride [Klor-Con M20] 20 meq PO DAILY 10/27/23 04/14/24 methocarbamoL [Robaxin] 500 mg PO TID 10/27/23 04/14/24 Dapagliflozin Propanediol [Farxiga] 5 mg PO DAILY 01/17/24 04/14/24 FLUoxetine HCL [PROzac] 40 mg PO HS 01/17/24 04/14/24 Gabapentin [Neurontin] 200 mg PO TID 01/17/24 04/14/24 Morphine Sulfate ER [Ms Contin] 15 mg PO Q12HR 01/17/24 04/14/24 Ranolazine [Ranexa] 1,000 mg PO Q12HR 01/17/24 04/14/24 Acyclovir [Zovirax] 400 mg PO BID 04/14/24 04/14/24 Atorvastatin [Lipitor] 80 mg PO DAILY 04/14/24 04/14/24 Furosemide [Lasix] 20 mg PO DAILY 04/14/24 04/14/24 Previous Rx's Medication Instructions Recorded Clopidogrel [Plavix] 75 mg PO DAILY #30 tab 11/02/23 Allergies Allergy/AdvReac Type Severity Reaction Status Date / Time divalproex sodium AdvReac Confusion Verified 04/14/24 14:59 [From Depakote] phenytoin [From Dilantin] AdvReac Confusion Verified 04/14/24 14:59 Review of Systems ROS Statement: Those systems with pertinent positive or pertinent negative responses have been documented in the HPI. ROS Other: All systems not noted in ROS Statement are negative. Past Medical History Past Medical History: Coronary Artery Disease (CAD), Cancer, Heart Failure, COPD, Diabetes Mellitus, Deep Vein Thrombosis (DVT), Fibromyalgia, GI Bleed, Hyperlipidemia, Hypertension, Myocardial Infarction (ID), Rheumatoid Arthritis (RA) Additional Past Medical History / Comment(s): leukemia Last Myocardial Infarction Date:: unknown History of Any Multi-Drug Resistant Organisms: None Reported Date of last positivie culture/infection: unknown MDRO Source:: skin bilateral arms Past Surgical History: Unable to Obtain Additional Past Surgical History / Comment(s): broken femur past, bilateral knee surgery, 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, right leg green field filter for blood clot Past Anesthesia/Blood Transfusion Reactions: No Reported Reaction Date of Last Stent Placement:: unknown Past Psychological History: No Psychological Hx Reported Smoking Status: Never smoker Past Alcohol Use History: None Reported Past Drug Use History: None Reported - Past Family History Mother Family Medical History: Congestive Heart Failure (CHF), Coronary Artery Disease (CAD), Hyperlipidemia, Myocardial Infarction (ID) Additional Family Medical History / Comment(s): CABG,knee replacement x1, General Exam - General Exam Comments Initial Comments: GENERAL: Patient is well-developed and well-nourished. Patient is nontoxic and well- hydrated and is in mild distress. ENT: Neck is soft and supple. No significant lymphadenopathy is noted. Oropharynx is clear. Moist mucous membranes. Neck has full range of motion without eliciting any pain. EYES: The sclera were anicteric and conjunctiva were pink and moist. Extraocular movements were intact and pupils were equal round and reactive to light. Eyelids were unremarkable. PULMONARY: Unlabored respirations. Good breath sounds bilaterally. No audible rales rhonchi or wheezing was noted. CARDIOVASCULAR: There is a regular rate and rhythm without any murmurs gallops or rubs. ABDOMEN: Soft and nontender with normal bowel sounds. SKIN: Skin is clear with no lesions or rashes and otherwise unremarkable. NEUROLOGIC: Patient is alert and oriented x3. Cranial nerves II through XII are grossly intact. Motor and sensory are also intact. Normal speech, volume and content. Symmetrical smile. MUSCULOSKELETAL: Normal extremities with adequate strength and full range of motion. LYMPHATICS: No significant lymphadenopathy is noted PSYCHIATRIC: Normal psychiatric evaluation. Limitations: no limitations Course Vital Signs 04/14/24 04/14/24 04/14/24 13:32 14:35 16:00 Temperature 98 F Pulse Rate 80 93 89 Respiratory 20 18 16 Rate Blood Pressure 109/62 129/78 130/62 O2 Sat by Pulse 98 97 95 Oximetry Medical Decision Making - Medical Decision Making Was pt. sent in by a medical professional or institution (, PA, OVERLOCK OPERATOR, urgent care, hospital, or fci...) When possible be specific @ -No Did you speak to anyone other than the patient for history (EMS, parent, family, police, friend...)? What history was obtained from this source @ -No Did you review nursing and triage notes (agree or disagree)? Why? @ -I reviewed and agree with nursing and triage notes Were old charts reviewed (outside hosp., previous admission, EMS record, old EKG, old radiological studies, urgent care reports/EKG's, fci records)? Report findings @ -No old charts were reviewed Differential Diagnosis? @ -Acute vomiting, gastroenteritis, this is not a all-inclusive list EKG interpreted by me (3pts min.). @ -As above X-rays interpreted by me (1pt min.). @ -None done CT interpreted by me (1pt min.). @ -None done U/S interpreted by me (1pt. min.). @ -None done What testing was considered but not performed or refused? (CT, X-rays, U/S, labs)? Why? @ -None What meds were considered but not given or refused? Why? @ -None Did you discuss the management of the patient with other professionals (professionals i.e. DrDevon, PA, OVERLOCK OPERATOR, lab, RT, psych nurse, child protective services social worker, blast furnace tender, teacher, information technology officer, social work case manager)? Give summary @ -I spoke with Dr. Balderrama Was smoking cessation discussed for >3mins.? @ -No Was critical care preformed (if so, how long)? @ -No Were there social determinants of health that impacted care today? How? (Homelessness, low income, unemployed, alcoholism, drug addiction, transportation, low edu. Level, literacy, decrease access to med. care, [place] [facility], rehab)? @ -No Was there de-escalation of care discussed even if they declined (Discuss DNR or withdrawal of care, Hospice)? DNR status @ -No What co-morbidities impacted this encounter? (DM, HTN, Smoking, COPD, CAD, Cancer, CVA, ARF, Chemo, Hep., AIDS, mental health diagnosis, sleep apnea, morbid obesity)? @ -None Was patient admitted / discharged? Hospital cosrse, mention meds given and route, prescriptions, significant lab abnormalities, going to OR and other pertinent info. @ -I went and saw the patient after she received medications Zofran Toradol and Dilaudid. Patient was feeling considerably better. I spoke with Dr. Balderrama and he was not concerned about the blood work at this time Undiagnosed new problem with uncertain prognosis? @ -No Drug Therapy requiring intensive monitoring for toxicity (Heparin, Nitro, Insulin, Cardizem)? @ -No Were any procedures done? @ -No Diagnosis/symptom? @ -Acute vomiting Acute, or Chronic, or Acute on Chronic? @ -Acute Uncomplicated (without systemic symptoms) or Complicated (systemic symptoms)? @ -Complicated Side effects of treatment? @ -No Exacerbation, Progression, or Severe Exacerbation? @ -No Poses a threat to life or bodily function? How? (Chest pain, USA, ID, pneumonia, PE, COPD, DKA, ARF, appy, cholecystitis, CVA, Diverticulitis, Homicidal, Suici annemarie, threat to staff... and all critical care pts) @ -No Diagnosis/symptom? @ -Lumbar strain Acute, or Chronic, or Acute on Chronic? @ -Acute Uncomplicated (without systemic symptoms) or Complicated (systemic symptoms)? @ -Uncomplicated Side effects of treatment? @ -None Exacerbation, Progression, or Severe Exacerbation] @ -No Poses a threat to life or bodily function? @ -No - Lab Data Result diagrams: 04/14/24 14:29 04/14/24 14:29 Lab Results 04/14/24 04/14/24 Range/Units 14:29 14:29 WBC 1.8 L (3.8-10.6) k/uL RBC 3.24 L (3.80-5.40) m/uL Hgb 11.3 L (11.4-16.0) gm/dL Hct 35.1 (34.0-46.0) % MCV 108.5 H (80.0-100.0) fL MCH 35.0 (25.0-35.0) pg MCHC 32.3 (31.0-37.0) g/dL RDW 16.5 H (11.5-15.5) % Plt Count 89 L (150-450) k/uL MPV 8.8 Neutrophils % (Manual) 68 % Lymphocytes % (Manual) 24 % Monocytes % (Manual) 5 % Eosinophils % (Manual) 2 % Blast Cells % 2 H* % Neutrophils # (Manual) 1.22 L (1.3-7.7) k/uL Lymphocytes # (Manual) 0.43 L (1.0-4.8) k/uL Monocytes # (Manual) 0.09 (0-1.0) k/uL Eosinophils # (Manual) 0.04 (0-0.7) k/uL Blast Cells # (Man) 0.04 H (0) k/uL Nucleated RBCs 0 (0-0) /100 WBC Manual Slide Review Performed Hypochromasia Slight Anisocytosis Slight Macrocytosis Marked A Sodium 137 (137-145) mmol/L Potassium 4.8 (3.5-5.1) mmol/L Chloride 106 (98-107) mmol/L Carbon Dioxide 24 (22-30) mmol/L Anion Gap 7 mmol/L BUN 28 H (7-17) mg/dL Creatinine 1.28 H (0.52-1.04) mg/dL Est GFR (CKD-EPI)AfAm 53 (>60 ml/min/1.73 sqM) Est GFR (CKD-EPI)NonAf 46 (>60 ml/min/1.73 sqM) Glucose 205 H (74-99) mg/dL Calcium 8.6 (8.4-10.2) mg/dL Total Bilirubin 0.8 (0.2-1.3) mg/dL AST 49 H (14-36) U/L ALT 51 H (4-34) U/L Alkaline Phosphatase 91 (38-126) U/L Total Protein 6.2 L (6.3-8.2) g/dL Albumin 3.5 (3.5-5.0) g/dL Amylase 34 (30-110) U/L Lipase 37 (23-300) U/L Disposition Clinical Impression: Lumbar strain, Acute vomiting Disposition: HOME SELF-CARE Condition: Good Instructions (If sedation given, give patient instructions): Acute Nausea and Vomiting (ED) Is patient prescribed a controlled substance at d/c from ED?: No Referrals: London Garsia DO [Primary Care Provider] - 1-2 days Time of Disposition: 16:47
[2024-04-14] MEDS: ONDANSETRON 4 MG/2 ML VIAL IVP STA (14:43)
[2024-04-14] MEDS: SODIUM CHLORIDE 0.9% 1,000 ML IV ONE (14:43)
[2024-04-14] MEDS: HYDROmorphone 0.5 MG/0.5 ML SYRINGE IVP STA ×2 (14:43→16:56)
[2024-04-14] MEDS: KETOROLAC 15 MG/ML 1 ML VIAL IVP STA (14:44)
[2024-04-14 15:01] LABS: Anisocytosis Slight; HCT 35.1 % (34.0-46.0); HGB 11.3 gm/dL (11.4-16.0); Hypochromasia Slight; MCHC 32.3 g/dL (31.0-37.0); MCV 108.5 fL (80.0-100.0); Macrocytosis Marked; Mean Platelet Volume 8.8; RBC 3.24 m/uL (3.80-5.40); RDW 16.5 % (11.5-15.5); WBC 1.8 k/uL (3.8-10.6)
[2024-04-14 15:26] LABS: ALT 51 U/L (4-34); AST 49 U/L (14-36); African American GFR (CKD) 53 (>60 ml/min/1.73 sqM); Albumin 3.5 g/dL (3.5-5.0); Alkaline Phosphatase 91 U/L (38-126); Amylase 34 U/L (30-110); Anion Gap 7 mmol/L; Blood Urea Nitrogen 28 mg/dL (7-17); Calcium 8.6 mg/dL (8.4-10.2); Carbon Dioxide 24 mmol/L (22-30); Chloride 106 mmol/L (98-107); Glucose 205 mg/dL (74-99); Lipase 37 U/L (23-300); Non-African American GFR(CKD) 46 (>60 ml/min/1.73 sqM); Potassium 4.8 mmol/L (3.5-5.1); Sodium 137 mmol/L (137-145); Total Bilirubin 0.8 mg/dL (0.2-1.3); Total Protein 6.2 g/dL (6.3-8.2)
[2024-04-14 15:27] LABS: Platelet Count 89 k/uL (150-450)
[2024-04-14 15:35] LABS: Blast Cells # (M) 0.04 k/uL (0); Eosinophils # (M) 0.04 k/uL (0-0.7); Lymphocytes # (M) 0.43 k/uL (1.0-4.8); Monocytes # (M) 0.09 k/uL (0-1.0); Neutrophils # (M) 1.22 k/uL (1.3-7.7); Neutrophils % (M) 68 %; Nucleated Red Blood Cells 0 /100 WBC (0-0); Total Cells Counted 200
[2024-04-14] MEDS: ONDANSETRON 4 MG ODT STARTER PACK 2 TAB BTL PO STA (16:56)
[2024-04-14 17:10] VITALS: BP 130/89; PULSE 75; RESP 18
== END 2024-04-14 17:10 | disposition home or self-care (01) ==
LOC: EC 13:31
DX: S39.012A Strain of muscle, fascia and tendon of lower back, initial encounter (principal); R11.10 Vomiting, unspecified; Z88.8 Allergy status to other drugs, medicaments and biological substances; X58.XXXA Exposure to other specified factors, initial encounter
CPT/HCPCS: 36415; 80053; 82150; 83690; 85025; 99284; 96374; 96375 ×2; 96376; 96361; J2405; J1885; S0119; J1170

== ENCOUNTER 2024-09-17 07:49 | Inpatient (IN) | payer MEDICARE ==
--- NOTE | 2024-09-17 08:06 | ED ---
Altered Mental Status HPI - General Chief Complaint: Altered Mental Status Stated Complaint: AMS Time Seen by Provider: 09/17/24 07:51 Source: patient, EMS, RN notes reviewed Mode of arrival: EMS Limitations: no limitations - History of Present Illness Initial Comments: This is a 58-year-old female who presents to the emergency department for altered mental status. Patient lives at [facility] and staff went to check on her around 1 AM and she was fine. When they went to check on her around 5 she was slower to respond and seemed diaphoretic and clammy. Additionally, patient fell yesterday. The fall was not witnessed, however they did go in and find her right away after they heard her fall. She fell face forward and tried to brace her head with her arm. There was no loss of consciousness. Patient states that she was dizzy, causing her to fall. She is on Plavix but was not evaluated after the fall. Additionally, patient reports i ncreasing shortness of breath over the last couple of weeks. Denies any chest pain. She does have a hx of COPD and CHF. She wears oxygen at baseline. She has also been receiving Ceftriaxone and Solu-Medrol daily for the last several days due to concern of bronchitis. Also has leukemia and follows with Dr. Balderrama. Believes that she last saw him a few months ago. She is on oral medication for the leukemia. MD Complaint: altered mental status - Related Data Home Medications Medication Instructions Recorded Confirmed FLUoxetine HCL [PROzac] 40 mg PO BID 10/27/23 09/17/24 Gilteritinib Fumarate [Xospata] 120 mg PO DAILY 10/27/23 09/17/24 Losartan [Cozaar] 12.5 mg PO DAILY@0700 10/27/23 09/17/24 Potassium Chloride [Klor-Con M20] 20 meq PO DAILY 10/27/23 09/17/24 Morphine Sulfate ER [Ms Contin] 15 mg PO Q12HR@0700,1900 01/17/24 09/17/24 Ranolazine [Ranexa] 1,000 mg PO Q12HR 01/17/24 09/17/24 Acyclovir [Zovirax] 400 mg PO BID 04/14/24 09/17/24 Atorvastatin [Lipitor] 80 mg PO DAILY 04/14/24 09/17/24 Furosemide [Lasix] 20 mg PO DAILY 04/14/24 09/17/24 ALPRAZolam [Xanax] 0.5 mg PO BID 09/17/24 09/17/24 Acetaminophen Tab [Tylenol] 650 mg PO Q4H PRN 09/17/24 09/17/24 Butalb/Acetaminophen/Caffeine 1 cap PO Q4H PRN 09/17/24 09/17/24 [Fioricet 50-300-40 mg Capsule] Calcium Carbonate [Tums] 1,000 mg PO QID PRN 09/17/24 09/17/24 Cholecalciferol [Vitamin D3 (25 25 mcg PO DAILY 09/17/24 09/17/24 Mcg = 1000 Iu)] Clopidogrel [Plavix] 75 mg PO HS 09/17/24 09/17/24 Docusate [Colace] 100 mg PO BID@0700,1600 09/17/24 09/17/24 Dulaglutide [Trulicity] 1.5 mg SQ MO@0700 09/17/24 09/17/24 Fluticasone Propion/Salmeterol 1 puff INHALATION RT-BID@0700,1900 09/17/24 09/17/24 [Advair 100-50 Diskus] Gabapentin [Neurontin] 300 mg PO TID@0700,1300,1900 09/17/24 09/17/24 HYDROcodone/APAP 7.5-325MG [Imnaha 1 tab PO Q4H 09/17/24 09/17/24 7.5-325] Icy Hot Advanced Relief Patch 7.5% 1 patch TRANSDERM DAILY@0000 09/17/24 09/17/24 Ipratropium-Albuterol Nebulize 3 ml INHALATION RT-Q4H 09/17/24 09/17/24 [Duoneb 0.5 mg-3 mg/3 ml Soln] Isosorbide Mononitrate ER [Imdur] 15 mg PO DAILY 09/17/24 09/17/24 Montelukast [Singulair] 10 mg PO HS 09/17/24 09/17/24 Naloxone HCl 0.4 mg IM ONCE PRN 09/17/24 09/17/24 Naloxone HCl 4 mg NS ONCE PRN 09/17/24 09/17/24 Nitroglycerin Sl Tabs [Nitrostat] 0.4 mg SL Q5M PRN 09/17/24 09/17/24 Omeprazole [PriLOSEC] 20 mg PO BID@0700,1900 09/17/24 09/17/24 Ondansetron [Zofran] 4 mg PO Q6H 09/17/24 09/17/24 guaiFENesin [guaiFENesin ER] 600 mg PO Q12HR@0700,1900 09/17/24 09/17/24 Allergies Allergy/AdvReac Type Severity Reaction Status Date / Time divalproex sodium AdvReac Confusion Verified 09/17/24 14:47 [From Depakote] phenytoin [From Dilantin] AdvReac Confusion Verified 09/17/24 14:47 Review of Systems ROS Statement: Those systems with pertinent positive or pertinent negative responses have been documented in the HPI. ROS Other: All systems not noted in ROS Statement are negative. Past Medical History Past Medical History: Coronary Artery Disease (CAD), Cancer, Heart Failure, COPD, Diabetes Mellitus, Deep Vein Thrombosis (DVT), Fibromyalgia, GI Bleed, Hyperlipidemia, Hypertension, Myocardial Infarction (OK), Rheumatoid Arthritis (RA) Additional Past Medical History / Comment(s): leukemia Last Myocardial Infarction Date:: unknown History of Any Multi-Drug Resistant Organisms: None Reported Date of last positivie culture/infection: unknown MDRO Source:: skin bilateral arms Past Surgical History: Unable to Obtain Additional Past Surgical History / Comment(s): broken femur past, bilateral knee surgery, 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, right leg green field filter for blood clot Past Anesthesia/Blood Transfusion Reactions: No Reported Reaction Date of Last Stent Placement:: unknown Past Psychological History: No Psychological Hx Reported Smoking Status: Never smoker Past Alcohol Use History: None Reported Past Drug Use History: None Reported - Past Family History Mother Family Medical History: Congestive Heart Failure (CHF), Coronary Artery Disease (CAD), Hyperlipidemia, Myocardial Infarction (OK) Additional Family Medical History / Comment(s): CABG,knee replacement x1, General Exam Limitations: no limitations General appearance: alert, in no apparent distress Head exam: Present: atraumatic, normocephalic, normal inspection Eye exam: Present: normal appearance, PERRL, EOMI Respiratory exam: Present: wheezes, decreased breath sounds, prolonged expiratory Cardiovascular Exam: Present: normal rhythm, tachycardia GI/Abdominal exam: Present: soft. Absent: distended Extremities exam: Absent: pedal edema Neurological exam: Present: alert, oriented X3, CN II-XII intact Psychiatric exam: Present: normal affect, normal mood Skin exam: Present: warm, dry, intact, normal color. Absent: rash Course Vital Signs 09/17/24 09/17/24 09/17/24 07:52 09:46 09:54 Temperature 98.5 F Pulse Rate 108 H 68 70 Respiratory 17 Rate Blood Pressure 111/73 O2 Sat by Pulse 92 L Oximetry 09/17/24 09/17/24 09/17/24 10:08 11:54 13:10 Temperature Pulse Rate 106 H 98 105 H Respiratory 17 18 Rate Blood Pressure 110/70 102/62 O2 Sat by Pulse 95 93 L Oximetry 09/17/24 09/17/24 09/17/24 13:22 18:47 22:46 Temperature 98.2 F Pulse Rate 107 H 106 H 114 H Respiratory 16 16 Rate Blood Pressure 134/78 131/73 O2 Sat by Pulse 98 97 Oximetry Medical Decision Making - Medical Decision Making This is a 58-year-old female who presents to the emergency department for altered mental status and shortness of breath. Was pt. sent in by a medical professional or institution? @ -No Did you speak to anyone other than the patient for history? @ -EMS provided the majority of the history, however patient was also able to repeat and corroborate this. Did you review nursing and triage notes? @ -Yes, and I agree, it is accurate with regards to the patient's symptoms. Were old charts reviewed? @ -No Differential Diagnosis? @ -Differential Altered Mental Status: Hypoglycemia, DKA, hypercapnia, ETOH, overdose, CO poisoning, trauma, myxedema coma, HTN encephalopathy, infection, encephalitis, psychosis, intercranial hemorrhage, hepatic encephalopathy, meningitis, CVA, this is not meant to be an all-inclusive list EKG interpreted by me (3pts min.)? @ -EKG interpreted by me demonstrating the following: Sinus tachycardia. Ventricular rate 107 bpm, OH interval 129 ms, QRS duration 88 ms, QTc 415 ms. X-rays interpreted by me (1pt min.)? @ -Chest x-ray obtained, my interpretation identifies no localized consolidations or infiltrates. CT interpreted by me (1pt min.)? @ -Computed tomography scan of the brain and c-spine obtained. My interpretation identifies no evidence of an acute intracranial hemorrhage, skull fracture, or cervical spine fracture. U/S interpreted by me (1pt. min.)? @ -Not obtained What testing was considered but not performed? (CT, X-rays, U/S, labs)? Why? @ -None What meds were considered but not given? Why? @ -None Did you discuss the management of the patient with other professionals? @ -Yes, Dr. Johnson, who accepts the patient for admission Did you reconcile home meds? @ -No Was smoking cessation discussed for >3mins.? @ -No Was critical care preformed (if so, how long)? @ -No Were there social determinants of health that impacted care today? How? (Homelessness, low income, unemployed, alcoholism, drug addiction, tra nsportation, low edu. Level, literacy, decrease access to med. care, halfway, rehab)? @ -No Was there de-escalation of care discussed even if they declined? (Discuss DNR or withdrawal of care, Hospice)? @ -No What co-morbidities impacted this encounter? (DM, HTN, Smoking, COPD, CAD, Cancer, CVA, Hep., AIDS, mental health diagnosis, sleep apnea, morbid obesity)? @ -CAD, CHF, COPD, DM, HLD, HTN Was patient admitted / discharged? @ -Admitted. Lab work demonstrates leukocytosis with a white blood cell count of 19.9. BNP only 649. Troponin negative. COVID, influenza, and RSV testing negative. Urinalysis negative for signs of infection. Chest x-ray reveals no acute process. Given the patient's level of confusion with fall and likely head injury yesterday, CT scan of the brain and C-spine were obtained. This also revealed no acute process. She had an elevated ammonia level of 44 and a creatinine kinase of 500. There was not a clear cause for the patient's level of acute confusion or any sign of infection. She was given 2 g of ceftriaxone empirically in the event there is an infection that is not currently identified. However, it does appear she has been receiving steroids and ceftriaxone at the intermediate. Her CBC was sent for pathology review and is suspected to be abnormal with the leukemia. She has had blast cells present before. Patient admitted to medicine for altered mental status and leukocytosis. Consult placed for neurology as well as hem/onc due to the patient having leukemia. Case discussed with ED attending, Dr. Mary. Undiagnosed new problem with uncertain prognosis? @ -None Drug Therapy requiring intensive monitoring for toxicity (Heparin, Nitro, Insulin, Cardizem)? @ -None Were any procedures done? @ -None Diagnosis/symptom? @ -Altered mental status, leukocytosis Acute, or Chronic, or Acute on Chronic? @ -Acute Uncomplicated (without systemic symptoms) or Complicated (systemic symptoms)? @ -Complicated Side effects of treatment? @ -None Exacerbation, Progression, or Severe Exacerbation] @ -Not applicable Poses a threat to life or bodily function? @ -Yes, patient unable to function in her current state - Lab Data Result diagrams: 09/18/24 06:34 09/18/24 06:34 Lab Results 09/17/24 09/17/24 09/17/24 Range/Units 08:03 08:03 08:03 WBC 19.9 H (3.8-10.6) k/uL RBC 2.64 L (3.80-5.40) m/uL Hgb 8.7 L (11.4-16.0) gm/dL Hct 27.9 L (34.0-46.0) % MCV 105.7 H (80.0-100.0) fL MCH 32.9 (25.0-35.0) pg MCHC 31.1 (31.0-37.0) g/dL RDW 22.4 H (11.5-15.5) % Plt Count 56 L (150-450) k/uL MPV 8.5 Neutrophils % Not Reportable Lymphocytes % Not Reportable Monocytes % Not Reportable Eosinophils % Not Reportable Basophils % Not Reportable Neutrophils # Not Reportable Lymphocytes # Not Reportable Monocytes # Not Reportable Eosinophils # Not Reportable Basophils # Not Reportable Hypochromasia Marked Poikilocytosis Moderate Anisocytosis Moderate Macrocytosis Marked A PT 10.6 (10.0-12.5) sec INR 0.9 (<1.2) APTT 21.9 L (22.0-30.0) sec Sample Site ABG pH (7.35-7.45) ABG pCO2 (35-45) mmHg ABG pO2 (83-108) mmHg ABG HCO3 (21-25) mmol/L ABG Total CO2 (19-24) mmol/L ABG O2 Saturation (94-97) % ABG Base Excess mmol/L Julián Test Hemoglobin (11.4-16.0) gm/dL FiO2 % Sodium 136 L (137-145) mmol/L Potassium 4.9 (3.5-5.1) mmol/L Chloride 101 (98-107) mmol/L Carbon Dioxide 28 (22-30) mmol/L Anion Gap 7 mmol/L BUN 18 H (7-17) mg/dL Creatinine 0.76 (0.52-1.04) mg/dL Est GFR (CKD-EPI)AfAm >90 (>60 ml/min/1.73 sqM) Est GFR (CKD-EPI)NonAf 87 (>60 ml/min/1.73 sqM) Glucose 173 H (74-99) mg/dL Plasma Lactic Acid Bryant (0.7-2.0) mmol/L Calcium 8.2 L (8.4-10.2) mg/dL Magnesium 2.0 (1.6-2.3) mg/dL Total Bilirubin 1.2 (0.2-1.3) mg/dL AST 81 H (14-36) U/L ALT 34 (4-34) U/L Alkaline Phosphatase 120 (38-126) U/L Ammonia (<30) umol/L Creatine Kinase (30-135) U/L Troponin I (0.000-0.034) ng/mL NT-Pro-B Natriuret Pep 649 pg/mL Total Protein 5.6 L (6.3-8.2) g/dL Albumin 3.0 L (3.5-5.0) g/dL Urine Color Urine Appearance (Clear) Urine pH (5.0-8.0) Ur Specific [place] Range (1.001-1.035) Urine Protein (Negative) Urine Glucose (UA) (Negative) Urine Ketones (Negative) Urine Blood (Negative) Urine Nitrite (Negative) Urine Bilirubin (Negative) Urine Urobilinogen (<2.0) mg/dL Ur Leukocyte Esterase (Negative) Influenza Type A (PCR) (Not Detectd) Influenza Type B (PCR) (Not Detectd) RSV (PCR) (Not Detectd) SARS-CoV-2 (PCR) (Not Detectd) 09/17/24 09/17/24 09/17/24 Range/Units 08:03 08:03 08:03 WBC (3.8-10.6) k/uL RBC (3.80-5.40) m/uL Hgb (11.4-16.0) gm/dL Hct (34.0-46.0) % MCV (80.0-100.0) fL MCH (25.0-35.0) pg MCHC (31.0-37.0) g/dL RDW (11.5-15.5) % Plt Count (150-450) k/uL MPV Neutrophils % Lymphocytes % Monocytes % Eosinophils % Basophils % Neutrophils # Lymphocytes # Monocytes # Eosinophils # Basophils # Hypochromasia Poikilocytosis Anisocytosis Macrocytosis PT (10.0-12.5) sec INR (<1.2) APTT (22.0-30.0) sec Sample Site ABG pH (7.35-7.45) ABG pCO2 (35-45) mmHg ABG pO2 (83-108) mmHg ABG HCO3 (21-25) mmol/L ABG Total CO2 (19-24) mmol/L ABG O2 Saturation (94-97) % ABG Base Excess mmol/L Julián Test Hemoglobin (11.4-16.0) gm/dL FiO2 % Sodium (137-145) mmol/L Potassium (3.5-5.1) mmol/L Chloride (98-107) mmol/L Carbon Dioxide (22-30) mmol/L Anion Gap mmol/L BUN (7-17) mg/dL Creatinine (0.52-1.04) mg/dL Est GFR (CKD-EPI)AfAm (>60 ml/min/1.73 sqM) Est GFR (CKD-EPI)NonAf (>60 ml/min/1.73 sqM) Glucose (74-99) mg/dL Plasma Lactic Acid Bryant 1.3 (0.7-2.0) mmol/L Calcium (8.4-10.2) mg/dL Magnesium (1.6-2.3) mg/dL Total Bilirubin (0.2-1.3) mg/dL AST (14-36) U/L ALT (4-34) U/L Alkaline Phosphatase (38-126) U/L Ammonia (<30) umol/L Creatine Kinase (30-135) U/L Troponin I <0.012 (0.000-0.034) ng/mL NT-Pro-B Natriuret Pep pg/mL Total Protein (6.3-8.2) g/dL Albumin (3.5-5.0) g/dL Urine Color Urine Appearance (Clear) Urine pH (5.0-8.0) Ur Specific [place] (1.001-1.035) Urine Protein (Negative) Urine Glucose (UA) (Negative) Urine Ketones (Negative) Urine Blood (Negative) Urine Nitrite (Negative) Urine Bilirubin (Negative) Urine Urobilinogen (<2.0) mg/dL Ur Leukocyte Esterase (Negative) Influenza Type A (PCR) Not Detected (Not Detectd) Influenza Type B (PCR) Not Detected (Not Detectd) RSV (PCR) Not Detected (Not Detectd) SARS-CoV-2 (PCR) Not Detected (Not Detectd) 09/17/24 09/17/24 09/17/24 Range/Units 08:03 09:18 09:18 WBC 17.5 H (3.8-10.6) k/uL RBC 2.49 L (3.80-5.40) m/uL Hgb 8.3 L (11.4-16.0) gm/dL Hct 26.4 L (34.0-46.0) % MCV 105.8 H (80.0-100.0) fL MCH 33.2 (25.0-35.0) pg MCHC 31.4 (31.0-37.0) g/dL RDW 22.5 H (11.5-15.5) % Plt Count 47 L (150-450) k/uL MPV 8.1 Neutrophils % Lymphocytes % Monocytes % Eosinophils % Basophils % Neutrophils # Lymphocytes # Monocytes # Eosinophils # Basophils # Hypochromasia Marked Poikilocytosis Moderate Anisocytosis Moderate Macrocytosis Marked A PT (10.0-12.5) sec INR (<1.2) APTT (22.0-30.0) sec Sample Site ABG pH (7.35-7.45) ABG pCO2 (35-45) mmHg ABG pO2 (83-108) mmHg ABG HCO3 (21-25) mmol/L ABG Total CO2 (19-24) mmol/L ABG O2 Saturation (94-97) % ABG Base Excess mmol/L Julián Test Hemoglobin (11.4-16.0) gm/dL FiO2 % Sodium (137-145) mmol/L Potassium (3.5-5.1) mmol/L Chloride (98-107) mmol/L Carbon Dioxide (22-30) mmol/L Anion Gap mmol/L BUN (7-17) mg/dL Creatinine (0.52-1.04) mg/dL Est GFR (CKD-EPI)AfAm (>60 ml/min/1.73 sqM) Est GFR (CKD-EPI)NonAf (>60 ml/min/1.73 sqM) Glucose (74-99) mg/dL Plasma Lactic Acid Bryant (0.7-2.0) mmol/L Calcium (8.4-10.2) mg/dL Magnesium (1.6-2.3) mg/dL Total Bilirubin (0.2-1.3) mg/dL AST (14-36) U/L ALT (4-34) U/L Alkaline Phosphatase (38-126) U/L Ammonia (<30) umol/L Creatine Kinase 500 H (30-135) U/L Troponin I (0.000-0.034) ng/mL NT-Pro-B Natriuret Pep pg/mL Total Protein (6.3-8.2) g/dL Albumin (3.5-5.0) g/dL Urine Color Yellow Urine Appearance Clear (Clear) Urine pH 6.5 (5.0-8.0) Ur Specific [place] 1.013 (1.001-1.035) Urine Protein Negative (Negative) Urine Glucose (UA) Negative (Negative) Urine Ketones Negative (Negative) Urine Blood Negative (Negative) Urine Nitrite Negative (Negative) Urine Bilirubin Negative (Negative) Urine Urobilinogen 4.0 (<2.0) mg/dL Ur Leukocyte Esterase Negative (Negative) Influenza Type A (PCR) (Not Detectd) Influenza Type B (PCR) (Not Detectd) RSV (PCR) (Not Detectd) SARS-CoV-2 (PCR) (Not Detectd) 09/17/24 09/17/24 Range/Units 12:07 13:16 WBC (3.8-10.6) k/uL RBC (3.80-5.40) m/uL Hgb (11.4-16.0) gm/dL Hct (34.0-46.0) % MCV (80.0-100.0) fL MCH (25.0-35.0) pg MCHC (31.0-37.0) g/dL RDW (11.5-15.5) % Plt Count (150-450) k/uL MPV Neutrophils % Lymphocytes % Monocytes % Eosinophils % Basophils % Neutrophils # Lymphocytes # Monocytes # Eosinophils # Basophils # Hypochromasia Poikilocytosis Anisocytosis Macrocytosis PT (10.0-12.5) sec INR (<1.2) APTT (22.0-30.0) sec Sample Site Left Radial ABG pH 7.48 H (7.35-7.45) ABG pCO2 37 (35-45) mmHg ABG pO2 96 (83-108) mmHg ABG HCO3 27 H (21-25) mmol/L ABG Total CO2 28 H (19-24) mmol/L ABG O2 Saturation 98.0 H (94-97) % ABG Base Excess 3.6 mmol/L Julián Test Yes Hemoglobin 7.5 L (11.4-16.0) gm/dL FiO2 28 % Sodium (137-145) mmol/L Potassium (3.5-5.1) mmol/L Chloride (98-107) mmol/L Carbon Dioxide (22-30) mmol/L Anion Gap mmol/L BUN (7-17) mg/dL Creatinine (0.52-1.04) mg/dL Est GFR (CKD-EPI)AfAm (>60 ml/min/1.73 sqM) Est GFR (CKD-EPI)NonAf (>60 ml/min/1.73 sqM) Glucose (74-99) mg/dL Plasma Lactic Acid Bryant (0.7-2.0) mmol/L Calcium (8.4-10.2) mg/dL Magnesium (1.6-2.3) mg/dL Total Bilirubin (0.2-1.3) mg/dL AST (14-36) U/L ALT (4-34) U/L Alkaline Phosphatase (38-126) U/L Ammonia 44 H (<30) umol/L Creatine Kinase (30-135) U/L Troponin I (0.000-0.034) ng/mL NT-Pro-B Natriuret Pep pg/mL Total Protein (6.3-8.2) g/dL Albumin (3.5-5.0) g/dL Urine Color Urine Appearance (Clear) Urine pH (5.0-8.0) Ur Specific [place] (1.001-1.035) Urine Protein (Negative) Urine Glucose (UA) (Negative) Urine Ketones (Negative) Urine Blood (Negative) Urine Nitrite (Negative) Urine Bilirubin (Negative) Urine Urobilinogen (<2.0) mg/dL Ur Leukocyte Esterase (Negative) Influenza Type A (PCR) (Not Detectd) Influenza Type B (PCR) (Not Detectd) RSV (PCR) (Not Detectd) SARS-CoV-2 (PCR) (Not Detectd) - Radiology Data Radiology results: report reviewed, image reviewed Disposition Clinical Impression: Altered mental status, Leukocytosis Disposition: ADMITTED IP TO THIS HOSP
[2024-09-17 08:37] LABS: Anisocytosis Moderate; HCT 27.9 % (34.0-46.0); HGB 8.7 gm/dL (11.4-16.0); Hypochromasia Marked; MCH 32.9 pg (25.0-35.0); MCHC 31.1 g/dL (31.0-37.0); MCV 105.7 fL (80.0-100.0); Macrocytosis Marked; Mean Platelet Volume 8.5; Poikilocytosis Moderate; RBC 2.64 m/uL (3.80-5.40); RDW 22.4 % (11.5-15.5)
[2024-09-17 08:38] LABS: Platelet Count 56 k/uL (150-450)
[2024-09-17 08:40] LABS: ALT 34 U/L (4-34); African American GFR (CKD) >90 (>60 ml/min/1.73 sqM); Anion Gap 7 mmol/L; Blood Urea Nitrogen 18 mg/dL (7-17); Calcium 8.2 mg/dL (8.4-10.2); Carbon Dioxide 28 mmol/L (22-30); Chloride 101 mmol/L (98-107); Glucose 173 mg/dL (74-99); Non-African American GFR(CKD) 87 (>60 ml/min/1.73 sqM); Sodium 136 mmol/L (137-145); Total Bilirubin 1.2 mg/dL (0.2-1.3); Total Protein 5.6 g/dL (6.3-8.2)
[2024-09-17 08:41] LABS: INR 0.9 (<1.2); Partial Thromboplastin Time 21.9 sec (22.0-30.0); Prothrombin Time 10.6 sec (10.0-12.5)
[2024-09-17 08:48] LABS: NT-Pro-B-Type Natriuretic Pept 649 pg/mL
--- NOTE | 2024-09-17 08:51 | XR ---
EXAMINATION TYPE: XR chest 2V DATE OF EXAM: 09/17/2024 8:46 AM COMPARISON: None CLINICAL INDICATION: Female, 58 years old with history of difficulty breathing; TECHNIQUE: XR chest 2V Frontal and lateral views of the chest. FINDINGS: Lungs/Pleura: There is no evidence of pleural effusion, focal consolidation, or pneumothorax. Pulmonary vascularity: Unremarkable. Heart/mediastinum: Cardiomediastinal silhouette is unremarkable. Musculoskeletal: No acute osseous pathology. Midline sternotomy wires are noted. IMPRESSION: No acute cardiopulmonary disease/process. [facility], , 09/17/2024 8:49 AM
[2024-09-17 09:03] LABS: AST 81 U/L (14-36); Alkaline Phosphatase 120 U/L (38-126); Potassium 4.9 mmol/L (3.5-5.1)
[2024-09-17 09:24] LABS: Influenza A Not Detected (Not Detectd); Influenza B Not Detected (Not Detectd); RSV Not Detected (Not Detectd)
[2024-09-17 09:29] LABS: Appearance,Urine Clear (Clear); Bilirubin,Urine Negative (Negative); Blood,Urine Negative (Negative); Color,Urine Yellow; Glucose,Urine (UA) Negative (Negative); Ketones,Urine Negative (Negative); Leukocyte Esterase,Urine Negative (Negative); Nitrite,Urine Negative (Negative); PH, Urine 6.5 (5.0-8.0); Protein,Urine Negative (Negative); Specific Gravity,Urine 1.013 (1.001-1.035)
[2024-09-17] MEDS: SODIUM CHLORIDE 0.9% 500 ML 500 ML IV STA ×2 (09:29→09:41)
[2024-09-17 09:30] LABS: Anisocytosis Moderate; HCT 26.4 % (34.0-46.0); HGB 8.3 gm/dL (11.4-16.0); Hypochromasia Marked; MCH 33.2 pg (25.0-35.0); MCHC 31.4 g/dL (31.0-37.0); MCV 105.8 fL (80.0-100.0); Macrocytosis Marked; Mean Platelet Volume 8.1; Platelet Count 47 k/uL (150-450); Poikilocytosis Moderate; RBC 2.49 m/uL (3.80-5.40); RDW 22.5 % (11.5-15.5); WBC 17.5 k/uL (3.8-10.6)
[2024-09-17] MEDS: SODIUM CHLORIDE 0.9% 1,000 ML IV STA (09:40)
[2024-09-17] MEDS: IPRATROPIUM-ALBUTEROL 3 ML NEB INHALATION STA ×2 (09:46→13:10)
--- NOTE | 2024-09-17 10:20 | CT ---
EXAMINATION TYPE: CT brain cspine wo con DATE OF EXAM: 09/17/2024 8:46 AM COMPARISON: None. CLINICAL INDICATION: Female, 58 years old with history of Fall, AMS; AMS, pain TECHNIQUE: Brain: Multiple axial CT images of the brain were obtained without IV contrast. Cspine: Axial CT images from the skull base to the inferior aspect of T2 we obtained without intraven ous contrast. Coronal and sagittal reformatted images were also reviewed. . CT DLP: 1440.4 mGycm, Automated exposure control for dose reduction was used. FINDINGS: Brain: Extra-axial spaces: No abnormal extra-axial fluid collections. Ventricular system: Within normal limits Cerebral parenchyma: No acute intraparenchymal hemorrhage or mass effect. The newell-white junction is well differentiated. Cerebellum: Unremarkable. Mass effect: No evidence of midline shift. Intracranial vasculature: Atherosclerotic calcifications of the intracranial vessels. Soft tissues: Normal. Calvarium/osseous structures: No depressed skull fracture. Paranasal sinuses and mastoid air cells: Moderate right maxillary scattered paranasal sinus disease. Visualized orbits: Orbital contents are intact. Cervical spine: Fracture: None. Osseous structures: Multilevel degenerative disc disease changes with endplate spurring and disc oste ophyte complex's. Vertebral alignment: Within normal limits. Spinal canal/Neural Foramina: No evidence of significant spinal canal narrowing. No evidence for sign ificant neural foraminal stenosis. Neck soft tissues: Prevertebral soft tissues are within normal limits. Other: The airway is patent. The lung apices are clear. IMPRESSION: 1. No acute intracranial process. 2. No evidence of cervical spine fracture. 3. Mild multilevel degenerative disc disease. [facility], , 09/17/2024 10:18 AM
[2024-09-17] MEDS: cefTRIAXone IN SWFI 1,000 MG/10 ML SYRINGE IVP STA (10:46)
[2024-09-17 13:20] LABS: ABG Base Excess 3.6 mmol/L; ABG HCO3 27 mmol/L (21-25); ABG PCO2 37 mmHg (35-45); ABG PH 7.48 (7.35-7.45); ABG PO2 96 mmHg (83-108); ABG TCO2 28 mmol/L (19-24); Allen Test Performed? Yes
[2024-09-17] MEDS: methylPREDNISolone SOD SUCCI 125 MG/2 ML VIAL IV STA (13:23)
[2024-09-17] MEDS ORDERED: MORPHINE SULFATE 4 MG/ML SYRINGE IV PRN (14:28)
[2024-09-17] MEDS ORDERED: NALOXONE 0.4 MG/ML 1 ML VIAL IV PRN (14:28)
[2024-09-17] MEDS ORDERED: ONDANSETRON 4 MG/2 ML VIAL IVP PRN (14:28)
[2024-09-17] MEDS ORDERED: ACETAMINOPHEN TAB 325 MG TAB PO PRN ×2 (14:28→16:16)
[2024-09-17] MEDS ORDERED: IPRATROPIUM-ALBUTEROL 3 ML NEB INHALATION PRN (14:31)
--- NOTE | 2024-09-17 16:15 | P.HPIM ---
History of Present Illness 58-year-old female was sent in here because of altered mental status patient seemed diaphoretic clammy and was having speech abnormality because of which patient was sent in here patient is alert, unable to assess orientation I am unsure whether patient has aphasia or confused upon extensive evaluation patient is generally weak no focal weakness that I can appreciate no facial droop. Patient does not have any fever but does have leukocytosis without any clear source of infection urinalysis is within normal limits, chest x-ray did not show any significant abnormality, CT of the head and cervical spine did not show any significant acute abnormality except some cervical degenerative vertebral disease. 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 Patient is on morphine 15 mg every 12 hourly and [place] which can contribute to her altered mental status patient is also on Xanax scheduled basis. Patient was hosp[facility] in month of July with similar symptoms at the time patient's symptoms are secondary to polypharmacy. Patient is also on gabapentin. Patient has been on oxygen patient does have bilateral rhonchi and expiratory wheezing on exam. REVIEW OF SYSTEMS: All other systems are negative except those mentioned in the HPI PHYSICAL EXAMINATION: GENERAL: The patient is alert , not in any acute distress. Well developed, well nourished. Obese HEENT: Pupils are round and equally reacting to light. EOMI. No scleral icterus. No conjunctival pallor. Normocephalic, atraumatic. No pharyngeal erythema. No thyromegaly. CARDIOVASCULAR: S1 and S2 present. No murmurs, rubs, or gallops. PULMONARY: Bilateral expiratory wheezing and rhonchi. ABDOMEN: Soft, nontender, nondistended, normoactive bowel sounds. No palpable organomegaly. MUSCULOSKELETAL: No joint swelling or deformity. EXTREMITIES: No cyanosis, clubbing, or pedal edema. NEUROLOGICAL: Gross neurological examination did not reveal any focal deficits. SKIN: No rashes. Assessment and plan -Altered mental status possibly toxic encephalopathy from polypharmacy again we will discontinue MS Contin we will cut down the dose of [place]rey, gabapentin dose will be cut down or discontinued and we will cut down the dose of Xanax or will be held temporarily. Because of the aphasia I cannot completely rule out stroke neurology was consulted from ER which will be continued I did not see any obvious source of infection except for possible bronchitis -Bronchitis with COPD exacerbation, will use azithromycin along with breathing treatments try to avoid systemic steroids -Leukocytosis due to assessment #2 -Type 2 diabetes mellitus -History of DVT in the past -Hyperlipidemia -Hypertension -Leukemia: Oncology was consulted DVT prophylaxis: Subcutaneous heparin Past Medical History Past Medical History: Coronary Artery Disease (CAD), Cancer, Heart Failure, COPD, Diabetes Mellitus, Deep Vein Thrombosis (DVT), Fibromyalgia, GI Bleed, Hyperlipidemia, Hypertension, Myocardial Infarction (SC), Rheumatoid Arthritis (RA) Additional Past Medical History / Comment(s): leukemia Last Myocardial Infarction Date:: unknown History of Any Multi-Drug Resistant Organisms: None Reported Date of last positivie culture/infection: unknown MDRO Source:: skin bilateral arms Past Surgical History: Unable to Obtain Additional Past Surgical History / Comment(s): broken femur past, bilateral knee surgery, 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, right leg green field filter for blood clot Past Anesthesia/Blood Transfusion Reactions: No Reported Reaction Date of Last Stent Placement:: unknown Past Psychological History: No Psychological Hx Reported Smoking Status: Never smoker Past Alcohol Use History: None Reported Past Drug Use History: None Reported - Past Family History Mother Family Medical History: Congestive Heart Failure (CHF), Coronary Artery Disease (CAD), Hyperlipidemia, Myocardial Infarction (SC) Additional Family Medical History / Comment(s): CABG,knee replacement x1, Medications and Allergies Home Medications Medication Instructions Recorded Confirmed Type FLUoxetine HCL [PROzac] 40 mg PO BID 10/27/23 09/17/24 History Gilteritinib Fumarate [Xospata] 120 mg PO DAILY 10/27/23 09/17/24 History Losartan [Cozaar] 12.5 mg PO DAILY@0700 10/27/23 09/17/24 History Potassium Chloride [Klor-Con M20] 20 meq PO DAILY 10/27/23 09/17/24 History Morphine Sulfate ER [Ms Contin] 15 mg PO Q12HR@0700,1900 01/17/24 09/17/24 History Ranolazine [Ranexa] 1,000 mg PO Q12HR 01/17/24 09/17/24 History Acyclovir [Zovirax] 400 mg PO BID 04/14/24 09/17/24 History Atorvastatin [Lipitor] 80 mg PO DAILY 04/14/24 09/17/24 History Furosemide [Lasix] 20 mg PO DAILY 04/14/24 09/17/24 History ALPRAZolam [Xanax] 0.5 mg PO BID 09/17/24 09/17/24 History Acetaminophen Tab [Tylenol] 650 mg PO Q4H PRN 09/17/24 09/17/24 History Butalb/Acetaminophen/Caffeine 1 cap PO Q4H PRN 09/17/24 09/17/24 History [Fioricet 50-300-40 mg Capsule] Calcium Carbonate [Tums] 1,000 mg PO QID PRN 09/17/24 09/17/24 History Cholecalciferol [Vitamin D3 (25 25 mcg PO DAILY 09/17/24 09/17/24 History Mcg = 1000 Iu)] Clopidogrel [Plavix] 75 mg PO HS 09/17/24 09/17/24 History Docusate [Colace] 100 mg PO BID@0700,1600 09/17/24 09/17/24 History Dulaglutide [Trulicity] 1.5 mg SQ MO@0700 09/17/24 09/17/24 History Fluticasone Propion/Salmeterol 1 puff INHALATION RT-BID@0700,1900 09/17/24 09/17/24 History [Advair 100-50 Diskus] Gabapentin [Neurontin] 300 mg PO TID@0700,1300,1900 09/17/24 09/17/24 History HYDROcodone/APAP 7.5-325MG [Aubrey 1 tab PO Q4H 09/17/24 09/17/24 History 7.5-325] Icy Hot Advanced Relief Patch 7.5% 1 patch TRANSDERM DAILY@0000 09/17/24 09/17/24 History Ipratropium-Albuterol Nebulize 3 ml INHALATION RT-Q4H 09/17/24 09/17/24 History [Duoneb 0.5 mg-3 mg/3 ml Soln] Isosorbide Mononitrate ER [Imdur] 15 mg PO DAILY 09/17/24 09/17/24 History Montelukast [Singulair] 10 mg PO HS 09/17/24 09/17/24 History Naloxone HCl 0.4 mg IM ONCE PRN 09/17/24 09/17/24 History Naloxone HCl 4 mg NS ONCE PRN 09/17/24 09/17/24 History Nitroglycerin Sl Tabs [Nitrostat] 0.4 mg SL Q5M PRN 09/17/24 09/17/24 History Omeprazole [PriLOSEC] 20 mg PO BID@0700,1900 09/17/24 09/17/24 History Ondansetron [Zofran] 4 mg PO Q6H 09/17/24 09/17/24 History guaiFENesin [guaiFENesin ER] 600 mg PO Q12HR@0700,1900 09/17/24 09/17/24 History Allergies Allergy/AdvReac Type Severity Reaction Status Date / Time divalproex sodium AdvReac Confusion Verified 09/17/24 14:47 [From Depakote] phenytoin [From Dilantin] AdvReac Confusion Verified 09/17/24 14:47 Physical Exam Vitals: Vital Signs Temp Pulse Resp BP Pulse Ox 09/17/24 13:22 107 H 09/17/24 13:10 105 H 09/17/24 11:54 98 18 102/62 93 L 09/17/24 10:08 106 H 17 110/70 95 09/17/24 09:54 70 09/17/24 09:46 68 09/17/24 07:52 98.5 F 108 H 17 111/73 92 L Intake and Output 09/17/24 09/17/24 09/17/24 06:59 14:59 22:59 Other: Weight 88.904 kg Results CBC & Chem 7: 09/17/24 09:18 09/17/24 08:03 Labs: Abnormal Lab Results - Last 24 Hours (Table) 09/17/24 09/17/24 09/17/24 Range/Units 08:03 08:03 08:03 WBC 19.9 H (3.8-10.6) k/uL RBC 2.64 L (3.80-5.40) m/uL Hgb 8.7 L (11.4-16.0) gm/dL Hct 27.9 L (34.0-46.0) % MCV 105.7 H (80.0-100.0) fL RDW 22.4 H (11.5-15.5) % Plt Count 56 L (150-450) k/uL Macrocytosis Marked A APTT 21.9 L (22.0-30.0) sec ABG pH (7.35-7.45) ABG HCO3 (21-25) mmol/L ABG Total CO2 (19-24) mmol/L ABG O2 Saturation (94-97) % Hemoglobin (11.4-16.0) gm/dL Sodium 136 L (137-145) mmol/L BUN 18 H (7-17) mg/dL Glucose 173 H (74-99) mg/dL Calcium 8.2 L (8.4-10.2) mg/dL AST 81 H (14-36) U/L Ammonia (<30) umol/L Creatine Kinase (30-135) U/L Total Protein 5.6 L (6.3-8.2) g/dL Albumin 3.0 L (3.5-5.0) g/dL 09/17/24 09/17/24 09/17/24 Range/Units 08:03 09:18 12:07 WBC 17.5 H (3.8-10.6) k/uL RBC 2.49 L (3.80-5.40) m/uL Hgb 8.3 L (11.4-16.0) gm/dL Hct 26.4 L (34.0-46.0) % MCV 105.8 H (80.0-100.0) fL RDW 22.5 H (11.5-15.5) % Plt Count 47 L (150-450) k/uL Macrocytosis Marked A APTT (22.0-30.0) sec ABG pH (7.35-7.45) ABG HCO3 (21-25) mmol/L ABG Total CO2 (19-24) mmol/L ABG O2 Saturation (94-97) % Hemoglobin (11.4-16.0) gm/dL Sodium (137-145) mmol/L BUN (7-17) mg/dL Glucose (74-99) mg/dL Calcium (8.4-10.2) mg/dL AST (14-36) U/L Ammonia 44 H (<30) umol/L Creatine Kinase 500 H (30-135) U/L Total Protein (6.3-8.2) g/dL Albumin (3.5-5.0) g/dL 09/17/24 Range/Units 13:16 WBC (3.8-10.6) k/uL RBC (3.80-5.40) m/uL Hgb (11.4-16.0) gm/dL Hct (34.0-46.0) % MCV (80.0-100.0) fL RDW (11.5-15.5) % Plt Count (150-450) k/uL Macrocytosis APTT (22.0-30.0) sec ABG pH 7.48 H (7.35-7.45) ABG HCO3 27 H (21-25) mmol/L ABG Total CO2 28 H (19-24) mmol/L ABG O2 Saturation 98.0 H (94-97) % Hemoglobin 7.5 L (11.4-16.0) gm/dL Sodium (137-145) mmol/L BUN (7-17) mg/dL Glucose (74-99) mg/dL Calcium (8.4-10.2) mg/dL AST (14-36) U/L Ammonia (<30) umol/L Creatine Kinase (30-135) U/L Total Protein (6.3-8.2) g/dL Albumin (3.5-5.0) g/dL
[2024-09-17] MEDS ORDERED: NITROGLYCERIN SL TABS 0.4 MG TAB SUBLINGUAL PRN (16:16)
[2024-09-17 17:47] LABS: Glucose,Whole Blood 224 mg/dL (70-110)
[2024-09-17] MEDS: ONDANSETRON 4 MG TAB PO SCH (17:59)
[2024-09-17] MEDS: INSULIN ASPART (NovoLOG) 100 UNIT/ML VIAL SQ SCH (17:59)
[2024-09-17] MEDS ORDERED: NON FORMULARY DRUG (Omeprazole 20 MG Capsule.Dr) PO SCH (19:00)
[2024-09-17 23:12] LABS: Glucose,Whole Blood 210 mg/dL (70-110)
[2024-09-17] MEDS: MONTELUKAST 10 MG TAB PO SCH (23:16)
[2024-09-17] MEDS: FLUoxetine HCL 20 MG CAP PO SCH (23:16)
[2024-09-17] MEDS: CLOPIDOGREL 75 MG TAB PO SCH (23:16)
[2024-09-17] MEDS: ACYCLOVIR 200 MG CAP PO SCH (23:16)
[2024-09-17] MEDS: HYDROcodone/APAP 7.5-325MG 1 EACH TAB PO PRN (23:16)
[2024-09-17] MEDS: SYMBICORT 80-4.5 MCG INHALER INHALATION SCH (23:22)
[2024-09-17] MEDS: IPRATROPIUM-ALBUTEROL 3 ML NEB INHALATION SCH ×2 (23:22)
[2024-09-17] MEDS: guaiFENesin 600 MG TABLET.ER PO SCH (23:36)
[2024-09-17] MEDS: RANOLAZINE 500 MG TAB.ER.12H PO SCH (23:43)
[2024-09-18 07:10] LABS: Glucose,Whole Blood 186 mg/dL (70-110)
[2024-09-18] MEDS: DOCUSATE 100 MG CAP PO SCH (07:36)
[2024-09-18] MEDS: [UNRECOGNIZED DRUG - OTHER] PO SCH (08:17)
[2024-09-18] MEDS: ENOXAPARIN 40 MG/0.4 ML SYRINGE SQ SCH (08:17)
[2024-09-18] MEDS: AZITHROMYCIN 500 MG TAB PO SCH (08:17)
[2024-09-18] MEDS: ATORVASTATIN 80 MG TAB PO SCH (08:17)
[2024-09-18] MEDS: PANTOPRAZOLE 40 MG/10 ML VIAL IV SCH (08:18)
[2024-09-18 11:58] LABS: Calcium 8.2 mg/dL (8.7-10.3); Carbon Dioxide 25.5 mmol/L (21.6-31.8); Chloride 106 mmol/L (96-109); Glucose 186 mg/dL (70-110); Magnesium 2.1 mg/dL (1.5-2.4); Potassium 4.7 mmol/L (3.5-5.5); Sodium 143 mmol/L (135-145)
--- NOTE | 2024-09-18 12:06 | P.PN ---
Subjective 58-year-old female was sent in here because of altered mental status patient seemed diaphoretic clammy and was having speech abnormality because of which patient was sent in here patient is alert, unable to assess orientation I am unsure whether patient has aphasia or confused upon extensive evaluation patient is generally weak no focal weakness that I can appreciate no facial droop. Patient does not have any fever but does have leukocytosis without any clear source of infection urinalysis is within normal limits, chest x-ray did not show any significant abnormality, CT of the head and cervical spine did not show any significant acute abnormality except some cervical degenerative vertebral disease. 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 Patient is on morphine 15 mg every 12 hourly and [place] which can contribute to her altered mental status patient is also on Xanax scheduled basis. Patient was hospitalized in month of July with similar symptoms at the time patient's symptoms are secondary to polypharmacy. Patient is also on gabapentin. Patient has been on oxygen patient does have bilateral rhonchi and expiratory wheezing on exam. 09/18 Patient more awake and alert and partially oriented to time place and person, She is short of breath and wheezing and occasional coughing but no chest pain No abdominal pain but has 1 large bowel movement which looks is full is loose. C. difficile test is going to be checked if persist. But no abdominal pain and she tolerates diet She has positive blood culture with Staph epidermidis most likely contamination. Currently on Zithromax but also she has evidence of leukocytosis which is trending down from 19 down to 17. She has history of leukemia and she has been followed up by hematology/oncology REVIEW OF SYSTEMS: All other systems are negative except those mentioned in the HPI Objective - Vital Signs Vital signs: Vital Signs Temp 98.2 F 09/18/24 11:53 Pulse 121 H 09/18/24 11:53 Resp 16 09/18/24 11:53 BP 142/74 09/18/24 11:53 Pulse Ox 97 09/18/24 11:53 FiO2 Intake & Output 09/17/24 09/18/24 09/18/24 18:59 06:59 18:59 Weight 88.904 kg 88.904 kg Other: Voiding Method Bedside Commode # Voids 1 # Bowel Movements 1 - Exam GENERAL: The patient is alert and oriented x3 partially, not in any acute distress. Well developed, well nourished. HEENT: Pupils are round and equally reacting to light. EOMI. No scleral icterus. No conjunctival pallor. Normocephalic, atraumatic. No pharyngeal erythema. No thyromegaly. CARDIOVASCULAR: S1 and S2 present. No murmurs, rubs, or gallops. -PULMONARY: Chest is clear to auscultation, bilateral expiratory wheezing , no crackles. ABDOMEN: Soft, nontender, nondistended, normoactive bowel sounds. No palpable organomegaly. MUSCULOSKELETAL: No joint swelling or deformity. EXTREMITIES: No cyanosis, clubbing, or pedal edema. NEUROLOGICAL: Gross neurological examination did not reveal any focal deficits. SKIN: No rashes. no petechiae. - Labs CBC & Chem 7: 09/17/24 09:18 09/18/24 06:34 Labs: Abnormal Lab Results - Last 24 Hours (Table) 09/17/24 09/17/24 09/17/24 Range/Units 08:03 12:07 13:16 ABG pH 7.48 H (7.35-7.45) ABG HCO3 27 H (21-25) mmol/L ABG Total CO2 28 H (19-24) mmol/L ABG O2 Saturation 98.0 H (94-97) % Hemoglobin 7.5 L (11.4-16.0) gm/dL Glucose (70-110) mg/dL POC Glucose (mg/dL) (70-110) mg/dL Calcium (8.7-10.3) mg/dL Ammonia 44 H (<30) umol/L Creatine Kinase 500 H (30-135) U/L 09/17/24 09/17/24 09/18/24 Range/Units 17:45 23:10 06:34 ABG pH (7.35-7.45) ABG HCO3 (21-25) mmol/L ABG Total CO2 (19-24) mmol/L ABG O2 Saturation (94-97) % Hemoglobin (11.4-16.0) gm/dL Glucose 186 H (70-110) mg/dL POC Glucose (mg/dL) 224 H 210 H (70-110) mg/dL Calcium 8.2 L (8.7-10.3) mg/dL Ammonia (<30) umol/L Creatine Kinase (30-135) U/L 09/18/24 Range/Units 07:09 ABG pH (7.35-7.45) ABG HCO3 (21-25) mmol/L ABG Total CO2 (19-24) mmol/L ABG O2 Saturation (94-97) % Hemoglobin (11.4-16.0) gm/dL Glucose (70-110) mg/dL POC Glucose (mg/dL) 186 H (70-110) mg/dL Calcium (8.7-10.3) mg/dL Ammonia (<30) umol/L Creatine Kinase (30-135) U/L Microbiology - Last 24 Hours (Table) 09/17/24 09:04 Blood Culture Gram Stain - Preliminary Blood Blood Culture - Preliminary Molecular ID Assessment and Plan Assessment: Assessment and plan -Altered mental status possibly toxic encephalopathy from polypharmacy again we will discontinue MS Contin we will cut down the dose of [place], gabapentin dose will be cut down or discontinued and we will cut down the dose of Xanax or will be held temporarily. Because of the aphasia I cannot completely rule out stroke neurology was consulted from ER which will be continued I did not see any obvious source of infection except for possible bronchitis mentation improved significantly Mentation improved significantly -Bronchitis with COPD exacerbation, will use azithromycin along with breathing treatments. Start IV Solu-Medrol -Leukocytosis due to assessment #2 -Diarrhea, 1 or 2 episodes, suspicion of colitis is low, abdomen soft. Rule out C. difficile -Positive blood culture with Staph epidermidis could be contamination. Consult ID team currently on Zithromax -Anemia and thrombocytopenia, keep monitoring hemoglobin and platelet count and to keep dropping may hold anticoagulant -Type 2 diabetes mellitus -History of DVT in the past -Hyperlipidemia -Hypertension -Leukemia: Oncology was consulted DVT prophylaxis: Subcutaneous Lovenox GI prophylaxis: Protonix
[2024-09-18 12:33] LABS: Glucose,Whole Blood 184 mg/dL (70-110)
[2024-09-18] MEDS: ISOSORBIDE MONONITRATE ER 15 MG TAB PO SCH (12:56)
[2024-09-18] MEDS: ONDANSETRON 4 MG/2 ML VIAL IVP PRN (13:36)
--- NOTE | 2024-09-18 13:36 | P.CONS ---
History of Present Illness - Reason for Consult Consult date: 09/18/24 hx AML Requesting physician: Michelle De Dios - Chief Complaint altered mental status - History of Present Illness Ms. Gordon is a 58-year-old woman with a past medical history significant for CAD status post 5 vessel CABG, ischemic cardiomyopathy, hypertension, hyperli pidemia, and FLT3-TKD AML who first presented to clinic to establish care from [place] for AML. With regards to her history of AML, this was diagnosed back in May 2023 after thrombocytopenia did not improve with vitamin B12 administration. She underwent induction chemotherapy with Vyxeos, which was complicated at that time with significant anxiety and poor family dynamics. 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 Following induction chemotherapy, she was started on gilteritinib due to having FLT3-TKD around June to July 2023. She has been on gilteritinib since then and has been stable from an AML perspective. She was seen in consultation on 10/28/2023, when she initially presented with acute metabolic encephalopathy requiring BiPAP and vasopressors, which quickly resolved. This was attributed to taking medications incorrectly at home. From this episode, she did have a fall resulting in fracture of the left femoral head. Cell counts at that time revealed WBC 2.5, hemoglobin 9.4, platelets 97. Workup for pancytopenia and patient was nonremarkable. Following our initial consultation, she was readmitted for possible TIA from 10/31/2023 through 11/02/[address] angiography revealing no acute process. She did have a history of gastric cancer that was resected at [facility] in [address] abdomen/pelvis without contrast on 11/01/2023 revealed no acute process. She did have a hospitalization in January 2024 for metabolic encephalopathy that was a result of stopping medications including morphine resulting in opioid withdrawal and resolved after reinitiation of morphine. She then had subsequent hospitalization for metabolic encephalopathy that was attributed to UTI and subsequently improved with antibiotics. She has continued on gilteritinib 120 mg daily. CBC on 05/12/24 showed hgb 11.3, MCV 109.8, WBC 2.6, plt 105. Next clinic f/u scheduled with Dr. Sridevi Balderrama on 09/27. Patient presented to the emergency room from assisted for altered mental status. Upon admit chest x-ray was negative for acute cardiopulmonary processes. CT brain and C-spine negative for acute intracranial processes with no evidence of cervical spine fracture. Labs reviewed, WBC 17.5, hemoglobin 8.3, MCV 105.8, platelets 47,000. Creatinine 0.76, GFR 87. AST 81, ALT 34, ALP 120, bilirubin 1.2. Ammonia 44. CK 500. BNP 649, troponin negative. Lactic acid 1.3. Viral panel and urinalysis negative for infection. Blood culture pending. Patient is afebrile. Pt has been started on Azithromycin and Rocephin for possible pneumonia. 2 liter saline bolus was given in the ER. At today's visit patient is tearful and is complaining of abdominal pain and nausea diarrhea, but HPI is somewhat limited due to her acute confusion. She states she has been taking her Xospata daily as directed. Review of Systems 10 point ROS is negative except as stated in the HPI Past Medical History Past Medical History: Coronary Artery Disease (CAD), Cancer, Heart Failure, COPD, Diabetes Mellitus, Deep Vein Thrombosis (DVT), Fibromyalgia, GI Bleed, Hyperlipidemia, Hypertension, Myocardial Infarction ([place]), Rheumatoid Arthritis ([place]) Additional Past Medical History / Comment(s): leukemia Last Myocardial Infarction Date:: unknown History of Any Multi-Drug Resistant Organisms: None Reported Year Discovered:: unknown MDRO Source:: skin bilateral arms Past Surgical History: Unable to Obtain Additional Past Surgical History / Comment(s): broken femur, bilateral knee surgery, 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, right leg green field filter for blood clot Past Anesthesia/Blood Transfusion Reactions: No Reported Reaction Date of Last Stent Placement:: unknown Past Psychological History: No Psychological Hx Reported Smoking Status: Never smoker Past Alcohol Use History: None Reported Past Drug Use History: None Reported - Past Family History Mother Family Medical History: Congestive Heart Failure (CHF), Coronary Artery Disease (CAD), Hyperlipidemia, Myocardial Infarction ([place]) Additional Family Medical History / Comment(s): CABG,knee replacement x1, Medications and Allergies Home Medications Medication Instructions Recorded Confirmed Type FLUoxetine HCL [PROzac] 40 mg PO BID 10/27/23 09/17/24 History Gilteritinib Fumarate [Xospata] 120 mg PO DAILY 10/27/23 09/17/24 History Losartan [Cozaar] 12.5 mg PO DAILY@0700 10/27/23 09/17/24 History Potassium Chloride [Klor-Con M20] 20 meq PO DAILY 10/27/23 09/17/24 History Morphine Sulfate ER [Ms Contin] 15 mg PO Q12HR@0700,1900 01/17/24 09/17/24 History Ranolazine [Ranexa] 1,000 mg PO Q12HR 01/17/24 09/17/24 History Acyclovir [Zovirax] 400 mg PO BID 04/14/24 09/17/24 History Atorvastatin [Lipitor] 80 mg PO DAILY 04/14/24 09/17/24 History Furosemide [Lasix] 20 mg PO DAILY 04/14/24 09/17/24 History ALPRAZolam [Xanax] 0.5 mg PO BID 09/17/24 09/17/24 History Acetaminophen Tab [Tylenol] 650 mg PO Q4H PRN 09/17/24 09/17/24 History Butalb/Acetaminophen/Caffeine 1 cap PO Q4H PRN 09/17/24 09/17/24 History [Fioricet 50-300-40 mg Capsule] Calcium Carbonate [Tums] 1,000 mg PO QID PRN 09/17/24 09/17/24 History Cholecalciferol [Vitamin D3 (25 25 mcg PO DAILY 09/17/24 09/17/24 History Mcg = 1000 Iu)] Clopidogrel [Plavix] 75 mg PO HS 09/17/24 09/17/24 History Docusate [Colace] 100 mg PO BID@0700,1600 09/17/24 09/17/24 History Dulaglutide [Trulicity] 1.5 mg SQ MO@0700 09/17/24 09/17/24 History Fluticasone Propion/Salmeterol 1 puff INHALATION RT-BID@0700,1900 09/17/24 09/17/24 History [Advair 100-50 Diskus] Gabapentin [Neurontin] 300 mg PO TID@0700,1300,1900 09/17/24 09/17/24 History HYDROcodone/APAP 7.5-325MG [[place] 1 tab PO Q4H 09/17/24 09/17/24 History 7.5-325] Icy Hot Advanced Relief Patch 7.5% 1 patch TRANSDERM DAILY@0000 09/17/24 09/17/24 History Ipratropium-Albuterol Nebulize 3 ml INHALATION RT-Q4H 09/17/24 09/17/24 History [Duoneb 0.5 mg-3 mg/3 ml Soln] Isosorbide Mononitrate ER [Imdur] 15 mg PO DAILY 09/17/24 09/17/24 History Montelukast [Singulair] 10 mg PO HS 09/17/24 09/17/24 History Naloxone HCl 0.4 mg IM ONCE PRN 09/17/24 09/17/24 History Naloxone HCl 4 mg NS ONCE PRN 09/17/24 09/17/24 History Nitroglycerin Sl Tabs [Nitrostat] 0.4 mg SL Q5M PRN 09/17/24 09/17/24 History Omeprazole [PriLOSEC] 20 mg PO BID@0700,1900 09/17/24 09/17/24 History Ondansetron [Zofran] 4 mg PO Q6H 09/17/24 09/17/24 History guaiFENesin [guaiFENesin ER] 600 mg PO Q12HR@0700,1900 09/17/24 09/17/24 History Allergies Allergy/AdvReac Type Severity Reaction Status Date / Time divalproex sodium AdvReac Confusion Verified 09/17/24 14:47 [From Depakote] phenytoin [From Dilantin] AdvReac Confusion Verified 09/17/24 14:47 Physical Exam Vitals: Vital Signs Temp Pulse Pulse Resp BP BP Pulse Ox 09/18/24 07:08 97.6 F 121 H 16 164/89 99 09/18/24 01:38 98.4 F 109 H 20 162/89 99 09/17/24 23:35 20 09/17/24 23:17 99.0 F 118 H 20 148/93 98 09/17/24 22:46 114 H 16 131/73 97 09/17/24 18:47 98.2 F 106 H 16 134/78 98 09/17/24 13:22 107 H 09/17/24 13:10 105 H 09/17/24 11:54 98 18 102/62 93 L 09/17/24 10:08 106 H 17 110/70 95 09/17/24 09:54 70 09/17/24 09:46 68 Intake and Output 09/17/24 09/18/24 09/18/24 22:59 06:59 14:59 Other: # Voids 1 # Bowel Movements 1 Weight 88.904 kg - Constitutional General appearance: mild distress, obese - EENT Eyes: anicteric sclerae, EOMI ENT: hearing grossly normal - Respiratory Respiratory: right: rhonchi, left: CTA - Cardiovascular tachycardic - Gastrointestinal General gastrointestinal: soft, tenderness Localized gastrointestinal: tender: diffuse - Integumentary Integumentary: no cyanotic, no jaundiced - Neurologic confused, A&O x 2 - Psychiatric tearful Results CBC & Chem 7: 09/17/24 09:18 09/18/24 06:34 Labs: Abnormal Lab Results - Last 24 Hours (Table) 09/17/24 09/17/24 09/17/24 Range/Units 08:03 08:03 08:03 WBC 19.9 H (3.8-10.6) k/uL RBC 2.64 L (3.80-5.40) m/uL Hgb 8.7 L (11.4-16.0) gm/dL Hct 27.9 L (34.0-46.0) % MCV 105.7 H (80.0-100.0) fL RDW 22.4 H (11.5-15.5) % Plt Count 56 L (150-450) k/uL Macrocytosis Marked A APTT 21.9 L (22.0-30.0) sec ABG pH (7.35-7.45) ABG HCO3 (21-25) mmol/L ABG Total CO2 (19-24) mmol/L ABG O2 Saturation (94-97) % Hemoglobin (11.4-16.0) gm/dL Sodium 136 L (137-145) mmol/L BUN 18 H (7-17) mg/dL Glucose 173 H (74-99) mg/dL POC Glucose (mg/dL) (70-110) mg/dL Calcium 8.2 L (8.4-10.2) mg/dL AST 81 H (14-36) U/L Ammonia (<30) umol/L Creatine Kinase (30-135) U/L Total Protein 5.6 L (6.3-8.2) g/dL Albumin 3.0 L (3.5-5.0) g/dL 09/17/24 09/17/24 09/17/24 Range/Units 08:03 09:18 12:07 WBC 17.5 H (3.8-10.6) k/uL RBC 2.49 L (3.80-5.40) m/uL Hgb 8.3 L (11.4-16.0) gm/dL Hct 26.4 L (34.0-46.0) % MCV 105.8 H (80.0-100.0) fL RDW 22.5 H (11.5-15.5) % Plt Count 47 L (150-450) k/uL Macrocytosis Marked A APTT (22.0-30.0) sec ABG pH (7.35-7.45) ABG HCO3 (21-25) mmol/L ABG Total CO2 (19-24) mmol/L ABG O2 Saturation (94-97) % Hemoglobin (11.4-16.0) gm/dL Sodium (137-145) mmol/L BUN (7-17) mg/dL Glucose (74-99) mg/dL POC Glucose (mg/dL) (70-110) mg/dL Calcium (8.4-10.2) mg/dL AST (14-36) U/L Ammonia 44 H (<30) umol/L Creatine Kinase 500 H (30-135) U/L Total Protein (6.3-8.2) g/dL Albumin (3.5-5.0) g/dL 09/17/24 09/17/24 09/17/24 Range/Units 13:16 17:45 23:10 WBC (3.8-10.6) k/uL RBC (3.80-5.40) m/uL Hgb (11.4-16.0) gm/dL Hct (34.0-46.0) % MCV (80.0-100.0) fL RDW (11.5-15.5) % Plt Count (150-450) k/uL Macrocytosis APTT (22.0-30.0) sec ABG pH 7.48 H (7.35-7.45) ABG HCO3 27 H (21-25) mmol/L ABG Total CO2 28 H (19-24) mmol/L ABG O2 Saturation 98.0 H (94-97) % Hemoglobin 7.5 L (11.4-16.0) gm/dL Sodium (137-145) mmol/L BUN (7-17) mg/dL Glucose (74-99) mg/dL POC Glucose (mg/dL) 224 H 210 H (70-110) mg/dL Calcium (8.4-10.2) mg/dL AST (14-36) U/L Ammonia (<30) umol/L Creatine Kinase (30-135) U/L Total Protein (6.3-8.2) g/dL Albumin (3.5-5.0) g/dL 09/18/24 Range/Units 07:09 WBC (3.8-10.6) k/uL RBC (3.80-5.40) m/uL Hgb (11.4-16.0) gm/dL Hct (34.0-46.0) % MCV (80.0-100.0) fL RDW (11.5-15.5) % Plt Count (150-450) k/uL Macrocytosis APTT (22.0-30.0) sec ABG pH (7.35-7.45) ABG HCO3 (21-25) mmol/L ABG Total CO2 (19-24) mmol/L ABG O2 Saturation (94-97) % Hemoglobin (11.4-16.0) gm/dL Sodium (137-145) mmol/L BUN (7-17) mg/dL Glucose (74-99) mg/dL POC Glucose (mg/dL) 186 H (70-110) mg/dL Calcium (8.4-10.2) mg/dL AST (14-36) U/L Ammonia (<30) umol/L Creatine Kinase (30-135) U/L Total Protein (6.3-8.2) g/dL Albumin (3.5-5.0) g/dL Chest x-ray: report reviewed CT Scan - head: report reviewed Assessment and Plan (1) AML (acute myeloid leukemia) Current Visit: Yes Status: Acute Code(s): C92.00 - ACUTE MYELOBLASTIC LEUKEMIA, NOT HAVING ACHIEVED REMISSION SNOMED Code(s): 70375825 (2) Altered mental status Current Visit: Yes Status: Acute Priority: High Code(s): R41.82 - ALTERED MENTAL STATUS, UNSPECIFIED SNOMED Code(s): 153184605 (3) Leukocytosis Current Visit: Yes Status: Acute Code(s): D72.829 - ELEVATED WHITE BLOOD CELL COUNT, UNSPECIFIED SNOMED Code(s): 336454265 Plan: Altered mental status: Patient presented to the emergency room from assisted for altered mental status. She has had multiple admissions for the same over the last 1 year. -CT brain and C-spine negative for acute intracranial processes with no evidence of cervical spine fracture. -Upon admit chest x-ray was negative for acute cardiopulmonary processes. She was empirically started on rocephin and azithromycin -Viral panel and urinalysis negative for infection. Blood culture pending. Patient is afebrile. Leukocytosis noted, WBC 17.5. Creatinine 0.76, GFR 87. AST 81, ALT 34, ALP 120, bilirubin 1.2. Ammonia 44. CK 500. Lactic acid 1.3 -Mentation appears to be improving since admission -Neurology consulted Abdominal pain, nausea, diarrhea: Today reporting diffuse abdominal pain and persisting nausea and diarrhea. Tolerating some oral intake, but intake is diminished -C-diff testing ordered -CT AP will be obtained to further evaluate symptoms -Continue anti-emetics and pain meds as needed AML: -Oncology history as dictated in the HPI -She has continued on gilteritinib 120 mg daily with stable disease -Labs obtained in clinic on 05/12/24 showed Hgb 11.3, MCV 109.8, WBC 2.6, plt 105. CBC on admit showing WBC 17.5, hgb 8.3, MCV 105.8 plt 47,000. CBC today pending. Noted decrease in hgb and plts likely reactive superimposed by acute condition, however progression of AML remains in differential. Pt states she has continued on gilteritinib, however, due to confusion unsure if she has been abhishek ing it consistently. Will continue to monitor CBC to see if counts improve as pt recovers -Vitamin B12 1571. Will obtain folate and iron studies to r/o nutritional deficiencies -Will hold gilteritinib until acute condition resolved -Transfuse for hgb < 7 and for plts < 10,000 or if symptomatic. If plts < 50,000 recommend holding anticoagulation and use of SCDs for DVT prophylaxis -Clinic f/u scheduled with Dr. Sridevi Balderrama on 09/27
[2024-09-18] MEDS: IOPAMIDOL CONTRAST (ORAL USE) VIAL PO PRN (13:37)
[2024-09-18 14:00] LABS: HCT 28.6 % (37.2-46.3); HGB 8.5 g/dL (12.0-15.0); Immature Platelet Fraction 29.4 % (1.1-6.1); MCH 32.4 pg (27.0-32.0); MCHC 29.7 g/dL (32.0-37.0); MCV 109.2 FL (80.0-97.0); NRBC Per 100 WBC 5.75 X 10*3/uL (0.00-0.01); Platelet Count 56 X 10*3/uL (140-440); RBC 2.62 X 10*6/uL (4.10-5.20); RDW 22.8 % (11.5-14.5); WBC 10.36 X 10*3/uL (4.50-10.00)
--- NOTE | 2024-09-18 14:32 | P.CNNES ---
History of Present Illness Consult date: 09/18/24 Requesting physician: Michelle De Dios Reason for Consult: altered mental status History of Present Illness: This is a 58-year-old woman with history of leukemia send emergency department because of altered mental status. History is obtained from medical record and the patient nurse. Unable to obtain history from the patient. The patient resides and [facility] [place] and it seems that yesterday the patient was checke d up on by the staff member around 1 AM and she was fine then around 5 AM she was slower to respond and seemed diaphoretic and clammy per the ED note. Per also seems to the patient fell yesterday and it was not witnessed. She fell on her face. Seems that she is receiving Rocephin and Solu-Medrol daily for the last several days for concern for bronchitis. During shortness of breath for the past couple weeks. Seems that she fell and there is a concern that was a result of the dizziness currently patient she does get chemotherapy for her leukemia and follows up with oncologist as outpatient. Patient states she is having headache over the right frontal parietal region and she feels it is a ggravating. She is having some nausea. Some of the workup during this hospital visit: Patient is afebrile White blood cell is 19.9 thousand and it is trending down to 10.36 thousand With is in the 40s to 50s thousand Hemoglobin is in the 8ish Glucose is in 200 Sodium is 136, Ammonia is 44 B12 is 1571 AST of 81 and ALT is 34 CK level is [address] of the head and cervical spine is reported as no acute intracranial process. No evidence of cervical spine fracture. Mild multilevel degenerative disc disease. I personally reviewed the CT of the head and I agree with the report. Blood cultures is positive for gram-positive cocci in clusters Review of Systems Limited but as per HPI. Past Medical History Past Medical History: Coronary Artery Disease (CAD), Cancer, Heart Failure, COPD, Diabetes Mellitus, Deep Vein Thrombosis (DVT), Fibromyalgia, GI Bleed, Hyperlipidemia, Hypertension, Myocardial Infarction ([place]), Rheumatoid Arthritis ([place]) Additional Past Medical History / Comment(s): leukemia Last Myocardial Infarction Date:: unknown History of Any Multi-Drug Resistant Organisms: None Reported Date of last positivie culture/infection: unknown MDRO Source:: skin bilateral arms Past Surgical History: Unable to Obtain Additional Past Surgical History / Comment(s): broken femur, bilateral knee surgery, 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, right leg green field filter for blood clot Past Anesthesia/Blood Transfusion Reactions: No Reported Reaction Date of Last Stent Placement:: unknown Past Psychological History: No Psychological Hx Reported Smoking Status: Never smoker Past Alcohol Use History: None Reported Past Drug Use History: None Reported - Past Family History Mother Family Medical History: Congestive Heart Failure (CHF), Coronary Artery Disease (CAD), Hyperlipidemia, Myocardial Infarction ([place]) Additional Family Medical History / Comment(s): CABG,knee replacement x1, Medications and Allergies Home Medications Medication Instructions Recorded Confirmed Type FLUoxetine HCL [PROzac] 40 mg PO BID 10/27/23 09/17/24 History Gilteritinib Fumarate [Xospata] 120 mg PO DAILY 10/27/23 09/17/24 History Losartan [Cozaar] 12.5 mg PO DAILY@0700 10/27/23 09/17/24 History Potassium Chloride [Klor-Con M20] 20 meq PO DAILY 10/27/23 09/17/24 History Morphine Sulfate ER [Ms Contin] 15 mg PO Q12HR@0700,1900 01/17/24 09/17/24 History Ranolazine [Ranexa] 1,000 mg PO Q12HR 01/17/24 09/17/24 History Acyclovir [Zovirax] 400 mg PO BID 04/14/24 09/17/24 History Atorvastatin [Lipitor] 80 mg PO DAILY 04/14/24 09/17/24 History Furosemide [Lasix] 20 mg PO DAILY 04/14/24 09/17/24 History ALPRAZolam [Xanax] 0.5 mg PO BID 09/17/24 09/17/24 History Acetaminophen Tab [Tylenol] 650 mg PO Q4H PRN 09/17/24 09/17/24 History Butalb/Acetaminophen/Caffeine 1 cap PO Q4H PRN 09/17/24 09/17/24 History [Fioricet 50-300-40 mg Capsule] Calcium Carbonate [Tums] 1,000 mg PO QID PRN 09/17/24 09/17/24 History Cholecalciferol [Vitamin D3 (25 25 mcg PO DAILY 09/17/24 09/17/24 History Mcg = 1000 Iu)] Clopidogrel [Plavix] 75 mg PO HS 09/17/24 09/17/24 History Docusate [Colace] 100 mg PO BID@0700,1600 09/17/24 09/17/24 History Dulaglutide [Trulicity] 1.5 mg SQ MO@0700 09/17/24 09/17/24 History Fluticasone Propion/Salmeterol 1 puff INHALATION RT-BID@0700,1900 09/17/24 09/17/24 History [Advair 100-50 Diskus] Gabapentin [Neurontin] 300 mg PO TID@0700,1300,1900 09/17/24 09/17/24 History HYDROcodone/APAP 7.5-325MG [[place] 1 tab PO Q4H 09/17/24 09/17/24 History 7.5-325] Icy Hot Advanced Relief Patch 7.5% 1 patch TRANSDERM DAILY@0000 09/17/24 09/17/24 History Ipratropium-Albuterol Nebulize 3 ml INHALATION RT-Q4H 09/17/24 09/17/24 History [Duoneb 0.5 mg-3 mg/3 ml Soln] Isosorbide Mononitrate ER [Imdur] 15 mg PO DAILY 09/17/24 09/17/24 History Montelukast [Singulair] 10 mg PO HS 09/17/24 09/17/24 History Naloxone HCl 0.4 mg IM ONCE PRN 09/17/24 09/17/24 History Naloxone HCl 4 mg NS ONCE PRN 09/17/24 09/17/24 History Nitroglycerin Sl Tabs [Nitrostat] 0.4 mg SL Q5M PRN 09/17/24 09/17/24 History Omeprazole [PriLOSEC] 20 mg PO BID@0700,1900 09/17/24 09/17/24 History Ondansetron [Zofran] 4 mg PO Q6H 09/17/24 09/17/24 History guaiFENesin [guaiFENesin ER] 600 mg PO Q12HR@0700,1900 09/17/24 09/17/24 History Allergies Allergy/AdvReac Type Severity Reaction Status Date / Time divalproex sodium AdvReac Confusion Verified 09/17/24 14:47 [From Depakote] phenytoin [From Dilantin] AdvReac Confusion Verified 09/17/24 14:47 Physical Examination - Vital Signs Vital Signs: Vital Signs Temp Pulse Pulse Resp BP BP Pulse Ox 09/18/24 11:53 98.2 F 121 H 16 142/74 97 09/18/24 09:00 121 H 16 09/18/24 07:08 97.6 F 121 H 16 164/89 99 09/18/24 01:38 98.4 F 109 H 20 162/89 99 09/17/24 23:35 20 09/17/24 23:17 99.0 F 118 H 20 148/93 98 09/17/24 22:46 114 H 16 131/73 97 09/17/24 18:47 98.2 F 106 H 16 134/78 98 Intake and Output 09/17/24 09/18/24 09/18/24 22:59 06:59 14:59 Intake Total 1080 Balance 1080 Intake: Oral 1080 Other: Voiding Method Bedside Commode # Voids 1 4 # Bowel Movements 1 1 Weight 88.904 kg General: Lying in bed and is not in acute distress. Resp: Is wheezing even without auscultation. Is not tachypneic. Neuro: Limited because of her overall condition/cooperation Patient is awake alert oriented to self. She is also oriented to place with options. She correctly names objects correctly such as pen, phone. She is following simple commands. What with the limited language no aphasia The pupils are round 3 to 4 mm bilaterally and reactive to light. No facial weakness. No dysarthria. Motor she was able to lift up all extremity above gravity and appears symmetrical. Unable to assess individual muscle strength because of her overall cooperation but as stated above she was left in all extremities above gravity. Normal tone and bulk. Sensation appears normal throughout Reflexes 2 positive throughout Plantars are mute. Results - Laboratory Findings CBC and BMP: 09/18/24 06:34 09/18/24 06:34 Abnormal Lab Findings: Abnormal Labs 09/17/24 09/17/24 09/17/24 08:03 08:03 08:03 WBC 19.9 H RBC 2.64 L Hgb 8.7 L Hct 27.9 L MCV 105.7 H MCH MCHC RDW 22.4 H Plt Count 56 L NRBC/100 WBC Diff Immature Plt Fraction Macrocytosis Marked A APTT 21.9 L ABG pH ABG HCO3 ABG Total CO2 ABG O2 Saturation Hemoglobin Sodium 136 L BUN 18 H Glucose 173 H POC Glucose (mg/dL) Calcium 8.2 L AST 81 H Ammonia Creatine Kinase Total Protein 5.6 L Albumin 3.0 L Vitamin B12 09/17/24 09/17/24 09/17/24 08:03 09:18 12:07 WBC 17.5 H RBC 2.49 L Hgb 8.3 L Hct 26.4 L MCV 105.8 H MCH MCHC RDW 22.5 H Plt Count 47 L NRBC/100 WBC Diff Immature Plt Fraction Macrocytosis Marked A APTT ABG pH ABG HCO3 ABG Total CO2 ABG O2 Saturation Hemoglobin Sodium BUN Glucose POC Glucose (mg/dL) Calcium AST Ammonia 44 H Creatine Kinase 500 H Total Protein Albumin Vitamin B12 09/17/24 09/17/24 09/17/24 13:16 17:45 23:10 WBC RBC Hgb Hct MCV MCH MCHC RDW Plt Count NRBC/100 WBC Diff Immature Plt Fraction Macrocytosis APTT ABG pH 7.48 H ABG HCO3 27 H ABG Total CO2 28 H ABG O2 Saturation 98.0 H Hemoglobin 7.5 L Sodium BUN Glucose POC Glucose (mg/dL) 224 H 210 H Calcium AST Ammonia Creatine Kinase Total Protein Albumin Vitamin B12 09/18/24 09/18/24 09/18/24 06:34 06:34 07:09 WBC 10.36 H RBC 2.62 L Hgb 8.5 L Hct 28.6 L MCV 109.2 H MCH 32.4 H MCHC 29.7 L RDW 22.8 H Plt Count 56 L NRBC/100 WBC Diff 5.75 H Immature Plt Fraction 29.4 H Macrocytosis APTT ABG pH ABG HCO3 ABG Total CO2 ABG O2 Saturation Hemoglobin Sodium BUN Glucose 186 H POC Glucose (mg/dL) 186 H Calcium 8.2 L AST Ammonia Creatine Kinase Total Protein Albumin Vitamin B12 1571.0 H 09/18/24 12:31 WBC RBC Hgb Hct MCV MCH MCHC RDW Plt Count NRBC/100 WBC Diff Immature Plt Fraction Macrocytosis APTT ABG pH ABG HCO3 ABG Total CO2 ABG O2 Saturation Hemoglobin Sodium BUN Glucose POC Glucose (mg/dL) 184 H Calcium AST Ammonia Creatine Kinase Total Protein Albumin Vitamin B12 Assessment and Plan Assessment: This is a 58-year-old woman with history of leukemia presents from medical [facility] [place] in which she dizzy and had a fall at nursing facility as well as as had altered mental status seems also the patient is having increasing shortness of breath for the past couple weeks. Altered mental status due to multifactorial: Metabolic encephalopathy. She had slight elevated ammonia level. Also possible septic especially with Blood cultures is positive for gram-positive cocci in cluster. Lastly possible confusion due to medication effect was on Solu-Medrol and Rocephin for last couple days for concern of bronchitis. Out any acute stroke especially with a history of leukemia versus metastasis---mentation is improving today compared to yesterday. Fall possible due to the dizziness as well as due to her respiratory distress Respiratory distress and on examination patient is wheezing Elevated ammonia Leukocytosis that is trending down and patient is afebrile. Anemia and thrombocytopenia History of leukemia and patient is on chemotherapy Plan: Ordered MRI of the brain with and without I ordered a routine EEG which will be completed tomorrow to rule out any active seizure or discharges. Ordered TSH Infection disease team is on consulted Oncology is consulted Will defer the rest of the medical management to primary and other specialist Plan discussed with the patient nurse Thank for the consultation Dr. Parada will resume neurology service tomorrow A.M. Time with Patient: Greater than 30
--- NOTE | 2024-09-18 15:51 | CT ---
EXAMINATION TYPE: CT abdomen pelvis w con DATE OF EXAM: 09/18/2024 3:19 PM COMPARISON: 10/31/2023 CLINICAL INDICATION: Female, 58 years old with history of diffuse abd pain, nausea; Diffuse abd pain, nausea. TECHNIQUE: Axial CT abdomen pelvis w con;Sagittal and coronal reformats were created on a separate w orkstation. Contrast used:100 ml mL of Isovue 300 with IV Contrast, (none if empty) Oral contrast used: with Oral Contrast (none if empty) CT DLP: 1827.9 mGycm, Automated exposure control for dose reduction was used. FINDINGS: LOWER CHEST: Unremarkable ABDOMEN LIVER: Unremarkable GALLBLADDER AND BILE DUCTS: Unremarkable. PANCREAS: Atrophic pancreatic parenchyma. SPLEEN: Unremarkable. ADRENAL GLANDS: Unremarkable. KIDNEYS AND URETERS: Atrophic left kidney with nonobstructing inferior pole calculus measuring 3 mm. No evidence of hydronephrosis or renal calculus. The ureters are unremarkable. PELVIS BLADDER: No evidence for wall thickening or mass given limitations of exam. REPRODUCTIVE: The uterus is surgically absent. ABDOMEN & PELVIS STOMACH AND BOWEL: No evidence of bowel obstruction. Postsurgical changes of bowel or gastric bypass no evidence for obstruction. PERITONEUM/RETROPERITONEUM: No evidence of pneumoperitoneum or free fluid. VASCULATURE: No evidence of aortic aneurysm. IVC filter in place. MUSCULOSKELETAL: No acute osseous abnormalities LYMPH NODES: No gross evidence for lymphadenopathy. SOFT TISSUE/ABDOMINAL WALL: Unremarkable IMPRESSION: 1. No evidence for acute abdominal process. 2. Postsurgical changes to the gastric lumen. 3. Nonobstructing left renal calculus. 4. Atrophic pancreatic parenchyma. 5. Atrophic left kidney. [facility], , 09/18/2024 3:49 PM
[2024-09-18] MEDS: methylPREDNISolone SOD SUCCI 40 MG/ML 1 ML VIAL IV SCH (16:31)
[2024-09-18 17:02] LABS: Glucose,Whole Blood 215 mg/dL (70-110)
[2024-09-18 20:25] LABS: Glucose,Whole Blood 201 mg/dL (70-110)
[2024-09-19] MEDS: HYDROcodone/APAP 5-325MG 1 EACH TAB PO PRN (03:33)
[2024-09-19 07:26] LABS: Glucose,Whole Blood 234 mg/dL (70-110)
--- NOTE | 2024-09-19 08:29 | P.CONS ---
History of Present Illness - Reason for Consult Consult date: 09/18/24 Positive blood culture Requesting physician: Laci E Sheet - Chief Complaint Weakness confusion x 1 day - History of Present Illness Patient is a 58-year-old female with a past medical history significant for coronary artery disease heart failure COPD diabetes mellitus DVT hypertension hyperlipidemia patient has been brought into the hospital for evaluation of mental status changes patient is a assisted resident and was noticed by the nursing staff to be slow to respond diaphoretic and clammy and apparently the patient did have a fall did before the patient has been brought to the hospital patient has been complaining of feeling dizzy and not feeling well on presentation to the hospital patient was afebrile and no fever have been called subsequently patient was tachycardic but not hypotensive or hypoxic and no need for supplemental oxygen patient did have a white count of 17.5 with a left shift creatinine is normal electrolytes are normal liver enzymes AST mildly elevated urine is negative influenza RSV COVID testing was negative patient did have a chest x-ray no acute cardiopulmonary disease process did have head and neck CT no acute intracranial process or cervical spine fracture also have abdominal pelvis CT did not show any acute intra-abdominal process patient did have a blood culture drawn which came back positive with gram-positive cocci staph epi that has prompted this consultation patient is currently on Solu- Medrol and Zithromax Review of Systems Positive point and negatives has been mentioned in the HPI, complete review of systems was performed and all other systems are negative Past Medical History Past Medical History: Coronary Artery Disease (CAD), Cancer, Heart Failure, COPD, Diabetes Mellitus, Deep Vein Thrombosis (DVT), Fibromyalgia, GI Bleed, Hyperlipidemia, Hypertension, Myocardial Infarction (CA), Rheumatoid Arthritis (RA) Additional Past Medical History / Comment(s): leukemia Last Myocardial Infarction Date:: unknown History of Any Multi-Drug Resistant Organisms: None Reported Year Discovered:: unknown MDRO Source:: skin bilateral arms Past Surgical History: Unable to Obtain Additional Past Surgical History / Comment(s): broken femur, bilateral knee surgery, 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, right leg green field filter for blood clot Past Anesthesia/Blood Transfusion Reactions: No Reported Reaction Date of Last Stent Placement:: unknown Past Psychological History: No Psychological Hx Reported Smoking Status: Never smoker Past Alcohol Use History: None Reported Past Drug Use History: None Reported - Past Family History Mother Family Medical History: Congestive Heart Failure (CHF), Coronary Artery Disease (CAD), Hyperlipidemia, Myocardial Infarction (CA) Additional Family Medical History / Comment(s): CABG,knee replacement x1, Medications and Allergies Home Medications Medication Instructions Recorded Confirmed Type FLUoxetine HCL [PROzac] 40 mg PO BID 10/27/23 09/17/24 History Gilteritinib Fumarate [Xospata] 120 mg PO DAILY 10/27/23 09/17/24 History Losartan [Cozaar] 12.5 mg PO DAILY@0700 10/27/23 09/17/24 History Potassium Chloride [Klor-Con M20] 20 meq PO DAILY 10/27/23 09/17/24 History Morphine Sulfate ER [Ms Contin] 15 mg PO Q12HR@0700,1900 01/17/24 09/17/24 History Ranolazine [Ranexa] 1,000 mg PO Q12HR 01/17/24 09/17/24 History Acyclovir [Zovirax] 400 mg PO BID 04/14/24 09/17/24 History Atorvastatin [Lipitor] 80 mg PO DAILY 04/14/24 09/17/24 History Furosemide [Lasix] 20 mg PO DAILY 04/14/24 09/17/24 History ALPRAZolam [Xanax] 0.5 mg PO BID 09/17/24 09/17/24 History Acetaminophen Tab [Tylenol] 650 mg PO Q4H PRN 09/17/24 09/17/24 History Butalb/Acetaminophen/Caffeine 1 cap PO Q4H PRN 09/17/24 09/17/24 History [Fioricet 50-300-40 mg Capsule] Calcium Carbonate [Tums] 1,000 mg PO QID PRN 09/17/24 09/17/24 History Cholecalciferol [Vitamin D3 (25 25 mcg PO DAILY 09/17/24 09/17/24 History Mcg = 1000 Iu)] Clopidogrel [Plavix] 75 mg PO HS 09/17/24 09/17/24 History Docusate [Colace] 100 mg PO BID@0700,1600 09/17/24 09/17/24 History Dulaglutide [Trulicity] 1.5 mg SQ MO@0700 09/17/24 09/17/24 History Fluticasone Propion/Salmeterol 1 puff INHALATION RT-BID@0700,1900 09/17/24 09/17/24 History [Advair 100-50 Diskus] Gabapentin [Neurontin] 300 mg PO TID@0700,1300,0 09/17/24 09/17/24 History HYDROcodone/APAP 7.5-325MG [Hoffman 1 tab PO Q4H 09/17/24 09/17/24 History 7.5-325] Icy Hot Advanced Relief Patch 7.5% 1 patch TRANSDERM DAILY@0000 09/17/24 5 History Ipratropium-Albuterol Nebulize 3 ml INHALATION RT-Q4H 09/17/24 09/17/24 History [Duoneb 0.5 mg-3 mg/3 ml Soln] Isosorbide Mononitrate ER [Imdur] 15 mg PO DAILY 09/17/24 09/17/24 History Montelukast [Singulair] 10 mg PO HS 09/17/24 09/17/24 History Naloxone HCl 0.4 mg IM ONCE PRN 09/17/24 09/17/24 History Naloxone HCl 4 mg NS ONCE PRN 09/17/24 09/17/24 History Nitroglycerin Sl Tabs [Nitrostat] 0.4 mg SL Q5M PRN 09/17/24 09/17/24 History Omeprazole [PriLOSEC] 20 mg PO BID@0700,1900 09/17/24 09/17/24 History Ondansetron [Zofran] 4 mg PO Q6H 09/17/24 09/17/24 History guaiFENesin [guaiFENesin ER] 600 mg PO Q12HR@0700,1900 09/17/24 09/17/24 History Allergies Allergy/AdvReac Type Severity Reaction Status Date / Time divalproex sodium AdvReac Confusion Verified 09/17/24 14:47 [From Depakote] phenytoin [From Dilantin] AdvReac Confusion Verified 09/17/24 14:47 Physical Exam Vitals: Vital Signs Temp Pulse Pulse Resp BP BP Pulse Ox 09/18/24 11:53 98.2 F 121 H 16 142/74 97 09/18/24 09:00 121 H 16 09/18/24 07:08 97.6 F 121 H 16 164/89 99 09/18/24 01:38 98.4 F 109 H 20 162/89 99 09/17/24 23:35 20 09/17/24 23:17 99.0 F 118 H 20 148/93 98 09/17/24 22:46 114 H 16 131/73 97 09/17/24 18:47 98.2 F 106 H 16 134/78 98 Intake and Output 09/17/24 09/18/24 09/18/24 22:59 06:59 14:59 Intake Total 1080 Balance 1080 Intake: Oral 1080 Other: Voiding Method Bedside Commode # Voids 1 4 # Bowel Movements 1 1 Weight 88.904 kg GENERAL DESCRIPTION: Middle-aged female lying in bed, no distress. No tachypnea or accessory muscle of respiration use. HEENT: Shows Pallor , no scleral icterus. Oral mucous membrane is dry. No pharyngeal erythema or thrush NECK: Trachea central, no thyromegaly. LUNGS: Unlabored breathing. Clear to auscultation anteriorly. No wheeze or crackle. HEART: S1, S2, regular rate and rhythm. No loud murmur ABDOMEN: Soft, no tenderness , guarding or rigidity, no organomegaly EXTREMITIES: No edema of feet. SKIN: No rash, no masses palpable. NEUROLOGICAL: The patient is awake, alert, mood and affect normal. Results CBC & Chem 7: 09/19/24 08:39 09/19/24 08:39 Labs: Abnormal Lab Results - Last 24 Hours (Table) 09/17/24 09/17/24 09/18/24 Range/Units 17:45 23:10 06:34 WBC 10.36 H (4.50-10.00) X 10*3/uL RBC 2.62 L (4.10-5.20) X 10*6/uL Hgb 8.5 L (12.0-15.0) g/dL Hct 28.6 L (37.2-46.3) % MCV 109.2 H (80.0-97.0) FL MCH 32.4 H (27.0-32.0) pg MCHC 29.7 L (32.0-37.0) g/dL RDW 22.8 H (11.5-14.5) % Plt Count 56 L (140-440) X 10*3/uL NRBC/100 WBC Diff 5.75 H (0.00-0.01) X 10*3/uL Immature Plt Fraction 29.4 H (1.1-6.1) % Glucose (70-110) mg/dL POC Glucose (mg/dL) 224 H 210 H (70-110) mg/dL Calcium (8.7-10.3) mg/dL Vitamin B12 (200.0-944.0) pg/mL 09/18/24 09/18/24 09/18/24 Range/Units 06:34 07:09 12:31 WBC (4.50-10.00) X 10*3/uL RBC (4.10-5.20) X 10*6/uL Hgb (12.0-15.0) g/dL Hct (37.2-46.3) % MCV (80.0-97.0) FL MCH (27.0-32.0) pg MCHC (32.0-37.0) g/dL RDW (11.5-14.5) % Plt Count (140-440) X 10*3/uL NRBC/100 WBC Diff (0.00-0.01) X 10*3/uL Immature Plt Fraction (1.1-6.1) % Glucose 186 H (70-110) mg/dL POC Glucose (mg/dL) 186 H 184 H (70-110) mg/dL Calcium 8.2 L (8.7-10.3) mg/dL Vitamin B12 1571.0 H (200.0-944.0) pg/mL Microbiology - Last 24 Hours (Table) 09/17/24 09:04 Blood Culture Gram Stain - Preliminary Blood Blood Culture - Preliminary Molecular ID Assessment and Plan (1) Positive blood culture Current Visit: Yes Status: Acute Priority: High Code(s): R78.81 - BACTEREMIA SNOMED Code(s): 807946200 (2) Leukocytosis Current Visit: Yes Status: Acute Code(s): D72.829 - ELEVATED WHITE BLOOD CELL COUNT, UNSPECIFIED SNOMED Code(s): 702875106 Plan: 1patient with a positive blood culture with staph epi in this patient presented hospital some weakness confusion but did not have any fever some elevated white count patient subsequently normalized do not have any obvious focus for this positive blood culture and more likely representing skin contamination. 2no need for vancomycin blood culture however will be repeated document clearance and to make sure no evidence of any persistent bacteremia. 3patient did have elevated white count but subsequent resolved and will monitor closely. We will follow on clinical condition and cultures to further adjust medication if needed Thank you for this consultation we will follow the patient along with you Dictation was produced using [employer] dictation software. please excuse any grammatical, word or spelling errors. Time with Patient: Greater than 30
[2024-09-19 08:54] LABS: Anisocytosis Moderate; HCT 25.4 % (34.0-46.0); HGB 7.8 gm/dL (11.4-16.0); Hypochromasia Marked; MCHC 30.6 g/dL (31.0-37.0); MCV 107.7 fL (80.0-100.0); Macrocytosis Marked; Mean Platelet Volume 8.5; Poikilocytosis Slight; RBC 2.36 m/uL (3.80-5.40); RDW 22.3 % (11.5-15.5)
[2024-09-19 09:08] LABS: African American GFR (CKD) >90 (>60 ml/min/1.73 sqM); Anion Gap 7 mmol/L; Blood Urea Nitrogen 13 mg/dL (7-17); C Reactive Protein 5.5 mg/dL (<1.0); Calcium 8.1 mg/dL (8.4-10.2); Carbon Dioxide 24 mmol/L (22-30); Chloride 102 mmol/L (98-107); Glucose 207 mg/dL (74-99); Non-African American GFR(CKD) >90 (>60 ml/min/1.73 sqM); Potassium 3.6 mmol/L (3.5-5.1); Sodium 133 mmol/L (137-145)
[2024-09-19 10:41] LABS: Myelocytes % 1 %; Neutrophils % (M) 62 %; Nucleated Red Blood Cells 13 /100 WBC (0-0); Total Cells Counted 200
[2024-09-19 10:43] LABS: Platelet Count 46 k/uL (150-450)
[2024-09-19 10:52] LABS: Lymphocytes # (M) 3.26 k/uL (1.0-4.8); Monocytes # (M) 0.61 k/uL (0-1.0); Neutrophils # (M) 6.32 k/uL (1.3-7.7); WBC 10.2 k/uL (3.8-10.6)
[2024-09-19 10:52] LABS: Iron 162 UG/DL (50-170); Total Iron Binding Capacity 214 UG/DL (228-460)
--- NOTE | 2024-09-19 11:46 | P.PN ---
Subjective 58-year-old female was sent in here because of altered mental status patient seemed diaphoretic clammy and was having speech abnormality because of which patient was sent in here patient is alert, unable to assess orientation I am unsure whether patient has aphasia or confused upon extensive evaluation patient is generally weak no focal weakness that I can appreciate no facial droop. Patient does not have any fever but does have leukocytosis without any clear source of infection urinalysis is within normal limits, chest x-ray did not show any significant abnormality, CT of the head and cervical spine did not show any significant acute abnormality except some cervical degenerative vertebral disease. 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 Patient is on morphine 15 mg every 12 hourly and [place] which can contribute to her altered mental status patient is also on Xanax scheduled basis. Patient was hospitalized in month of July with similar symptoms at the time patient's symptoms are secondary to polypharmacy. Patient is also on gabapentin. Patient has been on oxygen patient does have bilateral rhonchi and expiratory wheezing on exam. 09/18 Patient more awake and alert and partially oriented to time place and person, She is short of breath and wheezing and occasional coughing but no chest pain No abdominal pain but has 1 large bowel movement which looks is full is loose. C. difficile test is going to be checked if persist. But no abdominal pain and she tolerates diet She has positive blood culture with Staph epidermidis most likely contamination. Currently on Zithromax but also she has evidence of leukocytosis which is trending down from 19 down to 17. She has history of leukemia and she has been followed up by hematology/oncology 09/19 Patient alert and r oriented at baseline She still complains from breathing and coughing. She still has wheezing and currently on IV Solu-Medrol No abdominal pain have some nausea and Zofran not working and switch to Compazine. Has 4 loose bowel movement. C. difficile is pending, discussed with the staff. CT of the abdomen pelvis with no acute process but showing atrophic left kidney and pancreatic parenchyma. Nonobstructive left renal calculus and postsurgical gastric changes. Blood culture most likely contamination. No need for IV vancomycin. WBC is back to normal at 10.2, hemoglobin 7.8, platelet count 46 which is fluctuating 40 to 60s, patient kept on Lovenox as patient has risk for DVT given previous history of DVT and currently bedridden and other risk factors REVIEW OF SYSTEMS: All other systems are negative except those mentioned in the HPI Active Medications Generic Name Dose Route Start Last Admin Trade Name Freq PRN Reason Stop Dose Admin Acetaminophen 650 mg 09/17/24 14:28 Acetaminophen Tab 325 Mg Tab PO Q6HR PRN Mild Pain or Fever > 100.5 Acetaminophen 650 mg 09/17/24 16:16 Acetaminophen Tab 325 Mg Tab PO Q4H PRN Pain Hydrocodone Bitart/Acetaminophen 1 each 09/17/24 14:28 09/19/24 08:14 Hydrocodone/Apap 5-325mg 1 Each Tab PO 1 each Q4HR PRN Administration Moderate Pain (Scale 4 to 6) Hydrocodone Bitart/Acetaminophen 1 each 09/17/24 16:16 09/19/24 11:41 Hydrocodone/Apap 7.5-325mg 1 Each Tab PO 1 each Q12H PRN Administration Breakthrough Pain Acyclovir 400 mg 09/17/24 21:00 09/19/24 08:15 Acyclovir 200 Mg Cap PO 400 mg BID LIZZY Administration Albuterol/Ipratropium 3 ml 09/17/24 20:00 09/19/24 10:50 Ipratropium-Albuterol 3 Ml Neb INHALATION 3 ml RT-Q4H LIZZY Administration Atorvastatin Calcium 80 mg 09/18/24 09:00 09/19/24 08:16 Atorvastatin 80 Mg Tab PO 80 mg DAILY LIZZY Administration Azithromycin 500 mg 09/18/24 09:00 09/19/24 08:16 Azithromycin 500 Mg Tab PO 09/20/24 09:01 500 mg DAILY LIZZY Administration Protocol Budesonide/Formoterol Fumarate 2 puff 09/17/24 19:00 09/19/24 06:16 Symbicort 80-4.5 Mcg Inhaler INHALATION 2 puff RT-BID@0700,1900 LIZZY Administration Clopidogrel Bisulfate 75 mg 09/17/24 21:00 09/18/24 21:59 Clopidogrel 75 Mg Tab PO 75 mg HS LIZZY Administration Docusate Sodium 100 mg 09/18/24 07:00 09/19/24 08:16 Docusate 100 Mg Cap PO 100 mg BID@0700,1600 LIZZY Administration Enoxaparin Sodium 40 mg 09/20/24 09:00 Enoxaparin 40 Mg/0.4 Ml Syringe SQ DAILY LIZZY Fluoxetine HCl 40 mg 09/17/24 21:00 09/19/24 08:15 Fluoxetine Hcl 20 Mg Cap PO 40 mg BID LIZZY Administration Guaifenesin 600 mg 09/17/24 19:00 09/19/24 08:15 Guaifenesin 600 Mg Tablet.Er PO 600 mg Q12HR@0700,1900 LIZZY Administration Guaifenesin/Dextromethorphan 10 ml 09/19/24 12:00 Guaifenesin-Dm 100-10mg/5ml 10 Ml Cup PO 09/26/24 11:59 Q6HR [facility] Insulin Aspart 0 unit 09/17/24 17:30 09/19/24 08:14 Insulin Aspart (Novolog) 100 Unit/Ml Vial SQ 4 unit AC-TID LIZZY Administration Protocol Isosorbide Mononitrate 15 mg 09/18/24 09:00 09/19/24 08:15 Isosorbide Mononitrate Er 15 Mg Tab PO 15 mg DAILY LIZZY Administration Methylprednisolone Sodium Succinate 40 mg 09/18/24 16:00 09/19/24 08:15 Methylprednisolone Sod Succi 40 Mg/Ml 1 Ml Vial IV 40 mg Q8HR LIZZY Administration Montelukast Sodium 10 mg 09/17/24 21:00 09/18/24 21:58 Montelukast 10 Mg Tab PO 10 mg HS LIZZY Administration Naloxone HCl 0.2 mg 09/17/24 14:28 Naloxone 0.4 Mg/Ml 1 Ml Vial IV Q2M PRN Opioid Reversal Nitroglycerin 0.4 mg 09/17/24 16:16 Nitroglycerin Sl Tabs 0.4 Mg Tab SUBLINGUAL Q5M PRN Chest Pain Pantoprazole Sodium 40 mg 09/18/24 09:00 09/19/24 08:15 Pantoprazole 40 Mg/10 Ml Vial IV 40 mg DAILY LIZZY Administration Prochlorperazine Maleate 10 mg 09/19/24 11:37 Prochlorperazine 10 Mg Tab PO Q6HR PRN Nausea And Vomiting Ranolazine 1,000 mg 09/17/24 21:00 09/19/24 08:16 Ranolazine 500 Mg Tab.Er.12h PO 1,000 mg Q12HR LIZZY Administration Objective - Vital Signs Vital signs: Vital Signs Temp 97.6 F 09/19/24 07:00 Pulse 76 09/19/24 11:02 Resp 20 09/19/24 08:00 BP 153/92 09/19/24 07:00 Pulse Ox 95 09/19/24 07:00 FiO2 Intake & Output 09/18/24 09/19/24 09/19/24 18:59 06:59 18:59 Intake Total 1560 Balance 1560 Intake: Oral 1560 Other: Voiding Method Bedside Commode Bedside Commode Bedside Commode # Voids 4 3 # Bowel Movements 6 - Exam GENERAL: The patient is alert and oriented x3 partially, not in any acute distr ess. Well developed, well nourished. HEENT: Pupils are round and equally reacting to light. EOMI. No scleral icterus. No conjunctival pallor. Normocephalic, atraumatic. No pharyngeal erythema. No thyromegaly. CARDIOVASCULAR: S1 and S2 present. No murmurs, rubs, or gallops. -PULMONARY: Chest is clear to auscultation, bilateral expiratory wheezing , no crackles. ABDOMEN: Soft, nontender, nondistended, normoactive bowel sounds. No palpable organomegaly. MUSCULOSKELETAL: No joint swelling or deformity. EXTREMITIES: No cyanosis, clubbing, or pedal edema. NEUROLOGICAL: Gross neurological examination did not reveal any focal deficits. SKIN: No rashes. no petechiae. - Labs CBC & Chem 7: 09/19/24 08:39 09/19/24 08:39 Labs: Abnormal Lab Results - Last 24 Hours (Table) 09/18/24 09/18/24 09/18/24 Range/Units 06:34 06:34 12:31 WBC 10.36 H (4.50-10.00) X 10*3/uL RBC 2.62 L (4.10-5.20) X 10*6/uL Hgb 8.5 L (12.0-15.0) g/dL Hct 28.6 L (37.2-46.3) % MCV 109.2 H (80.0-97.0) FL MCH 32.4 H (27.0-32.0) pg MCHC 29.7 L (32.0-37.0) g/dL RDW 22.8 H (11.5-14.5) % Plt Count 56 L (140-440) X 10*3/uL Myelocytes # (Manual) (0) k/uL Nucleated RBCs (0-0) /100 WBC NRBC/100 WBC Diff 5.75 H (0.00-0.01) X 10*3/uL Immature Plt Fraction 29.4 H (1.1-6.1) % Macrocytosis Sodium (137-145) mmol/L Glucose 186 H (70-110) mg/dL POC Glucose (mg/dL) 184 H (70-110) mg/dL Calcium 8.2 L (8.7-10.3) mg/dL TIBC (228-460) UG/DL % Saturation (12.00-45.00) Transferrin (204.0-354.0) mg/dL Ferritin (10.0-291.0) ng/mL C-Reactive Protein (<1.0) mg/dL Vitamin B12 1571.0 H (200.0-944.0) pg/mL 09/18/24 09/18/24 09/18/24 Range/Units 15:59 17:01 20:20 WBC (4.50-10.00) X 10*3/uL RBC (4.10-5.20) X 10*6/uL Hgb (12.0-15.0) g/dL Hct (37.2-46.3) % MCV (80.0-97.0) FL MCH (27.0-32.0) pg MCHC (32.0-37.0) g/dL RDW (11.5-14.5) % Plt Count (140-440) X 10*3/uL Myelocytes # (Manual) (0) k/uL Nucleated RBCs (0-0) /100 WBC NRBC/100 WBC Diff (0.00-0.01) X 10*3/uL Immature Plt Fraction (1.1-6.1) % Macrocytosis Sodium (137-145) mmol/L Glucose (70-110) mg/dL POC Glucose (mg/dL) 215 H 201 H (70-110) mg/dL Calcium (8.7-10.3) mg/dL TIBC 214 L (228-460) UG/DL % Saturation 75.70 H (12.00-45.00) Transferrin 153.0 L (204.0-354.0) mg/dL Ferritin 946.0 H (10.0-291.0) ng/mL C-Reactive Protein (<1.0) mg/dL Vitamin B12 (200.0-944.0) pg/mL 09/19/24 09/19/24 09/19/24 Range/Units 07:03 08:39 08:39 WBC (4.50-10.00) X 10*3/uL RBC 2.36 L (4.10-5.20) X 10*6/uL Hgb 7.8 L (12.0-15.0) g/dL Hct 25.4 L (37.2-46.3) % MCV 107.7 H (80.0-97.0) FL MCH (27.0-32.0) pg MCHC 30.6 L (32.0-37.0) g/dL RDW 22.3 H (11.5-14.5) % Plt Count 46 L (140-440) X 10*3/uL Myelocytes # (Manual) 0.10 H (0) k/uL Nucleated RBCs 13 H (0-0) /100 WBC NRBC/100 WBC Diff (0.00-0.01) X 10*3/uL Immature Plt Fraction (1.1-6.1) % Macrocytosis Marked A Sodium 133 L (137-145) mmol/L Glucose 207 H (70-110) mg/dL POC Glucose (mg/dL) 234 H (70-110) mg/dL Calcium 8.1 L (8.7-10.3) mg/dL TIBC (228-460) UG/DL % Saturation (12.00-45.00) Transferrin (204.0-354.0) mg/dL Ferritin (10.0-291.0) ng/mL C-Reactive Protein 5.5 H (<1.0) mg/dL Vitamin B12 (200.0-944.0) pg/mL Microbiology - Last 24 Hours (Table) 09/17/24 09:04 Blood Culture Gram Stain - Final Blood Blood Culture - Final Coagulase Negative Staph Coagulase Negative Staph#2 Molecular ID Assessment and Plan Assessment: Assessment and plan -Altered mental status possibly toxic encephalopathy from polypharmacy again we will discontinue MS Contin we will cut down the dose of [place], gabapentin dose will be cut down or discontinued and we will cut down the dose of Xanax or will be held temporarily. Because of the aphasia I cannot completely rule out stroke neurology was consulted from ER which will be continued I did not see any obvious source of infection except for possible bronchitis mentation improved significantly Mentation improved significantly -Bronchitis with COPD exacerbation, will use azithromycin along with breathing treatments. Start IV Solu-Medrol -Leukocytosis, -Diarrhea, suspicion of colitis is low, abdomen soft. CT of the abdomen showing no acute process. Rule out C. difficile -Positive blood culture with Staph epidermidis could be contamination. Consult ID team currently on Zithromax. Most likely contamination -Anemia and thrombocytopenia, keep monitoring hemoglobin and platelet count and to keep dropping may hold anticoagulant -Type 2 diabetes mellitus -History of DVT in the past -Hyperlipidemia -Hypertension -Leukemia: Oncology was consulted DVT prophylaxis: We will hold subcutaneous Lovenox, if more worsening thrombocytopenia, currently keep monitoring GI prophylaxis: Protonix
[2024-09-19] MEDS: NYSTATIN 100,000 UNIT/ML SUSP 500,000 UNIT/5 ML CUP PO SCH (12:25)
[2024-09-19] MEDS: PROCHLORPERAZINE 5 MG TAB PO STA (12:25)
[2024-09-19 12:35] LABS: Glucose,Whole Blood 280 mg/dL (70-110)
[2024-09-19 12:37] LABS: Band Neutrophils % 2 %; Metamyelocytes % 1 %; Neutrophils % (M) 36 %
[2024-09-19 12:40] LABS: Nucleated Red Blood Cells 101 /100 WBC (0-0); Total Cells Counted 200
[2024-09-19] MEDS: guaiFENesin-DM 100-10MG/5ML 10 ML CUP PO SCH (12:40)
[2024-09-19 12:41] LABS: Blast Cells # (M) 0.69 k/uL (0); Lymphocytes # (M) 2.18 k/uL (1.0-4.8); Monocytes # (M) 3.47 k/uL (0-1.0); WBC 9.9 k/uL (3.8-10.6)
[2024-09-19 13:00] LABS: Polychromasia Present; RBC Fragments Present; Spherocytes Present
[2024-09-19 13:03] LABS: Tear Drop Cells Present
--- NOTE | 2024-09-19 15:12 | P.PN ---
Subjective Progress Note Date: 09/19/24 Patient was initially seen by Dr. Juan Fischer. Please refer to his note for details Patient is a 58-year-old female with altered mental status. Patient has history of leukemia. It was felt patient has multifactorial reasons for altered mental status. Patient at present is laying in the bed. Complains of wheezing a lot. Patient states she is not feeling well. She has developed thrush. Objective - Vital Signs Vital signs: Vital Signs Temp 97.6 F 09/19/24 12:31 Pulse 114 H 09/19/24 12:31 Resp 20 09/19/24 12:31 BP 118/75 09/19/24 12:31 Pulse Ox 96 09/19/24 12:31 FiO2 Intake & Output 09/18/24 09/19/24 09/19/24 18:59 06:59 18:59 Intake Total 1560 Balance 1560 Intake: Oral 1560 Other: Voiding Method Bedside Commode Bedside Commode Bedside Commode # Voids 4 3 # Bowel Movements 6 3 - Exam Patient appears mildly encephalopathic. She knows it is September but said the year is 2011 but then said it is 2024. She knows that she is in [facility] in [facility]. Speech and language functions are normal. Cranial nerves are normal, visual crane full. Tongue protrudes to midline. On muscle strength testing there is no pronator drift and the strength is normal in arms and legs. Patient has mild myoclonic jerks of outstretched hands. Sensory to touch is equal with no neglect. No ataxia for [id number] testing. - Labs CBC & Chem 7: 09/19/24 08:39 09/19/24 08:39 Labs: Abnormal Lab Results - Last 24 Hours (Table) 09/17/24 09/18/24 09/18/24 Range/Units 08:03 15:59 17:01 RBC (3.80-5.40) m/uL Hgb (11.4-16.0) gm/dL Hct (34.0-46.0) % MCV (80.0-100.0) fL MCHC (31.0-37.0) g/dL RDW (11.5-15.5) % Plt Count (150-450) k/uL Blast Cells % 7 H* % Monocytes # (Manual) 3.47 H (0-1.0) k/uL Metamyelocytes # (Man) 0.10 H (0) k/uL Myelocytes # (Manual) (0) k/uL Blast Cells # (Man) 0.69 H (0) k/uL Nucleated RBCs 101 H (0-0) /100 WBC Macrocytosis Sodium (137-145) mmol/L Glucose (74-99) mg/dL POC Glucose (mg/dL) 215 H (70-110) mg/dL Calcium (8.4-10.2) mg/dL TIBC 214 L (228-460) UG/DL % Saturation 75.70 H (12.00-45.00) Transferrin 153.0 L (204.0-354.0) mg/dL Ferritin 946.0 H (10.0-291.0) ng/mL C-Reactive Protein (<1.0) mg/dL 09/18/24 09/19/24 09/19/24 Range/Units 20:20 07:03 08:39 RBC 2.36 L (3.80-5.40) m/uL Hgb 7.8 L (11.4-16.0) gm/dL Hct 25.4 L (34.0-46.0) % MCV 107.7 H (80.0-100.0) fL MCHC 30.6 L (31.0-37.0) g/dL RDW 22.3 H (11.5-15.5) % Plt Count 46 L (150-450) k/uL Blast Cells % % Monocytes # (Manual) (0-1.0) k/uL Metamyelocytes # (Man) (0) k/uL Myelocytes # (Manual) 0.10 H (0) k/uL Blast Cells # (Man) (0) k/uL Nucleated RBCs 13 H (0-0) /100 WBC Macrocytosis Marked A Sodium (137-145) mmol/L Glucose (74-99) mg/dL POC Glucose (mg/dL) 201 H 234 H (70-110) mg/dL Calcium (8.4-10.2) mg/dL TIBC (228-460) UG/DL % Saturation (12.00-45.00) Transferrin (204.0-354.0) mg/dL Ferritin (10.0-291.0) ng/mL C-Reactive Protein (<1.0) mg/dL 09/19/24 09/19/24 Range/Units 08:39 12:33 RBC (3.80-5.40) m/uL Hgb (11.4-16.0) gm/dL Hct (34.0-46.0) % MCV (80.0-100.0) fL MCHC (31.0-37.0) g/dL RDW (11.5-15.5) % Plt Count (150-450) k/uL Blast Cells % % Monocytes # (Manual) (0-1.0) k/uL Metamyelocytes # (Man) (0) k/uL Myelocytes # (Manual) (0) k/uL Blast Cells # (Man) (0) k/uL Nucleated RBCs (0-0) /100 WBC Macrocytosis Sodium 133 L (137-145) mmol/L Glucose 207 H (74-99) mg/dL POC Glucose (mg/dL) 280 H (70-110) mg/dL Calcium 8.1 L (8.4-10.2) mg/dL TIBC (228-460) UG/DL % Saturation (12.00-45.00) Transferrin (204.0-354.0) mg/dL Ferritin (10.0-291.0) ng/mL C-Reactive Protein 5.5 H (<1.0) mg/dL Microbiology - Last 24 Hours (Table) 09/17/24 09:04 Blood Culture Gram Stain - Final Blood Blood Culture - Final Coagulase Negative Staph Coagulase Negative Staph#2 Molecular ID Assessment and Plan Assessment: This is a 58-year-old woman with history of leukemia presents from medical [facility] in which she dizzy and had a fall at nursing facility as well as as had altered mental status seems also the patient is having increasing shortness of breath for the past couple weeks. Altered mental status due to multifactorial: Metabolic encephalopathy. She had slight elevated ammonia level. Also possible septic especially with Blood cultures is positive for gram-positive cocci in cluster. Lastly possible confusion due to medication effect was on Solu-Medrol and Rocephin for last couple days for concern of bronchitis. Out any acute stroke especially with a history of leukemia versus metastasis---mentation is improving today compared to yesterday. Fall possible due to the dizziness as well as due to her respiratory distress Respiratory distress and on examination patient is wheezing Elevated ammonia Leukocytosis that is trending down and patient is afebrile. Anemia and thrombocytopenia History of leukemia and patient is on chemotherapy Plan: Await MRI of the brain with and without EEG was abnormal due to background slowing of moderate degree. No epileptiform activity was seen. Patient's encephalopathy is slightly better. TSH 0.673, B12 1571, MCV 109. Infection disease team is on consulted. Patient on azithromycin. Oncology is consulted Will defer the rest of the medical management to primary and other specialist
[2024-09-19] MEDS ORDERED: LOPERAMIDE 2 MG CAP PO PRN (15:27)
--- NOTE | 2024-09-19 15:33 | P.PN ---
Subjective Progress Note Date: 09/19/24 Principal diagnosis: AML, on oral agent In follow-up today patient is tearful, she is complaining of some oral irritation as well as throat irritation, she has a congested cough, denies any chest pain, abdominal pain is a little less harsh, she is still having diarrhea. She denies any blood in the stool at this time. Objective - Vital Signs Vital signs: Vital Signs Temp 97.6 F 09/19/24 07:00 Pulse 76 09/19/24 11:02 Resp 20 09/19/24 08:00 BP 153/92 09/19/24 07:00 Pulse Ox 95 09/19/24 07:00 FiO2 Intake & Output 09/18/24 09/19/24 09/19/24 18:59 06:59 18:59 Intake Total 1560 Balance 1560 Intake: Oral 1560 Other: Voiding Method Bedside Commode Bedside Commode Bedside Commode # Voids 4 3 # Bowel Movements 6 3 - Constitutional General appearance: Present: cooperative, mild distress (emotional), obese - EENT Eyes: Present: anicteric sclerae, edentulous, EOMI ENT: Present: hearing grossly normal, thrush - Respiratory Respiratory: bilateral: CTA - Cardiovascular Rhythm: regular Heart sounds: normal: S1, S2 Abnormal Heart Sounds: Absent: systolic murmur, diastolic murmur, rub, S3 Gallop, S4 Gallop, click, other - Peripheral edema leg Peripheral Edema: bilateral: None - Gastrointestinal General gastrointestinal: Present: decreased bowel sounds, soft, tenderness - Integumentary Integumentary: Present: normal - Neurologic Neurologic: Present: CNII-XII intact - Musculoskeletal Musculoskeletal: Present: strength equal bilaterally - Psychiatric Psychiatric Comment(s): tearful Psychiatric: Present: A&O x's 3 - Labs CBC & Chem 7: 09/19/24 08:39 09/19/24 08:39 Labs: Abnormal Lab Results - Last 24 Hours (Table) 09/18/24 09/18/24 09/18/24 Range/Units 06:34 06:34 12:31 WBC 10.36 H (4.50-10.00) X 10*3/uL RBC 2.62 L (4.10-5.20) X 10*6/uL Hgb 8.5 L (12.0-15.0) g/dL Hct 28.6 L (37.2-46.3) % MCV 109.2 H (80.0-97.0) FL MCH 32.4 H (27.0-32.0) pg MCHC 29.7 L (32.0-37.0) g/dL RDW 22.8 H (11.5-14.5) % Plt Count 56 L (140-440) X 10*3/uL Myelocytes # (Manual) (0) k/uL Nucleated RBCs (0-0) /100 WBC NRBC/100 WBC Diff 5.75 H (0.00-0.01) X 10*3/uL Immature Plt Fraction 29.4 H (1.1-6.1) % Macrocytosis Sodium (137-145) mmol/L Glucose 186 H (70-110) mg/dL POC Glucose (mg/dL) 184 H (70-110) mg/dL Calcium 8.2 L (8.7-10.3) mg/dL TIBC (228-460) UG/DL % Saturation (12.00-45.00) Transferrin (204.0-354.0) mg/dL Ferritin (10.0-291.0) ng/mL C-Reactive Protein (<1.0) mg/dL Vitamin B12 1571.0 H (200.0-944.0) pg/mL 09/18/24 09/18/24 09/18/24 Range/Units 15:59 17:01 20:20 WBC (4.50-10.00) X 10*3/uL RBC (4.10-5.20) X 10*6/uL Hgb (12.0-15.0) g/dL Hct (37.2-46.3) % MCV (80.0-97.0) FL MCH (27.0-32.0) pg MCHC (32.0-37.0) g/dL RDW (11.5-14.5) % Plt Count (140-440) X 10*3/uL Myelocytes # (Manual) (0) k/uL Nucleated RBCs (0-0) /100 WBC NRBC/100 WBC Diff (0.00-0.01) X 10*3/uL Immature Plt Fraction (1.1-6.1) % Macrocytosis Sodium (137-145) mmol/L Glucose (70-110) mg/dL POC Glucose (mg/dL) 215 H 201 H (70-110) mg/dL Calcium (8.7-10.3) mg/dL TIBC 214 L (228-460) UG/DL % Saturation 75.70 H (12.00-45.00) Transferrin 153.0 L (204.0-354.0) mg/dL Ferritin 946.0 H (10.0-291.0) ng/mL C-Reactive Protein (<1.0) mg/dL Vitamin B12 (200.0-944.0) pg/mL 09/19/24 09/19/24 09/19/24 Range/Units 07:03 08:39 08:39 WBC (4.50-10.00) X 10*3/uL RBC 2.36 L (4.10-5.20) X 10*6/uL Hgb 7.8 L (12.0-15.0) g/dL Hct 25.4 L (37.2-46.3) % MCV 107.7 H (80.0-97.0) FL MCH (27.0-32.0) pg MCHC 30.6 L (32.0-37.0) g/dL RDW 22.3 H (11.5-14.5) % Plt Count 46 L (140-440) X 10*3/uL Myelocytes # (Manual) 0.10 H (0) k/uL Nucleated RBCs 13 H (0-0) /100 WBC NRBC/100 WBC Diff (0.00-0.01) X 10*3/uL Immature Plt Fraction (1.1-6.1) % Macrocytosis Marked A Sodium 133 L (137-145) mmol/L Glucose 207 H (70-110) mg/dL POC Glucose (mg/dL) 234 H (70-110) mg/dL Calcium 8.1 L (8.7-10.3) mg/dL TIBC (228-460) UG/DL % Saturation (12.00-45.00) Transferrin (204.0-354.0) mg/dL Ferritin (10.0-291.0) ng/mL C-Reactive Protein 5.5 H (<1.0) mg/dL Vitamin B12 (200.0-944.0) pg/mL Microbiology - Last 24 Hours (Table) 09/17/24 09:04 Blood Culture Gram Stain - Final Blood Blood Culture - Final Coagulase Negative Staph Coagulase Negative Staph#2 Molecular ID - Imaging and Cardiology CT scan - abdomen: report reviewed CT scan - pelvis: report reviewed Assessment and Plan (1) Diarrhea Current Visit: Yes Status: Acute Priority: High Code(s): R19.7 - DIARRHEA, UNSPECIFIED SNOMED Code(s): 78179134 (2) Positive blood culture Current Visit: Yes Status: Acute Priority: High Code(s): R78.81 - BACTEREMIA SNOMED Code(s): 876258908 (3) AML (acute myeloid leukemia) Current Visit: Yes Status: Acute Priority: Medium Code(s): C92.00 - ACUTE MYELOBLASTIC LEUKEMIA, NOT HAVING ACHIEVED REMISSION SNOMED Code(s): 95572452 Plan: Diarrhea -C. difficile testing is negative -CT of the abdomen and pelvis with contrast there is reporting no evidence of bowel obstruction, no evidence of pneumoperitoneum or free fluid, no lymphadenopathy -Discussed with Nursing, stool is very soft, not watery. Colace stopped, antidiarrheals ordered PRN -AML -Diagnosis and treatment as documented in Consult -FLT3 mutation positive -Hold Xospata for now -Will continue to monitor blood counts. Patient's counts may drop in the setting of acute illness. Positive blood cultures -Abx ordered -ID following Oral thrush -Nystatin suspension prescribed
[2024-09-19 17:04] LABS: Glucose,Whole Blood 257 mg/dL (70-110)
--- NOTE | 2024-09-19 17:20 | P.PN ---
Subjective Progress Note Date: 09/19/24 Principal diagnosis: Reason for follow-up is a positive blood culture Patient is a 58-year-old female with a past medical history significant for coronary artery disease heart failure COPD diabetes mellitus DVT hypertension hyperlipidemia patient has been brought into the hospital for evaluation of mental status changes patient did have a positive blood culture prompted this consultation. On today's evaluation that is 09/19/2024, patient has been afebrile, patient is breathing comfortably and is currently on 2 L nasal cannula oxygen patient denies having any significant cough no chest pain, patient denies nausea vomiting or diarrhea and no abdominal pain. Patient white count is 10.2 creatinine 0.64 blood culture with COVID is negative staph Objective - Vital Signs Vital signs: Vital Signs Temp 97.6 F 09/19/24 07:00 Pulse 76 09/19/24 11:02 Resp 20 09/19/24 08:00 BP 153/92 09/19/24 07:00 Pulse Ox 95 09/19/24 07:00 FiO2 Intake & Output 09/18/24 09/19/24 09/19/24 18:59 06:59 18:59 Intake Total 1560 Balance 1560 Intake: Oral 1560 Other: Voiding Method Bedside Commode Bedside Commode Bedside Commode # Voids 4 3 # Bowel Movements 6 3 - Exam GENERAL DESCRIPTION: Middle-age female up in the chair in no distress RESPIRATORY SYSTEM: Unlabored breathing , decreased breath sounds at bases HEART: S1 S2 regular rate and rhythm , ABDOMEN: Soft , no tenderness EXTREMITIES: No edema feet - Labs CBC & Chem 7: 09/19/24 08:39 09/19/24 08:39 Labs: Abnormal Lab Results - Last 24 Hours (Table) 09/18/24 09/18/24 09/18/24 Range/Units 06:34 15:59 17:01 WBC 10.36 H (4.50-10.00) X 10*3/uL RBC 2.62 L (4.10-5.20) X 10*6/uL Hgb 8.5 L (12.0-15.0) g/dL Hct 28.6 L (37.2-46.3) % MCV 109.2 H (80.0-97.0) FL MCH 32.4 H (27.0-32.0) pg MCHC 29.7 L (32.0-37.0) g/dL RDW 22.8 H (11.5-14.5) % Plt Count 56 L (140-440) X 10*3/uL Myelocytes # (Manual) (0) k/uL Nucleated RBCs (0-0) /100 WBC NRBC/100 WBC Diff 5.75 H (0.00-0.01) X 10*3/uL Immature Plt Fraction 29.4 H (1.1-6.1) % Macrocytosis Sodium (137-145) mmol/L Glucose (74-99) mg/dL POC Glucose (mg/dL) 215 H (70-110) mg/dL Calcium (8.4-10.2) mg/dL TIBC 214 L (228-460) UG/DL % Saturation 75.70 H (12.00-45.00) Transferrin 153.0 L (204.0-354.0) mg/dL Ferritin 946.0 H (10.0-291.0) ng/mL C-Reactive Protein (<1.0) mg/dL 09/18/24 09/19/24 09/19/24 Range/Units 20:20 07:03 08:39 WBC (4.50-10.00) X 10*3/uL RBC 2.36 L (4.10-5.20) X 10*6/uL Hgb 7.8 L (12.0-15.0) g/dL Hct 25.4 L (37.2-46.3) % MCV 107.7 H (80.0-97.0) FL MCH (27.0-32.0) pg MCHC 30.6 L (32.0-37.0) g/dL RDW 22.3 H (11.5-14.5) % Plt Count 46 L (140-440) X 10*3/uL Myelocytes # (Manual) 0.10 H (0) k/uL Nucleated RBCs 13 H (0-0) /100 WBC NRBC/100 WBC Diff (0.00-0.01) X 10*3/uL Immature Plt Fraction (1.1-6.1) % Macrocytosis Marked A Sodium (137-145) mmol/L Glucose (74-99) mg/dL POC Glucose (mg/dL) 201 H 234 H (70-110) mg/dL Calcium (8.4-10.2) mg/dL TIBC (228-460) UG/DL % Saturation (12.00-45.00) Transferrin (204.0-354.0) mg/dL Ferritin (10.0-291.0) ng/mL C-Reactive Protein (<1.0) mg/dL 09/19/24 09/19/24 Range/Units 08:39 12:33 WBC (4.50-10.00) X 10*3/uL RBC (4.10-5.20) X 10*6/uL Hgb (12.0-15.0) g/dL Hct (37.2-46.3) % MCV (80.0-97.0) FL MCH (27.0-32.0) pg MCHC (32.0-37.0) g/dL RDW (11.5-14.5) % Plt Count (140-440) X 10*3/uL Myelocytes # (Manual) (0) k/uL Nucleated RBCs (0-0) /100 WBC NRBC/100 WBC Diff (0.00-0.01) X 10*3/uL Immature Plt Fraction (1.1-6.1) % Macrocytosis Sodium 133 L (137-145) mmol/L Glucose 207 H (74-99) mg/dL POC Glucose (mg/dL) 280 H (70-110) mg/dL Calcium 8.1 L (8.4-10.2) mg/dL TIBC (228-460) UG/DL % Saturation (12.00-45.00) Transferrin (204.0-354.0) mg/dL Ferritin (10.0-291.0) ng/mL C-Reactive Protein 5.5 H (<1.0) mg/dL Microbiology - Last 24 Hours (Table) 09/17/24 09:04 Blood Culture Gram Stain - Final Blood Blood Culture - Final Coagulase Negative Staph Coagulase Negative Staph#2 Molecular ID Assessment and Plan (1) Positive blood culture Current Visit: Yes Status: Acute Priority: High Code(s): R78.81 - BACTEREMIA SNOMED Code(s): 368549668 (2) Leukocytosis Current Visit: Yes Status: Acute Code(s): D72.829 - ELEVATED WHITE BLOOD CELL COUNT, UNSPECIFIED SNOMED Code(s): 444456027 Plan: 1patient with a positive blood culture with staph epi in this patient presented hospital some weakness confusion but did not have any fever some elevated white count patient subsequently normalized do not have any obvious focus for this positive blood culture and more likely representing skin contamination. 2blood culture repeat currently pending and will monitor the patient closely off antibiotic therapy at this point Dictation was produced using [employer] dictation software. please excuse any grammatical, word or spelling errors.
--- NOTE | 2024-09-19 18:35 | EEG ---
ELECTROENCEPHALOGRAM REPORT PREAMBLE: This is a 58-year-old female with altered mental status, rule out seizure. The patient had a fall which was not witnessed. CURRENT MEDICATIONS: 1. Zithromax. 2. Lipitor. 3. Zovirax. 4. Lovenox. 5. Prozac. 6. Mckee. 7. Zofran. 8. Ranexa. EEG FINDINGS: This is a 21-channel digital EEG recorded with video component, utilizing 10/20 international system with referential and bipolar montages. Background consists of moderately well-developed and regulated, predominantly 7 hertz theta, intermixed with some faster 8 to 9 hertz alpha activity. Background does not seem to be reactive to eye opening and closing. Photic driving response was not clearly seen. Different stages of sleep were not seen. No focal or generalized epileptiform activity was seen. IMPRESSION: This is an abnormal EEG due to background slowing and disorganization, suggestive of moderate encephalopathy. No focal, lateralized, or epileptiform activity was seen. MMODL / IJN: [id number] /
[2024-09-19 20:14] LABS: Glucose,Whole Blood 232 mg/dL (70-110)
[2024-09-19] MEDS ORDERED: IPRATROPIUM-ALBUTEROL 3 ML NEB INHALATION PRN (20:45)
[2024-09-19] MEDS: PROCHLORPERAZINE 10 MG TAB PO PRN (21:42)
[2024-09-19 23:21] LABS: Glucose,Whole Blood 244 mg/dL (70-110)
[2024-09-20] MEDS: IPRATROPIUM-ALBUTEROL 3 ML NEB INHALATION SCH (07:16)
[2024-09-20 07:51] LABS: Glucose,Whole Blood 289 mg/dL (70-110)
[2024-09-20] MEDS: ENOXAPARIN 40 MG/0.4 ML SYRINGE SQ SCH (08:39)
--- NOTE | 2024-09-20 09:52 | P.PN ---
Subjective 58-year-old female was sent in here because of altered mental status patient seemed diaphoretic clammy and was having speech abnormality because of which patient was sent in here patient is alert, unable to assess orientation I am unsure whether patient has aphasia or confused upon extensive evaluation patient is generally weak no focal weakness that I can appreciate no facial droop. Patient does not have any fever but does have leukocytosis without any clear source of infection urinalysis is within normal limits, chest x-ray did not show any significant abnormality, CT of the head and cervical spine did not show any significant acute abnormality except some cervical degenerative vertebral disease. 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 Patient is on morphine 15 mg every 12 hourly and Dundas which can contribute to her altered mental status patient is also on Xanax scheduled basis. Patient was hospitalized in month of July with similar symptoms at the time patient's symptoms are secondary to polypharmacy. Patient is also on gabapentin. Patient has been on oxygen patient does have bilateral rhonchi and expiratory wheezing on exam. 09/18 Patient more awake and alert and partially oriented to time place and person, She is short of breath and wheezing and occasional coughing but no chest pain No abdominal pain but has 1 large bowel movement which looks is full is loose. C. difficile test is going to be checked if persist. But no abdominal pain and she tolerates diet She has positive blood culture with Staph epidermidis most likely contamination. Currently on Zithromax but also she has evidence of leukocytosis which is trending down from 19 down to 17. She has history of leukemia and she has been followed up by hematology/oncology 09/19 Patient alert and r oriented at baseline She still complains from breathing and coughing. She still has wheezing and currently on IV Solu-Medrol No abdominal pain have some nausea and Zofran not working and switch to Compazine. Has 4 loose bowel movement. C. difficile is pending, discussed with the staff. CT of the abdomen pelvis with no acute process but showing atrophic left kidney and pancreatic parenchyma. Nonobstructive left renal calculus and postsurgical gastric changes. Blood culture most likely contamination. No need for IV vancomycin. WBC is back to normal at 10.2, hemoglobin 7.8, platelet count 46 which is fluctuating 40 to 60s, patient kept on Lovenox as patient has risk for DVT given previous history of DVT and currently bedridden and other risk factors 09/20 Patient states breathing is better, wheezing is better no coughing She remains on IV Solu-Medrol 40 mg She has ongoing mild headache and generalized weakness this a.m. Nausea feels better but does need to be increased as it is short-lived. She tolerates diet, abdomen soft with no pain or tenderness. Her diarrhea stopped today. MRI of the brain is still pending Objective - Vital Signs Vital signs: Vital Signs Temp 98.1 F 09/20/24 07:50 Pulse 111 H 09/20/24 07:50 Resp 18 09/20/24 07:50 BP 164/94 09/20/24 07:50 Pulse Ox 96 09/20/24 07:50 FiO2 Intake & Output 09/19/24 09/20/24 09/20/24 18:59 06:59 18:59 Other: Voiding Method Bedside Commode Bedside Commode Bedside Commode # Voids 1 # Bowel Movements 3 0 # Emeses 1 - Exam GENERAL: The patient is alert and oriented x3 partially, not in any acute distress. Well developed, well nourished. HEENT: Pupils are round and equally reacting to light. EOMI. No scleral icterus. No conjunctival pallor. Normocephalic, atraumatic. No pharyngeal erythema. No thyromegaly. CARDIOVASCULAR: S1 and S2 present. No murmurs, rubs, or gallops. -PULMONARY: Chest is clear to auscultation, bilateral expiratory wheezing , no crackles. ABDOMEN: Soft, nontender, nondistended, normoactive bowel sounds. No palpable organomegaly. MUSCULOSKELETAL: No joint swelling or deformity. EXTREMITIES: No cyanosis, clubbing, or pedal edema. NEUROLOGICAL: Gross neurological examination did not reveal any focal deficits. SKIN: No rashes. no petechiae. - Labs CBC & Chem 7: 09/19/24 08:39 09/19/24 08:39 Labs: Abnormal Lab Results - Last 24 Hours (Table) 09/17/24 09/18/24 09/19/24 Range/Units 08:03 15:59 08:39 RBC 2.36 L (3.80-5.40) m/uL Hgb 7.8 L (11.4-16.0) gm/dL Hct 25.4 L (34.0-46.0) % MCV 107.7 H (80.0-100.0) fL MCHC 30.6 L (31.0-37.0) g/dL RDW 22.3 H (11.5-15.5) % Plt Count 46 L (150-450) k/uL Blast Cells % 7 H* % Monocytes # (Manual) 3.47 H (0-1.0) k/uL Metamyelocytes # (Man) 0.10 H (0) k/uL Myelocytes # (Manual) 0.10 H (0) k/uL Blast Cells # (Man) 0.69 H (0) k/uL Nucleated RBCs 101 H 13 H (0-0) /100 WBC Macrocytosis Marked A POC Glucose (mg/dL) (70-110) mg/dL TIBC 214 L (228-460) UG/DL % Saturation 75.70 H (12.00-45.00) Transferrin 153.0 L (204.0-354.0) mg/dL Ferritin 946.0 H (10.0-291.0) ng/mL 09/19/24 09/19/24 09/19/24 Range/Units 12:33 17:02 20:12 RBC (3.80-5.40) m/uL Hgb (11.4-16.0) gm/dL Hct (34.0-46.0) % MCV (80.0-100.0) fL MCHC (31.0-37.0) g/dL RDW (11.5-15.5) % Plt Count (150-450) k/uL Blast Cells % % Monocytes # (Manual) (0-1.0) k/uL Metamyelocytes # (Man) (0) k/uL Myelocytes # (Manual) (0) k/uL Blast Cells # (Man) (0) k/uL Nucleated RBCs (0-0) /100 WBC Macrocytosis POC Glucose (mg/dL) 280 H 257 H 232 H (70-110) mg/dL TIBC (228-460) UG/DL % Saturation (12.00-45.00) Transferrin (204.0-354.0) mg/dL Ferritin (10.0-291.0) ng/mL 09/19/24 09/20/24 Range/Units 23:18 07:50 RBC (3.80-5.40) m/uL Hgb (11.4-16.0) gm/dL Hct (34.0-46.0) % MCV (80.0-100.0) fL MCHC (31.0-37.0) g/dL RDW (11.5-15.5) % Plt Count (150-450) k/uL Blast Cells % % Monocytes # (Manual) (0-1.0) k/uL Metamyelocytes # (Man) (0) k/uL Myelocytes # (Manual) (0) k/uL Blast Cells # (Man) (0) k/uL Nucleated RBCs (0-0) /100 WBC Macrocytosis POC Glucose (mg/dL) 244 H 289 H (70-110) mg/dL TIBC (228-460) UG/DL % Saturation (12.00-45.00) Transferrin (204.0-354.0) mg/dL Ferritin (10.0-291.0) ng/mL Microbiology - Last 24 Hours (Table) 09/17/24 09:04 Blood Culture Gram Stain - Final Blood Blood Culture - Final Coagulase Negative Staph Coagulase Negative Staph#2 Molecular ID Assessment and Plan Assessment: Assessment and plan -Altered mental status possibly toxic encephalopathy from polypharmacy again we will discontinue MS Contin we will cut down the dose of Dundas, gabapentin dose will be cut down or discontinued and we will cut down the dose of Xanax or will be held temporarily. Because of the aphasia I cannot completely rule out stroke neurology was consulted from ER which will be continued I did not see any obvious source of infection except for possible bronchitis mentation improved significantly Mentation improved significantly -Bronchitis with COPD exacerbation, will use azithromycin along with breathing treatments. Start IV Solu-Medrol -Leukocytosis, -Diarrhea, suspicion of colitis is low, abdomen soft. CT of the abdomen showing no acute process. Rule out C. difficile -Positive blood culture with Staph epidermidis could be contamination. Consult ID team currently on Zithromax. Most likely contamination -Anemia and thrombocytopenia, keep monitoring hemoglobin and platelet count and to keep dropping may hold anticoagulant -Type 2 diabetes mellitus -History of DVT in the past -Hyperlipidemia -Hypertension -Leukemia: Oncology was consulted DVT prophylaxis: We will hold subcutaneous Lovenox, if more worsening thrombocytopenia, currently keep monitoring GI prophylaxis: Protonix
[2024-09-20] MEDS: predniSONE 20 MG TAB PO SCH (11:47)
[2024-09-20 12:15] LABS: Glucose,Whole Blood 249 mg/dL (70-110)
[2024-09-20] MEDS: ALPRAZolam 0.5 MG TAB PO SCH (13:38)
--- NOTE | 2024-09-20 15:35 | P.PN ---
Subjective Progress Note Date: 09/20/24 Principal diagnosis: AML, on oral agent In follow-up today patient reports that she is having fewer stools, abd is less tender, oral irritation is improved. She states that she needs to be back on her xanax as she cannot calm down with out it. Objective - Vital Signs Vital signs: Vital Signs Temp 98.0 F 09/20/24 11:56 Pulse 106 H 09/20/24 11:56 Resp 18 09/20/24 11:56 BP 153/90 09/20/24 11:56 Pulse Ox 96 09/20/24 11:56 FiO2 Intake & Output 09/19/24 09/20/24 09/20/24 18:59 06:59 18:59 Other: Voiding Method Bedside Commode Bedside Commode Bedside Commode # Voids 1 # Bowel Movements 3 0 1 # Emeses 1 - Constitutional General appearance: Present: cooperative, mild distress, obese - EENT Eyes: Present: anicteric sclerae, EOMI ENT: Present: hearing grossly normal, normal oropharynx - Respiratory Respiratory: bilateral: CTA - Cardiovascular Rhythm: regular Heart sounds: normal: S1, S2 Abnormal Heart Sounds: Absent: systolic murmur, diastolic murmur, rub, S3 Gallop, S4 Gallop, click, other - Peripheral edema leg Peripheral Edema: bilateral: Trace - Gastrointestinal General gastrointestinal: Present: distended (mildly), normal bowel sounds, soft, tenderness (deeper palpation) - Integumentary Integumentary: Present: normal - Neurologic Neurologic: Present: CNII-XII intact - Musculoskeletal Musculoskeletal: Present: strength equal bilaterally - Psychiatric Psychiatric: Present: A&O x's 3, intact judgment & insight - Labs CBC & Chem 7: 09/19/24 08:39 09/19/24 08:39 Labs: Abnormal Lab Results - Last 24 Hours (Table) 09/18/24 09/19/24 09/19/24 Range/Units 15:41 17:02 20:12 POC Glucose (mg/dL) 257 H 232 H (70-110) mg/dL RBC Folate 910 H (280 - 791) ng/mL 09/19/24 09/20/24 09/20/24 Range/Units 23:18 07:50 12:13 POC Glucose (mg/dL) 244 H 289 H 249 H (70-110) mg/dL RBC Folate (280 - 791) ng/mL Microbiology - Last 24 Hours (Table) 09/17/24 09:04 Blood Culture Gram Stain - Final Blood Blood Culture - Final Coagulase Negative Staph Coagulase Negative Staph#2 Molecular ID Assessment and Plan (1) Diarrhea Current Visit: Yes Status: Acute Priority: High Code(s): R19.7 - DIARRHEA, UNSPECIFIED SNOMED Code(s): 40543415 (2) Positive blood culture Current Visit: Yes Status: Acute Priority: High Code(s): R78.81 - BACTEREMIA SNOMED Code(s): 071711449 (3) AML (acute myeloid leukemia) Current Visit: Yes Status: Acute Priority: Medium Code(s): C92.00 - ACUTE MYELOBLASTIC LEUKEMIA, NOT HAVING ACHIEVED REMISSION SNOMED Code(s): 14831065 Plan: Diarrhea -C. difficile testing is negative -CT of the abdomen and pelvis with contrast there is reporting no evidence of bowel obstruction, no evidence of pneumoperitoneum or free fluid, no lymphadenopathy -Previously reported stool is very soft, not watery. Colace stopped, antidiarrheals ordered PRN. Fewer episodes of stool today. Pt reporting less belly pain today -AML -Diagnosis and treatment as documented in Consult -FLT3 mutation positive -Hold Xospata for now -Will continue to monitor blood counts. Patient's counts may drop in the setting of acute illness. Positive blood cultures -Abx ordered -ID following Oral thrush -Nystatin suspension prescribed -Oral mucosa, much better, nearly resolved Pt very anxious, added her home xanax daily for now.
--- NOTE | 2024-09-20 16:25 | P.PN ---
Subjective Progress Note Date: 09/20/24 Principal diagnosis: Reason for follow-up is a positive blood culture Patient is a 58-year-old female with a past medical history significant for coronary artery disease heart failure COPD diabetes mellitus DVT hypertension hyperlipidemia patient has been brought into the hospital for evaluation of mental status changes patient did have a positive blood culture prompted this consultation. On today's evaluation that is 09/20/2024, Patient is afebrile this morning pa tient denies having any chest pain shortness of breath or cough, the patient is currently on room air, patient denies any abdominal pain no diarrhea no nausea no vomiting no new lab has been repeated today, blood culture repeat pending Objective - Vital Signs Vital signs: Vital Signs Temp 98.0 F 09/20/24 11:56 Pulse 106 H 09/20/24 11:56 Resp 18 09/20/24 11:56 BP 153/90 09/20/24 11:56 Pulse Ox 96 09/20/24 11:56 FiO2 Intake & Output 09/19/24 09/20/24 09/20/24 18:59 06:59 18:59 Intake Total 220 Balance 220 Intake: Oral 220 Other: Voiding Method Bedside Commode Bedside Commode Bedside Commode # Voids 1 # Bowel Movements 3 0 1 # Emeses 1 - Exam GENERAL DESCRIPTION: Middle-age female up in the chair in no distress RESPIRATORY SYSTEM: Unlabored breathing , decreased breath sounds at bases HEART: S1 S2 regular rate and rhythm , ABDOMEN: Soft , no tenderness EXTREMITIES: No edema feet - Labs CBC & Chem 7: 09/19/24 08:39 09/19/24 08:39 Labs: Abnormal Lab Results - Last 24 Hours (Table) 09/18/24 09/19/24 09/19/24 Range/Units 15:41 17:02 20:12 POC Glucose (mg/dL) 257 H 232 H (70-110) mg/dL RBC Folate 910 H (280 - 791) ng/mL 09/19/24 09/20/24 09/20/24 Range/Units 23:18 07:50 12:13 POC Glucose (mg/dL) 244 H 289 H 249 H (70-110) mg/dL RBC Folate (280 - 791) ng/mL Assessment and Plan (1) Positive blood culture Current Visit: Yes Status: Acute Priority: High Code(s): R78.81 - BACTEREMIA SNOMED Code(s): 841518961 (2) Leukocytosis Current Visit: Yes Status: Acute Code(s): D72.829 - ELEVATED WHITE BLOOD CELL COUNT, UNSPECIFIED SNOMED Code(s): 286059005 Plan: 1patient with a positive blood culture with staph epi in this patient presented hospital some weakness confusion but did not have any fever some elevated white count patient subsequently normalized do not have any obvious focus for this positive blood culture and more likely representing skin contamination. 2blood culture repeat currently pending clinically no obvious focus for initial bacteremia hence no need for vancomycin Dictation was produced using [employer] dictation software. please excuse any gramm atical, word or spelling errors. Time with Patient: Less than 30
[2024-09-20 17:15] LABS: Glucose,Whole Blood 276 mg/dL (70-110)
[2024-09-20 20:32] LABS: Glucose,Whole Blood 268 mg/dL (70-110)
[2024-09-21 07:04] LABS: Glucose,Whole Blood 189 mg/dL (70-110)
[2024-09-21 08:58] LABS: Blood Urea Nitrogen 12.8 mg/dL (9.0-27.0); Carbon Dioxide 25.5 mmol/L (21.6-31.8); Chloride 104 mmol/L (96-109); Glucose 161 mg/dL (70-110); Potassium 3.7 mmol/L (3.5-5.5); Sodium 139 mmol/L (135-145)
[2024-09-21 08:59] LABS: ALT 31 U/L (8-44); AST 76 U/L (13-35); Albumin 3.1 g/dL (3.8-4.9); Albumin/Globulin Ratio 1.63 Ratio (1.60-3.17); Alkaline Phosphatase 73 U/L (41-126); Bilirubin, Conjugated 0.33 mg/dL (0.20-0.40); Bilirubin,Unconjugated 0.27 mg/dL (0.20-1.00); Calcium 8.3 mg/dL (8.7-10.3); Globulin 1.9 g/dL (1.6-3.3); Total Bilirubin 0.6 mg/dL (0.3-1.2)
[2024-09-21 09:25] LABS: HCT 25.1 % (37.2-46.3); HGB 7.6 g/dL (12.0-15.0); Immature Platelet Fraction 29.8 % (1.1-6.1); MCH 32.3 pg (27.0-32.0); MCHC 30.3 g/dL (32.0-37.0); MCV 106.8 FL (80.0-97.0); NRBC Per 100 WBC 3.32 X 10*3/uL (0.00-0.01); Platelet Count 47 X 10*3/uL (140-440); RBC 2.35 X 10*6/uL (4.10-5.20); RDW 22.9 % (11.5-14.5); WBC 9.84 X 10*3/uL (4.50-10.00)
[2024-09-21 09:46] LABS: Band Neutrophils % 2 %; Basophils # (M) 0 X 10*3/uL (0.00-0.10); Eosinophils # (M) 0 X 10*3/uL (0.04-0.35); Lymphocytes # (M) 2.46 X 10*3/uL (0.90-5.00); Monocytes # (M) 1.48 X 10*3/uL (0.20-1.00); Neutrophils % (M) 58 %; Nucleated Red Blood Cells 81 /100 WBCS
[2024-09-21 12:01] LABS: Glucose,Whole Blood 186 mg/dL (70-110)
--- NOTE | 2024-09-21 12:21 | P.PN ---
Subjective Progress Note Date: 09/21/24 Principal diagnosis: Reason for follow-up is a positive blood culture Patient is a 58-year-old female with a past medical history significant for coronary artery disease heart failure COPD diabetes mellitus DVT hypertension hyperlipidemia patient has been brought into the hospital for evaluation of mental status changes patient did have a positive blood culture prompted this consultation. On today's evaluation that is 09/21/2024,the patient denies any fever or any chills, patient is breathing comfortably on room air, the patient denies chest pain shortness of breath occasional cough, patient denies abdominal pain, no nausea vomiting or diarrhea. White count is 9.84 creatinine 0.8 blood culture repeat has been negative Objective - Vital Signs Vital signs: Vital Signs Temp 98.5 F 09/21/24 07:24 Pulse 108 H 09/21/24 07:24 Resp 18 09/21/24 07:24 BP 127/78 09/21/24 07:24 Pulse Ox 97 09/21/24 07:24 FiO2 Intake & Output 09/20/24 09/21/24 09/21/24 18:59 06:59 18:59 Intake Total 1520 1080 Output Total 700 Balance 1520 1080 -700 Weight 89 kg Intake: Oral 1520 1080 Output: Urine 700 Other: Voiding Method Bedside Commode Bedside Commode Bedside Commode # Voids 3 1 # Bowel Movements 1 - Exam GENERAL DESCRIPTION: Middle-age female up in the chair in no distress RESPIRATORY SYSTEM: Unlabored breathing , decreased breath sounds at bases HEART: S1 S2 regular rate and rhythm , ABDOMEN: Soft , no tenderness EXTREMITIES: No edema feet - Labs CBC & Chem 7: 09/21/24 04:36 09/21/24 04:36 Labs: Abnormal Lab Results - Last 24 Hours (Table) 09/18/24 09/20/24 09/20/24 Range/Units 15:41 17:13 20:30 RBC (4.10-5.20) X 10*6/uL Hgb (12.0-15.0) g/dL Hct (37.2-46.3) % MCV (80.0-97.0) FL MCH (27.0-32.0) pg MCHC (32.0-37.0) g/dL RDW (11.5-14.5) % Plt Count (140-440) X 10*3/uL Monocytes # (Manual) (0.20-1.00) X 10*3/uL Eosinophils # (Manual) (0.04-0.35) X 10*3/uL NRBC/100 WBC Diff (0.00-0.01) X 10*3/uL Immature Plt Fraction (1.1-6.1) % Glucose (70-110) mg/dL POC Glucose (mg/dL) 276 H 268 H (70-110) mg/dL Calcium (8.7-10.3) mg/dL AST (13-35) U/L Total Protein (6.2-8.2) g/dL Albumin (3.8-4.9) g/dL RBC Folate 910 H (280 - 791) ng/mL 09/21/24 09/21/24 09/21/24 Range/Units 04:36 04:36 07:02 RBC 2.35 L (4.10-5.20) X 10*6/uL Hgb 7.6 L (12.0-15.0) g/dL Hct 25.1 L (37.2-46.3) % MCV 106.8 H (80.0-97.0) FL MCH 32.3 H (27.0-32.0) pg MCHC 30.3 L (32.0-37.0) g/dL RDW 22.9 H (11.5-14.5) % Plt Count 47 A* (140-440) X 10*3/uL Monocytes # (Manual) 1.48 H (0.20-1.00) X 10*3/uL Eosinophils # (Manual) 0 L (0.04-0.35) X 10*3/uL NRBC/100 WBC Diff 3.32 H (0.00-0.01) X 10*3/uL Immature Plt Fraction 29.8 H (1.1-6.1) % Glucose 161 H (70-110) mg/dL POC Glucose (mg/dL) 189 H (70-110) mg/dL Calcium 8.3 L (8.7-10.3) mg/dL AST 76 H (13-35) U/L Total Protein 5.0 L (6.2-8.2) g/dL Albumin 3.1 L (3.8-4.9) g/dL RBC Folate (280 - 791) ng/mL 09/21/24 Range/Units 12:00 RBC (4.10-5.20) X 10*6/uL Hgb (12.0-15.0) g/dL Hct (37.2-46.3) % MCV (80.0-97.0) FL MCH (27.0-32.0) pg MCHC (32.0-37.0) g/dL RDW (11.5-14.5) % Plt Count (140-440) X 10*3/uL Monocytes # (Manual) (0.20-1.00) X 10*3/uL Eosinophils # (Manual) (0.04-0.35) X 10*3/uL NRBC/100 WBC Diff (0.00-0.01) X 10*3/uL Immature Plt Fraction (1.1-6.1) % Glucose (70-110) mg/dL POC Glucose (mg/dL) 186 H (70-110) mg/dL Calcium (8.7-10.3) mg/dL AST (13-35) U/L Total Protein (6.2-8.2) g/dL Albumin (3.8-4.9) g/dL RBC Folate (280 - 791) ng/mL Microbiology - Last 24 Hours (Table) 09/19/24 08:39 Blood Culture - Preliminary Blood Assessment and Plan (1) Positive blood culture Current Visit: Yes Status: Acute Priority: High Code(s): R78.81 - BACTEREMIA SNOMED Code(s): 311954112 (2) Leukocytosis Current Visit: Yes Status: Acute Code(s): D72.829 - ELEVATED WHITE BLOOD CELL COUNT, UNSPECIFIED SNOMED Code(s): 631417223 Plan: 1patient with a positive blood culture with staph epi in this patient presented hospital some weakness confusion but did not have any fever some elevated white count patient subsequently normalized do not have any obvious focus for this positive blood culture and more likely representing skin contamination. 2blood culture repeat has been negative and no obvious focus for the initial positive blood culture has no need for vancomycin Dictation was produced using [employer] dictation software. please excuse any grammatical, word or spelling errors. Time with Patient: Less than 30
--- NOTE | 2024-09-21 16:47 | P.PN ---
Subjective Progress Note Date: 09/21/24 Principal diagnosis: AML, on oral agent In follow-up today patient reports that she is no longer having diarrhea, abd is no longer tender, oral irritation is resolved. She states that she needs to be back on her xanax as prescribed (BID) as her face is still trembling. She is al so requesting her "muscle relaxer" (I think she was referring to neurontin). We discussed that some of her meds were held on admit as she was lethargic and not behaving appropriately, she verbalized understanding. Objective - Vital Signs Vital signs: Vital Signs Temp 98.4 F 09/21/24 12:33 Pulse 112 H 09/21/24 15:47 Resp 16 09/21/24 12:33 BP 125/77 09/21/24 12:33 Pulse Ox 97 09/21/24 12:33 FiO2 Intake & Output 09/20/24 09/21/24 09/21/24 18:59 06:59 18:59 Intake Total 1520 1080 Output Total 700 Balance 1520 1080 -700 Weight 89 kg Intake: Oral 1520 1080 Output: Urine 700 Other: Voiding Method Bedside Commode Bedside Commode Bedside Commode # Voids 3 1 # Bowel Movements 1 - Constitutional General appearance: Present: cooperative, no acute distress, obese - EENT Eyes: Present: anicteric sclerae, EOMI, poor dentition ENT: Present: hearing grossly normal - Respiratory Respiratory: bilateral: CTA - Cardiovascular Rhythm: regular Heart sounds: normal: S1, S2 Abnormal Heart Sounds: Absent: systolic murmur, diastolic murmur, rub, S3 Gallop, S4 Gallop, click, other - Gastrointestinal General gastrointestinal: Present: normal bowel sounds, soft. Absent: absent bowel sounds, decreased bowel sounds, distended, hepatomegaly, hyperactive bowel sounds, organomegaly, rigid, scaphoid, splenomegaly, tenderness, umbilical hernia, ventral hernia - Integumentary Integumentary: Present: normal - Neurologic Neurologic: Present: CNII-XII intact - Musculoskeletal Musculoskeletal: Present: generalized weakness, strength equal bilaterally - Psychiatric Psychiatric Comment(s): flat affect Psychiatric: Present: A&O x's 3, intact judgment & insight - Labs CBC & Chem 7: 09/21/24 04:36 09/21/24 04:36 Labs: Abnormal Lab Results - Last 24 Hours (Table) 09/20/24 09/20/24 09/21/24 Range/Units 17:13 20:30 04:36 RBC 2.35 L (4.10-5.20) X 10*6/uL Hgb 7.6 L (12.0-15.0) g/dL Hct 25.1 L (37.2-46.3) % MCV 106.8 H (80.0-97.0) FL MCH 32.3 H (27.0-32.0) pg MCHC 30.3 L (32.0-37.0) g/dL RDW 22.9 H (11.5-14.5) % Plt Count 47 A* (140-440) X 10*3/uL Monocytes # (Manual) 1.48 H (0.20-1.00) X 10*3/uL Eosinophils # (Manual) 0 L (0.04-0.35) X 10*3/uL NRBC/100 WBC Diff 3.32 H (0.00-0.01) X 10*3/uL Immature Plt Fraction 29.8 H (1.1-6.1) % Glucose (70-110) mg/dL POC Glucose (mg/dL) 276 H 268 H (70-110) mg/dL Calcium (8.7-10.3) mg/dL AST (13-35) U/L Total Protein (6.2-8.2) g/dL Albumin (3.8-4.9) g/dL 09/21/24 09/21/24 09/21/24 Range/Units 04:36 07:02 12:00 RBC (4.10-5.20) X 10*6/uL Hgb (12.0-15.0) g/dL Hct (37.2-46.3) % MCV (80.0-97.0) FL MCH (27.0-32.0) pg MCHC (32.0-37.0) g/dL RDW (11.5-14.5) % Plt Count (140-440) X 10*3/uL Monocytes # (Manual) (0.20-1.00) X 10*3/uL Eosinophils # (Manual) (0.04-0.35) X 10*3/uL NRBC/100 WBC Diff (0.00-0.01) X 10*3/uL Immature Plt Fraction (1.1-6.1) % Glucose 161 H (70-110) mg/dL POC Glucose (mg/dL) 189 H 186 H (70-110) mg/dL Calcium 8.3 L (8.7-10.3) mg/dL AST 76 H (13-35) U/L Total Protein 5.0 L (6.2-8.2) g/dL Albumin 3.1 L (3.8-4.9) g/dL Microbiology - Last 24 Hours (Table) 09/19/24 08:39 Blood Culture - Preliminary Blood Assessment and Plan (1) Diarrhea Current Visit: Yes Status: Acute Priority: High Code(s): R19.7 - DIARRHEA, UNSPECIFIED SNOMED Code(s): 83689294 (2) Positive blood culture Current Visit: Yes Status: Acute Priority: High Code(s): R78.81 - BACTEREMIA SNOMED Code(s): 939857537 (3) AML (acute myeloid leukemia) Current Visit: Yes Status: Acute Priority: Medium Code(s): C92.00 - ACUTE MYELOBLASTIC LEUKEMIA, NOT HAVING ACHIEVED REMISSION SNOMED Code(s): 59445863 Plan: Diarrhea -C. difficile testing negative -CT of the abdomen and pelvis with contrast there is reporting no evidence of bowel obstruction, no evidence of pneumoperitoneum or free fluid, no lymphadenopathy -Previously reported stool is very soft, not watery. Colace stopped, antidi arrheals ordered PRN. No diarrhea or belly pain today -AML -Diagnosis and treatment as documented in Consult -FLT3 mutation positive -Will continue to monitor blood counts. Patient's counts may drop in the setting of acute illness -Plt and Hgb still lower then baseline, cont hold for now -Pt has f/u appt with Med Onc next week. She will be assessed and resumed on therapy as felt appropriate Positive blood cultures -ID following. Subsequent cult neg. Abx stopped Oral thrush -Nystatin suspension prescribed -Resolved Pt very anxious, resumed her xanax BID. Neurontin resumption will leave up to Medicine
[2024-09-21 17:17] LABS: Glucose,Whole Blood 295 mg/dL (70-110)
[2024-09-21] MEDS: ALPRAZolam 0.5 MG TAB PO SCH (20:00)
[2024-09-21 20:37] LABS: Glucose,Whole Blood 272 mg/dL (70-110)
[2024-09-21] MEDS: traZODone HCL 50 MG TAB PO SCH (22:03)
[2024-09-22] MEDS: methocarbamoL 500 MG TAB PO PRN (05:35)
--- NOTE | 2024-09-22 06:07 | P.PN ---
Subjective Progress Note Date: 09/21/24 Subjective 58-year-old female was sent in here because of altered mental status patient seemed diaphoretic clammy and was having speech abnormality because of which patient was sent in here patient is alert, unable to assess orientation I am unsure whether patient has aphasia or confused upon extensive evaluation patient is generally weak no focal weakness that I can appreciate no facial droop. Patient does not have any fever but does have leukocytosis without any clear source of infection urinalysis is within normal limits, chest x-ray did not show any significant abnormality, CT of the head and cervical spine did not show any significant acute abnormality except some cervical degenerative vertebral disease. 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 Patient is on morphine 15 mg every 12 hourly and Arcadia which can contribute to her altered mental status patient is also on Xanax scheduled basis. Patient was hospitalized in month of July with similar symptoms at the time patient's symptoms are secondary to polypharmacy. Patient is also on gabapentin. Patient has been on oxygen patient does have bilateral rhonchi and expiratory wheezing on exam. 09/18 Patient more awake and alert and partially oriented to time place and person, She is short of breath and wheezing and occasional coughing but no chest pain No abdominal pain but has 1 large bowel movement which looks is full is loose. C. difficile test is going to be checked if persist. But no abdominal pain and she tolerates diet She has positive blood culture with Staph epidermidis most likely contamination. Currently on Zithromax but also she has evidence of leukocytosis which is trending down from 19 down to 17. She has history of leukemia and she has been followed up by hematology/oncology 09/19 Patient alert and r oriented at baseline She still complains from breathing and coughing. She still has wheezing and currently on IV Solu-Medrol No abdominal pain have some nausea and Zofran not working and switch to Compazine. Has 4 loose bowel movement. C. difficile is pending, discussed with the staff. CT of the abdomen pelvis with no acute process but showing atrophic left kidney and pancreatic parenchyma. Nonobstructive left renal calculus and postsurgical gastric changes. Blood culture most likely contamination. No need for IV vancomycin. WBC is back to normal at 10.2, hemoglobin 7.8, platelet count 46 which is fluctuating 40 to 60s, patient kept on Lovenox as patient has risk for DVT given previous history of DVT and currently bedridden and other risk factors 09/20 Patient states breathing is better, wheezing is better no coughing She remains on IV Solu-Medrol 40 mg She has ongoing mild headache and generalized weakness this a.m. Nausea feels better but does need to be increased as it is short-lived. She tolerates diet, abdomen soft with no pain or tenderness. Her diarrhea stopped today. MRI of the brain is still pending 09/21/2024 Patient is seen in follow-up today with oncology following. Neurology following as well and currently awaiting MRI of the brain. Patient reports to feeling improved and mentation is significantly improved requesting her Xanax and muscle relaxer as she reports she feels as if she is withdrawing from it. Patient was altered and confused on admission. Patient reports her abdominal pain has improved and will slowly increase diet as tolerated. Antibiotics being discontinued as repeat blood cultures are negative per ID recommendations will be closely monitored off antibiotic therapy. Recommend PT/OT therapy evaluation and increased activity as tolerated. Review of systems: Constitutional: No reports of fatigue, fever, or chills Cardiovascular: No reports of chest pain or palpitations Respiratory: No reports of shortness of breath or cough GI: No reports of nausea, vomiting, or diarrhea : No reports of dysuria or retention Neurovascular: reports of generalized weakness with extreme anxiety All medications have been reviewed Physical exam: GENERAL: The patient is alert and oriented x3, improved well developed, well nourished. Obese, appears older than stated age HEENT: Pupils are round and equally reacting to light. EOMI. No scleral icterus. No conjunctival pallor. Normocephalic, atraumatic. No pharyngeal erythema. No thyromegaly. CARDIOVASCULAR: S1 and S2 present. No murmurs, rubs, or gallops. -PULMONARY: Diminished breath sounds bilaterally with some faint expiratory wh eezing noted, no crackles and no accessory muscle use ABDOMEN: Soft, obese, nontender, nondistended, normoactive bowel sounds. No palpable organomegaly. MUSCULOSKELETAL: No joint swelling or deformity. EXTREMITIES: No cyanosis, clubbing, or pedal edema. NEUROLOGICAL: Gross neurological examination did not reveal any focal deficits. Diffusely weak SKIN: No rashes. no petechiae. Assessment: -Altered mental status, likely toxic encephalopathy from polypharmacy again we will discontinue MS Contin we will cut down the dose of Arcadia, gabapentin dose will be cut down or discontinued and we will cut down the dose of Xanax or will be held temporarily. Because of the aphasia I cannot completely rule out stroke neurology was consulted from ER which will be continued I did not see any obvious source of infection except for possible bronchitis mentation improved significantly -Bronchitis with COPD exacerbation -Leukocytosis, -Diarrhea, suspicion of colitis is low, abdomen soft. CT of the abdomen showing no acute process. Ruled out C. difficile -Positive blood culture with Staph epidermidis, likely contamination. Being monitored off antibiotic therapy -Anemia and thrombocytopenia, continue monitoring hemoglobin and platelet count, hold anticoagulant -Type 2 diabetes mellitus -History of DVT in the past -Hyperlipidemia -Hypertension -Leukemia: Oncology was consulted -Obesity with a BMI 35.3 DVT prophylaxis: We will hold subcutaneous Lovenox, if more worsening thrombocytopenia, currently keep monitoring GI prophylaxis: Protonix Full code Plan: Patient's mentation is improved and requesting her Xanax and muscle relaxer to be resumed if she feels she is having withdrawal symptoms including shaking and uneasy feeling Recommend PT/OT therapy evaluation as patient is weak Continue current regimen including breathing treatments and transition to prednisone taper Review and resume appropriate medications at decreased dose Encourage sitting up out of the bed more frequently Will follow-up on repeat labs Discussed further with oncology and infectious disease regarding discharge planning, possibly in the next 24 to 48 hours The impression and plan of care has been dictated by Kathi Hewitt, Nurse Practitioner as directed. Dr. Massiel MD I have performed a history and examination and MDM of this patient, discussed the same with the dictator, and agree with the dictator's assessment and plan as written ,documented as a scribe. Based on total visit time, I have performed more than 50% of the visit. Objective - Vital Signs Vital signs: Vital Signs Temp 98.5 F 09/21/24 07:24 Pulse 108 H 09/21/24 07:24 Resp 18 09/21/24 07:24 BP 127/78 09/21/24 07:24 Pulse Ox 97 09/21/24 07:24 FiO2 Intake & Output 09/20/24 09/21/24 09/21/24 18:59 06:59 18:59 Intake Total 1520 1080 Balance 1520 1080 Weight 89 kg Intake: Oral 1520 1080 Other: Voiding Method Bedside Commode Bedside Commode Bedside Commode # Voids 3 1 # Bowel Movements 1 - Labs CBC & Chem 7: 09/21/24 04:36 09/21/24 04:36 Labs: Abnormal Lab Results - Last 24 Hours (Table) 09/18/24 09/20/24 09/20/24 Range/Units 15:41 12:13 17:13 RBC (4.10-5.20) X 10*6/uL Hgb (12.0-15.0) g/dL Hct (37.2-46.3) % MCV (80.0-97.0) FL MCH (27.0-32.0) pg MCHC (32.0-37.0) g/dL RDW (11.5-14.5) % Plt Count (140-440) X 10*3/uL Monocytes # (Manual) (0.20-1.00) X 10*3/uL Eosinophils # (Manual) (0.04-0.35) X 10*3/uL NRBC/100 WBC Diff (0.00-0.01) X 10*3/uL Immature Plt Fraction (1.1-6.1) % Glucose (70-110) mg/dL POC Glucose (mg/dL) 249 H 276 H (70-110) mg/dL Calcium (8.7-10.3) mg/dL AST (13-35) U/L Total Protein (6.2-8.2) g/dL Albumin (3.8-4.9) g/dL RBC Folate 910 H (280 - 791) ng/mL 09/20/24 09/21/24 09/21/24 Range/Units 20:30 04:36 04:36 RBC 2.35 L (4.10-5.20) X 10*6/uL Hgb 7.6 L (12.0-15.0) g/dL Hct 25.1 L (37.2-46.3) % MCV 106.8 H (80.0-97.0) FL MCH 32.3 H (27.0-32.0) pg MCHC 30.3 L (32.0-37.0) g/dL RDW 22.9 H (11.5-14.5) % Plt Count 47 A* (140-440) X 10*3/uL Monocytes # (Manual) 1.48 H (0.20-1.00) X 10*3/uL Eosinophils # (Manual) 0 L (0.04-0.35) X 10*3/uL NRBC/100 WBC Diff 3.32 H (0.00-0.01) X 10*3/uL Immature Plt Fraction 29.8 H (1.1-6.1) % Glucose 161 H (70-110) mg/dL POC Glucose (mg/dL) 268 H (70-110) mg/dL Calcium 8.3 L (8.7-10.3) mg/dL AST 76 H (13-35) U/L Total Protein 5.0 L (6.2-8.2) g/dL Albumin 3.1 L (3.8-4.9) g/dL RBC Folate (280 - 791) ng/mL 09/21/24 Range/Units 07:02 RBC (4.10-5.20) X 10*6/uL Hgb (12.0-15.0) g/dL Hct (37.2-46.3) % MCV (80.0-97.0) FL MCH (27.0-32.0) pg MCHC (32.0-37.0) g/dL RDW (11.5-14.5) % Plt Count (140-440) X 10*3/uL Monocytes # (Manual) (0.20-1.00) X 10*3/uL Eosinophils # (Manual) (0.04-0.35) X 10*3/uL NRBC/100 WBC Diff (0.00-0.01) X 10*3/uL Immature Plt Fraction (1.1-6.1) % Glucose (70-110) mg/dL POC Glucose (mg/dL) 189 H (70-110) mg/dL Calcium (8.7-10.3) mg/dL AST (13-35) U/L Total Protein (6.2-8.2) g/dL Albumin (3.8-4.9) g/dL RBC Folate (280 - 791) ng/mL Microbiology - Last 24 Hours (Table) 09/19/24 08:39 Blood Culture - Preliminary Blood
[2024-09-22 06:54] LABS: Potassium 3.8 mmol/L (3.5-5.1)
[2024-09-22 06:56] LABS: ALT 26 U/L (4-34); AST 55 U/L (14-36); African American GFR (CKD) >90 (>60 ml/min/1.73 sqM); Albumin 2.8 g/dL (3.5-5.0); Albumin/Globulin Ratio 1.2; Alkaline Phosphatase 75 U/L (38-126); Anion Gap 3 mmol/L; Blood Urea Nitrogen 13 mg/dL (7-17); Calcium 8.4 mg/dL (8.4-10.2); Carbon Dioxide 31 mmol/L (22-30); Chloride 104 mmol/L (98-107); Globulin 2.4 g/dL; Glucose 136 mg/dL (74-99); Magnesium 2.3 mg/dL (1.6-2.3); Non-African American GFR(CKD) 83 (>60 ml/min/1.73 sqM); Sodium 138 mmol/L (137-145); Total Bilirubin 0.8 mg/dL (0.2-1.3); Total Protein 5.2 g/dL (6.3-8.2)
[2024-09-22 07:13] LABS: Glucose,Whole Blood 166 mg/dL (70-110)
[2024-09-22 07:30] LABS: Anisocytosis Moderate; HCT 25.2 % (34.0-46.0); HGB 7.8 gm/dL (11.4-16.0); Hypochromasia Marked; MCH 32.4 pg (25.0-35.0); MCHC 30.9 g/dL (31.0-37.0); Macrocytosis Marked; Mean Platelet Volume 8.5; Poikilocytosis Moderate; RDW 22.7 % (11.5-15.5)
[2024-09-22 07:35] LABS: Platelet Count 35 k/uL (150-450)
[2024-09-22] MEDS: INSULIN DETEMIR (LEVEMIR) 100 UNIT/ML SYR SQ SCH (09:00)
[2024-09-22 10:12] LABS: WBC 10.8 k/uL (3.8-10.6)
--- NOTE | 2024-09-22 10:12 | P.PN ---
Subjective Progress Note Date: 09/21/24 09/21/2024: Patient was seen for follow-up. Patient complains of insomnia. She is on Xanax. Patient still has not had MRI, as she has an IVC filter and they are getting clearance from from the company. No new concerns. 09/19/2024: Patient was initially seen by Dr. Juan Fischer. Please refer to his note for details Patient is a 58-year-old female with altered mental status. Patient has history of leukemia. It was felt patient has multifactorial reasons for altered mental status. Patient at present is laying in the bed. Complains of wheezing a lot. Patient states she is not feeling well. She has developed thrush. Objective - Vital Signs Vital signs: Vital Signs Temp 98.7 F 09/21/24 20:00 Pulse 111 H 09/21/24 20:00 Resp 16 09/21/24 20:00 BP 151/80 09/21/24 20:00 Pulse Ox 96 09/21/24 20:00 FiO2 Intake & Output 09/21/24 09/21/24 09/22/24 06:59 18:59 06:59 Intake Total 1080 Output Total 1150 Balance 1080 -1150 Weight 89 kg Intake: Oral 1080 Output: Urine 1150 Other: Voiding Method Bedside Commode Bedside Commode Bedside Commode External Catheter # Voids 1 - Exam Patient is alert and awake and in no acute distress. Speech and language functions are normal. Cranial nerves are normal, visual crane full. Tongue protrudes to midline. On muscle strength testing there is no pronator drift and the strength is normal in arms and legs. Patient has mild myoclonic jerks of outstretched hands. Sensory to touch is equal with no neglect. No ataxia for [id number]-ntra testing. - Labs CBC & Chem 7: 09/22/24 05:44 09/22/24 05:44 Labs: Abnormal Lab Results - Last 24 Hours (Table) 09/21/24 09/21/24 09/21/24 Range/Units 04:36 04:36 07:02 RBC 2.35 L (4.10-5.20) X 10*6/uL Hgb 7.6 L (12.0-15.0) g/dL Hct 25.1 L (37.2-46.3) % MCV 106.8 H (80.0-97.0) FL MCH 32.3 H (27.0-32.0) pg MCHC 30.3 L (32.0-37.0) g/dL RDW 22.9 H (11.5-14.5) % Plt Count 47 A* (140-440) X 10*3/uL Monocytes # (Manual) 1.48 H (0.20-1.00) X 10*3/uL Eosinophils # (Manual) 0 L (0.04-0.35) X 10*3/uL NRBC/100 WBC Diff 3.32 H (0.00-0.01) X 10*3/uL Immature Plt Fraction 29.8 H (1.1-6.1) % Glucose 161 H (70-110) mg/dL POC Glucose (mg/dL) 189 H (70-110) mg/dL Calcium 8.3 L (8.7-10.3) mg/dL AST 76 H (13-35) U/L Total Protein 5.0 L (6.2-8.2) g/dL Albumin 3.1 L (3.8-4.9) g/dL 09/21/24 09/21/24 09/21/24 Range/Units 12:00 17:15 20:36 RBC (4.10-5.20) X 10*6/uL Hgb (12.0-15.0) g/dL Hct (37.2-46.3) % MCV (80.0-97.0) FL MCH (27.0-32.0) pg MCHC (32.0-37.0) g/dL RDW (11.5-14.5) % Plt Count (140-440) X 10*3/uL Monocytes # (Manual) (0.20-1.00) X 10*3/uL Eosinophils # (Manual) (0.04-0.35) X 10*3/uL NRBC/100 WBC Diff (0.00-0.01) X 10*3/uL Immature Plt Fraction (1.1-6.1) % Glucose (70-110) mg/dL POC Glucose (mg/dL) 186 H 295 H 272 H (70-110) mg/dL Calcium (8.7-10.3) mg/dL AST (13-35) U/L Total Protein (6.2-8.2) g/dL Albumin (3.8-4.9) g/dL Microbiology - Last 24 Hours (Table) 09/19/24 08:39 Blood Culture - Preliminary Blood Assessment and Plan Assessment: This is a 58-year-old woman with history of leukemia presents from medical [facility] in which she dizzy and had a fall at nursing facility as well as as had altered mental status seems also the patient is having increasing shortness of breath for the past couple weeks. Altered mental status due to multifactorial: Metabolic encephalopathy. She had slight elevated ammonia level. Also possible septic especially with Blood cultures is positive for gram-positive cocci in cluster. Lastly possible confusion due to medication effect was on Solu-Medrol and Rocephin for last couple days for concern of bronchitis. Out any acute stroke especially with a history of leukemia versus metastasis---mentation is improving today compared to yesterday. Fall possible due to the dizziness as well as due to her respiratory distress Respiratory distress and on examination patient is wheezing Elevated ammonia Leukocytosis that is trending down and patient is afebrile. Anemia and thrombocytopenia History of leukemia and patient is on chemotherapy Plan: Await MRI of the brain with and without. Pending clearance for IVC filter. EEG was abnormal due to background slowing of moderate degree. No epileptiform activity was seen. Patient's encephalopathy is slightly better. TSH 0.673, B12 1571, MCV 109. Infection disease on case for bacteremia, which was felt to be positive contamination. Patient is off antibiotics. Patient is complaining of insomnia. We will try trazodone 50 mg at bedtime. Oncology is consulted Will defer the rest of the medical management to primary and other specialist Neurologically clear otherwise pending decision about MRI.
--- NOTE | 2024-09-22 11:20 | P.PN ---
Subjective Progress Note Date: 09/22/24 Principal diagnosis: AML, on oral agent In follow-up today patient reports it is a good day, she feels good, no diarrhea, N,V, tolerating oral intake, oral irritation is resolved, her anxiety is managed. Objective - Vital Signs Vital signs: Vital Signs Temp 98.9 F 09/22/24 06:53 Pulse 100 09/22/24 11:04 Resp 18 09/22/24 06:53 BP 131/76 09/22/24 06:53 Pulse Ox 95 09/22/24 06:53 FiO2 Intake & Output 09/21/24 09/22/24 09/22/24 18:59 06:59 18:59 Output Total 1150 1100 Balance -1150 -1100 Weight 87.5 kg Output: Urine 1150 1100 Other: Voiding Method Bedside Commode Bedside Commode External Catheter - Constitutional General appearance: Present: cooperative, no acute distress, obese - EENT Eyes: Present: anicteric sclerae, EOMI ENT: Present: hearing grossly normal, normal oropharynx - Respiratory Details: resp unlabored - Cardiovascular Details: skin warm, well perfused - Neurologic Neurologic: Present: CNII-XII intact (grossly) - Musculoskeletal Musculoskeletal: Present: strength equal bilaterally - Psychiatric Psychiatric: Present: A&O x's 3, appropriate affect, intact judgment & insight - Labs CBC & Chem 7: 09/22/24 05:44 09/22/24 05:44 Labs: Abnormal Lab Results - Last 24 Hours (Table) 09/21/24 09/21/24 09/21/24 Range/Units 12:00 17:15 20:36 WBC (3.8-10.6) k/uL RBC (3.80-5.40) m/uL Hgb (11.4-16.0) gm/dL Hct (34.0-46.0) % MCV (80.0-100.0) fL MCHC (31.0-37.0) g/dL RDW (11.5-15.5) % Plt Count (150-450) k/uL Macrocytosis Carbon Dioxide (22-30) mmol/L Glucose (74-99) mg/dL POC Glucose (mg/dL) 186 H 295 H 272 H (70-110) mg/dL AST (14-36) U/L Total Protein (6.3-8.2) g/dL Albumin (3.5-5.0) g/dL 09/22/24 09/22/24 09/22/24 Range/Units 05:44 05:44 07:12 WBC 10.8 H (3.8-10.6) k/uL RBC 2.40 L (3.80-5.40) m/uL Hgb 7.8 L (11.4-16.0) gm/dL Hct 25.2 L (34.0-46.0) % MCV 105.0 H (80.0-100.0) fL MCHC 30.9 L (31.0-37.0) g/dL RDW 22.7 H (11.5-15.5) % Plt Count 35 L (150-450) k/uL Macrocytosis Marked A Carbon Dioxide 31 H (22-30) mmol/L Glucose 136 H (74-99) mg/dL POC Glucose (mg/dL) 166 H (70-110) mg/dL AST 55 H (14-36) U/L Total Protein 5.2 L (6.3-8.2) g/dL Albumin 2.8 L (3.5-5.0) g/dL Microbiology - Last 24 Hours (Table) 09/19/24 08:39 Blood Culture - Preliminary Blood Assessment and Plan (1) Diarrhea Current Visit: Yes Status: Acute Priority: High Code(s): R19.7 - DIARRHEA, UNSPECIFIED SNOMED Code(s): 83352130 (2) Positive blood culture Current Visit: Yes Status: Acute Priority: High Code(s): R78.81 - BACTEREMIA SNOMED Code(s): 128642480 (3) AML (acute myeloid leukemia) Current Visit: Yes Status: Acute Priority: Medium Code(s): C92.00 - ACUTE MYELOBLASTIC LEUKEMIA, NOT HAVING ACHIEVED REMISSION SNOMED Code(s): 14556758 Plan: Diarrhea-resolved -C. difficile testing negative -CT of the abdomen and pelvis with contrast there is reporting no evidence of bowel obstruction, no evidence of pneumoperitoneum or free fluid, no lymphadenopathy -AML -Diagnosis and treatment as documented in Consult -FLT3 mutation positive -Will continue to monitor blood counts. Patient's counts may drop in the setting of acute illness -Plt and Hgb still lower then baseline, cont hold for now. Pt instructed to cont to hold until appt with Med Onc next week, she verbalized understanding. Instructions in DC plan -Pt has f/u appt with Med Onc next week. She will be assessed and resumed on therapy as felt appropriate Positive blood cultures -ID following. Subsequent cult neg. Abx stopped Oral thrush-resolved -Nystatin suspension prescribed -Resolved Pt very anxious, resumed her xanax BID. Pt reporting anxiety managed
[2024-09-22 11:57] LABS: Glucose,Whole Blood 189 mg/dL (70-110)
--- NOTE | 2024-09-22 14:40 | P.PN ---
Subjective Progress Note Date: 09/22/24 Principal diagnosis: Reason for follow-up is a positive blood culture Patient is a 58-year-old female with a past medical history significant for coronary artery disease heart failure COPD diabetes mellitus DVT hypertension hyperlipidemia patient has been brought into the hospital for evaluation of mental status changes patient did have a positive blood culture prompted this consultation. On today's evaluation that is 09/22/2024,the patient remains to be afebrile, patient is on room air not requiring supplemental oxygen and denies any shortness of breath no chest pain or cough.Patient denies having any nausea or vomiting, no abdominal pain and no diarrhea has been reported 1 mention feeling better today. Patient white count is 10.8 creatinine 0.79 blood culture repeat has been negative Objective - Vital Signs Vital signs: Vital Signs Temp 98.9 F 09/22/24 12:09 Pulse 98 09/22/24 12:09 Resp 17 09/22/24 12:09 BP 114/70 09/22/24 12:09 Pulse Ox 95 09/22/24 12:09 FiO2 Intake & Output 09/21/24 09/22/24 09/22/24 18:59 06:59 18:59 Output Total 1150 1100 Balance -1150 -1100 Weight 87.5 kg Output: Urine 1150 1100 Other: Voiding Method Bedside Commode Bedside Commode External Catheter - Exam GENERAL DESCRIPTION: Middle-age female up in the chair in no distress RESPIRATORY SYSTEM: Unlabored breathing , decreased breath sounds at bases HEART: S1 S2 regular rate and rhythm , ABDOMEN: Soft , no tenderness EXTREMITIES: No edema feet - Labs CBC & Chem 7: 09/22/24 05:44 09/22/24 05:44 Labs: Abnormal Lab Results - Last 24 Hours (Table) 09/21/24 09/21/24 09/22/24 Range/Units 17:15 20:36 05:44 WBC 10.8 H (3.8-10.6) k/uL RBC 2.40 L (3.80-5.40) m/uL Hgb 7.8 L (11.4-16.0) gm/dL Hct 25.2 L (34.0-46.0) % MCV 105.0 H (80.0-100.0) fL MCHC 30.9 L (31.0-37.0) g/dL RDW 22.7 H (11.5-15.5) % Plt Count 35 L (150-450) k/uL Macrocytosis Marked A Carbon Dioxide (22-30) mmol/L Glucose (74-99) mg/dL POC Glucose (mg/dL) 295 H 272 H (70-110) mg/dL AST (14-36) U/L Total Protein (6.3-8.2) g/dL Albumin (3.5-5.0) g/dL 09/22/24 09/22/24 09/22/24 Range/Units 05:44 07:12 11:56 WBC (3.8-10.6) k/uL RBC (3.80-5.40) m/uL Hgb (11.4-16.0) gm/dL Hct (34.0-46.0) % MCV (80.0-100.0) fL MCHC (31.0-37.0) g/dL RDW (11.5-15.5) % Plt Count (150-450) k/uL Macrocytosis Carbon Dioxide 31 H (22-30) mmol/L Glucose 136 H (74-99) mg/dL POC Glucose (mg/dL) 166 H 189 H (70-110) mg/dL AST 55 H (14-36) U/L Total Protein 5.2 L (6.3-8.2) g/dL Albumin 2.8 L (3.5-5.0) g/dL Microbiology - Last 24 Hours (Table) 09/19/24 08:39 Blood Culture - Preliminary Blood Assessment and Plan (1) Positive blood culture Current Visit: Yes Status: Acute Priority: High Code(s): R78.81 - BACTEREMIA SNOMED Code(s): 299333287 (2) Leukocytosis Current Visit: Yes Status: Acute Code(s): D72.829 - ELEVATED WHITE BLOOD CELL COUNT, UNSPECIFIED SNOMED Code(s): 406940081 Plan: 1patient with a positive blood culture with staph epi in this patient presented hospital some weakness confusion but did not have any fever some elevated white count patient subsequently normalized do not have any obvious focus for this positive blood culture and more likely representing skin contamination. 2blood culture repeat has been negative and seem to have done well off antibiotic therapy hence we will monitor closely off antibiotic Dictation was produced using [employer] dictation software. please excuse any grammatical, word or spelling errors. Time with Patient: Less than 30
[2024-09-22 17:16] LABS: Glucose,Whole Blood 280 mg/dL (70-110)
[2024-09-22 20:16] LABS: Glucose,Whole Blood 337 mg/dL (70-110)
[2024-09-22] MEDS: INSULIN GLARGINE (LANTUS) 100 UNIT/ML SYR SQ SCH (21:49)
--- NOTE | 2024-09-23 05:43 | P.PN ---
Subjective Progress Note Date: 09/22/24 Subjective 58-year-old female was sent in here because of altered mental status patient seemed diaphoretic clammy and was having speech abnormality because of which patient was sent in here patient is alert, unable to assess orientation I am unsure whether patient has aphasia or confused upon extensive evaluation patient is generally weak no focal weakness that I can appreciate no facial droop. Patient does not have any fever but does have leukocytosis without any clear source of infection urinalysis is within normal limits, chest x-ray did not show any significant abnormality, CT of the head and cervical spine did not show any significant acute abnormality except some cervical degenerative vertebral disease. 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 Patient is on morphine 15 mg every 12 hourly and [place] which can contribute to her altered mental status patient is also on Xanax scheduled basis. Patient was hospitalized in month of July with similar symptoms at the time patient's symptoms are secondary to polypharmacy. Patient is also on gabapentin. Patient has been on oxygen patient does have bilateral rhonchi and expiratory wheezing on exam. 09/18 Patient more awake and alert and partially oriented to time place and person, She is short of breath and wheezing and occasional coughing but no chest pain No abdominal pain but has 1 large bowel movement which looks is full is loose. C. difficile test is going to be checked if persist. But no abdominal pain and she tolerates diet She has positive blood culture with Staph epidermidis most likely contamination. Currently on Zithromax but also she has evidence of leukocytosis which is trending down from 19 down to 17. She has history of leukemia and she has been followed up by hematology/oncology 09/19 Patient alert and r oriented at baseline She still complains from breathing and coughing. She still has wheezing and currently on IV Solu-Medrol No abdominal pain have some nausea and Zofran not working and switch to Compazine. Has 4 loose bowel movement. C. difficile is pending, discussed with the staff. CT of the abdomen pelvis with no acute process but showing atrophic left kidney and pancreatic parenchyma. Nonobstructive left renal calculus and postsurgical gastric changes. Blood culture most likely contamination. No need for IV vancomycin. WBC is back to normal at 10.2, hemoglobin 7.8, platelet count 46 which is fluctuating 40 to 60s, patient kept on Lovenox as patient has risk for DVT given previous history of DVT and currently bedridden and other risk factors 09/20 Patient states breathing is better, wheezing is better no coughing She remains on IV Solu-Medrol 40 mg She has ongoing mild headache and generalized weakness this a.m. Nausea feels better but does need to be increased as it is short-lived. She tolerates diet, abdomen soft with no pain or tenderness. Her diarrhea stopped today. MRI of the brain is still pending 09/21/2024 Patient is seen in follow-up today with oncology following. Neurology following as well and currently awaiting MRI of the brain. Patient reports to feeling improved and mentation is significantly improved requesting her Xanax and muscle relaxer as she reports she feels as if she is withdrawing from it. Patient was altered and confused on admission. Patient reports her abdominal pain has improved and will slowly increase diet as tolerated. Antibiotics being discontinued as repeat blood cultures are negative per ID recommendations will be closely monitored off antibiotic therapy. Recommend PT/OT therapy evaluation and increased activity as tolerated. 09/22/2024 Patient is seen in follow-up today with multiple consultations following. Patient is scheduled to undergo MRI of the brain although pending at this time as patient was noted to have an IVC filter and attempting to gather information if this is MRI compatible. Apparently this was placed in 2016. Patient is afebrile with no reports of chest pain or shortness of breath. Patient is tolerating diet. Patient reports anxiety somewhat improved as anxiety lytics have been resumed. Mentation is improved today at baseline. Review of systems: Constitutional: No reports of fatigue, fever, or chills Cardiovascular: No reports of chest pain or palpitations Respiratory: No reports of shortness of breath or cough GI: No reports of nausea, vomiting, or diarrhea : No reports of dysuria or retention Neurovascular: reports of generalized weakness with ongoing anxiety although slightly improved today All medications have been reviewed Physical exam: GENERAL: The patient is alert and oriented x3, daily well developed, well no urished. Obese, appears older than stated age HEENT: Pupils are round and equally reacting to light. EOMI. No scleral icterus. No conjunctival pallor. Normocephalic, atraumatic. No pharyngeal erythema. No thyromegaly. CARDIOVASCULAR: S1 and S2 present. No murmurs, rubs, or gallops. -PULMONARY: Diminished breath sounds bilaterally with some faint expiratory wheezing noted, no crackles and no accessory muscle use ABDOMEN: Soft, obese, nontender, nondistended, normoactive bowel sounds. No palpable organomegaly. MUSCULOSKELETAL: No joint swelling or deformity. EXTREMITIES: No cyanosis, clubbing, or pedal edema. NEUROLOGICAL: Gross neurological examination did not reveal any focal deficits. Diffusely weak SKIN: No rashes. no petechiae. Assessment: -Altered mental status, likely toxic encephalopathy from polypharmacy with MS Contin, [place], gabapentin, and Xanax, mentation improved significantly -Bronchitis with COPD exacerbation -Leukocytosis, improved -Diarrhea, suspicion of colitis is low, abdomen soft. CT of the abdomen showing no acute process. Ruled out C. difficile -Positive blood culture with Staph epidermidis, likely contamination. Being monitored off antibiotic therapy -Anemia and thrombocytopenia, continue monitoring hemoglobin and platelet count, hold anticoagulant -Type 2 diabetes mellitus, uncontrolled with hypo and hyperglycemia -History of DVT in the past -Hyperlipidemia -Hypertension -Leukemia: Oncology following -Obesity with a BMI 35.3 DVT prophylaxis: SCDs given thrombocytopenia GI prophylaxis: Protonix Full code Plan: Patient's mentation is improved and some of her medications including Xanax at a reduced dose was resumed and tolerating well Patient is scheduled to undergo MRI of the brain which is pending at this time as patient apparently has an IVC filter and unsure if compatible with MRI. Working on obtaining information of this device. Recommend PT/OT therapy evaluation as patient is weak, patient will be going to ECF for continued strength mobility on discharge Continue current regimen including breathing treatments and transition to prednisone taper Review and resume appropriate medications at decreased dose Encourage sitting up out of the bed more frequently Will follow-up on repeat labs Discuss further with consultations including neurology, oncology, and infectious disease regarding discharge planning, possibly in the next 24 to 48 hours The impression and plan of care has been dictated by Kathi Hewitt, Nurse Practitioner as directed. Dr. Massiel MD I have performed a history and examination and MDM of this patient, discussed the same with the dictator, and agree with the dictator's assessment and plan as written ,documented as a scribe. Based on total visit time, I have performed more than 50% of the visit. Objective - Vital Signs Vital signs: Vital Signs Temp 98.9 F 09/22/24 06:53 Pulse 98 09/22/24 07:54 Resp 18 09/22/24 06:53 BP 131/76 09/22/24 06:53 Pulse Ox 95 09/22/24 06:53 FiO2 Intake & Output 09/21/24 09/22/24 09/22/24 18:59 06:59 18:59 Output Total 1150 1100 Balance -1150 -1100 Weight 87.5 kg Output: Urine 1150 1100 Other: Voiding Method Bedside Commode Bedside Commode External Catheter - Labs CBC & Chem 7: 09/22/24 05:44 09/22/24 05:44 Labs: Abnormal Lab Results - Last 24 Hours (Table) 09/21/24 09/21/24 09/21/24 Range/Units 12:00 17:15 20:36 WBC (3.8-10.6) k/uL RBC (3.80-5.40) m/uL Hgb (11.4-16.0) gm/dL Hct (34.0-46.0) % MCV (80.0-100.0) fL MCHC (31.0-37.0) g/dL RDW (11.5-15.5) % Plt Count (150-450) k/uL Macrocytosis Carbon Dioxide (22-30) mmol/L Glucose (74-99) mg/dL POC Glucose (mg/dL) 186 H 295 H 272 H (70-110) mg/dL AST (14-36) U/L Total Protein (6.3-8.2) g/dL Albumin (3.5-5.0) g/dL 09/22/24 09/22/24 09/22/24 Range/Units 05:44 05:44 07:12 WBC 15.1 H (3.8-10.6) k/uL RBC 2.40 L (3.80-5.40) m/uL Hgb 7.8 L (11.4-16.0) gm/dL Hct 25.2 L (34.0-46.0) % MCV 105.0 H (80.0-100.0) fL MCHC 30.9 L (31.0-37.0) g/dL RDW 22.7 H (11.5-15.5) % Plt Count 35 L (150-450) k/uL Macrocytosis Marked A Carbon Dioxide 31 H (22-30) mmol/L Glucose 136 H (74-99) mg/dL POC Glucose (mg/dL) 166 H (70-110) mg/dL AST 55 H (14-36) U/L Total Protein 5.2 L (6.3-8.2) g/dL Albumin 2.8 L (3.5-5.0) g/dL Microbiology - Last 24 Hours (Table) 09/19/24 08:39 Blood Culture - Preliminary Blood
[2024-09-23 07:06] LABS: Glucose,Whole Blood 152 mg/dL (70-110)
[2024-09-23 10:57] LABS: BUN/Creat Ratio 13.22 Ratio (12.00-20.00); Blood Urea Nitrogen 11.9 mg/dL (9.0-27.0); Calcium 8.2 mg/dL (8.7-10.3); Carbon Dioxide 25.7 mmol/L (21.6-31.8); Chloride 107 mmol/L (96-109); Glucose 146 mg/dL (70-110); Potassium 3.6 mmol/L (3.5-5.5); Sodium 142 mmol/L (135-145)
--- NOTE | 2024-09-23 11:51 | P.PN ---
Subjective Progress Note Date: 09/22/24 09/22/2024: Patient was seen for follow-up. Patient is laying in the bed. States she slept very well last night with trazodone. Denies any side effect. No new concerns. 09/21/2024: Patient was seen for follow-up. Patient complains of insomnia. She is on Xanax. Patient still has not had MRI, as she has an IVC filter and they are getting clearance from from the company. No new concerns. 09/19/2024: Patient was initially seen by Dr. Juan Fischer. Please refer to his note for details Patient is a 58-year-old female with altered mental status. Patient has history of leukemia. It was felt patient has multifactorial reasons for altered mental status. Patient at present is laying in the bed. Complains of wheezing a lot. Patient states she is not feeling well. She has developed thrush. Objective - Vital Signs Vital signs: Vital Signs Temp 98.9 F 09/22/24 12:09 Pulse 98 09/22/24 12:09 Resp 17 09/22/24 12:09 BP 114/70 09/22/24 12:09 Pulse Ox 95 09/22/24 12:09 FiO2 Intake & Output 09/21/24 09/22/24 09/22/24 18:59 06:59 18:59 Intake Total 220 Output Total 1150 1100 Balance -1150 -1100 220 Weight 87.5 kg Intake: Oral 220 Output: Urine 1150 1100 Other: Voiding Method Bedside Commode Bedside Commode Bedside Commode External Catheter External Catheter - Exam Patient is alert and awake and in no acute distress. Speech and language functions are normal. Cranial nerves are normal, visual crane full. Tongue protrudes to midline. On muscle strength testing there is no pronator drift and the strength is normal in arms and legs. Patient has mild myoclonic jerks of outstretched hands. Sensory to touch is equal with no neglect. No ataxia for [id number] testing. - Labs CBC & Chem 7: 09/22/24 05:44 09/23/24 04:51 Labs: Abnormal Lab Results - Last 24 Hours (Table) 09/21/24 09/21/24 09/22/24 Range/Units 17:15 20:36 05:44 WBC 10.8 H (3.8-10.6) k/uL RBC 2.40 L (3.80-5.40) m/uL Hgb 7.8 L (11.4-16.0) gm/dL Hct 25.2 L (34.0-46.0) % MCV 105.0 H (80.0-100.0) fL MCHC 30.9 L (31.0-37.0) g/dL RDW 22.7 H (11.5-15.5) % Plt Count 35 L (150-450) k/uL Macrocytosis Marked A Carbon Dioxide (22-30) mmol/L Glucose (74-99) mg/dL POC Glucose (mg/dL) 295 H 272 H (70-110) mg/dL AST (14-36) U/L Total Protein (6.3-8.2) g/dL Albumin (3.5-5.0) g/dL 09/22/24 09/22/24 09/22/24 Range/Units 05:44 07:12 11:56 WBC (3.8-10.6) k/uL RBC (3.80-5.40) m/uL Hgb (11.4-16.0) gm/dL Hct (34.0-46.0) % MCV (80.0-100.0) fL MCHC (31.0-37.0) g/dL RDW (11.5-15.5) % Plt Count (150-450) k/uL Macrocytosis Carbon Dioxide 31 H (22-30) mmol/L Glucose 136 H (74-99) mg/dL POC Glucose (mg/dL) 166 H 189 H (70-110) mg/dL AST 55 H (14-36) U/L Total Protein 5.2 L (6.3-8.2) g/dL Albumin 2.8 L (3.5-5.0) g/dL Microbiology - Last 24 Hours (Table) 09/19/24 08:39 Blood Culture - Preliminary Blood Assessment and Plan Assessment: This is a 58-year-old woman with history of leukemia presents from medical [facility] in which she dizzy and had a fall at nursing facility as well as as had altered mental status seems also the patient is having increasing shortness of breath for the past couple weeks. Altered mental status due to multifactorial: Metabolic encephalopathy. She had slight elevated ammonia level. Also possible septic especially with Blood cultures is positive for gram-positive cocci in cluster. Lastly possible confusion due to medication effect was on Solu-Medrol and Rocephin for last c ouple days for concern of bronchitis. Out any acute stroke especially with a history of leukemia versus metastasis---mentation is improving today compared to yesterday. Fall possible due to the dizziness as well as due to her respiratory distress Respiratory distress and on examination patient is wheezing Elevated ammonia Leukocytosis that is trending down and patient is afebrile. Anemia and thrombocytopenia History of leukemia and patient is on chemotherapy Plan: Await MRI of the brain with and without. Pending clearance for IVC filter. EEG was abnormal due to background slowing of moderate degree. No epileptiform activity was seen. Patient's encephalopathy is slightly better. TSH 0.673, B12 1571, MCV 109. Infection disease on case for bacteremia, which was felt to be positive contamination. Patient is off antibiotics. Patient is complaining of insomnia. We will try trazodone 50 mg at bedtime. Oncology is consulted Will defer the rest of the medical management to primary and other specialist Neurologically clear if the MRI brain comes back normal.
[2024-09-23 12:00] LABS: Glucose,Whole Blood 253 mg/dL (70-110)
[2024-09-23 12:38] LABS: Basophils # (M) 0 X 10*3/uL (0.00-0.10); Eosinophils # (M) 0.12 X 10*3/uL (0.04-0.35); HCT 23.7 % (37.2-46.3); HGB 7.3 g/dL (12.0-15.0); Immature Platelet Fraction 31.2 % (1.1-6.1); Lymphocytes # (M) 4.15 X 10*3/uL (0.90-5.00); MCH 32.7 pg (27.0-32.0); MCHC 30.8 g/dL (32.0-37.0); MCV 106.3 FL (80.0-97.0); Metamyelocytes % 1 % (0-0); Monocytes # (M) 1.83 X 10*3/uL (0.20-1.00); Myelocytes % 1 % (0-0); NRBC Per 100 WBC 5.53 X 10*3/uL (0.00-0.01); Neutrophils # (M) 5.87 X 10*3/uL (1.80-7.70); Neutrophils % (M) 48 %; Platelet Count 33 X 10*3/uL (140-440); RBC 2.23 X 10*6/uL (4.10-5.20); RDW 22.7 % (11.5-14.5); WBC 12.22 X 10*3/uL (4.50-10.00)
[2024-09-23 13:26] VITALS: BMI 36.4
--- NOTE | 2024-09-23 13:55 | P.DS ---
Providers Date of admission: 09/17/24 16:58 Expected date of discharge: 09/23/24 Attending physician: Brodie Johnson MD Consults: 09/17/24 14:28 Consult Physician Urgent Consulting Provider: Susie Balderrama Consult Reason/Comments: Altered mental status, leukemia patient Do you want consulting provider notified?: Yes Consult Physician Urgent Consulting Provider: Juan Fischer Consult Reason/Comments: Altered mental status Do you want consulting provider notified?: Yes 09/18/24 12:06 Consult Physician Routine Consulting Provider: Viviana Pat Consult Reason/Comments: Positive for blood culture Do you want consulting provider notified?: Yes Primary care physician: Jessica Stephens, DO Hospital Course: Final diagnosis -Altered mental status, likely toxic encephalopathy from polypharmacy with MS Contin, [place], gabapentin, and Xanax, mentation improved significantly -Bronchitis with COPD exacerbation -Leukocytosis, improved -Diarrhea, suspicion of colitis is low, abdomen soft. CT of the abdomen showing no acute process. Ruled out C. difficile -Positive blood culture with Staph epidermidis, likely contamination. Being monitored off antibiotic therapy -Anemia and thrombocytopenia, continue monitoring hemoglobin and platelet count, hold anticoagulant -Type 2 diabetes mellitus, uncontrolled with hypo and hyperglycemia -History of DVT in the past -Hyperlipidemia -Hypertension -Leukemia: Oncology following -Obesity with a BMI 35.3 DVT prophylaxis: SCDs given thrombocytopenia GI prophylaxis: Protonix Full code Discharge disposition Patient is being discharged in a stable condition with guarded prognosis to [facility]. Patient will follow-up with Dr. Stephens while in rehab in the outpatient setting upon discharge. Patient follows with Dr. Orona outpatient. patient is to continue with current medication regimen and close outpatient follow-up with oncology as scheduled. Recommend repeat CBC in 2 to 3 days. Total time taken is greater than 35 minutes. Hospital course This is a 58-year-old female who was recently admitted with altered mental status likely from toxic encephalopathy from polypharmacy being closely monitored. Neurology evaluated the patient initially wanting an MRI although mentation is significantly improved on reduced doses of medications recommending outpatient follow-up if needed. Patient unable to receive the MRI as she has an IVC filter that was placed in 2017 and does not have the documentation to know if it is MRI compatible. This facility will not accommodate until documentation is proven that this is MRI compatible. Patient will be returning to [facility] for continued strength and mobility and will follow-up with oncology in the outpatient setting once discharged. Patient instructed to follow-up with her primary care provider Dr. London Orona in the outpatient setting. Patient is currently under care of Dr. Stephens while at [facility]. Please refer to other consultation notes for further HPI. Also recommend repeat labs as hemoglobin and platelets although are stable are on the lower side. Recommend close monitoring of blood sugars and continue current regimen. Currently no reports of chest pain, shortness of breath, or palpitations. Patient is afebrile. No reports of nausea or vomiting and patient is tolerating diet. Patient will be going to [facility] today. Physical exam: Gen: This is a 58-year-old female who is awake, alert and oriented x 3, well- developed, elderly appearing, obese HEENT: Head is atraumatic, normocephalic. Pupils equal, round. Sclerae is anicteric. NECK: Supple. No JVD. No lymphadenopathy. No thyromegaly. LUNGS: Diminished breath sounds bilaterally otherwise clear to auscultation. No wheezes, coarse rhonchi noted. No intercostal retractions. HEART: Regular rate and rhythm. No murmur. ABDOMEN: Soft. Obese, bowel sounds are present. No masses. No tenderness. EXTREMITIES: No pedal edema. No calf tenderness. NEUROLOGICAL: Patient is awake, alert and oriented x3. Cranial nerves 2 through 12 are grossly intact. Generalized weakness Please refer to medication reconciliation sheet for a list of medications. The impression and plan of care has been dictated by Kathi Hewitt, Nurse Practitioner as directed. Dr. Massiel MD I have performed a history and examination and MDM of this patient, discussed the same with the dictator, and agree with the dictator's assessment and plan as written ,documented as a scribe. Based on total visit time, I have performed more than 50% of the visit. Patient Condition at Discharge: Stable Plan - Discharge Summary New Discharge Prescriptions: New Prochlorperazine [Compazine] 10 mg PO Q6HR PRN tab PRN Reason: Nausea And Vomiting Loperamide [Imodium] 2 mg PO QID PRN cap PRN Reason: Diarrhea Insulin Glargine (Lantus) [Lantus Vial] 5 unit SQ BID@0700,2100 each methocarbamoL [Robaxin] 500 mg PO BID PRN tab PRN Reason: Muscle Spasm predniSONE See Taper PO DIRECTED #30 tab traZODone HCL [Desyrel] 50 mg PO HS tab Ipratropium-Albuterol Nebulize [Duoneb 0.5 mg-3 mg/3 ml Soln] 3 ml INHALATION RT-Q2H PRN each PRN Reason: Shortness Of Breath Or Wheezing Nystatin 100,000 Unit/ml Susp [Mycostatin Oral Susp] 500,000 unit PO QID ml INSULIN ASPART (NovoLOG) [NovoLOG (formulary)] 0 unit SQ AC-TID each guaiFENesin-DM 100-10MG/5ML [Robitussin DM] 10 ml PO Q6HR ml Continue FLUoxetine HCL [PROzac] 40 mg PO BID Furosemide [Lasix] 20 mg PO DAILY guaiFENesin [guaiFENesin ER] 600 mg PO Q12HR@0700,1900 Docusate [Colace] 100 mg PO BID@0700,1600 Montelukast [Singulair] 10 mg PO HS Nitroglycerin Sl Tabs [Nitrostat] 0.4 mg SL Q5M PRN PRN Reason: Chest Pain Acetaminophen Tab [Tylenol] 650 mg PO Q4H PRN PRN Reason: Pain Naloxone HCl 0.4 mg IM ONCE PRN PRN Reason: suspected opiod overdose Icy Hot Advanced Relief Patch 7.5% 1 patch TRANSDERM DAILY@0000 ALPRAZolam [Xanax] 0.5 mg PO BID #2 tab Potassium Chloride [Klor-Con M20] 20 meq PO DAILY Ranolazine [Ranexa] 1,000 mg PO Q12HR Atorvastatin [Lipitor] 80 mg PO DAILY Acyclovir [Zovirax] 400 mg PO BID Omeprazole [PriLOSEC] 20 mg PO BID@0700,1900 Fluticasone Propion/Salmeterol [Advair 100-50 Diskus] 1 puff INHALATION RT- BID@0700,1900 Dulaglutide [Trulicity] 1.5 mg SQ MO@0700 Isosorbide Mononitrate ER [Imdur] 15 mg PO DAILY Clopidogrel [Plavix] 75 mg PO HS Cholecalciferol [Vitamin D3 (25 Mcg = 1000 Iu)] 25 mcg PO DAILY Calcium Carbonate [Tums] 1,000 mg PO QID PRN PRN Reason: indigestion/Nausea Naloxone HCl 4 mg NS ONCE PRN PRN Reason: suspected opiod overdose Ipratropium-Albuterol Nebulize [Duoneb 0.5 mg-3 mg/3 ml Soln] 3 ml INHALATION RT-Q4H Ondansetron [Zofran] 4 mg PO Q6H Changed HYDROcodone/APAP 7.5-325MG [[place] 7.5-325] 1 tab PO Q8H PRN #4 tab PRN Reason: Pain Discontinued Gilteritinib Fumarate [Xospata] 120 mg PO DAILY Losartan [Cozaar] 12.5 mg PO DAILY@0700 Morphine Sulfate ER [Ms Contin] 15 mg PO Q12HR@0700,1900 Gabapentin [Neurontin] 300 mg PO TID@0700,1300,1900 Butalb/Acetaminophen/Caffeine [Fioricet 50-300-40 mg Capsule] 1 cap PO Q4H PRN PRN Reason: Headache Discharge Medication List FLUoxetine HCL [PROzac] 40 mg PO BID 10/27/23 [History] Potassium Chloride [Klor-Con M20] 20 meq PO DAILY 10/27/23 [History] Ranolazine [Ranexa] 1,000 mg PO Q12HR 01/17/24 [History] Acyclovir [Zovirax] 400 mg PO BID 04/14/24 [History] Atorvastatin [Lipitor] 80 mg PO DAILY 04/14/24 [History] Furosemide [Lasix] 20 mg PO DAILY 04/14/24 [History] Acetaminophen Tab [Tylenol] 650 mg PO Q4H PRN 09/17/24 [History] Calcium Carbonate [Tums] 1,000 mg PO QID PRN 09/17/24 [History] Cholecalciferol [Vitamin D3 (25 Mcg = 1000 Iu)] 25 mcg PO DAILY 09/17/24 [ History] Clopidogrel [Plavix] 75 mg PO HS 09/17/24 [History] Docusate [Colace] 100 mg PO BID@0700,1600 09/17/24 [History] Dulaglutide [Trulicity] 1.5 mg SQ MO@0700 09/17/24 [History] Fluticasone Propion/Salmeterol [Advair 100-50 Diskus] 1 puff INHALATION RT- BID@0700,1900 09/17/24 [History] Icy Hot Advanced Relief Patch 7.5% 1 patch TRANSDERM DAILY@0000 09/17/24 [History] Ipratropium-Albuterol Nebulize [Duoneb 0.5 mg-3 mg/3 ml Soln] 3 ml INHALATION RT-Q4H 09/17/24 [History] Isosorbide Mononitrate ER [Imdur] 15 mg PO DAILY 09/17/24 [History] Montelukast [Singulair] 10 mg PO HS 09/17/24 [History] Naloxone HCl 0.4 mg IM ONCE PRN 09/17/24 [History] Naloxone HCl 4 mg NS ONCE PRN 09/17/24 [History] Nitroglycerin Sl Tabs [Nitrostat] 0.4 mg SL Q5M PRN 09/17/24 [History] Omeprazole [PriLOSEC] 20 mg PO BID@0700,1900 09/17/24 [History] Ondansetron [Zofran] 4 mg PO Q6H 09/17/24 [History] guaiFENesin [guaiFENesin ER] 600 mg PO Q12HR@0700,1900 09/17/24 [History] ALPRAZolam [Xanax] 0.5 mg PO BID #2 tab 09/23/24 [Rx] HYDROcodone/APAP 7.5-325MG [[place] 7.5-325] 1 tab PO Q8H PRN #4 tab 09/23/24 [Rx] INSULIN ASPART (NovoLOG) [NovoLOG (formulary)] 0 unit SQ AC-TID each 09/23/24 [Rx] Insulin Glargine (Lantus) [Lantus Vial] 5 unit SQ BID@0700,2100 each 09/23/24 [Rx] Ipratropium-Albuterol Nebulize [Duoneb 0.5 mg-3 mg/3 ml Soln] 3 ml INHALATION RT-Q2H PRN each 09/23/24 [Rx] Loperamide [Imodium] 2 mg PO QID PRN cap 09/23/24 [Rx] Nystatin 100,000 Unit/ml Susp [Mycostatin Oral Susp] 500,000 unit PO QID ml 09/23/24 [Rx] Prochlorperazine [Compazine] 10 mg PO Q6HR PRN tab 09/23/24 [Rx] guaiFENesin-DM 100-10MG/5ML [Robitussin DM] 10 ml PO Q6HR ml 09/23/24 [Rx] methocarbamoL [Robaxin] 500 mg PO BID PRN tab 09/23/24 [Rx] predniSONE See Taper PO DIRECTED #30 tab 09/23/24 [Rx] traZODone HCL [Desyrel] 50 mg PO HS tab 09/23/24 [Rx] Follow up Appointment(s)/Referral(s): Susie Balderrama MD [STAFF PHYSICIAN] - 09/27/24 2:00 pm [facility], [NON-STAFF] - 1 Week London Garsia DO [Doctor of Osteopathic Medicine] - 1-2 days Activity/Diet/Wound Care/Special Instructions: HOLD XOSPATA UNTIL SEEN BY DR. BALDERRAMA NEXT WEEK pt states her filter card may be in her paperwork in the closet. She really needs to bring a copy of card to the hospital if she returns Discharge Disposition: TRANSFER TO SNF/ECF
[2024-09-23 14:13] VITALS: BP 136/74; PULSE 102; RESP 18; TEMP 99.2
--- NOTE | 2024-09-23 14:43 | P.PN ---
Subjective Progress Note Date: 09/23/24 Principal diagnosis: Reason for follow-up is a positive blood culture Patient is a 58-year-old female with a past medical history significant for coronary artery disease heart failure COPD diabetes mellitus DVT hypertension hyperlipidemia patient has been brought into the hospital for evaluation of mental status changes patient did have a positive blood culture prompted this consultation. On today's evaluation that is 09/23/2024, the patient continues to be afebrile, the patient is on room air and breathing comfortably, the Pt denies having any chest pain or cough, the patient denies having any abdominal pain no vomiting or any diarrhea has been reported by the nursing staff. Patient white count is 12.22 creatinine 0.9 Objective - Vital Signs Vital signs: Vital Signs Temp 98.4 F 09/23/24 07:43 Pulse 98 09/23/24 07:43 Resp 16 09/23/24 07:43 BP 138/84 09/23/24 07:43 Pulse Ox 96 09/23/24 08:01 FiO2 Intake & Output 09/22/24 09/23/24 09/23/24 18:59 06:59 18:59 Intake Total 1520 480 Output Total 500 950 Balance 1020 -470 Weight 90.378 kg Intake: Oral 1520 480 Output: Urine 500 950 Other: Voiding Method Bedside Commode Bedside Commode Bedside Commode External Catheter External Catheter External Catheter - Exam GENERAL DESCRIPTION: Middle-age female up in the chair in no distress RESPIRATORY SYSTEM: Unlabored breathing , decreased breath sounds at bases HEART: S1 S2 regular rate and rhythm , ABDOMEN: Soft , no tenderness EXTREMITIES: No edema feet - Labs CBC & Chem 7: 09/23/24 04:51 09/23/24 04:51 Labs: Abnormal Lab Results - Last 24 Hours (Table) 09/22/24 09/22/24 09/23/24 Range/Units 16:59 20:07 04:51 WBC 12.22 H (4.50-10.00) X 10*3/uL RBC 2.23 L (4.10-5.20) X 10*6/uL Hgb 7.3 L (12.0-15.0) g/dL Hct 23.7 L (37.2-46.3) % MCV 106.3 H (80.0-97.0) FL MCH 32.7 H (27.0-32.0) pg MCHC 30.8 L (32.0-37.0) g/dL RDW 22.7 H (11.5-14.5) % Plt Count 33 A* (140-440) X 10*3/uL Monocytes # (Manual) 1.83 H (0.20-1.00) X 10*3/uL NRBC/100 WBC Diff 5.53 H (0.00-0.01) X 10*3/uL Immature Plt Fraction 31.2 H (1.1-6.1) % Glucose (70-110) mg/dL POC Glucose (mg/dL) 280 H 337 H (70-110) mg/dL Calcium (8.7-10.3) mg/dL 09/23/24 09/23/24 09/23/24 Range/Units 04:51 07:03 11:59 WBC (4.50-10.00) X 10*3/uL RBC (4.10-5.20) X 10*6/uL Hgb (12.0-15.0) g/dL Hct (37.2-46.3) % MCV (80.0-97.0) FL MCH (27.0-32.0) pg MCHC (32.0-37.0) g/dL RDW (11.5-14.5) % Plt Count (140-440) X 10*3/uL Monocytes # (Manual) (0.20-1.00) X 10*3/uL NRBC/100 WBC Diff (0.00-0.01) X 10*3/uL Immature Plt Fraction (1.1-6.1) % Glucose 146 H (70-110) mg/dL POC Glucose (mg/dL) 152 H 253 H (70-110) mg/dL Calcium 8.2 L (8.7-10.3) mg/dL Microbiology - Last 24 Hours (Table) 09/19/24 08:39 Blood Culture - Preliminary Blood Assessment and Plan (1) Positive blood culture Current Visit: Yes Status: Acute Priority: High Code(s): R78.81 - BACTEREMIA SNOMED Code(s): 980633663 (2) Leukocytosis Current Visit: Yes Status: Acute Code(s): D72.829 - ELEVATED WHITE BLOOD CELL COUNT, UNSPECIFIED SNOMED Code(s): 688538230 Plan: 1patient with a positive blood culture with staph epi in this patient presented hospital some weakness confusion but did not have any fever some elevated white count patient subsequently normalized do not have any obvious focus for this positive blood culture and more likely representing skin contamination. 2blood culture repeat has been negative. 3leukocytosis more likely steroid related and will monitor closely Dictation was produced using [employer] dictation software. please excuse any grammatical, word or spelling errors. Time with Patient: Less than 30
== END 2024-09-23 16:58 | DRG 92 ==
LOC: EC 07:49 → SUPCPDRO 07:49 → 5NMEDONC 16:58
PROVIDERS: ADMIT Internal Medicine; ATTEND Internal Medicine
DX: G92.8 Other toxic encephalopathy (principal); B37.0 Candidal stomatitis; C92.00 Acute myeloblastic leukemia, not having achieved remission; R78.81 Bacteremia; D69.6 Thrombocytopenia, unspecified; R47.01 Aphasia; J44.1 Chronic obstructive pulmonary disease with (acute) exacerbation; I11.0 Hypertensive heart disease with heart failure; E11.65 Type 2 diabetes mellitus with hyperglycemia; M06.9 Rheumatoid arthritis, unspecified; E66.9 Obesity, unspecified; I50.9 Heart failure, unspecified; Z99.81 Dependence on supplemental oxygen; Z68.36 Body mass index [BMI] 36.0-36.9, adult; T39.1X5A Adverse effect of 4-Aminophenol derivatives, initial encounter; T40.2X5A Adverse effect of other opioids, initial encounter; T42.6X5A Adverse effect of other antiepileptic and sedative-hypnotic drugs, initial encounter; T42.4X5A Adverse effect of benzodiazepines, initial encounter; M79.7 Fibromyalgia; I25.10 Atherosclerotic heart disease of native coronary artery without angina pectoris; I25.2 Old myocardial infarction; I25.5 Ischemic cardiomyopathy; E78.5 Hyperlipidemia, unspecified; G47.00 Insomnia, unspecified; F41.9 Anxiety disorder, unspecified; N20.0 Calculus of kidney; N26.1 Atrophy of kidney (terminal); R06.03 Acute respiratory distress; R19.7 Diarrhea, unspecified; R53.1 Weakness; Z79.02 Long term (current) use of antithrombotics/antiplatelets; Z79.85 Long-term (current) use of injectable non-insulin antidiabetic drugs; Z79.51 Long term (current) use of inhaled steroids; Z79.891 Long term (current) use of opiate analgesic; Z79.69 Long term (current) use of other immunomodulators and immunosuppressants; Z79.899 Other long term (current) drug therapy; Z95.1 Presence of aortocoronary bypass graft; Z86.718 Personal history of other venous thrombosis and embolism; Z85.028 Personal history of other malignant neoplasm of stomach; Z96.659 Presence of unspecified artificial knee joint; Z74.01 Bed confinement status; Y92.122 Bedroom in nursing home as the place of occurrence of the external cause; W19.XXXA Unspecified fall, initial encounter; Z88.8 Allergy status to other drugs, medicaments and biological substances
CPT/HCPCS: 36415; 36600; 70450; 71046; 72125; 74177; 80048; 80053; 80076; 81003; 82140; 82550; 82607; 82728; 82747; 82805; 83540; 83550; 83605; 83735; 83880; 84145; 84443; 84484; 85025; 85027; 85610; 85730; 86140; 87040; 87324; 87636; 93005; 94640; 94760; 95816; 96361; 96374; 96375; 99285

== ENCOUNTER 2024-09-27 14:43 | Observation (INO) | payer MEDICARE ==
--- NOTE | 2024-09-27 15:32 | ED ---
General Adult HPI - General Chief complaint: Nausea/Vomiting/Diarrhea Stated complaint: vomiting Time Seen by Provider: 09/27/24 15:22 Source: patient, RN notes reviewed Mode of arrival: ambulatory Limitations: no limitations - History of Present Illness Initial comments: Patient is a 58-year-old female present to the emergency department with concerns with nausea and vomiting. Onset was yesterday. Patient does have history of AML, last treatment 1 week ago. Patient is concerned about being dehydrated. Patient has vomited multiple times. Patient has some mild abdominal discomfort as well. No congestion or fever. - Related Data Home Medications Medication Instructions Recorded Confirmed FLUoxetine HCL [PROzac] 40 mg PO BID 10/27/23 09/17/24 Potassium Chloride [Klor-Con M20] 20 meq PO DAILY 10/27/23 09/17/24 Ranolazine [Ranexa] 1,000 mg PO Q12HR 01/17/24 09/17/24 Acyclovir [Zovirax] 400 mg PO BID 04/14/24 09/17/24 Atorvastatin [Lipitor] 80 mg PO DAILY 04/14/24 09/17/24 Furosemide [Lasix] 20 mg PO DAILY 04/14/24 09/17/24 Acetaminophen Tab [Tylenol] 650 mg PO Q4H PRN 09/17/24 09/17/24 Calcium Carbonate [Tums] 1,000 mg PO QID PRN 09/17/24 09/17/24 Cholecalciferol [Vitamin D3 (25 25 mcg PO DAILY 09/17/24 09/17/24 Mcg = 1000 Iu)] Clopidogrel [Plavix] 75 mg PO HS 09/17/24 09/17/24 Docusate [Colace] 100 mg PO BID@0700,1600 09/17/24 09/17/24 Dulaglutide [Trulicity] 1.5 mg SQ MO@0700 09/17/24 09/17/24 Fluticasone Propion/Salmeterol 1 puff INHALATION RT-BID@0700,1900 09/17/24 09/17/24 [Advair 100-50 Diskus] Icy Hot Advanced Relief Patch 7.5% 1 patch TRANSDERM DAILY@0000 09/17/24 09/17/24 Ipratropium-Albuterol Nebulize 3 ml INHALATION RT-Q4H 09/17/24 09/17/24 [Duoneb 0.5 mg-3 mg/3 ml Soln] Isosorbide Mononitrate ER [Imdur] 15 mg PO DAILY 09/17/24 09/17/24 Montelukast [Singulair] 10 mg PO HS 09/17/24 09/17/24 Naloxone HCl 0.4 mg IM ONCE PRN 09/17/24 09/17/24 Naloxone HCl 4 mg NS ONCE PRN 09/17/24 09/17/24 Nitroglycerin Sl Tabs [Nitrostat] 0.4 mg SL Q5M PRN 09/17/24 09/17/24 Omeprazole [PriLOSEC] 20 mg PO BID@0700,1900 09/17/24 09/17/24 Ondansetron [Zofran] 4 mg PO Q6H 09/17/24 09/17/24 guaiFENesin [guaiFENesin ER] 600 mg PO Q12HR@0700,1900 09/17/24 09/17/24 Previous Rx's Medication Instructions Recorded ALPRAZolam [Xanax] 0.5 mg PO BID #2 tab 09/23/24 HYDROcodone/APAP 7.5-325MG [[place] 1 tab PO Q8H PRN #4 tab 09/23/24 7.5-325] INSULIN ASPART (NovoLOG) [NovoLOG 0 unit SQ AC-TID each 09/23/24 (formulary)] Insulin Glargine (Lantus) [Lantus 5 unit SQ BID@0700,2100 each 09/23/24 Vial] Ipratropium-Albuterol Nebulize 3 ml INHALATION RT-Q2H PRN each 09/23/24 [Duoneb 0.5 mg-3 mg/3 ml Soln] Loperamide [Imodium] 2 mg PO QID PRN cap 09/23/24 Nystatin 100,000 Unit/ml Susp 500,000 unit PO QID ml 09/23/24 [Mycostatin Oral Susp] Prochlorperazine [Compazine] 10 mg PO Q6HR PRN tab 09/23/24 guaiFENesin-DM 100-10MG/5ML 10 ml PO Q6HR ml 09/23/24 [Robitussin DM] methocarbamoL [Robaxin] 500 mg PO BID PRN tab 09/23/24 predniSONE See Taper PO DIRECTED #30 tab 09/23/24 traZODone HCL [Desyrel] 50 mg PO HS tab 09/23/24 Allergies Allergy/AdvReac Type Severity Reaction Status Date / Time divalproex sodium AdvReac Confusion Verified 09/27/24 15:18 [From Depakote] phenytoin [From Dilantin] AdvReac Confusion Verified 09/27/24 15:18 Review of Systems ROS Statement: Those systems with pertinent positive or pertinent negative responses have been documented in the HPI. ROS Other: All systems not noted in ROS Statement are negative. Constitutional: Denies: fever Eyes: Denies: eye pain ENT: Denies: ear pain Respiratory: Denies: cough, dyspnea Cardiovascular: Denies: chest pain Endocrine: Denies: fatigue Gastrointestinal: Reports: as per HPI, nausea, vomiting. Denies: diarrhea, constipation Genitourinary: Denies: dysuria Musculoskeletal: Denies: back pain Past Medical History Past Medical History: Coronary Artery Disease (CAD), Cancer, Heart Failure, COPD, Diabetes Mellitus, Deep Vein Thrombosis (DVT), Fibromyalgia, GI Bleed, Hyperlipidemia, Hypertension, Myocardial Infarction ([place]), Rheumatoid Arthritis (RA) Additional Past Medical History / Comment(s): leukemia Last Myocardial Infarction Date:: unknown History of Any Multi-Drug Resistant Organisms: None Reported Date of last positivie culture/infection: unknown MDRO Source:: skin bilateral arms Past Surgical History: Unable to Obtain Additional Past Surgical History / Comment(s): broken femur, bilateral knee surgery, 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, right leg green field filter for blood clot Past Anesthesia/Blood Transfusion Reactions: No Reported Reaction Date of Last Stent Placement:: unknown Past Psychological History: No Psychological Hx Reported Smoking Status: Never smoker Past Alcohol Use History: None Reported Past Drug Use History: None Reported - Past Family History Mother Family Medical History: Congestive Heart Failure (CHF), Coronary Artery Disease (CAD), Hyperlipidemia, Myocardial Infarction ([place]) Additional Family Medical History / Comment(s): CABG,knee replacement x1, General Exam Limitations: no limitations General appearance: alert, in no apparent distress Head exam: Present: normocephalic Eye exam: Present: normal appearance ENT exam: Present: normal oropharynx Neck exam: Present: normal inspection Respiratory exam: Present: normal lung sounds bilaterally Cardiovascular Exam: Present: tachycardia, normal heart sounds GI/Abdominal exam: Present: soft. Absent: distended, tenderness, pulsatile mass Extremities exam: Present: normal inspection Neurological exam: Present: alert Psychiatric exam: Present: normal affect, normal mood Skin exam: Present: normal color Course Vital Signs 09/27/24 09/27/24 15:14 16:41 Temperature 98.4 F Pulse Rate 115 H 98 Respiratory 18 18 Rate Blood Pressure 102/66 113/76 O2 Sat by Pulse 99 Oximetry Medical Decision Making - Medical Decision Making Was pt. sent in by a medical professional or institution (, PA, STORM WINDOW INSTALLER, urgent care, hospital, or detention...) When possible be specific @ -Patient was sent in by Dr. Leiva's office Did you speak to anyone other than the patient for history (EMS, parent, family, police, friend...)? What history was obtained from this source @ -Family is present helps right history including recent abnormalities with blood work concerns. Did you review nursing and triage notes (agree or disagree)? Why? @ -Yes and agree Were old charts reviewed (outside hosp., previous admission, EMS record, old EKG, old radiological studies, urgent care reports/EKG's, detention records)? Report findings @ -Previous labs reviewed Differential Diagnosis (chest pain, altered mental status, abdominal pain women, abdominal pain men, vaginal bleeding, weakness, fever, dyspnea, syncope, headache, dizziness, GI bleed, back pain, seizure, CVA, palpatations, mental health, musculoskeletal)? @ -There MDM differential abdominal pain woman differential Abdominal Pain Women: Appendicitis, Cholecystitis, diverticulosis, ischemic bowel, pancreatitis, hepatitis, UTI, gastroenteritis, AAA, incarcerated hernia, bowel obstruction, constipation, inflammatory bowel, hepatitis, peptic ulcer disease, splenic infa rction, perforated viscus, vulvitis, ovarian torsion, PID, kidney stone, placenta abruption, this is not meant to be an all-inclusive list EKG interpreted by me (3pts min.). @ -As above X-rays interpreted by me (1pt min.). @ -None done CT interpreted by me (1pt min.). @ -None done U/S interpreted by me (1pt. min.). @ -None done What testing was considered but not performed or refused? (CT, X-rays, U/S, labs)? Why? @ -None What meds were considered but not given or refused? Why? @ -None Did you discuss the management of the patient with other professionals (professionals i.e. , PA, STORM WINDOW INSTALLER, lab, RT, psych nurse, social work assistant, production administrative assistant, teacher, chief supply chain officer, field case manager)? Give summary @ -Case was discussed with practitioner Nadege Elizabeth, covering Dr. Stephens who will admit. Was smoking cessation discussed for >3mins.? @ -No Was critical care preformed (if so, how long)? @ -No Were there social determinants of health that impacted care today? How? (Homelessness, low income, unemployed, alcoholism, drug addiction, transportation, low edu. Level, literacy, decrease access to med. care, penitentiary, rehab)? @ -No Was there de-escalation of care discussed even if they declined (Discuss DNR or withdrawal of care, Hospice)? DNR status @ -No What co-morbidities impacted this encounter? (DM, HTN, Smoking, COPD, CAD, Cancer, CVA, ARF, Chemo, Hep., AIDS, mental health diagnosis, sleep apnea, morbid obesity)? @ -History of AML with recent chemotherapy Was patient admitted / discharged? Hospital course, mention meds given and route, prescriptions, significant lab abnormalities, going to OR and other pertinent info. @ -Patient presents with nausea vomiting general pain. On reevaluation patient still is nauseous and still has general pain, patient request morphine. Patient is updated on results and plan. Platelet count still pending. Patient will be admitted with oncology consult. Admission orders written. Undiagnosed new problem with uncertain prognosis? @ -No Drug Therapy requiring intensive monitoring for toxicity (Heparin, Nitro, Insulin, Cardizem)? @ -No Were any procedures done? @ -No Diagnosis/symptom? @ -Vomiting Acute, or Chronic, or Acute on Chronic? @ -Acute Uncomplicated (without systemic symptoms) or Complicated (systemic symptoms)? @ -Default Side effects of treatment? @ -No Exacerbation, Progression, or Severe Exacerbation? @ -No Poses a threat to life or bodily function? How? (Chest pain, [place], [place], pneumonia, PE, COPD, DKA, ARF, appy, cholecystitis, CVA, Diverticulitis, Homicidal, Suicidal, threat to staff... and all critical care pts) @ -No - Lab Data Result diagrams: 09/27/24 16:37 09/27/24 16:37 Lab Results 09/27/24 09/27/24 Range/Units 16:37 16:37 WBC 28.0 H (3.8-10.6) k/uL RBC 2.48 L (3.80-5.40) m/uL Hgb 7.7 L (11.4-16.0) gm/dL Hct 25.5 L (34.0-46.0) % MCV 103.0 H (80.0-100.0) fL MCH 31.1 (25.0-35.0) pg MCHC 30.2 L (31.0-37.0) g/dL RDW 23.3 H (11.5-15.5) % MPV 9.2 Hypochromasia Moderate Poikilocytosis Moderate Anisocytosis Moderate Macrocytosis Marked A Sodium 137 (137-145) mmol/L Potassium 4.5 (3.5-5.1) mmol/L Chloride 101 (98-107) mmol/L Carbon Dioxide 30 (22-30) mmol/L Anion Gap 6 mmol/L BUN 11 (7-17) mg/dL Creatinine 0.74 (0.52-1.04) mg/dL Est GFR (CKD-EPI)AfAm >90 (>60 ml/min/1.73 sqM) Est GFR (CKD-EPI)NonAf 90 (>60 ml/min/1.73 sqM) Glucose 167 H (74-99) mg/dL Calcium 8.8 (8.4-10.2) mg/dL Total Bilirubin 1.3 (0.2-1.3) mg/dL AST 94 H (14-36) U/L ALT 38 H (4-34) U/L Alkaline Phosphatase 95 (38-126) U/L Total Protein 6.0 L (6.3-8.2) g/dL Albumin 3.6 (3.5-5.0) g/dL Amylase 37 (30-110) U/L Lipase 36 (23-300) U/L Disposition Clinical Impression: Vomiting Disposition: ADMITTED IP TO THIS HOSP Is patient prescribed a controlled substance at d/c from ED?: No Referrals: Jessica Stephens DO [Primary Care Provider] - 1-2 days Time of Disposition: 17:50
[2024-09-27] MEDS: ONDANSETRON 4 MG/2 ML VIAL IVP STA ×2 (16:11→17:20)
[2024-09-27] MEDS: FAMOTIDINE 20 MG/2 ML VIAL IV STA (16:12)
[2024-09-27] MEDS: SODIUM CHLORIDE 0.9% 1,000 ML IV STA (16:12)
[2024-09-27 16:59] LABS: ALT 38 U/L (4-34); AST 94 U/L (14-36); African American GFR (CKD) >90 (>60 ml/min/1.73 sqM); Albumin 3.6 g/dL (3.5-5.0); Alkaline Phosphatase 95 U/L (38-126); Amylase 37 U/L (30-110); Anion Gap 6 mmol/L; Blood Urea Nitrogen 11 mg/dL (7-17); Calcium 8.8 mg/dL (8.4-10.2); Carbon Dioxide 30 mmol/L (22-30); Chloride 101 mmol/L (98-107); Glucose 167 mg/dL (74-99); Lipase 36 U/L (23-300); Non-African American GFR(CKD) 90 (>60 ml/min/1.73 sqM); Potassium 4.5 mmol/L (3.5-5.1); Sodium 137 mmol/L (137-145); Total Bilirubin 1.3 mg/dL (0.2-1.3)
[2024-09-27 17:13] LABS: Anisocytosis Moderate; HCT 25.5 % (34.0-46.0); HGB 7.7 gm/dL (11.4-16.0); Hypochromasia Moderate; MCH 31.1 pg (25.0-35.0); MCHC 30.2 g/dL (31.0-37.0); Macrocytosis Marked; Mean Platelet Volume 9.2; Poikilocytosis Moderate; RBC 2.48 m/uL (3.80-5.40); RDW 23.3 % (11.5-15.5)
[2024-09-27] MEDS ORDERED: NALOXONE 0.4 MG/ML 1 ML VIAL IV PRN (17:50)
[2024-09-27] MEDS ORDERED: PROCHLORPERAZINE SUPPOSITORY 25 MG SUPP RECTAL PRN (17:50)
[2024-09-27 17:53] LABS: Band Neutrophils % 1 %; Blast Cells # (M) 0.23 k/uL (0); Lymphocytes # (M) 1.04 k/uL (1.0-4.8); Metamyelocytes # (M) 0.58 k/uL (0); Metamyelocytes % 5 %; Myelocytes # (M) 0.23 k/uL (0); Myelocytes % 2 %; Neutrophils % (M) 59 %; Nucleated Red Blood Cells 141 /100 WBC (0-0); Total Cells Counted 200; WBC 11.6 k/uL (3.8-10.6)
[2024-09-27 17:57] LABS: Polychromasia Present
[2024-09-27 17:58] LABS: Stomatocytes Present; Target Cells Present
[2024-09-27 17:59] LABS: Large Platelets Present; Platelet Count 25 k/uL (150-450); Toxic Vacuolation Present
[2024-09-27] MEDS: MORPHINE SULFATE 4 MG/ML SYRINGE IVP STA (18:14)
[2024-09-27] MEDS: SODIUM CHLORIDE 0.9% 1,000 ML IV SCH (18:26)
[2024-09-27] MEDS: MORPHINE SULFATE 4 MG/ML SYRINGE IV PRN (22:07)
[2024-09-27] MEDS ORDERED: IPRATROPIUM-ALBUTEROL 3 ML NEB INHALATION PRN (23:06)
[2024-09-27] MEDS ORDERED: CALCIUM CARBONATE 500 MG CHEWABLE PO PRN (23:06)
[2024-09-27] MEDS ORDERED: methocarbamoL 500 MG TAB PO PRN (23:06)
[2024-09-28 04:43] LABS: Anisocytosis Moderate; HCT 21.8 % (34.0-46.0); Hypochromasia Marked; MCH 31.6 pg (25.0-35.0); MCHC 30.3 g/dL (31.0-37.0); MCV 104.1 fL (80.0-100.0); Macrocytosis Marked; Mean Platelet Volume 9.1; Poikilocytosis Moderate; RDW 23.7 % (11.5-15.5)
[2024-09-28 04:44] LABS: African American GFR (CKD) >90 (>60 ml/min/1.73 sqM); Anion Gap 6 mmol/L; Blood Urea Nitrogen 13 mg/dL (7-17); Calcium 8.4 mg/dL (8.4-10.2); Carbon Dioxide 25 mmol/L (22-30); Chloride 107 mmol/L (98-107); Glucose 129 mg/dL (74-99); Non-African American GFR(CKD) >90 (>60 ml/min/1.73 sqM); Platelet Count 17 k/uL (150-450); Potassium 4.3 mmol/L (3.5-5.1); Sodium 138 mmol/L (137-145)
[2024-09-28 04:45] LABS: HGB 6.6 gm/dL (11.4-16.0)
[2024-09-28] MEDS: ONDANSETRON 4 MG/2 ML VIAL IVP PRN (05:39)
[2024-09-28] MEDS: ALPRAZolam 0.5 MG TAB PO SCH (05:59)
[2024-09-28] MEDS: DOCUSATE 100 MG CAP PO SCH (06:03)
[2024-09-28 06:40] LABS: Band Neutrophils % 6 %; Lymphocytes # (M) 4.32 k/uL (1.0-4.8); Monocytes # (M) 1.76 k/uL (0-1.0); Neutrophils % (M) 50 %; Nucleated Red Blood Cells 91 /100 WBC (0-0); Total Cells Counted 200; WBC 13.5 k/uL (3.8-10.6)
[2024-09-28 06:42] LABS: Polychromasia Present; RBC Fragments Present
[2024-09-28] MEDS: POTASSIUM CHLORIDE ER 20 MEQ TAB.ER PO SCH (08:24)
[2024-09-28] MEDS: FLUoxetine HCL 20 MG CAP PO SCH (08:24)
[2024-09-28] MEDS: ISOSORBIDE MONONITRATE ER 30 MG TAB.ER.24H PO SCH (08:24)
[2024-09-28] MEDS: CHOLECALCIFEROL 25 MCG (1000 IU) TABLET PO SCH (08:24)
[2024-09-28] MEDS: ACYCLOVIR 200 MG CAP PO SCH (08:24)
[2024-09-28] MEDS: PANTOPRAZOLE 40 MG/10 ML VIAL IV SCH (08:24)
[2024-09-28] MEDS: ATORVASTATIN 80 MG TAB PO SCH (08:24)
[2024-09-28] MEDS: HYDROcodone/APAP 7.5-325MG 1 EACH TAB PO PRN (08:34)
[2024-09-28] MEDS: RANOLAZINE 500 MG TAB.ER.12H PO SCH (08:50)
[2024-09-28] MEDS: SYMBICORT 80-4.5 MCG INHALER INHALATION SCH (09:12)
[2024-09-28] MEDS: MORPHINE SULFATE ER 15 MG TABLET PO SCH (12:42)
--- NOTE | 2024-09-28 17:08 | P.HPIM ---
History of Present Illness H&P Date: 09/28/24 Patient is a 58-year-old female with past medical history of AML, last treatment 1 week ago who presented to the ER with chief complaint of intractable vomiting. She denies any fever, chills, or diarrhea. Vitals on admission temperature 98.4, heart rate 115, respiratory rate 18, blood pressure 102/66, O2 saturation 98% on room Labs on admission show WBCs 11.6, hemoglobin 7.7, platelets 25. Sodium 137, potassium 4.5, chloride 101, bicarb 30, BUN 11, creatinine 0.74, glucose 167. AST 94, ALT 38, ALP 95. Review of systems: Pertinent positives and negatives as discussed in HPI, a complete review of systems was performed and all other systems are negative. Physical examination: Vital signs reviewed General: nontoxic, no distress, appears at stated age Derm: warm, dry, intact Head: atraumatic, normocephalic, symmetric Eyes: anicteric sclera Mouth: no lip lesion, mucus membranes moist Cardiovascular: S1 S2 reg, no murmur Lungs: CTA bilateral, no rhonchi, no rales, no accessory muscle use Abdominal: soft, non-tender to palpation, nondistended Extremities: No cyanosis, clubbing, or pedal edema. Neuro: Alert, Oriented to person, time and place, Gross neurological examination did not reveal any focal deficits. Cranial nerves II to XII grossly intact. Bilateral upper and lower extremity muscle strength intact and sensation intact. Psych: well appearing, appropriate affect Assessment/Plan: Patient is a 58-year-old female past medical history of AML, last treatment 1 week ago who presented with chief complaint of intractable vomiting.. Active: Intractable vomiting likely secondary to chemotherapy Continue Zofran and Compazine Continue IV fluids Consulted heme-onc Follow-up abdominal x-ray Anemia, thrombocytopenia Patient was transfused 1 unit PRBCs Continue to monitor hemoglobin GERD Continue Protonix 40 mg IV daily Hyperlipidemia Continue Lipitor 80 mg p.o. at bedtime F: 0.9% NS at 75 mL/h E: Replete as needed N: Clear liquid diet A: As tolerated The patient is admitted with an anticipated more than 2 midnight stay for evaluation of intractable vomiting CODE STATUS: Full code Discussed with: Patient Anticipated discharge place: Pending clinical course Past Medical History Past Medical History: Coronary Artery Disease (CAD), Cancer, Heart Failure, COPD, Diabetes Mellitus, Deep Vein Thrombosis (DVT), Fibromyalgia, GI Bleed, Hyperlipidemia, Hypertension, Myocardial Infarction ([place]), Rheumatoid Arthritis ([place]) Additional Past Medical History / Comment(s): leukemia Last Myocardial Infarction Date:: unknown History of Any Multi-Drug Resistant Organisms: None Reported Date of last positivie culture/infection: unknown MDRO Source:: skin bilateral arms Past Surgical History: Unable to Obtain Additional Past Surgical History / Comment(s): broken femur, bilateral knee surgery, 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, right leg green field filter for blood clot Past Anesthesia/Blood Transfusion Reactions: No Reported Reaction Date of Last Stent Placement:: unknown Smoking Status: Never smoker - Past Family History Mother Family Medical History: Congestive Heart Failure (CHF), Coronary Artery Disease (CAD), Hyperlipidemia, Myocardial Infarction ([place]) Additional Family Medical History / Comment(s): CABG,knee replacement x1, Medications and Allergies Home Medications Medication Instructions Recorded Confirmed Type FLUoxetine HCL [PROzac] 40 mg PO BID 10/27/23 09/27/24 History Potassium Chloride [Klor-Con M20] 20 meq PO DAILY 10/27/23 09/27/24 History Ranolazine [Ranexa] 1,000 mg PO Q12HR 01/17/24 09/27/24 History Acyclovir [Zovirax] 400 mg PO BID 04/14/24 09/27/24 History Atorvastatin [Lipitor] 80 mg PO DAILY 04/14/24 09/27/24 History Furosemide [Lasix] 20 mg PO DAILY 04/14/24 09/27/24 History Calcium Carbonate [Tums] 1,000 mg PO QID PRN 09/17/24 09/27/24 History Cholecalciferol [Vitamin D3 (25 25 mcg PO DAILY 09/17/24 09/27/24 History Mcg = 1000 Iu)] Clopidogrel [Plavix] 75 mg PO HS 09/17/24 09/27/24 History Docusate [Colace] 100 mg PO BID@0700,1600 09/17/24 09/27/24 History Dulaglutide [Trulicity] 1.5 mg SQ MO@0700 09/17/24 09/27/24 History Fluticasone Propion/Salmeterol 1 puff INHALATION RT-BID@0700,1900 09/17/24 09/27/24 History [Advair 100-50 Diskus] Icy Hot Advanced Relief Patch 7.5% 1 patch TRANSDERM DAILY@0700 09/17/24 09/27/24 History Isosorbide Mononitrate ER [Imdur] 15 mg PO DAILY 09/17/24 09/27/24 History Montelukast [Singulair] 10 mg PO HS 09/17/24 09/27/24 History Naloxone HCl 0.4 mg IM ONCE PRN 09/17/24 09/27/24 History Naloxone HCl 4 mg NS ONCE PRN 09/17/24 09/27/24 History Nitroglycerin Sl Tabs [Nitrostat] 0.4 mg SL Q5M PRN 09/17/24 09/27/24 History Omeprazole [PriLOSEC] 20 mg PO BID 09/17/24 09/27/24 History Ondansetron [Zofran] 4 mg PO Q6H PRN 09/17/24 09/27/24 History ALPRAZolam [Xanax] 0.5 mg PO BID #2 tab 09/23/24 09/27/24 Rx HYDROcodone/APAP 7.5-325MG [[place] 1 tab PO Q8H PRN #4 tab 09/23/24 09/27/24 Rx 7.5-325] Ipratropium-Albuterol Nebulize 3 ml INHALATION RT-Q2H PRN each 09/23/24 09/27/24 Rx [Duoneb 0.5 mg-3 mg/3 ml Soln] Loperamide [Imodium] 2 mg PO QID PRN cap 09/23/24 09/27/24 Rx Nystatin 100,000 Unit/ml Susp 500,000 unit PO QID ml 09/23/24 09/27/24 Rx [Mycostatin Oral Susp] guaiFENesin-DM 100-10MG/5ML 10 ml PO Q6HR ml 09/23/24 09/27/24 Rx [Robitussin DM] methocarbamoL [Robaxin] 500 mg PO BID PRN tab 09/23/24 09/27/24 Rx traZODone HCL [Desyrel] 50 mg PO HS tab 09/23/24 09/27/24 Rx Acetaminophen [Tylenol 8 Hour] 650 mg PO Q4H PRN 02/25/25 02/25/25 History Insulin Glargine (Lantus) [Lantus 10 unit SQ HS 09/27/24 09/27/24 History Vial] Insulin Lispro [Admelog Solostar] See Protocol SQ AC-TID@08,11,18 09/27/24 09/27/24 History predniSONE See Taper PO DIRECTED 09/27/24 09/27/24 History Allergies Allergy/AdvReac Type Severity Reaction Status Date / Time divalproex sodium AdvReac Confusion Verified 09/27/24 18:15 [From Depakote] phenytoin [From Dilantin] AdvReac Confusion Verified 09/27/24 18:15 Physical Exam Vitals: Vital Signs Temp Pulse Pulse Resp BP BP BP 09/28/24 08:34 98.2 F 107 H 18 118/76 09/28/24 04:20 100 16 127/71 09/27/24 23:22 104 H 16 128/65 09/27/24 20:26 106 H 16 117/73 09/27/24 20:00 105 H 18 112/70 09/27/24 18:00 106 H 18 136/80 09/27/24 16:41 98 18 113/76 09/27/24 15:14 98.4 F 115 H 18 102/66 Pulse Ox 09/28/24 08:34 98 09/28/24 04:20 09/27/24 23:22 94 L 09/27/24 20:26 97 09/27/24 20:00 97 09/27/24 18:00 97 09/27/24 16:41 09/27/24 15:14 99 Intake and Output 09/27/24 09/28/24 09/28/24 22:59 06:59 14:59 Other: # Voids 2 Weight 85.275 kg Results CBC & Chem 7: 09/28/24 04:04 09/28/24 04:04 Labs: Abnormal Lab Results - Last 24 Hours (Table) 09/27/24 09/27/24 09/28/24 Range/Units 16:37 16:37 04:04 WBC 11.6 H 13.5 H (3.8-10.6) k/uL RBC 2.48 L 2.10 L (3.80-5.40) m/uL Hgb 7.7 L 6.6 L* (11.4-16.0) gm/dL Hct 25.5 L 21.8 L (34.0-46.0) % MCV 103.0 H 104.1 H (80.0-100.0) fL MCHC 30.2 L 30.3 L (31.0-37.0) g/dL RDW 23.3 H 23.7 H (11.5-15.5) % Plt Count 25 L 17 L* (150-450) k/uL Blast Cells % 2 H* % Monocytes # (Manual) 2.90 H 1.76 H (0-1.0) k/uL Metamyelocytes # (Man) 0.58 H (0) k/uL Myelocytes # (Manual) 0.23 H (0) k/uL Blast Cells # (Man) 0.23 H (0) k/uL Nucleated RBCs 141 H 91 H (0-0) /100 WBC Macrocytosis Marked A Marked A Glucose 167 H (74-99) mg/dL AST 94 H (14-36) U/L ALT 38 H (4-34) U/L Total Protein 6.0 L (6.3-8.2) g/dL 09/28/24 Range/Units 04:04 WBC (3.8-10.6) k/uL RBC (3.80-5.40) m/uL Hgb (11.4-16.0) gm/dL Hct (34.0-46.0) % MCV (80.0-100.0) fL MCHC (31.0-37.0) g/dL RDW (11.5-15.5) % Plt Count (150-450) k/uL Blast Cells % % Monocytes # (Manual) (0-1.0) k/uL Metamyelocytes # (Man) (0) k/uL Myelocytes # (Manual) (0) k/uL Blast Cells # (Man) (0) k/uL Nucleated RBCs (0-0) /100 WBC Macrocytosis Glucose 129 H (74-99) mg/dL AST (14-36) U/L ALT (4-34) U/L Total Protein (6.3-8.2) g/dL Thrombosis Risk Factor Assmnt - Choose All That Apply Any of the Below Risk Factors Present?: Yes Each Factor Represents 1 point: Age 41-60 years, Obesity (BMI >25) Other Risk Factors: Yes Each Risk Factor Represents 3 Points: History of DVT/PE Other congenital or acquired thrombophilia - If yes, enter type in comment: Yes Thrombosis Risk Factor Assessment Total Risk Factor Score: 5 Thrombosis Risk Factor Assessment Level: High Risk
[2024-09-28] MEDS: PROCHLORPERAZINE INJ 10 MG/2 ML VIAL IVP PRN (17:19)
--- NOTE | 2024-09-28 19:06 | P.CONS ---
History of Present Illness - Reason for Consult Consult date: 09/28/24 AML Requesting physician: Markos Arguelles - Chief Complaint n/v, abd pain - History of Present Illness Ms. Gordon is a 58-year-old woman with a past medical history significant for CAD status post 5 vessel CABG, ischemic cardiomyopathy, hypertension, hyperlipidemia, and FLT3-TKD AML who first presented to clinic to establish care from [place] for AML. With regards to her history of AML, this was diagnosed back in May 2023 after thrombocytopenia did not improve with vitamin B12 administration. She underwent induction chemotherapy with Vyxeos, which was complicated at that time with significant anxiety and poor family dynamics. 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 Following induction chemotherapy, she was started on gilteritinib due to having FLT3-TKD around June to July 2023. She has been on gilteritinib since then and has been stable from an AML perspective. She was seen in consultation on 10/28/2023, when she initially presented with acute metabolic encephalopathy requiring BiPAP and vasopressors, which quickly resolved. This was attributed to taking medications incorrectly at home. From this episode, she did have a fall resulting in fracture of the left femoral head. Cell counts at that time revealed WBC 2.5, hemoglobin 9.4, platelets 97. Workup for pancytopenia and patient was nonremarkable. Following our initial consultation, she was readmitted for possible TIA from 10/31/2023 through 11/02/[address] angiography revealing no acute process. She did have a history of gastric cancer that was resected at [facility] in [address] abdomen/pelvis without contrast on 11/01/2023 revealed no acute process. She did have a hospitalization in January 2024 for metabolic encephalopathy that was a result of stopping medications including morphine resulting in opioid withdrawal and resolved after reinitiation of morphine. She then had subsequent hospitalization for metabolic encephalopathy that was attributed to UTI and subsequently improved with antibiotics. She has continued on gilteritinib 120 mg daily. Patient was admitted to [facility] in mid September 2024 with metabolic encephalopahty, nausea, vomiting where gilteritnib was stopped and subsequently restarted on discharge on 09/23/2024. -CT of the abdomen and pelvis with contrast there is reporting no evidence of bowel obstruction, no evidence of pneumoperitoneum or free fluid, no lymphadenopathy. Since discharge, she's had persistent nausea and bilious vomiting along lymphocytic lymphocytosis and monocytosis, potentially concerning for lymphoid malignancy (ALL, lymphoma). She was advised to to gp to the ED for admission for further management and workup of nausea and vomiting along with infectious workup. May need bone to consider marrow biopsy during admission for additional evaluation. Flow cytometry, FISH, cytogenetics from peripheral blood draw was ordered at her visit. Upon speaking to patient she states at rehab they stopped giving her her morphine due to concern for confusion. Upon admit WBC 11.6, hemoglobin 7.7, platelets 25,000 with 2% blasts noted. Repeat CBC today showing WBC 13.5, hemoglobin 6.6, platelets 17,000. 1 unit PRBCs have been ordered. At today's visit patient is reporting improvement in symptoms. Nausea vomiting has subsided. Reporting mild abdominal discomfort. Review of Systems 10 point ROS is negative except as stated in the HPI Past Medical History Past Medical History: Coronary Artery Disease (CAD), Cancer, Heart Failure, COPD, Diabetes Mellitus, Deep Vein Thrombosis (DVT), Fibromyalgia, GI Bleed, Hyperlipidemia, Hypertension, Myocardial Infarction (RI), Rheumatoid Arthritis (RA) Additional Past Medical History / Comment(s): leukemia Last Myocardial Infarction Date:: unknown History of Any Multi-Drug Resistant Organisms: None Reported Year Discovered:: unknown MDRO Source:: skin bilateral arms Past Surgical History: Unable to Obtain Additional Past Surgical History / Comment(s): broken femur, bilateral knee surgery, 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, right leg green field filter for blood clot Past Anesthesia/Blood Transfusion Reactions: No Reported Reaction Date of Last Stent Placement:: unknown Smoking Status: Never smoker - Past Family History Mother Family Medical History: Congestive Heart Failure (CHF), Coronary Artery Disease (CAD), Hyperlipidemia, Myocardial Infarction (RI) Additional Family Medical History / Comment(s): CABG,knee replacement x1, Medications and Allergies Home Medications Medication Instructions Recorded Confirmed Type FLUoxetine HCL [PROzac] 40 mg PO BID 10/27/23 09/27/24 History Potassium Chloride [Klor-Con M20] 20 meq PO DAILY 10/27/23 09/27/24 History Ranolazine [Ranexa] 1,000 mg PO Q12HR 01/17/24 09/27/24 History Acyclovir [Zovirax] 400 mg PO BID 04/14/24 09/27/24 History Atorvastatin [Lipitor] 80 mg PO DAILY 04/14/24 09/27/24 History Furosemide [Lasix] 20 mg PO DAILY 04/14/24 09/27/24 History Calcium Carbonate [Tums] 1,000 mg PO QID PRN 09/17/24 09/27/24 History Cholecalciferol [Vitamin D3 (25 25 mcg PO DAILY 09/17/24 09/27/24 History Mcg = 1000 Iu)] Clopidogrel [Plavix] 75 mg PO HS 09/17/24 09/27/24 History Docusate [Colace] 100 mg PO BID@0700,1600 09/17/24 09/27/24 History Dulaglutide [Trulicity] 1.5 mg SQ MO@0700 09/17/24 09/27/24 History Fluticasone Propion/Salmeterol 1 puff INHALATION RT-BID@0700,1900 09/17/24 09/27/24 History [Advair 100-50 Diskus] Icy Hot Advanced Relief Patch 7.5% 1 patch TRANSDERM DAILY@0700 09/17/24 09/27/24 History Isosorbide Mononitrate ER [Imdur] 15 mg PO DAILY 09/17/24 09/27/24 History Montelukast [Singulair] 10 mg PO HS 09/17/24 09/27/24 History Naloxone HCl 0.4 mg IM ONCE PRN 09/17/24 09/27/24 History Naloxone HCl 4 mg NS ONCE PRN 09/17/24 09/27/24 History Nitroglycerin Sl Tabs [Nitrostat] 0.4 mg SL Q5M PRN 09/17/24 09/27/24 History Omeprazole [PriLOSEC] 20 mg PO BID 09/17/24 09/27/24 History Ondansetron [Zofran] 4 mg PO Q6H PRN 09/17/24 09/27/24 History ALPRAZolam [Xanax] 0.5 mg PO BID #2 tab 09/23/24 09/27/24 Rx HYDROcodone/APAP 7.5-325MG [[place] 1 tab PO Q8H PRN #4 tab 09/23/24 09/27/24 Rx 7.5-325] Ipratropium-Albuterol Nebulize 3 ml INHALATION RT-Q2H PRN each 09/23/24 09/27/24 Rx [Duoneb 0.5 mg-3 mg/3 ml Soln] Loperamide [Imodium] 2 mg PO QID PRN cap 09/23/24 09/27/24 Rx Nystatin 100,000 Unit/ml Susp 500,000 unit PO QID ml 09/23/24 09/27/24 Rx [Mycostatin Oral Susp] guaiFENesin-DM 100-10MG/5ML 10 ml PO Q6HR ml 09/23/24 09/27/24 Rx [Robitussin DM] methocarbamoL [Robaxin] 500 mg PO BID PRN tab 09/23/24 09/27/24 Rx traZODone HCL [Desyrel] 50 mg PO HS tab 09/23/24 09/27/24 Rx Acetaminophen [Tylenol 8 Hour] 650 mg PO Q4H PRN 09/27/24 09/27/24 History Insulin Glargine (Lantus) [Lantus 10 unit SQ HS 09/27/24 09/27/24 History Vial] Insulin Lispro [Admelog Solostar] See Protocol SQ AC-TID@08,11,18 09/27/24 09/27/24 History predniSONE See Taper PO DIRECTED 09/27/24 09/27/24 History Allergies Allergy/AdvReac Type Severity Reaction Status Date / Time divalproex sodium AdvReac Confusion Verified 09/27/24 18:15 [From Depakote] phenytoin [From Dilantin] AdvReac Confusion Verified 09/27/24 18:15 Physical Exam Vitals: Vital Signs Temp Pulse Pulse Resp BP BP BP 09/28/24 08:34 98.2 F 107 H 18 118/76 09/28/24 04:20 100 16 127/71 09/27/24 23:22 104 H 16 128/65 09/27/24 20:26 106 H 16 117/73 09/27/24 20:00 105 H 18 112/70 09/27/24 18:00 106 H 18 136/80 09/27/24 16:41 98 18 113/76 09/27/24 15:14 98.4 F 115 H 18 102/66 Pulse Ox 09/28/24 08:34 98 09/28/24 04:20 09/27/24 23:22 94 L 09/27/24 20:26 97 09/27/24 20:00 97 09/27/24 18:00 97 09/27/24 16:41 09/27/24 15:14 99 Intake and Output 09/27/24 09/28/24 09/28/24 22:59 06:59 14:59 Intake Total 222 Balance 222 Intake: Oral 222 Other: Voiding Method Incontinent # Voids 2 Weight 85.275 kg - Constitutional General appearance: no acute distress, obese - EENT Eyes: anicteric sclerae, EOMI ENT: hearing grossly normal - Respiratory breathing is even and unlabored - Cardiovascular well perfused - Gastrointestinal General gastrointestinal: soft, no tenderness - Integumentary Integumentary: no cyanotic - Psychiatric Psychiatric: A&O x's 3 Results CBC & Chem 7: 09/28/24 04:04 09/28/24 04:04 Labs: Abnormal Lab Results - Last 24 Hours (Table) 09/27/24 09/27/24 09/28/24 Range/Units 16:37 16:37 04:04 WBC 11.6 H 13.5 H (3.8-10.6) k/uL RBC 2.48 L 2.10 L (3.80-5.40) m/uL Hgb 7.7 L 6.6 L* (11.4-16.0) gm/dL Hct 25.5 L 21.8 L (34.0-46.0) % MCV 103.0 H 104.1 H (80.0-100.0) fL MCHC 30.2 L 30.3 L (31.0-37.0) g/dL RDW 23.3 H 23.7 H (11.5-15.5) % Plt Count 25 L 17 L* (150-450) k/uL Blast Cells % 2 H* % Monocytes # (Manual) 2.90 H 1.76 H (0-1.0) k/uL Metamyelocytes # (Man) 0.58 H (0) k/uL Myelocytes # (Manual) 0.23 H (0) k/uL Blast Cells # (Man) 0.23 H (0) k/uL Nucleated RBCs 141 H 91 H (0-0) /100 WBC Macrocytosis Marked A Marked A Glucose 167 H (74-99) mg/dL AST 94 H (14-36) U/L ALT 38 H (4-34) U/L Total Protein 6.0 L (6.3-8.2) g/dL Crossmatch 09/28/24 09/28/24 Range/Units 04:04 08:36 WBC (3.8-10.6) k/uL RBC (3.80-5.40) m/uL Hgb (11.4-16.0) gm/dL Hct (34.0-46.0) % MCV (80.0-100.0) fL MCHC (31.0-37.0) g/dL RDW (11.5-15.5) % Plt Count (150-450) k/uL Blast Cells % % Monocytes # (Manual) (0-1.0) k/uL Metamyelocytes # (Man) (0) k/uL Myelocytes # (Manual) (0) k/uL Blast Cells # (Man) (0) k/uL Nucleated RBCs (0-0) /100 WBC Macrocytosis Glucose 129 H (74-99) mg/dL AST (14-36) U/L ALT (4-34) U/L Total Protein (6.3-8.2) g/dL Crossmatch See Detail Assessment and Plan (1) Vomiting Current Visit: Yes Status: Acute Code(s): R11.10 - VOMITING, UNSPECIFIED SNOMED Code(s): 563767655 (2) AML (acute myeloid leukemia) Current Visit: No Status: Acute Priority: Medium Code(s): C92.00 - ACUTE MYELOBLASTIC LEUKEMIA, NOT HAVING ACHIEVED REMISSION SNOMED Code(s): 44285954 Plan: -AML -Diagnosis and treatment as documented in Consult -FLT3 mutation positive -Gilteritnib held -Upon admit WBC 11.6, hemoglobin 7.7, platelets 25,000 with 2% blasts noted. WBC 13.5, hemoglobin 6.6, platelets 17,000. 1 unit PRBCs have been ordered. -Flow cytometry, FISH, cytogenetics from peripheral blood draw was ordered at her visit. Pending results may need bone to consider marrow biopsy for additional evaluation -Clinic f/u upon discharge N/V, abd pain: -CT scan during last admit showed no acute processes -It appears her morphine was stopped while at SNF. Symptoms could be r/t opiate withdrawal. Pt did receive morphine when admitted and has been on norco PRN, with improvement in symptoms -Will restart morphine ER -Continue to monitor symptoms Dr attests: I have seen and examined pt, performed H&P, developed impression and plan of care. Discussed with dictator. Agree with documentation, dictated as a scribe.
--- NOTE | 2024-09-28 19:52 | XR ---
EXAMINATION TYPE: XR abdomen 2V DATE OF EXAM: 09/28/2024 CLINICAL HISTORY: Abdominal pain with nausea and vomiting TECHNIQUE: Supine and upright views of the abdomen are obtained. COMPARISON: CT abdomen and pelvis 10 days earlier. FINDINGS: Scattered gas is seen in non-distended small bowel loops. Gas and fecal material is seen in non-distended colon and rectum. An IVC filter at right L1-L2 level is redemonstrated. Surgical cli ps and sutures right upper quadrant are redemonstrated. Osseous structures are intact. No free air. IMPRESSION: Overall nonobstructive bowel gas pattern remains present. [facility], , 09/28/2024 7:50 PM
[2024-09-28] MEDS: CLOPIDOGREL 75 MG TAB PO SCH (20:32)
[2024-09-28] MEDS: MONTELUKAST 10 MG TAB PO SCH (20:32)
[2024-09-28] MEDS: traZODone HCL 50 MG TAB PO SCH (20:32)
[2024-09-29] MEDS: ACETAMINOPHEN TAB 325 MG TAB PO PRN (04:53)
[2024-09-29 07:34] LABS: African American GFR (CKD) >90 (>60 ml/min/1.73 sqM); Anion Gap 4 mmol/L; Blood Urea Nitrogen 11 mg/dL (7-17); Calcium 7.7 mg/dL (8.4-10.2); Carbon Dioxide 25 mmol/L (22-30); Chloride 107 mmol/L (98-107); Glucose 132 mg/dL (74-99); Non-African American GFR(CKD) >90 (>60 ml/min/1.73 sqM); Potassium 4.3 mmol/L (3.5-5.1); Sodium 136 mmol/L (137-145)
[2024-09-29 07:45] LABS: Anisocytosis Marked; HCT 26.3 % (34.0-46.0); Hypochromasia Moderate; MCHC 31.5 g/dL (31.0-37.0); MCV 98.4 fL (80.0-100.0); Macrocytosis Moderate; Mean Platelet Volume 12.7; Poikilocytosis Marked; RBC 2.67 m/uL (3.80-5.40); RDW 24.3 % (11.5-15.5)
[2024-09-29 07:46] LABS: Platelet Count 23 k/uL (150-450)
[2024-09-29 07:54] LABS: HGB 8.3 gm/dL (11.4-16.0)
[2024-09-29 08:57] LABS: Band Neutrophils % 1 %; Neutrophils % (M) 64 %; Nucleated Red Blood Cells 5 /100 WBC (0-0); Total Cells Counted 200
[2024-09-29 08:58] LABS: Lymphocytes # (M) 6.15 k/uL (1.0-4.8); Monocytes # (M) 2.71 k/uL (0-1.0); WBC 24.6 k/uL (3.8-10.6)
--- NOTE | 2024-09-29 15:38 | P.DS ---
Providers Date of admission: 09/27/24 17:50 Expected date of discharge: 09/29/24 Attending physician: Laci Thomas MD Consults: 09/27/24 17:50 Consult Physician Routine Consulting Provider: Susie Balderrama Consult Reason/Comments: oncological care Do you want consulting provider notified?: Yes Primary care physician: Jessica Stephens, DO Hospital Course: Patient is a 58-year-old female with past medical history of significant for CAD status post 5 vessel CABG, ischemic cardiomyopathy, hypertension, hyperlipidemia, and AML with last treatment 1 week ago who presented to the ER with chief complaint of intractable vomiting. Patient was admitted to [facility] in mid September 2024 with metabolic encephalopahty, nausea, vomiting where gilteritnib was stopped and subsequently restarted on discharge on 09/23/2024. Since discharge, she's had persistent nausea and bilious vomiting. She was advised to to go to the ED for admission for further management and workup of nausea and vomiting along with infectious workup. Patient also states rehab they stopped giving her morphine due to concern for confusion. She denies any fever, chills, or diarrhea. Discharge diagnoses; Intractable vomiting and abdominal pain Possible opiate withdrawal symptoms History of AML last treatment 1 week ago Anemia, thrombocytopenia GERD Hyperlipidemia 09/29/2024 Patient seen and examined at bedside today. Labs today show WBCs 24.6, hemoglobin 8.3, platelets 23. Sodium 136, potassium 4.3, chloride 107, bicarb 25, BUN 11, creatinine 0.69, glucose 132. Patient is resting comfortably in bed. She denies any further episodes of vomiting. She is looking forward to being discharged today. Patient will be discharged home today. Patient is advised to be compliant with medications. Patient is advised to follow-up with PCP in 1 to 2 days. Patient is to follow-up with oncology on an outpatient basis for for bone marrow biopsy. Physical Exam: General: non toxic, no distress, appears at stated age, normal weight Derm: no unusual rashes/lesions, warm Head: atraumatic, normocephalic, symmetric Eyes: EOMI, anicteric sclera, pupils equal round reactive to light ENT: Nose and ears atraumatic Neck: No cervical lymphadenopathy, trachea midline, supple Mouth: no lip lesion, mucus membranes moist Cardiovascular: S1S2 reg, no murmur, positive dorsalis pedis pulse bilateral, no edema Lungs: Equal air entry bilaterally, no rhonchi, no rales, no accessory muscle use Abdominal: Soft, nontender, non-distended Extremities: No swelling or clubbing, no edema Neuro: CN II-XI grossly intact, no gross focal neuro deficits Psych: Alert, oriented, appropriate affect Dictation was produced using [employer] [place] dictation software. please excuse any grammatical, word or spelling errors. A total of minutes of time were spent preparing this complex discharge summary. Patient was discharged on 09/29/2024 at 1538. Patient Condition at Discharge: Good Plan - Discharge Summary Discharge Rx Participant: No New Discharge Prescriptions: New Morphine Sulfate ER [Ms Contin] 15 mg PO Q12HR 3 Days #6 tab Continue Insulin Lispro [Admelog Solostar] See Protocol SQ AC-TID@,, Insulin Glargine (Lantus) [Lantus Vial] 10 unit SQ HS Discontinued Nitroglycerin Sl Tabs [Nitrostat] 0.4 mg SL Q5M PRN PRN Reason: Chest Pain Naloxone HCl 0.4 mg IM ONCE PRN PRN Reason: suspected opiod overdose Naloxone HCl 4 mg NS ONCE PRN PRN Reason: suspected opiod overdose predniSONE See Taper PO DIRECTED Acetaminophen [Tylenol 8 Hour] 650 mg PO Q4H PRN PRN Reason: Pain Or Fever > 100.5 No Action FLUoxetine HCL [PROzac] 40 mg PO BID Furosemide [Lasix] 20 mg PO DAILY Docusate [Colace] 100 mg PO BID@0700,1600 Montelukast [Singulair] 10 mg PO HS Icy Hot Advanced Relief Patch 7.5% 1 patch TRANSDERM DAILY@0700 Loperamide [Imodium] 2 mg PO QID PRN cap PRN Reason: Diarrhea methocarbamoL [Robaxin] 500 mg PO BID PRN tab PRN Reason: Muscle Spasm HYDROcodone/APAP 7.5-325MG [[place] 7.5-325] 1 tab PO Q8H PRN #4 tab PRN Reason: Pain ALPRAZolam [Xanax] 0.5 mg PO BID #2 tab Potassium Chloride [Klor-Con M20] 20 meq PO DAILY Ranolazine [Ranexa] 1,000 mg PO Q12HR Atorvastatin [Lipitor] 80 mg PO DAILY Acyclovir [Zovirax] 400 mg PO BID Omeprazole [PriLOSEC] 20 mg PO BID Fluticasone Propion/Salmeterol [Advair 100-50 Diskus] 1 puff INHALATION RT- BID@0700,1900 Dulaglutide [Trulicity] 1.5 mg SQ MO@0700 Isosorbide Mononitrate ER [Imdur] 15 mg PO DAILY Clopidogrel [Plavix] 75 mg PO HS Cholecalciferol [Vitamin D3 (25 Mcg = 1000 Iu)] 25 mcg PO DAILY Calcium Carbonate [Tums] 1,000 mg PO QID PRN PRN Reason: indigestion/Nausea Ondansetron [Zofran] 4 mg PO Q6H PRN PRN Reason: Nausea traZODone HCL [Desyrel] 50 mg PO HS tab Ipratropium-Albuterol Nebulize [Duoneb 0.5 mg-3 mg/3 ml Soln] 3 ml INHALATION RT-Q2H PRN each PRN Reason: Shortness Of Breath Or Wheezing Nystatin 100,000 Unit/ml Susp [Mycostatin Oral Susp] 500,000 unit PO QID ml guaiFENesin-DM 100-10MG/5ML [Robitussin DM] 10 ml PO Q6HR ml Discharge Medication List FLUoxetine HCL [PROzac] 40 mg PO BID 10/27/23 [History] Potassium Chloride [Klor-Con M20] 20 meq PO DAILY 10/27/23 [History] Ranolazine [Ranexa] 1,000 mg PO Q12HR 01/17/24 [History] Acyclovir [Zovirax] 400 mg PO BID 04/14/24 [History] Atorvastatin [Lipitor] 80 mg PO DAILY 04/14/24 [History] Furosemide [Lasix] 20 mg PO DAILY 04/14/24 [History] Calcium Carbonate [Tums] 1,000 mg PO QID PRN 09/17/24 [History] Cholecalciferol [Vitamin D3 (25 Mcg = 1000 Iu)] 25 mcg PO DAILY 09/17/24 [History] Clopidogrel [Plavix] 75 mg PO HS 09/17/24 [History] Docusate [Colace] 100 mg PO BID@0700,1600 09/17/24 [History] Dulaglutide [Trulicity] 1.5 mg SQ MO@0700 09/17/24 [History] Fluticasone Propion/Salmeterol [Advair 100-50 Diskus] 1 puff INHALATION RT- BID@0700,1900 09/17/24 [History] Icy Hot Advanced Relief Patch 7.5% 1 patch TRANSDERM DAILY@0700 09/17/24 [History] Isosorbide Mononitrate ER [Imdur] 15 mg PO DAILY 09/17/24 [History] Montelukast [Singulair] 10 mg PO HS 09/17/24 [History] Omeprazole [PriLOSEC] 20 mg PO BID 09/17/24 [History] Ondansetron [Zofran] 4 mg PO Q6H PRN 09/17/24 [History] ALPRAZolam [Xanax] 0.5 mg PO BID #2 tab 09/23/24 [Rx] HYDROcodone/APAP 7.5-325MG [[place] 7.5-325] 1 tab PO Q8H PRN #4 tab 09/23/24 [Rx] Ipratropium-Albuterol Nebulize [Duoneb 0.5 mg-3 mg/3 ml Soln] 3 ml INHALATION RT-Q2H PRN each 09/23/24 [Rx] Loperamide [Imodium] 2 mg PO QID PRN cap 09/23/24 [Rx] Nystatin 100,000 Unit/ml Susp [Mycostatin Oral Susp] 500,000 unit PO QID ml 09/23/24 [Rx] guaiFENesin-DM 100-10MG/5ML [Robitussin DM] 10 ml PO Q6HR ml 09/23/24 [Rx] methocarbamoL [Robaxin] 500 mg PO BID PRN tab 09/23/24 [Rx] traZODone HCL [Desyrel] 50 mg PO HS tab 09/23/24 [Rx] Insulin Glargine (Lantus) [Lantus Vial] 10 unit SQ HS 09/27/24 [History] Insulin Lispro [Admelog Solostar] See Protocol SQ AC-TID@08,11,18 09/27/24 [History] Morphine Sulfate ER [Ms Contin] 15 mg PO Q12HR 3 Days #6 tab 09/29/24 [Rx] Follow up Appointment(s)/Referral(s): Jessica Stephens DO [Primary Care Provider] - 1-2 days Susie Balderrama MD [STAFF PHYSICIAN] - 10/13/24 2:45 pm (Bone marrow biopsy to be scheduled as outpatient. ) Patient Instructions/Handouts: Abdominal Pain (GEN) Activity/Diet/Wound Care/Special Instructions: Draw CBC once weekly while in rehab
--- NOTE | 2024-09-29 15:47 | P.PN ---
Subjective Progress Note Date: 09/29/24 No acute events overnight. Pt denies abd pain and n/v/d. Plan for d/c today back to rehab Objective - Vital Signs Vital signs: Vital Signs Temp 98.7 F 09/29/24 07:38 Pulse 104 H 09/29/24 07:38 Resp 18 09/29/24 07:38 BP 133/81 09/29/24 07:38 Pulse Ox 96 09/29/24 07:38 FiO2 Intake & Output 09/28/24 09/29/24 09/29/24 18:59 06:59 18:59 Intake Total 1737 Balance 1737 Weight 86.5 kg Intake: IV 310 PRBC 310 Intake, IV Titration 895 Amount Sodium Chloride 0.9% 1, 895 000 ml @ 75 mls/hr IV . [id number] [facility] Rx#:[id number] Oral 222 Blood Product 310 Rc Irr As1 Unit 310 [id number] Other: Voiding Method Incontinent Diaper Diaper Incontinent Incontinent # Voids 1 2 - Constitutional General appearance: Present: no acute distress - EENT Eyes: Present: anicteric sclerae, EOMI ENT: Present: hearing grossly normal - Respiratory Details: breathing is even and unlabored - Cardiovascular Details: skin warm and dry - Gastrointestinal General gastrointestinal: Present: soft. Absent: tenderness - Integumentary Integumentary: Absent: cyanotic, jaundiced - Musculoskeletal Musculoskeletal: Present: generalized weakness - Psychiatric Psychiatric: Present: A&O x's 3 - Labs CBC & Chem 7: 09/29/24 06:51 09/29/24 06:51 Labs: Abnormal Lab Results - Last 24 Hours (Table) 09/28/24 09/29/24 09/29/24 Range/Units 08:36 06:51 06:51 WBC 24.6 H (3.8-10.6) k/uL RBC 2.67 L (3.80-5.40) m/uL Hgb 8.3 L D (11.4-16.0) gm/dL Hct 26.3 L (34.0-46.0) % RDW 24.3 H (11.5-15.5) % Plt Count 23 L (150-450) k/uL Neutrophils # (Manual) 15.90 H (1.3-7.7) k/uL Lymphocytes # (Manual) 6.15 H (1.0-4.8) k/uL Monocytes # (Manual) 2.71 H (0-1.0) k/uL Nucleated RBCs 5 H (0-0) /100 WBC Sodium 136 L (137-145) mmol/L Glucose 132 H (74-99) mg/dL Calcium 7.7 L (8.4-10.2) mg/dL Crossmatch See Detail Assessment and Plan (1) Vomiting Current Visit: Yes Status: Acute Code(s): R11.10 - VOMITING, UNSPECIFIED SNOMED Code(s): 462855808 (2) AML (acute myeloid leukemia) Current Visit: No Status: Acute Priority: Medium Code(s): C92.00 - ACUTE MYELOBLASTIC LEUKEMIA, NOT HAVING ACHIEVED REMISSION SNOMED Code(s): 37939623 Plan: -AML -Diagnosis and treatment as documented in Consult -FLT3 mutation positive -Gilteritnib held during admit. Pt can restart med upon discharge -Upon admit WBC 11.6, hemoglobin 7.7, platelets 25,000 with 2% blasts noted. S/p 1 unit PRBCs. CBC today, WBC 25.8, hgb 8.3, plt 23 -Flow cytometry, FISH, cytogenetics from peripheral blood draw was ordered in clinic. Pending results may need bone to consider marrow biopsy for additional evaluation, plan to continue Xospata for now -Clinic f/u upon discharge N/V, abd pain: -CT scan during last admit showed no acute processes -It appears her morphine was stopped while at SNF. Symptoms could be r/t opiate withdrawal. Pt did receive morphine when admitted and has been on norco PRN, with improvement in symptoms -Will restart morphine ER -Pt denying abd pain, n/v/d, feeling much improved Discussed case with admitting team today. Pt is cleared for discharge form hem/onc standpoint
[2024-09-30 08:04] VITALS: BP 123/76; PULSE 101; RESP 20; TEMP 98.7
[2024-10-03] MEDS ORDERED: NON FORMULARY DRUG (Dulaglutide [Trulicity] 1.5 MG/0.5 ML Each) SQ SCH (07:00)
== END 2024-09-30 10:34 ==
LOC: EC 14:43 → 5NMEDONC 17:50
PROVIDERS: ADMIT Internal Medicine; ATTEND Internal Medicine
DX: R11.2 Nausea with vomiting, unspecified (principal); R10.9 Unspecified abdominal pain; C92.00 Acute myeloblastic leukemia, not having achieved remission; D69.6 Thrombocytopenia, unspecified; K21.9 Gastro-esophageal reflux disease without esophagitis; I25.10 Atherosclerotic heart disease of native coronary artery without angina pectoris; I11.0 Hypertensive heart disease with heart failure; I50.9 Heart failure, unspecified; J44.9 Chronic obstructive pulmonary disease, unspecified; E11.9 Type 2 diabetes mellitus without complications; E78.5 Hyperlipidemia, unspecified; I25.5 Ischemic cardiomyopathy; I25.2 Old myocardial infarction; Z85.028 Personal history of other malignant neoplasm of stomach; Z86.718 Personal history of other venous thrombosis and embolism; Z95.1 Presence of aortocoronary bypass graft; Z79.02 Long term (current) use of antithrombotics/antiplatelets; Z79.4 Long term (current) use of insulin; Z79.51 Long term (current) use of inhaled steroids; Z79.85 Long-term (current) use of injectable non-insulin antidiabetic drugs; Z79.899 Other long term (current) drug therapy
CPT/HCPCS: 96376 ×4; 96375 ×2; 96374; 99284; 36415; 94640 ×3; 86900; 86901; 80053; 80048 ×2; 82150; 83690; 85025 ×3; 86850; 86920; 74019; G0378 ×4; P9016; J2270 ×2; J0780 ×2; J2405 ×2; J3490; J2470 ×2